=== PATIENT | female | born 1985 | race Caucasian/White ===

== ENCOUNTER 2021-09-23 19:29 | Inpatient (IN) | payer MEDICARE, MEDICAID, SELFPAY ==
--- NOTE | 2021-09-23 19:45 | ED.PSYCH ---
HPI - Psych General Chief Complaint: Psychiatric Symptoms Stated Complaint: Psych eval Time Seen by Provider: 09/23/21 19:42 Source: patient and family Mode of arrival: ambulatory Limitations: no limitations History of Present Illness HPI Narrative: S12 inpatient bed search from community MD complaint: other (not taking her medications, auditory hallucinations, refusing care) Onset (ago): unknown Duration: constant History of same: Yes Relieving factors: none Exacerbating factors: other (she is not taking her medications per mom) Context: not taking psychiatric medications Associated psychiatric symptoms: auditory hallucinations Associated symptoms: denies other symptoms Treatments prior to arrival: placed on mental health hold Related Data Allergies Allergy/AdvReac Type Severity Reaction Status Date / Time bupropion [From WELLBUTRIN] Allergy Unknown HIVES Unverified 03/25/20 18:59 Review of Systems Review of Systems: Constitutional : No Fever, No Chills ENT/Mouth : No Ear Pain, No Nasal Congestion, No sore throat Eyes: No Eye Pain, No Swelling, No Redness Cardiovascular : No Chest Pain, No SOB Respiratory : No Cough, No Sputum, No Dyspnea Gastrointestinal : No Nausea, No Vomiting, No Diarrhea, No Hematochezia, No Melena Genitourinary : No Dysuria, No Urinary Frequency, No Hematuria Musculoskeletal : No Myalgias Skin : No Skin Lesions, No rash Neuro : No Weakness, No Numbness, No Paresthesias, No Dizziness, No Headache Psych : positive Anxiety, no Depression, no SI/HI Heme/Lymph: No Lymphadenopathy Endocrine : No Polyuria, No Polydipsia All other systems reviewed and are negative [facility] Past Medical History Source: old records reviewed Medical History Borderline personality disorder Depression Thyroid disease Social History Social History (Updated 09/23/21 @ 20:22 by Teodora Merritt DO) Patient Tobacco Use Status: Never used Tobacco Substance Use Type: Marijuana Advance Directives: No Physical Exam Vital Signs: Vital Signs: Last Vital Signs Temp 98.3 F 09/23/21 19:55 Pulse 66 09/23/21 19:55 Resp 16 09/23/21 19:55 BP 132/76 09/23/21 19:55 Pulse Ox 99 09/23/21 19:55 BMI result Body Mass Index 34.7 Appearance: Alert. Oriented X3. No acute distress. Flat affect, withdrawn Eyes: Pupils equal, round and reactive to light. ENT: Pharynx normal. Neck: Normal inspection. Neck supple. CVS: Normal heart rate and rhythm. Pulses normal. Respiratory: No respiratory distress. Breath sounds normal. Abdomen: Soft and non-tender. Skin: Skin warm and dry. Normal skin color. Normal skin turgor. Extremities: No lower extremity edema. Neuro: Oriented X 3. No motor deficit. No sensory deficit. CN2-12 intact Course Course Course Narrative: Physician observation started at 836pm. Patient placed in physician observation because the patient needed more time for placement given inpatient bed search and section 12. At the time observation was started the patient's vitals were stable, patient is alert and oriented, Neuro: nonfocal, CV RRR, Lungs clear MDM - Psych MDM Narrative Medical decision making narrative: 36 yo female with a lot of the history from section 12 here as inpatient bed search - at this time will need labs, UA, drug screen, and full medical clearance Discharge Plan Discharge Clinical Impression: Depression Qualifiers: Depression Type: unspecified Qualified Code(s): F32.A - Depression, unspecified Patient Disposition: Still a Patient
[2021-09-23 19:55] VITALS: BP 132/76; PULSE 66; RESP 16; TEMP 36.8; O2SAT 99; BMI 34.7
[2021-09-23 20:45] LABS: MANUAL DIFF FLAG NO
[2021-09-23 20:47] LABS: Basophils Percent Auto 0.5 % (0-2); Eosinophils Percent Auto 0.1 % (0-4); Imm Gran Abs Auto 0.02 X10*3/uL (0.00-0.03); Imm Gran Pct Auto 0.3 % (0.0-0.4); Lymphocytes Absolute Auto 1.3 X10*3/uL (1.2-4.9); Lymphocytes Percent Auto 16.2 % (20-40); Mean Corpuscular HGB Conc 33.3 g/dl (31.0-35.0); Mean Corpuscular Hemoglobin 30.3 pg (27.0-33.0); Mean Corpuscular Volume 90.9 fL (80.0-98.0); Mean Platelet Volume 12.7 fL (9.4-12.3); Monocytes Absolute Auto 0.5 X10*3/uL (0.1-1.2); Monocytes Percent Auto 6.8 % (2-11); Neutrophils Percent Auto 76.1 % (45-73); Platelet Count 156 X10*3/uL (160-400); Red Blood Count 4.29 X10*6/uL (4.20-5.50); Red Cell Distribution Width 13.1 % (11.0-16.0); White Blood Count 7.9 X10*3/uL (4.8-10.8)
[2021-09-23 21:02] LABS: Alanine Aminotransferase 16 U/L (0-31); Albumin Level 4.2 g/dL (3.5-5.0); Alkaline Phosphatase 59 U/L (39-117); Anion Gap 13 (12-20); Aspartate Amino Transferase 11 U/L (5-31); Bilirubin Direct 0.3 mg/dL (0.0-0.5); Bilirubin Total 0.7 mg/dL (0.0-1.0); Blood Urea Nitrogen 7 mg/dL (9-16); COVID-19 Test Negative (Negative); Calcium 9.3 mg/dL (8.4-10.2); Carbon Dioxide 19 mmol/L (22-29); Chloride 110 mmol/L (96-108); Creatinine Clr Calc Pharmacy 119.2; Estimated Glomerular Filt Rate > 60; Glucose Random 119 mg/dL (60-115); Potassium 3.5 mmol/L (3.3-5.1); Sodium 138 mmol/L (135-145); Total Protein 6.5 g/dL (6.5-8.0)
[2021-09-23 21:08] LABS: UPreg QC Valid YES; Urine Pregnancy NEGATIVE (NEGATIVE)
[2021-09-23 21:20] LABS: Amphetamine Screen Urine Not Detected (Not Detect); Barbiturates, Urine Not Detected (Not Detect); Benzodiazepines Screen Urine Not Detected (Not Detect); Cannabinoid Screen Urine POSITIVE (Not Detect); Cocaine Screen Urine Not Detected (Not Detect); Fentanyl, urine Not Detected (Not Detect); Opiate Screen Urine Not Detected (Not Detect); Phencyclidine Screen Urine Not Detected (Not Detect)
[2021-09-23 21:22] LABS: Thyroid Stimulating Hormone 0.78 uIU/mL (0.32-4.0)
--- NOTE | 2021-09-24 05:38 | PC.NURSE ---
I assumed nursing care of Florencia upon her arrival to ED via EMS for evaluation of crisis. BHN present with pt on arrival and placed a Section 12 on the pt. pt's mother also present with her on arrival. the pt is reluctant to elaborate to me why her mom has sent her to the ED. She makes little eye contact with staff and denies feeling depressed, denies SI, denies HI. She states she takes psychiatric medicines daily and has been compliant with them and taking them according to prescription. She is calm, cooperative. She has been taking PO food and fluids in the ED and remains on constant observation. The pt and mom are aware that a bed search has been initiated for the pt and they verbalize an understanding of this. We will continue to monitor Altagracia.
[2021-09-24 07:43] VITALS: BP 128/60; PULSE 95; RESP 18; O2SAT 100
--- NOTE | 2021-09-24 10:18 | PHA.MEDREC ---
Pharmacy Consult ? Medication Reconciliation Pharmacy has completed the medication reconciliation. Patient reported medication matched claim history excpet for Ativan. Patient has not filled ativan since 2019. Neeta Lewis, DexterD
[2021-09-24 16:00] VITALS: BP 111/54; PULSE 89; RESP 14; TEMP 36.7; O2SAT 97
--- NOTE | 2021-09-24 18:34 | PC.NURSE ---
Attempted EKG, pt refused 183
--- NOTE | 2021-09-24 18:54 | PC.NURSE ---
Pt refusing transfer to M3. Charge nurse aware, attempting to contact care team to facilitate transfer.
[2021-09-24 21:38] VITALS: BP 118/71; PULSE 90; RESP 18; TEMP 36.6; O2SAT 99
[2021-09-24 21:39] VITALS: BMI 32.7
--- NOTE | 2021-09-25 06:34 | PC.ADMIT ---
36 year old female admitted from [facility] ED with signed CV, arrived onto the unit via wheelchair at 8:20pm with her mother who stayed for 10 minutes until patient was settled. Diagnosis:MDD, recurrent episode with psychotic features; Borderline Personality Disorder. Medical issues: Hypothyroidoism. Substance use: daily marijauna use. Patient aarived onto the unir calm, quiet, with flat blunted affect and limited ability to participate in Admission Assessment as every question asked patient responded in flat monotonous tone I am alright right now or not right now. Per Flavia Eval; Pat was Pt has been experiencing an increase in depressive symptoms Pt has been staying in a hotel f; per crisis eval pt's mother reports that she canr after discharge.s. At the time of admission assessment pt was. . Pt contracted for unit safety and agreed to seek out staff if needed. Provider notified of admission and orders obtained. Pt placed on 15 minute safety checks. No Outpatient Psychiatric Treatment Providers. Patient signed ROIs
--- NOTE | 2021-09-25 08:00 | PC.ADMIT ---
36 year old female admitted from [facility] ED with signed CV, arrived onto the unit via wheelchair at 8:20pm with her mother who stayed briefly until patient was settled on the unit. Diagnosis:MDD, recurrent episode with psychotic features; Borderline Personality Disorder. Medical issues: Hypothyroidism. Patient endorses daily marijuana use. Per Crisis Eval; Patient was homeless; had been living in a hotel, no longer able to afford and was escorted out of hotel by police earlier in day of [facility] Crisis Eval. Crisis was called by patient's gladys's daughter d/t patient's inability to care for herself,...talking to her voices all day, refusing to see a doctor and refusing evacuate from hotel. Per Crisis Eval family has concern for patient's well being and ability to care for herself. According to report, Patient denies SI/HI; although she has a history of it in the past as well as a history of previous psych admissions. Family reports the patient constantly talking to her voices, reporting she is talking to God, the information God is giving her about the future, and her past life, speaking vividly about being reincarnated. At time of Admission Assessment, patient was calm, withdrawn, with a flat blunted affect; disheveled in hospital attire, hair matted, variable eye contact from avoidant to blank stare at this [employer]. Limited ability to participate in Admission Assessment as patient would give flat monotone repetitive responses of I am alright right now or Not right now. Patient requesting not to have contact with gladys Awan at this time. Patient signed ROIs. No Outpatient Psychiatric Treatment providers. Pt placed on 15 minute safety checks.
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
[2021-09-25] MEDS: Haloperidol Lactate 5 MG/ML VIAL IM (09:07)
[2021-09-25] MEDS: diphenhydrAMINE HCL 50 MG/ML VIAL IM (09:08)
[2021-09-25] MEDS: LORazepam 2 MG/ML VIAL IM (09:08)
[2021-09-25 09:20] VITALS: BP 142/83; PULSE 117; RESP 18; TEMP 36.6; O2SAT 98
[2021-09-25] MEDS: DULoxetine HCl 30 MG CAPSULE.DR 90 MG PO (09:26)
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
[2021-09-25 15:01] LABS: Alanine Aminotransferase 19 U/L (0-31); Albumin Level 4.5 g/dL (3.5-5.0); Alkaline Phosphatase 65 U/L (39-117); Anion Gap 15 (12-20); Aspartate Amino Transferase 16 U/L (5-31); Bilirubin Direct 0.7 mg/dL (0.0-0.5); Bilirubin Total 1.5 mg/dL (0.0-1.0); Blood Urea Nitrogen 9 mg/dL (9-16); Calcium 9.8 mg/dL (8.4-10.2); Carbon Dioxide 18 mmol/L (22-29); Chloride 112 mmol/L (96-108); Cholesterol 142 mg/dL; Creatinine Clr Calc Pharmacy 102.3; Estimated Glomerular Filt Rate > 60; Glucose Fasting 93 mg/dL (60-99); HDL Cholesterol 30 mg/dL; LDL Cholesterol Calculated 97 mg/dl; Potassium 3.5 mmol/L (3.3-5.1); Sodium 141 mmol/L (135-145); Triglycerides 78 mg/dL
[2021-09-25 18:00] VITALS: BP 130/60; PULSE 103; RESP 116; TEMP 36.3; O2SAT 97
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
[2021-09-25] MEDS: Montelukast Sodium 10 MG TABLET PO (18:53)
[2021-09-25] MEDS: Cholecalciferol (Vitamin D3) 25 MCG TABLET 50 MCG PO (18:53)
[2021-09-25] MEDS: Prazosin HCL 1 MG CAPSULE 2 MG PO (20:41)
[2021-09-25] MEDS: Sennosides 8.6 MG TABLET 17.6 MG PO (20:42)
[2021-09-25] MEDS: traZODone HCL 100 MG TABLET PO (20:42)
[2021-09-26 06:00] VITALS: BP 121/56; PULSE 83; RESP 16; TEMP 36.6; O2SAT 98
[2021-09-26] MEDS: DULoxetine HCl 30 MG CAPSULE.DR 90 MG PO (09:49)
[2021-09-26] MEDS: Levothyroxine Sodium 50 MCG TABLET PO (09:50)
--- NOTE | 2021-09-26 13:11 | HO.PSYCHPN ---
Subjective Subjective Date of Service: 09/26/21 Reason For Visit: Psych eval Interim History: pt found resting in bed late morning, amenable to come to interview room. fairly inert. states she is feeling fine. declines to take neuroleptics, citing as the reason, i don't need them. provides some education re psychotic Sx and the use of neuroleptics to treat them, but pt is not interested. she is fine to continue on the other medications in her regimen. per staff, pt arived sunday. MDD with psychotic Fx Dx, as well as BPD. has recently completed a medication wash-out with her prescriber and has started to become psychotic again. pt had an episode of severe agitation sunday morning where she was punching the wall and glass surfaces. she was briefly restrained and medicated and has been in behavioral control since. +AH, talking to god, focused on reincarnation. slept after 11 pm, med-compliant. Mental Status Exam Mental Status Exam Narrative: calm, cooperative. disheveled, with matted hair. PMR. poor eye contact. speech non-spontaneous. terse, flat, normal loudness. thoughts linear, concrete, sparse. affect blunted. mood euthymic, not consistent with context. no SI/HI/AVH expressed. Diagnostics Vital Signs (24Hr): Vital Signs - 24 hr 09/25/21 18:00 09/26/21 06:00 Temperature 97.4 F 97.8 F Pulse Rate 103 H 83 Respiratory Rate 116 H 16 Blood Pressure 130/60 121/56 L Pulse Oximetry 97 98 BMI result Body Mass Index 32.7 Labs Results: 09/23/21 20:41 09/25/21 14:34 Labs: Laboratory Results - last 48 hr 09/25/21 14:34 Sodium 141 Potassium 3.5 Chloride 112 H Carbon Dioxide 18 L Anion Gap 15 BUN 9 Creatinine 0.95 Estim Creat Clear Calc 102.3 Estimated GFR > 60 Fasting Glucose 93 Calcium 9.8 Total Bilirubin 1.5 H Direct Bilirubin 0.7 H AST 16 D ALT 19 Alkaline Phosphatase 65 Total Protein 7.0 Albumin 4.5 Triglycerides 78 Cholesterol 142 LDL Cholesterol, Calc 97 HDL Cholesterol 30 Medications Medications Current Medications Acetaminophen (Acetaminophen 325 Mg Tablet) 650 mg PO Q6H PRN PRN Reason: Headache/Pain Mild Scale (1-3) Al Hydroxide/Mg Hydroxide (Magnesium Hydrox/Alum Hydrox 30 Ml Oral.Susp) 30 ml PO Q6H PRN PRN Reason: Heartburn/Nausea Duloxetine HCl (Duloxetine Hcl 30 Mg Capsule.Dr) 90 mg PO DAILY [facility] Last Admin: 09/26/21 09:49 Dose: 90 mg Documented by: Hydroxyzine HCl (Hydroxyzine Hcl 25 Mg Tablet) 25 mg PO BEDTIME PRN PRN Reason: Anxiety Levothyroxine Sodium (Levothyroxine Sodium 50 Mcg Tablet) 50 mcg PO DAILY@0600 [facility] Last Admin: 09/26/21 09:50 Dose: 50 mcg Documented by: Magnesium Hydroxide (Milk Of Magnesia 30 Ml Oral.Susp) 30 ml PO DAILY PRN PRN Reason: Constipation Montelukast Sodium (Montelukast Sodium 10 Mg Tablet) 10 mg PO DAILY@1800 [facility] Last Admin: 09/25/21 18:53 Dose: 10 mg Documented by: Pharmacy Consult (Consult Rx Perform Med Rec) 1 each MISCELLANE ONCE PRN PRN Reason: Consult order Prazosin HCl (Prazosin Hcl 1 Mg Capsule) 2 mg PO BEDTIME [facility]; Protocol Last Admin: 09/25/21 22:05 Dose: Not Given Documented by: Senna (Sennosides 8.6 Mg Tablet) 17.6 mg PO BEDTIME [facility] Last Admin: 09/25/21 22:06 Dose: Not Given Documented by: Trazodone HCl (Trazodone Hcl 100 Mg Tablet) 100 mg PO BEDTIME [facility] Last Admin: 09/25/21 22:06 Dose: Not Given Documented by: Vitamin D (Cholecalciferol (Vitamin D3) 25 Mcg Tablet) 50 mcg PO DAILY@1800 [facility] Last Admin: 09/25/21 18:53 Dose: 50 mcg Documented by: Allergies Allergies Allergy/AdvReac Type Severity Reaction Status Date / Time bupropion [From WELLBUTRIN] Allergy Unknown HIVES Unverified 03/25/20 18:59 Assessment & Plan Assessment & Plan (1) Severe recurrent major depression w/psychotic features, mood-congruent: Status: Acute Code(s): F33.3 - Major depressive disorder, recurrent, severe with psychotic symptoms Plan Altagracia was admitted for inability to take care of herself and issues of safety. Recent medications were reviewed, verified and continued as mentioned in HPI. Admission workup to be done and current labs were reviewed. per apolinar's, pt is prescribed perphenazine 6 mg BID, will order for here. pt currently declining anti-psychotics, however. appears quite depressed/psychomotorically retarded. I spent __25____ minutes with the patient and/or on the patient floor today, greater than?50% of which was spent counseling/coordinating care. Reason for contiued inpatient stay Substantial Risk for: inability to function and rapid decompensation
--- NOTE | 2021-09-26 15:34 | MHC.CLN ---
NUTRITION DIET=REGULAR, GLUTEN-FREE. PATIENT DID NOT OFFER REASON FOR FOLLOWING GLUTEN FREE DIET. NO MEDICAL DX TO SUPPORT DIET. EXPLAINED GLUTEN-FREE OPTIONS OFFERED AT HOSPITAL. PATIENT STATED THAT ABLE TO MAKE OWN GLUTEN-FREE CHOICES.
[2021-09-26 18:00] VITALS: BP 129/60; PULSE 83; RESP 18; TEMP 36.3; O2SAT 97
[2021-09-26] MEDS: Cholecalciferol (Vitamin D3) 25 MCG TABLET 50 MCG PO (18:30)
[2021-09-26] MEDS: Montelukast Sodium 10 MG TABLET PO (18:31)
[2021-09-26] MEDS: Prazosin HCL 1 MG CAPSULE 2 MG PO (20:30)
[2021-09-26] MEDS: Sennosides 8.6 MG TABLET 17.6 MG PO (20:30)
[2021-09-26] MEDS: traZODone HCL 100 MG TABLET PO (20:30)
[2021-09-27] MEDS: Levothyroxine Sodium 50 MCG TABLET PO (08:08)
[2021-09-27] MEDS: DULoxetine HCl 30 MG CAPSULE.DR 90 MG PO (08:08)
[2021-09-27 08:12] VITALS: BP 122/59; PULSE 78; RESP 16; TEMP 36.6; O2SAT 98
--- NOTE | 2021-09-27 17:03 | HO.PSYCHPN ---
Subjective Subjective Date of Service: 09/27/21 Reason For Visit: Psych eval Interim History: states she does not need perphenazine. not sure how we can help her here. suggests if she does not wish to be here she should begin a housing search. she presents as amotivated with paucity of thought. per staff, slept 8 hours. isolative. had a few visitors. attended group. visible, eating, med-compliant aside from perphenazine. Mental Status Exam Mental Status Exam Narrative: calm, cooperative. disheveled, with matted hair. PMR, amotivated, avolitional. poor eye contact. speech non-spontaneous. terse, flat, normal loudness. thoughts linear, concrete, sparse. affect blunted. mood euthymic, not consistent with context. no SI/HI/AVH expressed. Diagnostics Vital Signs (24Hr): Vital Signs - 24 hr 09/26/21 18:00 09/27/21 08:12 Temperature 97.3 F 97.8 F Pulse Rate 83 78 Respiratory Rate 18 16 Blood Pressure 129/60 122/59 L Pulse Oximetry 97 98 BMI result Body Mass Index 32.7 Labs Results: 09/23/21 20:41 09/25/21 14:34 Medications Medications Current Medications Acetaminophen (Acetaminophen 325 Mg Tablet) 650 mg PO Q6H PRN PRN Reason: Headache/Pain Mild Scale (1-3) Al Hydroxide/Mg Hydroxide (Magnesium Hydrox/Alum Hydrox 30 Ml Oral.Susp) 30 ml PO Q6H PRN PRN Reason: Heartburn/Nausea Duloxetine HCl (Duloxetine Hcl 30 Mg Capsule.) 90 mg PO DAILY [facility] Last Admin: 09/27/21 08:08 Dose: 90 mg Documented by: Hydroxyzine HCl (Hydroxyzine Hcl 25 Mg Tablet) 25 mg PO BEDTIME PRN PRN Reason: Anxiety Levothyroxine Sodium (Levothyroxine Sodium 50 Mcg Tablet) 50 mcg PO DAILY@0600 [facility] Last Admin: 09/27/21 08:08 Dose: 50 mcg Documented by: Magnesium Hydroxide (Milk Of Magnesia 30 Ml Oral.Susp) 30 ml PO DAILY PRN PRN Reason: Constipation Montelukast Sodium (Montelukast Sodium 10 Mg Tablet) 10 mg PO DAILY@1800 [facility] Last Admin: 09/26/21 18:31 Dose: 10 mg Documented by: Perphenazine (Perphenazine 2 Mg Tablet) 6 mg PO BID [facility] Last Admin: 09/27/21 08:08 Dose: Not Given Documented by: Pharmacy Consult (Consult Rx Perform Med Rec) 1 each MISCELLANE ONCE PRN PRN Reason: Consult order Prazosin HCl (Prazosin Hcl 1 Mg Capsule) 2 mg PO BEDTIME [facility]; Protocol Last Admin: 09/26/21 20:30 Dose: 2 mg Documented by: Senna (Sennosides 8.6 Mg Tablet) 17.6 mg PO BEDTIME [facility] Last Admin: 09/26/21 20:30 Dose: 17.6 mg Documented by: Trazodone HCl (Trazodone Hcl 100 Mg Tablet) 100 mg PO BEDTIME [facility] Last Admin: 09/26/21 20:30 Dose: 100 mg Documented by: Vitamin D (Cholecalciferol (Vitamin D3) 25 Mcg Tablet) 50 mcg PO DAILY@1800 [facility] Last Admin: 09/26/21 18:30 Dose: 50 mcg Documented by: Allergies Allergies Allergy/AdvReac Type Severity Reaction Status Date / Time bupropion [From WELLBUTRIN] Allergy Unknown HIVES Unverified 03/25/20 18:59 Assessment & Plan Assessment & Plan (1) Severe recurrent major depression w/psychotic features, mood-congruent: Status: Acute Code(s): F33.3 - Major depressive disorder, recurrent, severe with psychotic symptoms Plan Altagracia was admitted for inability to take care of herself and issues of safety. Recent medications were reviewed, verified and continued as mentioned in HPI. Admission workup to be done and current labs were reviewed. per apolinar's, pt is prescribed perphenazine 6 mg BID, will order for here. decrease dose of perphenazine to 2 mg BID as of 09/27 as pt is not inclied to take the 6 mg BID. pt currently declining anti-psychotics, however. appears quite depressed/psychomotorically retarded. I spent ___25___ minutes with the patient and/or on the patient floor today, greater than?50% of which was spent counseling/coordinating care. Reason for contiued inpatient stay Substantial Risk for: harm to self, inability to function and rapid decompensation
[2021-09-27] MEDS: Cholecalciferol (Vitamin D3) 25 MCG TABLET 50 MCG PO (18:09)
[2021-09-27] MEDS: Montelukast Sodium 10 MG TABLET PO (18:09)
[2021-09-27] MEDS: Sennosides 8.6 MG TABLET 17.6 MG PO (21:18)
[2021-09-27] MEDS: traZODone HCL 100 MG TABLET PO (21:18)
[2021-09-27] MEDS: Prazosin HCL 1 MG CAPSULE 2 MG PO (21:18)
[2021-09-27 21:23] VITALS: BP 124/71; PULSE 78; TEMP 37; O2SAT 100
[2021-09-28 06:00] VITALS: BP 117/55; PULSE 80; RESP 16; TEMP 36.6; O2SAT 80
[2021-09-28] MEDS: DULoxetine HCl 30 MG CAPSULE.DR 90 MG PO (08:08)
[2021-09-28] MEDS: Levothyroxine Sodium 50 MCG TABLET PO (08:08)
--- NOTE | 2021-09-28 14:21 | P.PNPSI_ITS ---
Subjective Subjective Date of Service: 09/28/21 Reason For Visit: Psych eval Interim History: pt remains with PMR, decreased eye blink. states she called her fiancee and ike will take her back. informs her he will check in with SW on the plan. no complaints or requests, states her mood is euthymic and denies any SI/AVH. per staff, no dep/anx. slept OK. appetite good. denies SI/HI/AVH. isolative, feeling safe. guarded, paranoid. attend art group, refusing trilafon. per collateral from mother, this is far from her baseline. Mental Status Exam Mental Status Exam Narrative: calm, cooperative. disheveled, with matted hair. PMR, amotivated, avolitional. excessive eye contact, decreased eye blink. speech non-spontaneous. terse, flat, normal loudness. thoughts linear, concrete, sparse. affect blunted. mood euthymic, not consistent with context. no SI/AVH. Diagnostics Vital Signs (24Hr): Vital Signs - 24 hr 09/27/21 21:23 09/28/21 06:00 Temperature 98.6 F 97.9 F Pulse Rate 78 80 Respiratory Rate 16 Blood Pressure 124/71 117/55 L Pulse Oximetry 100 80 L BMI result Body Mass Index 32.7 Labs Results: 09/23/21 20:41 09/25/21 14:34 Medications Medications Current Medications Acetaminophen (Acetaminophen 325 Mg Tablet) 650 mg PO Q6H PRN PRN Reason: Headache/Pain Mild Scale (1-3) Al Hydroxide/Mg Hydroxide (Magnesium Hydrox/Alum Hydrox 30 Ml Oral.Susp) 30 ml PO Q6H PRN PRN Reason: Heartburn/Nausea Duloxetine HCl (Duloxetine Hcl 30 Mg Capsule.Dr) 90 mg PO DAILY [facility] Last Admin: 09/28/21 08:08 Dose: 90 mg Documented by: Hydroxyzine HCl (Hydroxyzine Hcl 25 Mg Tablet) 25 mg PO BEDTIME PRN PRN Reason: Anxiety Levothyroxine Sodium (Levothyroxine Sodium 50 Mcg Tablet) 50 mcg PO DAILY@0600 [facility] Last Admin: 09/28/21 08:08 Dose: 50 mcg Documented by: Magnesium Hydroxide (Milk Of Magnesia 30 Ml Oral.Susp) 30 ml PO DAILY PRN PRN Reason: Constipation Montelukast Sodium (Montelukast Sodium 10 Mg Tablet) 10 mg PO DAILY@1800 [facility] Last Admin: 09/27/21 18:09 Dose: 10 mg Documented by: Perphenazine (Perphenazine 2 Mg Tablet) 6 mg PO BID [facility] Last Admin: 09/28/21 08:10 Dose: Not Given Documented by: Pharmacy Consult (Consult Rx Perform Med Rec) 1 each MISCELLANE ONCE PRN PRN Reason: Consult order Prazosin HCl (Prazosin Hcl 1 Mg Capsule) 2 mg PO BEDTIME [facility]; Protocol Last Admin: 09/27/21 21:18 Dose: 2 mg Documented by: Senna (Sennosides 8.6 Mg Tablet) 17.6 mg PO BEDTIME [facility] Last Admin: 09/27/21 21:18 Dose: 17.6 mg Documented by: Trazodone HCl (Trazodone Hcl 100 Mg Tablet) 100 mg PO BEDTIME [facility] Last Admin: 09/27/21 21:18 Dose: 100 mg Documented by: Vitamin D (Cholecalciferol (Vitamin D3) 25 Mcg Tablet) 50 mcg PO DAILY@1800 [facility] Last Admin: 09/27/21 18:09 Dose: 50 mcg Documented by: Allergies Allergies Allergy/AdvReac Type Severity Reaction Status Date / Time bupropion [From WELLBUTRIN] Allergy Unknown HIVES Unverified 03/25/20 18:59 Assessment & Plan Assessment & Plan (1) Severe recurrent major depression w/psychotic features, mood-congruent: Status: Acute Code(s): F33.3 - Major depressive disorder, recurrent, severe with psychotic symptoms Plan Altagracia was admitted for inability to take care of herself and issues of safety. Recent medications were reviewed, verified and continued as mentioned in HPI. Admission workup to be done and current labs were reviewed. per apolinar's, pt is prescribed perphenazine 6 mg BID, will order for here. decrease dose of perphenazine to 2 mg BID as of 09/27 as pt is not inclied to take the 6 mg BID. pt currently declining anti-psychotics, however. appears quite depressed/psychomotorically retarded. 3-day entered 09/28. I spent ___20___ minutes with the patient and/or on the patient floor today, greater than?50% of which was spent counseling/coordinating care. Reason for contiued inpatient stay Substantial Risk for: inability to function
[2021-09-28] MEDS: Cholecalciferol (Vitamin D3) 25 MCG TABLET 50 MCG PO (18:07)
[2021-09-28] MEDS: Montelukast Sodium 10 MG TABLET PO (18:07)
[2021-09-28 20:25] VITALS: BP 132/65; PULSE 84; TEMP 36.5; O2SAT 99
[2021-09-28] MEDS: Prazosin HCL 1 MG CAPSULE 2 MG PO (20:32)
[2021-09-28] MEDS: traZODone HCL 100 MG TABLET PO (20:32)
[2021-09-28] MEDS: LORazepam 1 MG TABLET PO (21:02)
[2021-09-29] MEDS: LORazepam 1 MG TABLET PO (00:39)
[2021-09-29] MEDS: traZODone HCL 100 MG TABLET PO ×2 (00:39→20:57)
--- NOTE | 2021-09-29 02:32 | PC.NURSE ---
retracted 3 day notice. retraction came after verbalizing wanting to leave the hospital. patient was challenged by this specification writer as to where she would stay and what supports would be in place. pt was stating that no one understood her or what was happening in her life. she was also focused on diet and food identifying herself as someone who had struggles with food and that her needs were not being met, this was the same as earlier in the shift and stating that no one could help her despite telling t/w that she had had a least 2 visitors tearful, tense, wringing of her hands. ''I feel unsafe in this building'' given additional doses of trazodone 100mg and ativan 1mg at 0039 and requested to sleep in a side room.
[2021-09-29 08:00] VITALS: BP 116/60; PULSE 88; RESP 16; TEMP 36.4; O2SAT 97
[2021-09-29] MEDS: Levothyroxine Sodium 50 MCG TABLET PO (08:39)
[2021-09-29] MEDS: DULoxetine HCl 30 MG CAPSULE.DR 90 MG PO (08:39)
--- NOTE | 2021-09-29 13:55 | P.PNPSI_ITS ---
Subjective Subjective Date of Service: 09/29/21 Reason For Visit: Psych eval Interim History: pt calm and cooperative. interested in leaving tomorrow. feeling calm and relaxed. denies SI/HI/AVH. would like to discharge to the care of her fiancee tomorrow, which is apparently something her fiancee is in agreement with. review last evenings events, pt acknowledges she was feeling uncomfortable but states it had to do with her being here. she feels if she is at home with familiar surroundings she will fare better. per staff, pt submitted and then revoked her 3-day notice. she was present for groups but unable to participate appropriately refused trilafon. fady was tense and crying, asking for PRNs. got ativan and trazodone PRNs and slept from 1-6. first child in space, you don't know what happened to me here. Mental Status Exam Mental Status Exam Narrative: calm, cooperative. disheveled, with matted hair. PMR, amotivated, avolitional. nml eye contact, decreased eye blink. speech non-spontaneous. terse, flat, normal loudness. thoughts linear, concrete, sparse. affect blunted. mood calm and relaxed, no SI/HI/AVH. Diagnostics Vital Signs (24Hr): Vital Signs - 24 hr 09/28/21 20:25 09/29/21 08:00 Temperature 97.7 F 97.5 F Pulse Rate 84 88 Respiratory Rate 16 Blood Pressure 132/65 116/60 Pulse Oximetry 99 97 BMI result Body Mass Index 32.7 Labs Results: 09/23/21 20:41 09/25/21 14:34 Medications Medications Current Medications Acetaminophen (Acetaminophen 325 Mg Tablet) 650 mg PO Q6H PRN PRN Reason: Headache/Pain Mild Scale (1-3) Al Hydroxide/Mg Hydroxide (Magnesium Hydrox/Alum Hydrox 30 Ml Oral.Susp) 30 ml PO Q6H PRN PRN Reason: Heartburn/Nausea Duloxetine HCl (Duloxetine Hcl 30 Mg Capsule.) 90 mg PO DAILY [facility] Last Admin: 09/29/21 08:39 Dose: 90 mg Documented by: Hydroxyzine HCl (Hydroxyzine Hcl 25 Mg Tablet) 25 mg PO BEDTIME PRN PRN Reason: Anxiety Levothyroxine Sodium (Levothyroxine Sodium 50 Mcg Tablet) 50 mcg PO DAILY@0600 [facility] Last Admin: 09/29/21 08:39 Dose: 50 mcg Documented by: Magnesium Hydroxide (Milk Of Magnesia 30 Ml Oral.Susp) 30 ml PO DAILY PRN PRN Reason: Constipation Montelukast Sodium (Montelukast Sodium 10 Mg Tablet) 10 mg PO DAILY@1800 [facility] Last Admin: 09/28/21 18:07 Dose: 10 mg Documented by: Perphenazine (Perphenazine 2 Mg Tablet) 6 mg PO BID [facility] Last Admin: 09/29/21 10:08 Dose: Not Given Documented by: Pharmacy Consult (Consult Rx Perform Med Rec) 1 each MISCELLANE ONCE PRN PRN Reason: Consult order Prazosin HCl (Prazosin Hcl 1 Mg Capsule) 2 mg PO BEDTIME [facility]; Protocol Last Admin: 09/28/21 20:32 Dose: 2 mg Documented by: Senna (Sennosides 8.6 Mg Tablet) 17.6 mg PO BEDTIME [facility] Last Admin: 09/28/21 20:33 Dose: Not Given Documented by: Trazodone HCl (Trazodone Hcl 100 Mg Tablet) 100 mg PO BEDTIME [facility] Last Admin: 09/28/21 20:32 Dose: 100 mg Documented by: Vitamin D (Cholecalciferol (Vitamin D3) 25 Mcg Tablet) 50 mcg PO DAILY@1800 [facility] Last Admin: 09/28/21 18:07 Dose: 50 mcg Documented by: Allergies Allergies Allergy/AdvReac Type Severity Reaction Status Date / Time bupropion [From WELLBUTRIN] Allergy Unknown HIVES Unverified 03/25/20 18:59 Assessment & Plan Assessment & Plan (1) Severe recurrent major depression w/psychotic features, mood-congruent: Status: Acute Code(s): F33.3 - Major depressive disorder, recurrent, severe with psychotic symptoms Plan Altagracia was admitted for inability to take care of herself and issues of safety. Recent medications were reviewed, verified and continued as mentioned in HPI. Admission workup to be done and current labs were reviewed. per apolinar's, pt is prescribed perphenazine 6 mg BID, will order for here. decrease dose of perphenazine to 2 mg BID as of 09/27 as pt is not inclied to take the 6 mg BID. pt currently declining anti-psychotics, however. appears quite depressed/psychomotorically retarded. 3-day entered 09/28, rescinded same day. discharge 09/30 to care of ike. I spent ___25___ minutes with the patient and/or on the patient floor today, greater than?50% of which was spent counseling/coordinating care. Reason for contiued inpatient stay Substantial Risk for: inability to function and rapid decompensation
[2021-09-29 18:00] VITALS: BP 143/82; PULSE 98; RESP 16; TEMP 36.7; O2SAT 99
[2021-09-29] MEDS: Montelukast Sodium 10 MG TABLET PO (18:00)
[2021-09-29] MEDS: Cholecalciferol (Vitamin D3) 25 MCG TABLET 50 MCG PO (18:00)
[2021-09-29] MEDS: Sennosides 8.6 MG TABLET 17.6 MG PO (20:56)
[2021-09-29] MEDS: Prazosin HCL 1 MG CAPSULE 2 MG PO (20:56)
[2021-09-30] MEDS: DULoxetine HCl 30 MG CAPSULE.DR 90 MG PO (09:25)
[2021-09-30] MEDS: Levothyroxine Sodium 50 MCG TABLET PO (09:25)
[2021-09-30 09:31] VITALS: BP 120/65; PULSE 102; RESP 18; TEMP 36.3; O2SAT 99
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
--- NOTE | 2021-09-30 13:09 | PC.NURSE ---
Patient is pleasant and cooperative with discharge. Patient was in agreement with discharge and discharge instructions. Patient denied SI/HI/AH/VH. Patient denied anxiety and/or depression. Patient reported feeling safe to go home. Patient denies physical complaints at this time.
== END 2021-09-30 15:25 | disposition home or self-care (01) | DRG 885 ==
LOC: HO.ED 20:26 → HO.PADLT16 09-24 18:16
PROVIDERS: Psychiatry & Neurology Psychiatry; Admitting Provider Psychiatry & Neurology Psychiatry; Emergency Provider Emergency Medicine; PCP Family Medicine; Visit Provider Psychiatry & Neurology Psychiatry
DX: F33.3 Major depressive disorder, recurrent, severe with psychotic symptoms (principal); M79.7 Fibromyalgia; E06.3 Autoimmune thyroiditis; F60.3 Borderline personality disorder; Z20.822 Contact with and (suspected) exposure to COVID-19; Z91.14 Patient's other noncompliance with medication regimen; Z79.1 Long term (current) use of non-steroidal anti-inflammatories (NSAID); Z87.891 Personal history of nicotine dependence; Z79.890 Hormone replacement therapy; Z79.899 Other long term (current) drug therapy
CPT/HCPCS: 36415; 80048; 80053; 80061; 80076; 80307; 81025; 84443; 85025; 87635; 99285; J1200; J2060

== ENCOUNTER 2021-10-06 20:41 | Inpatient (IN) | payer MEDICARE, MEDICAID, SELFPAY ==
[2021-10-06 20:47] VITALS: BP 154/86; PULSE 110; RESP 20; TEMP 36.5; O2SAT 99; BMI 32.3
[2021-10-06 21:23] LABS: COVID-19 Test Negative (Negative)
--- NOTE | 2021-10-06 21:27 | ED_ITS ---
HPI - Psych General Chief Complaint: Psychiatric Symptoms Stated Complaint: SI with psychosis Time Seen by Provider: 10/06/21 21:26 Source: patient Mode of arrival: ambulatory Limitations: no limitations History of Present Illness HPI Narrative: This is a 36-year-old female past medical history significant for severe recurrent major depression with psychotic features presenting to the emergency department by ambulance. Patient tells me ?they had me come here ?. Patient refusing to answer any questions. When I ask her where she is coming from she says a house. And tells me she does not want talk to me. She denies visual, auditory and tactile hallucinations. She denies drugs, alcohol and tobacco. She tells me she is taking her meds appropriately. Denies SI and HI. However, nurse did speak to patient's mother who tells us that patient was recently discharged from here and she has not been taking her medications as prescribed. Mom also tells us that patient made suicidal comments at telling mom that she did want to be alive anymore. was discharged from 3 on Sunday. It appears as though patient lives at home with her mother. She appears to be manic and paranoid. Denies medical complaints at this time MD complaint: other (Acute brie, paranoia.) Onset (ago): day(s) (1) Duration: constant History of same: Yes Relieving factors: none Exacerbating factors: none Associated psychiatric symptoms: none Associated symptoms: denies other symptoms Treatments prior to arrival: none Related Data Home Medications Medication Instructions Recorded Confirmed rddqetxmzt-pwnnvghqyaayr-dziskzsu 1 - 2 tab PO Q6H PRN 09/24/21 10/06/21 50 mg-325 mg-40 mg tablet cholecalciferol (vitamin D3) 50 50 mcg PO DAILY@1800 09/24/21 10/06/21 mcg (2,000 unit) tablet duloxetine 30 mg capsule,delayed 90 mg PO DAILY 09/24/21 10/06/21 release levothyroxine 50 mcg tablet 50 mcg PO DAILY@0600 09/24/21 10/06/21 magnesium oxide 400 mg (241.3 mg 400 mg PO DAILY@1800 09/24/21 10/06/21 magnesium) tablet meloxicam 15 mg tablet 15 mg PO DAILY 09/24/21 10/06/21 montelukast 10 mg tablet 10 mg PO DAILY@1800 09/24/21 10/06/21 prazosin 2 mg capsule 2 mg PO BEDTIME 09/24/21 10/06/21 sennosides 8.6 mg tablet (senna) 17.6 mg PO BEDTIME 09/24/21 10/06/21 topiramate 100 mg tablet 100 mg PO BID 09/24/21 10/06/21 trazodone 100 mg tablet 100 mg PO BEDTIME 09/24/21 10/06/21 Previous Rx's Medication Instructions Recorded perphenazine 2 mg tablet 2 mg PO BID 30 Days #60 tab 09/30/21 Allergies Allergy/AdvReac Type Severity Reaction Status Date / Time bupropion [From WELLBUTRIN] Allergy Unknown HIVES Verified 10/06/21 22:48 pregabalin [From Lyrica] AdvReac Swelling Verified 10/06/21 22:49 Review of Systems Review of Systems: Constitutional : No Fever, No Chills ENT/Mouth : No Ear Pain, No Nasal Congestion, No sore throat Eyes: No Eye Pain, No Swelling, No Redness Cardiovascular : No Chest Pain, No SOB Respiratory : No Cough, No Sputum, No Dyspnea Gastrointestinal : No Nausea, No Vomiting, No Diarrhea, No Hematochezia, No Melena Genitourinary : No Dysuria, No Urinary Frequency, No Hematuria Musculoskeletal : No Myalgias Skin : No Skin Lesions, No rash Neuro : No Weakness, No Numbness, No Paresthesias, No Dizziness, No Headache Psych : positive Anxiety, No Depression, No SI/HI Heme/Lymph: No Lymphadenopathy Endocrine : No Polyuria, No Polydipsia All other systems reviewed and are negative Yes all other systems are reviewed and are negative [facility] Past Medical History Attestation statement: The following information was validated with the patient. Source: old records reviewed and nursing notes reviewed Medical History Borderline personality disorder Depression Thyroid disease Social History Social History (Updated 09/23/21 @ 20:22 by Teodora Merritt DO) Household Members: None Housing: Homeless Do you presently have visiting nurse or other home services: No Unable to assess alcohol history related to: Refusing to respond Patient Tobacco Use Status: Former Tobacco user Tobacco use type: Cigarette Substance Use Type: Marijuana Advance Directives: No Advance Directives Information Provided: No Patient : No service: No Sexual orientation: Did not discuss Physical Exam Vital Signs: Vital Signs: Last Vital Signs Temp 97.7 F 10/06/21 20:47 Pulse 107 H 10/06/21 22:40 Resp 18 10/06/21 22:40 BP 158/79 H 10/06/21 22:40 Pulse Ox 99 10/06/21 22:40 BMI result Body Mass Index 32.3 Vital signs stable. Appearance: Alert.? Oriented X3.? No acute distress.? Head: Normocephalic, atraumatic, no step-offs or deformities Eyes: Pupils equal, round and reactive to light.? ENT: Pharynx normal.? Neck: Normal inspection.? Neck supple.? CVS: Normal heart rate and rhythm.? Pulses normal.? Respiratory: No respiratory distress.? Breath sounds normal.? Abdomen: Soft and nontender.? Skin: Skin warm and dry.? Normal skin color.? Normal skin turgor.? Extremities: No lower extremity edema.? No calf ttp. 5/5 strength to bilateral upper and lower extremities Back: No midline tenderness, no C-spine tenderness, full range of motion, no CVA tenderness bilaterally Neuro: Oriented X 3.? No motor deficit.? No sensory deficit. CN 2-12 intact Course Reevaluation(s) Reevaluation #1: CBC within normal limits. No acute electrolyte abnormalities. UA clean no infection. negative. Drugs of abuse screening positive for marijuana. COVID negative. Patient, cooperative no acute distress. At this time will be placed in physician observation to allow more time to be evaluated by the behavioral health team. The time observation was started patient, co operative no acute distress. Will continue to monitor. Time: 00:19 MDM - Psych MDM Narrative Medical decision making narrative: 2100 36 yo f presentws w/ brie and paranoia. Not taking medications. Denies SI and HI however mother who patient lives with states that patient made suicidal comments at home. Patient was brought in by ambulance. Not cooperating with history taking. It appears as though patient was discharged on 09/30/2021 with a diagnosis of severe recurrent major depression with psychotic features, mood congruent. Patient was started on perphenazine 2 mg tablet which is well mother reports patient is not taking. Physical examination significant for tangential conversation. Plan medical clearance Medical Records Attestation: I reviewed the patient's medical records. Lab Data Attestation: I reviewed the patient's lab results. Result diagrams: 10/06/21 22:48 10/06/21 22:48 Labs: Lab Results 10/06/21 10/06/21 10/06/21 Range/Units 21:00 22:48 22:48 WBC (4.8-10.8) X10*3/uL RBC (4.20-5.50) X10*6/uL Hgb (12.0-16.0) g/dl Hct (37.0-47.0) % MCV (80.0-98.0) fL MCH (27.0-33.0) pg MCHC (31.0-35.0) g/dl RDW (11.0-16.0) % Plt Count (160-400) X10*3/uL MPV (9.4-12.3) fL Immature Gran % (Auto) (0.0-0.4) % Neut % (Auto) (45-73) % Lymph % (Auto) (20-40) % [place] % (Auto) (2-11) % Eos % (Auto) (0-4) % Baso % (Auto) (0-2) % Lymph # (Auto) (1.2-4.9) X10*3/uL [place] # (Auto) (0.1-1.2) X10*3/uL Eos # (Auto) (0.0-0.4) X10*3/uL Baso # (Auto) (0.0-0.2) X10*3/uL Abs Immat Gran (auto) (0.00-0.03) X10*3/uL Absolute Neuts (auto) (2.0-8.3) x10*3/uL Absolute Nucleated RBC (0.0-0.012) X10*3/uL Nucleated RBC % (auto) (0.0-0.2) /100WBC Sodium (135-145) mmol/L Potassium (3.3-5.1) mmol/L Chloride (96-108) mmol/L Carbon Dioxide (22-29) mmol/L Anion Gap (12-20) BUN (9-16) mg/dL Creatinine (0.5-1.4) mg/dL Estim Creat Clear Calc Estimated GFR Random Glucose (60-115) mg/dL Calcium (8.4-10.2) mg/dL Total Bilirubin (0.0-1.0) mg/dL AST (5-31) U/L ALT (0-31) U/L Alkaline Phosphatase (39-117) U/L Total Protein (6.5-8.0) g/dL Albumin (3.5-5.0) g/dL Urine Color Urine Appearance Urine pH (5.0-8.0) Ur Specific [place] (1.005-1.025) Urine Protein (NEG-TRACE) MG/DL Urine Glucose (UA) (NEG) MG/DL Urine Ketones (NEG) MG/DL Urine Blood (NEG) Urine Nitrite (NEG) Ur Leukocyte Esterase (NEG) Urine Test NEGATIVE (NEGATIVE) Urine Opiates Screen Not Detected (Not Detect) Urine Fentanyl Screen Not Detected (Not Detect) Ur Barbiturates Screen Not Detected (Not Detect) Ur Phencyclidine Scrn Not Detected (Not Detect) Ur Amphetamines Screen Not Detected (Not Detect) U Benzodiazepines Scrn Not Detected (Not Detect) Urine Cocaine Screen Not Detected (Not Detect) U Marijuana (THC) Screen POSITIVE H (Not Detect) COVID-19 ([facility]) Negative (Negative) COVID-19 Clin Com See Note 10/06/21 10/06/21 10/06/21 Range/Units 22:48 22:48 22:48 WBC 9.0 (4.8-10.8) X10*3/uL RBC 4.56 (4.20-5.50) X10*6/uL Hgb 13.8 (12.0-16.0) g/dl Hct 42.3 (37.0-47.0) % MCV 92.8 (80.0-98.0) fL MCH 30.3 (27.0-33.0) pg MCHC 32.6 (31.0-35.0) g/dl RDW 12.7 (11.0-16.0) % Plt Count 186 (160-400) X10*3/uL MPV 12.0 (9.4-12.3) fL Immature Gran % (Auto) 0.2 (0.0-0.4) % Neut % (Auto) 74.9 H (45-73) % Lymph % (Auto) 16.5 L (20-40) % [place] % (Auto) 6.8 (2-11) % Eos % (Auto) 1.0 (0-4) % Baso % (Auto) 0.6 (0-2) % Lymph # (Auto) 1.5 (1.2-4.9) X10*3/uL [place] # (Auto) 0.6 (0.1-1.2) X10*3/uL Eos # (Auto) 0.1 (0.0-0.4) X10*3/uL Baso # (Auto) 0.1 (0.0-0.2) X10*3/uL Abs Immat Gran (auto) 0.02 (0.00-0.03) X10*3/uL Absolute Neuts (auto) 6.7 (2.0-8.3) x10*3/uL Absolute Nucleated RBC 0.000 (0.0-0.012) X10*3/uL Nucleated RBC % (auto) 0.0 (0.0-0.2) /100WBC Sodium 139 (135-145) mmol/L Potassium 4.0 (3.3-5.1) mmol/L Chloride 105 (96-108) mmol/L Carbon Dioxide 27 (22-29) mmol/L Anion Gap 11 L (12-20) BUN 8 L (9-16) mg/dL Creatinine 0.81 (0.5-1.4) mg/dL Estim Creat Clear Calc 122.9 Estimated GFR > 60 Random Glucose 133 H (60-115) mg/dL Calcium 9.7 (8.4-10.2) mg/dL Total Bilirubin 0.3 (0.0-1.0) mg/dL AST 14 (5-31) U/L ALT 23 (0-31) U/L Alkaline Phosphatase 69 (39-117) U/L Total Protein 6.3 L (6.5-8.0) g/dL Albumin 4.0 (3.5-5.0) g/dL Urine Color YELLOW Urine Appearance HAZY Urine pH 6.5 (5.0-8.0) Ur Specific [place] 1.020 (1.005-1.025) Urine Protein NEG (NEG-TRACE) MG/DL Urine Glucose (UA) NEG (NEG) MG/DL Urine Ketones NEG (NEG) MG/DL Urine Blood NEG (NEG) Urine Nitrite NEG (NEG) Ur Leukocyte Esterase NEG (NEG) Urine Test (NEGATIVE) Urine Opiates Screen (Not Detect) Urine Fentanyl Screen (Not Detect) Ur Barbiturates Screen (Not Detect) Ur Phencyclidine Scrn (Not Detect) Ur Amphetamines Screen (Not Detect) U Benzodiazepines Scrn (Not Detect) Urine Cocaine Screen (Not Detect) U Marijuana (THC) Screen (Not Detect) COVID-19 ([facility]) (Negative) COVID-19 Clin Com Critical Care Time Critical Care Time Critical Care Time: No Discharge Plan Discharge Clinical Impression: Severe recurrent major depression w/psychotic features, mood-congruent, Paranoia Patient Disposition: Still a Patient Prescriptions: No Action sennosides [senna] 8.6 mg tablet 17.6 mg PO BEDTIME 0RF meloxicam 15 mg tablet 15 mg PO DAILY 0RF lpqcsvejdu-kvjgxtrunhvnh-sfoj 50-325-40 mg tablet 1 - 2 tab PO Q6H PRN (Reason: headache) 0RF magnesium oxide 400 mg (241.3 mg magnesium) tablet 400 mg PO DAILY@1800 0RF trazodone 100 mg tablet 100 mg PO BEDTIME 0RF levothyroxine 50 mcg tablet 50 mcg PO DAILY@0600 0RF montelukast 10 mg tablet 10 mg PO DAILY@1800 0RF topiramate 100 mg tablet 100 mg PO BID 0RF prazosin 2 mg capsule 2 mg PO BEDTIME 0RF duloxetine 30 mg capsule,delayed release(DR/EC) 90 mg PO DAILY 0RF cholecalciferol (vitamin D3) 50 mcg (2,000 unit) tablet 50 mcg PO DAILY@1800 0RF perphenazine 2 mg Tablet 2 mg PO BID 30 Days Qty: 60 0RF
[2021-10-06] MEDS: Prazosin HCL 1 MG CAPSULE 2 MG PO (22:21)
[2021-10-06] MEDS: LORazepam 1 MG TABLET PO (22:21)
[2021-10-06] MEDS: traZODone HCL 100 MG TABLET PO (22:21)
[2021-10-06] MEDS: Sennosides 8.6 MG TABLET 17.2 MG PO (22:21)
[2021-10-06 22:40] VITALS: BP 158/79; PULSE 107; RESP 18; O2SAT 99
[2021-10-06 22:54] LABS: MANUAL DIFF FLAG NO
[2021-10-06 22:56] LABS: Basophils Absolute Auto 0.1 X10*3/uL (0.0-0.2); Basophils Percent Auto 0.6 % (0-2); Eosinophils Absolute Auto 0.1 X10*3/uL (0.0-0.4); Hematocrit 42.3 % (37.0-47.0); Hemoglobin 13.8 g/dl (12.0-16.0); Imm Gran Abs Auto 0.02 X10*3/uL (0.00-0.03); Imm Gran Pct Auto 0.2 % (0.0-0.4); Lymphocytes Absolute Auto 1.5 X10*3/uL (1.2-4.9); Lymphocytes Percent Auto 16.5 % (20-40); Mean Corpuscular HGB Conc 32.6 g/dl (31.0-35.0); Mean Corpuscular Hemoglobin 30.3 pg (27.0-33.0); Mean Corpuscular Volume 92.8 fL (80.0-98.0); Monocytes Absolute Auto 0.6 X10*3/uL (0.1-1.2); Monocytes Percent Auto 6.8 % (2-11); Neutrophils Absolute Auto 6.7 x10*3/uL (2.0-8.3); Neutrophils Percent Auto 74.9 % (45-73); Platelet Count 186 X10*3/uL (160-400); Red Blood Count 4.56 X10*6/uL (4.20-5.50); Red Cell Distribution Width 12.7 % (11.0-16.0)
[2021-10-06 22:58] LABS: UPreg QC Valid YES; Urine Pregnancy NEGATIVE (NEGATIVE)
[2021-10-06 23:00] LABS: Appearance Urine HAZY; Color Urine YELLOW; Glucose Urine UA NEG (NEG); Leukocyte Esterase Urine NEG (NEG); Nitrite Urine NEG (NEG); PH 6.5 (5.0-8.0); Urine Blood NEG (NEG); Urine Ketones NEG (NEG); Urine Protein NEG (NEG-TRACE)
[2021-10-06 23:13] LABS: Alanine Aminotransferase 23 U/L (0-31); Alkaline Phosphatase 69 U/L (39-117); Anion Gap 11 (12-20); Aspartate Amino Transferase 14 U/L (5-31); Bilirubin Total 0.3 mg/dL (0.0-1.0); Blood Urea Nitrogen 8 mg/dL (9-16); Calcium 9.7 mg/dL (8.4-10.2); Carbon Dioxide 27 mmol/L (22-29); Chloride 105 mmol/L (96-108); Creatinine Clr Calc Pharmacy 122.9; Estimated Glomerular Filt Rate > 60; Glucose Random 133 mg/dL (60-115); Sodium 139 mmol/L (135-145); Total Protein 6.3 g/dL (6.5-8.0)
[2021-10-06 23:14] LABS: Amphetamine Screen Urine Not Detected (Not Detect); Barbiturates, Urine Not Detected (Not Detect); Benzodiazepines Screen Urine Not Detected (Not Detect); Cannabinoid Screen Urine POSITIVE (Not Detect); Cocaine Screen Urine Not Detected (Not Detect); Fentanyl, urine Not Detected (Not Detect); Opiate Screen Urine Not Detected (Not Detect); Phencyclidine Screen Urine Not Detected (Not Detect)
--- NOTE | 2021-10-07 | ECG_ITS ---
Test Reason : medical clearance Blood Pressure : / mmHG Vent. Rate : 072 BPM Atrial Rate : 072 BPM P-R Int : 166 ms QRS Dur : 072 ms QT Int : 398 ms P-R-T Axes : 040 007 027 degrees QTc Int : 435 ms Normal sinus rhythm Low voltage QRS Borderline ECG When compared with ECG of 15-JUN-2015 15:17, No significant changes seen Referred By: Jennifer St Electronically Signed By:KELLY LEONARD
--- NOTE | 2021-10-07 04:51 | PC.NURSE ---
Patient slept through the night with some struggle to fall sleep, refused HS Trilafon and Topamax but took rest of her HS medication with Ativan 1 mg PO with + effect, patient's thought content delusional paranoid, thought process tangential and incoherent, behavior non concerning, disposition per care team is section 12 inpatient bed search, will continue to monitor.
[2021-10-07] MEDS: Levothyroxine Sodium 50 MCG TABLET PO (05:39)
[2021-10-07 05:58] VITALS: BP 119/77; PULSE 86; RESP 16; TEMP 36.7; O2SAT 97
--- NOTE | 2021-10-07 07:08 | PC.NURSE ---
patient appears to remain asleep at present respirations are even and unlabored patient appears in no distress
[2021-10-07] MEDS: DULoxetine HCl 30 MG CAPSULE.DR 90 MG PO (08:40)
--- NOTE | 2021-10-07 09:05 | PC.NURSE ---
patient asked to see labs how did urine come out (t/w i dont know havent looked at them yet) i know what they tested for , asked client if she wanted me to close the door i dont touch doors around here
--- NOTE | 2021-10-07 10:29 | PC.NURSE ---
clients mother called asking for status update. mom informed she would probably be admitted to an inpatient unit today
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
[2021-10-07 14:30] VITALS: BP 131/69; PULSE 98; RESP 16; TEMP 36.4; O2SAT 99
--- NOTE | 2021-10-07 16:07 | MHC.CLN ---
NUTRITION VISITED WITH PATIENT ON UNIT. STATED THAT FOLLOWS A GLUTEN FREE DIET, NO PORK, NO BEEF. DINING SERVICES AWARE.
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
[2021-10-07] MEDS: Magnesium Oxide 400 MG TABLET PO (18:31)
[2021-10-07] MEDS: Montelukast Sodium 10 MG TABLET PO (18:31)
[2021-10-07] MEDS: Cholecalciferol (Vitamin D3) 25 MCG TABLET 50 MCG PO (18:31)
[2021-10-07 22:45] VITALS: BP 125/69; PULSE 72; RESP 16; TEMP 35.8; O2SAT 98
[2021-10-07] MEDS: Prazosin HCL 1 MG CAPSULE 2 MG PO (22:53)
[2021-10-07] MEDS: Perphenazine 2 MG TABLET 6 MG PO (22:53)
[2021-10-07] MEDS: NaPROXEN 500 MG TABLET PO (22:53)
[2021-10-07] MEDS: Sennosides 8.6 MG TABLET 17.2 MG PO (22:53)
[2021-10-07] MEDS: Topiramate 100 MG TABLET PO (22:53)
[2021-10-07] MEDS: traZODone HCL 100 MG TABLET PO (22:53)
[2021-10-08 07:53] LABS: Estimated Average Glucose 88 mg/dL; Hemoglobin A1c % 4.7 %
[2021-10-08 07:59] LABS: Cholesterol 166 mg/dL; HDL Cholesterol 35 mg/dL; LDL Cholesterol Calculated 111 mg/dl; Triglycerides 104 mg/dL
[2021-10-08 08:21] LABS: Free T4 (Free Thyroxine) 1.04 ng/dL (0.71-1.85); Thyroid Stimulating Hormone 0.89 uIU/mL (0.32-4.0)
[2021-10-08 08:22] VITALS: BP 108/54; PULSE 62; RESP 18; TEMP 36.4; O2SAT 96
[2021-10-08] MEDS: NaPROXEN 500 MG TABLET PO ×2 (08:36→21:33)
[2021-10-08] MEDS: Topiramate 100 MG TABLET PO ×2 (08:36→21:33)
[2021-10-08] MEDS: Levothyroxine Sodium 50 MCG TABLET PO (08:36)
[2021-10-08] MEDS: Perphenazine 2 MG TABLET 6 MG PO ×2 (08:37→21:33)
[2021-10-08] MEDS: Montelukast Sodium 10 MG TABLET PO (18:25)
[2021-10-08] MEDS: Magnesium Oxide 400 MG TABLET PO (18:25)
[2021-10-08] MEDS: Cholecalciferol (Vitamin D3) 25 MCG TABLET 50 MCG PO (18:25)
--- NOTE | 2021-10-08 18:27 | HO.PSYCHPN ---
Subjective Subjective Date of Service: 10/08/21 Reason For Visit: SI with psychosis Interim History: pt found resting in her bed, apparently awake. on being asked how she is feeling, she replies that she is not feeling. she has some bizarre spontaneous verbal offerings and non-sequiturs in response to questions. she indicates her plan is to sit tight, wait it out. per staff, flat affect, withdrawn. not answering staff's questions. med-compliant, including with perphenazine. Mental Status Exam Mental Status Exam Narrative: cooperative. disheveled, with matted hair. general PMR. nml eye contact but with reduced eye blink. speech spontaneous, decreased in amount. nml rate, loudness, latency. thoughts tangential, bizarre. affect blunted. no SI/HI/AVH expressed. Diagnostics Vital Signs (24Hr): Vital Signs - 24 hr 10/07/21 22:45 10/08/21 08:22 Temperature 96.4 F L 97.6 F Pulse Rate 72 62 Respiratory Rate 16 18 Blood Pressure 125/69 108/54 L Pulse Oximetry 98 96 BMI result Body Mass Index 32.3 Labs Results: 10/06/21 22:48 10/06/21 22:48 Labs: Laboratory Results - last 48 hr 10/06/21 10/06/21 10/06/21 21:00 22:48 22:48 WBC RBC Hgb Hct MCV MCH MCHC RDW Plt Count MPV Immature Gran % (Auto) Neut % (Auto) Lymph % (Auto) [place] % (Auto) Eos % (Auto) Baso % (Auto) Lymph # (Auto) [place] # (Auto) Eos # (Auto) Baso # (Auto) Abs Immat Gran (auto) Absolute Neuts (auto) Absolute Nucleated RBC Nucleated RBC % (auto) Sodium Potassium Chloride Carbon Dioxide Anion Gap BUN Creatinine Estim Creat Clear Calc Estimated GFR Random Glucose Estimat Average Glucose Hemoglobin A1c % Calcium Total Bilirubin AST ALT Alkaline Phosphatase Total Protein Albumin Triglycerides Cholesterol LDL Cholesterol, Calc HDL Cholesterol TSH Free T4 Urine Color Urine Appearance Urine pH Ur Specific [place] Urine Protein Urine Glucose (UA) Urine Ketones Urine Blood Urine Nitrite Ur Leukocyte Esterase Urine Test NEGATIVE Urine Opiates Screen Not Detected Urine Fentanyl Screen Not Detected Ur Barbiturates Screen Not Detected Ur Phencyclidine Scrn Not Detected Ur Amphetamines Screen Not Detected U Benzodiazepines Scrn Not Detected Urine Cocaine Screen Not Detected U Marijuana (THC) Screen POSITIVE H COVID-19 (LISBETH) Negative COVID-19 Clin Com See Note 10/06/21 10/06/21 10/06/21 22:48 22:48 22:48 WBC 9.0 RBC 4.56 Hgb 13.8 Hct 42.3 MCV 92.8 MCH 30.3 MCHC 32.6 RDW 12.7 Plt Count 186 MPV 12.0 Immature Gran % (Auto) 0.2 Neut % (Auto) 74.9 H Lymph % (Auto) 16.5 L [place] % (Auto) 6.8 Eos % (Auto) 1.0 Baso % (Auto) 0.6 Lymph # (Auto) 1.5 [place] # (Auto) 0.6 Eos # (Auto) 0.1 Baso # (Auto) 0.1 Abs Immat Gran (auto) 0.02 Absolute Neuts (auto) 6.7 Absolute Nucleated RBC 0.000 Nucleated RBC % (auto) 0.0 Sodium 139 Potassium 4.0 Chloride 105 Carbon Dioxide 27 Anion Gap 11 L BUN 8 L Creatinine 0.81 Estim Creat Clear Calc 122.9 Estimated GFR > 60 Random Glucose 133 H Estimat Average Glucose Hemoglobin A1c % Calcium 9.7 Total Bilirubin 0.3 AST 14 ALT 23 Alkaline Phosphatase 69 Total Protein 6.3 L Albumin 4.0 Triglycerides Cholesterol LDL Cholesterol, Calc HDL Cholesterol TSH Free T4 Urine Color YELLOW Urine Appearance HAZY Urine pH 6.5 Ur Specific [place] 1.020 Urine Protein NEG Urine Glucose (UA) NEG Urine Ketones NEG Urine Blood NEG Urine Nitrite NEG Ur Leukocyte Esterase NEG Urine Test Urine Opiates Screen Urine Fentanyl Screen Ur Barbiturates Screen Ur Phencyclidine Scrn Ur Amphetamines Screen U Benzodiazepines Scrn Urine Cocaine Screen U Marijuana (THC) Screen COVID-19 (LISBETH) COVID-19 Clin Com 10/08/21 10/08/21 07:23 07:23 WBC RBC Hgb Hct MCV MCH MCHC RDW Plt Count MPV Immature Gran % (Auto) Neut % (Auto) Lymph % (Auto) [place] % (Auto) Eos % (Auto) Baso % (Auto) Lymph # (Auto) [place] # (Auto) Eos # (Auto) Baso # (Auto) Abs Immat Gran (auto) Absolute Neuts (auto) Absolute Nucleated RBC Nucleated RBC % (auto) Sodium Potassium Chloride Carbon Dioxide Anion Gap BUN Creatinine Estim Creat Clear Calc Estimated GFR Random Glucose Estimat Average Glucose 88 Hemoglobin A1c % 4.7 Calcium Total Bilirubin AST ALT Alkaline Phosphatase Total Protein Albumin Triglycerides 104 Cholesterol 166 LDL Cholesterol, Calc 111 HDL Cholesterol 35 TSH 0.89 Free T4 1.04 Urine Color Urine Appearance Urine pH Ur Specific [place] Urine Protein Urine Glucose (UA) Urine Ketones Urine Blood Urine Nitrite Ur Leukocyte Esterase Urine Test Urine Opiates Screen Urine Fentanyl Screen Ur Barbiturates Screen Ur Phencyclidine Scrn Ur Amphetamines Screen U Benzodiazepines Scrn Urine Cocaine Screen U Marijuana (THC) Screen COVID-19 (LISBETH) COVID-19 Clin Com Medications Medications Current Medications Acetaminophen (Acetaminophen 325 Mg Tablet) 650 mg PO Q6H PRN PRN Reason: Headache/Pain Mild Scale (1-3) Al Hydroxide/Mg Hydroxide (Magnesium Hydrox/Alum Hydrox 30 Ml Oral.Susp) 30 ml PO Q6H PRN PRN Reason: Heartburn/Nausea Hydroxyzine HCl (Hydroxyzine Hcl 25 Mg Tablet) 25 mg PO BEDTIME PRN PRN Reason: Anxiety Levothyroxine Sodium (Levothyroxine Sodium 50 Mcg Tablet) 50 mcg PO DAILY@0600 [facility] Last Admin: 10/08/21 08:36 Dose: 50 mcg Documented by: Lorazepam (Lorazepam 1 Mg Tablet) 2 mg PO Q4H PRN PRN Reason: agitation. give w/perphenazine Magnesium Hydroxide (Milk Of Magnesia 30 Ml Oral.Susp) 30 ml PO DAILY PRN PRN Reason: Constipation Magnesium Oxide (Magnesium Oxide 400 Mg Tablet) 400 mg PO DAILY@1800 [facility] Last Admin: 10/08/21 18:25 Dose: 400 mg Documented by: Montelukast Sodium (Montelukast Sodium 10 Mg Tablet) 10 mg PO DAILY@1800 [facility] Last Admin: 10/08/21 18:25 Dose: 10 mg Documented by: Naproxen (Naproxen 500 Mg Tablet) 500 mg PO BID [facility] Last Admin: 10/08/21 08:36 Dose: 500 mg Documented by: Perphenazine (Perphenazine 2 Mg Tablet) 6 mg PO BID [facility] Last Admin: 10/08/21 08:37 Dose: 6 mg Documented by: Perphenazine (Perphenazine 8 Mg Tablet) 8 mg PO Q4H PRN PRN Reason: agitation. give with ativan 2 Prazosin HCl (Prazosin Hcl 1 Mg Capsule) 2 mg PO BEDTIME [facility]; Protocol Last Admin: 10/07/21 22:53 Dose: 2 mg Documented by: Senna (Sennosides 8.6 Mg Tablet) 17.2 mg PO BEDTIME [facility] Last Admin: 10/07/21 22:53 Dose: 17.2 mg Documented by: Topiramate (Topiramate 100 Mg Tablet) 100 mg PO BID [facility] Last Admin: 10/08/21 08:36 Dose: 100 mg Documented by: Trazodone HCl (Trazodone Hcl 100 Mg Tablet) 100 mg PO BEDTIME [facility] Last Admin: 10/07/21 22:53 Dose: 100 mg Documented by: Trazodone HCl (Trazodone Hcl 50 Mg Tablet) 50 mg PO BEDTIME PRN PRN Reason: Insomnia Vitamin D (Cholecalciferol (Vitamin D3) 25 Mcg Tablet) 50 mcg PO DAILY@1800 [facility] Last Admin: 10/08/21 18:25 Dose: 50 mcg Documented by: Allergies Allergies Allergy/AdvReac Type Severity Reaction Status Date / Time bupropion [From WELLBUTRIN] Allergy Unknown HIVES Verified 10/06/21 22:48 pregabalin [From Lyrica] AdvReac Swelling Verified 10/06/21 22:49 Assessment & Plan Assessment & Plan (1) Severe recurrent major depression w/psychotic features, mood-congruent: Status: Acute Code(s): F33.3 - Major depressive disorder, recurrent, severe with psychotic symptoms Plan restarted previous regimen valenzuela warning given - will likely have to go to court to address psychosis I spent __20____ minutes with the patient and/or on the patient floor today, greater than?50% of which was spent counseling/coordinating care. Reason for contiued inpatient stay Substantial Risk for: inability to function and rapid decompensation
[2021-10-08 21:29] VITALS: BP 142/99; PULSE 96; RESP 16; TEMP 36.6; O2SAT 98
[2021-10-08] MEDS: traZODone HCL 100 MG TABLET PO (21:33)
[2021-10-08] MEDS: Sennosides 8.6 MG TABLET 17.2 MG PO (21:33)
[2021-10-08] MEDS: Prazosin HCL 1 MG CAPSULE 2 MG PO (21:34)
[2021-10-09] MEDS: NaPROXEN 500 MG TABLET PO ×2 (08:04→21:12)
[2021-10-09] MEDS: Perphenazine 2 MG TABLET 6 MG PO ×2 (08:04→21:11)
[2021-10-09] MEDS: Levothyroxine Sodium 50 MCG TABLET PO (08:04)
[2021-10-09] MEDS: Topiramate 100 MG TABLET PO ×2 (08:05→21:11)
[2021-10-09 08:35] VITALS: BP 106/58; PULSE 88; RESP 18; O2SAT 98
[2021-10-09] MEDS: Acetaminophen 325 MG TABLET 650 MG PO (11:49)
--- NOTE | 2021-10-09 16:47 | P.PNPSI_ITS ---
Subjective Subjective Date of Service: 10/09/21 Reason For Visit: SI with psychosis Interim History: pt reports that NSAIDs are working well for her back/neck musculoskeletal pains. slept well, feeling rested today. denies depression. food challenging, needs gluten free diet which she reports hospital is unable to adequately provide. per staff, c/o pain, demanding medications. med-compliant, including with trilafon. slept well, isolative to room. Mental Status Exam Mental Status Exam Narrative: cooperative. disheveled, with matted hair. less PMR. nml eye contact but with reduced eye blink. speech spontaneous, nml in amount, rate, loudness, latency. thoughts tangential, less bizarre. denies depression. affect more flexible. no SI/HI/AVH expressed. Diagnostics Vital Signs (24Hr): Vital Signs - 24 hr 10/08/21 21:29 10/09/21 08:35 Temperature 97.9 F Pulse Rate 96 88 Respiratory Rate 16 18 Blood Pressure 142/99 H 106/58 L Pulse Oximetry 98 98 BMI result Body Mass Index 32.3 Labs Results: 10/06/21 22:48 10/06/21 22:48 Labs: Laboratory Results - last 48 hr 10/08/21 10/08/21 07:23 07:23 Estimat Average Glucose 88 Hemoglobin A1c % 4.7 Triglycerides 104 Cholesterol 166 LDL Cholesterol, Calc 111 HDL Cholesterol 35 TSH 0.89 Free T4 1.04 Medications Medications Current Medications Acetaminophen (Acetaminophen 325 Mg Tablet) 650 mg PO Q6H PRN PRN Reason: Headache/Pain Mild Scale (1-3) Last Admin: 10/09/21 11:49 Dose: 650 mg Documented by: Al Hydroxide/Mg Hydroxide (Magnesium Hydrox/Alum Hydrox 30 Ml Oral.Susp) 30 ml PO Q6H PRN PRN Reason: Heartburn/Nausea Hydroxyzine HCl (Hydroxyzine Hcl 25 Mg Tablet) 25 mg PO BEDTIME PRN PRN Reason: Anxiety Levothyroxine Sodium (Levothyroxine Sodium 50 Mcg Tablet) 50 mcg PO DAILY@0600 [facility] Last Admin: 10/09/21 08:04 Dose: 50 mcg Documented by: Lorazepam (Lorazepam 1 Mg Tablet) 2 mg PO Q4H PRN PRN Reason: agitation. give w/perphenazine Magnesium Hydroxide (Milk Of Magnesia 30 Ml Oral.Susp) 30 ml PO DAILY PRN PRN Reason: Constipation Magnesium Oxide (Magnesium Oxide 400 Mg Tablet) 400 mg PO DAILY@1800 [facility] Last Admin: 10/08/21 18:25 Dose: 400 mg Documented by: Montelukast Sodium (Montelukast Sodium 10 Mg Tablet) 10 mg PO DAILY@1800 [facility] Last Admin: 10/08/21 18:25 Dose: 10 mg Documented by: Naproxen (Naproxen 500 Mg Tablet) 500 mg PO BID [facility] Last Admin: 10/09/21 08:04 Dose: 500 mg Documented by: Perphenazine (Perphenazine 2 Mg Tablet) 6 mg PO BID [facility] Last Admin: 10/09/21 08:04 Dose: 6 mg Documented by: Perphenazine (Perphenazine 8 Mg Tablet) 8 mg PO Q4H PRN PRN Reason: agitation. give with ativan 2 Prazosin HCl (Prazosin Hcl 1 Mg Capsule) 2 mg PO BEDTIME [facility]; Protocol Last Admin: 10/08/21 21:34 Dose: 2 mg Documented by: Senna (Sennosides 8.6 Mg Tablet) 17.2 mg PO BEDTIME [facility] Last Admin: 10/08/21 21:33 Dose: 17.2 mg Documented by: Topiramate (Topiramate 100 Mg Tablet) 100 mg PO BID [facility] Last Admin: 10/09/21 08:05 Dose: 100 mg Documented by: Trazodone HCl (Trazodone Hcl 100 Mg Tablet) 100 mg PO BEDTIME [facility] Last Admin: 10/08/21 21:33 Dose: 100 mg Documented by: Trazodone HCl (Trazodone Hcl 50 Mg Tablet) 50 mg PO BEDTIME PRN PRN Reason: Insomnia Vitamin D (Cholecalciferol (Vitamin D3) 25 Mcg Tablet) 50 mcg PO DAILY@1800 [facility] Last Admin: 10/08/21 18:25 Dose: 50 mcg Documented by: Allergies Allergies Allergy/AdvReac Type Severity Reaction Status Date / Time bupropion [From WELLBUTRIN] Allergy Unknown HIVES Verified 10/06/21 22:48 pregabalin [From Lyrica] AdvReac Swelling Verified 10/06/21 22:49 Assessment & Plan Assessment & Plan (1) Severe recurrent major depression w/psychotic features, mood-congruent: Status: Acute Code(s): F33.3 - Major depressive disorder, recurrent, severe with psychotic symptoms Plan restarted previous regimen valenzuela warning given has been compliant with trilafon since admission and psychosis is improving I spent ____15__ minutes with the patient and/or on the patient floor today, greater than?50% of which was spent counseling/coordinating care. Reason for contiued inpatient stay Substantial Risk for: inability to function and rapid decompensation
[2021-10-09 18:00] VITALS: BP 110/62; PULSE 93; RESP 18; TEMP 36.3; O2SAT 99
[2021-10-09] MEDS: Magnesium Oxide 400 MG TABLET PO (19:14)
[2021-10-09] MEDS: Cholecalciferol (Vitamin D3) 25 MCG TABLET 50 MCG PO (19:14)
[2021-10-09] MEDS: Montelukast Sodium 10 MG TABLET PO (19:14)
[2021-10-09] MEDS: traZODone HCL 100 MG TABLET PO (21:11)
[2021-10-09] MEDS: Sennosides 8.6 MG TABLET 17.2 MG PO (21:12)
[2021-10-09] MEDS: Prazosin HCL 1 MG CAPSULE 2 MG PO (21:12)
[2021-10-10 08:00] VITALS: BP 114/56; PULSE 94; RESP 16; TEMP 36.4; O2SAT 99
[2021-10-10] MEDS: NaPROXEN 500 MG TABLET PO ×2 (08:12→21:39)
[2021-10-10] MEDS: Perphenazine 2 MG TABLET 6 MG PO ×2 (08:13→21:40)
[2021-10-10] MEDS: Levothyroxine Sodium 50 MCG TABLET PO (08:13)
[2021-10-10] MEDS: Topiramate 100 MG TABLET PO ×2 (08:14→21:39)
[2021-10-10 08:47] LABS: Folate 8.1 ng/mL (> or = 4.0); Vitamin B12 241 pg/mL (200-900)
--- NOTE | 2021-10-10 12:56 | HO.PSYCHPN ---
Subjective Subjective Date of Service: 10/10/21 Reason For Visit: SI with psychosis Interim History: pt found seated in milieu reading a book. amenable to interview. continues more interacted and socially related than at admission. states she would like to go home as soon as possible but she is willing to wait for her fiancee and mother to signal that they think she is ready. signs in voluntarily. asking for help with transportation to appointments, obtaining med refills, making calls after discharge. per staff, med-compliant. brighter affect, more conversational. needs a gluten free diet. asking for more support at discharge. reading, denying psych Sx. slept about 8 hours. Mental Status Exam Mental Status Exam Narrative: cooperative. disheveled, with matted hair. less PMR. nml eye contact but with reduced eye blink. speech spontaneous, nml in amount, rate, loudness, latency. thoughts more organized and logical, less bizarre. denies depression. affect more flexible. no SI/HI/AVH expressed. Diagnostics Vital Signs (24Hr): Vital Signs - 24 hr 10/09/21 18:00 10/10/21 08:00 Temperature 97.3 F 97.6 F Pulse Rate 93 94 Respiratory Rate 18 16 Blood Pressure 110/62 114/56 L Pulse Oximetry 99 99 BMI result Body Mass Index 32.3 Labs Results: 10/06/21 22:48 10/06/21 22:48 Labs: Laboratory Results - last 48 hr 10/08/21 07:23 Vitamin B12 241 Folate 8.1 Medications Medications Current Medications Acetaminophen (Acetaminophen 325 Mg Tablet) 650 mg PO Q6H PRN PRN Reason: Headache/Pain Mild Scale (1-3) Last Admin: 10/09/21 11:49 Dose: 650 mg Documented by: Al Hydroxide/Mg Hydroxide (Magnesium Hydrox/Alum Hydrox 30 Ml Oral.Susp) 30 ml PO Q6H PRN PRN Reason: Heartburn/Nausea Hydroxyzine HCl (Hydroxyzine Hcl 25 Mg Tablet) 25 mg PO BEDTIME PRN PRN Reason: Anxiety Levothyroxine Sodium (Levothyroxine Sodium 50 Mcg Tablet) 50 mcg PO DAILY@0600 [facility] Last Admin: 10/10/21 08:13 Dose: 50 mcg Documented by: Lorazepam (Lorazepam 1 Mg Tablet) 2 mg PO Q4H PRN PRN Reason: agitation. give w/perphenazine Magnesium Hydroxide (Milk Of Magnesia 30 Ml Oral.Susp) 30 ml PO DAILY PRN PRN Reason: Constipation Magnesium Oxide (Magnesium Oxide 400 Mg Tablet) 400 mg PO DAILY@1800 [facility] Last Admin: 10/09/21 19:14 Dose: 400 mg Documented by: Montelukast Sodium (Montelukast Sodium 10 Mg Tablet) 10 mg PO DAILY@1800 [facility] Last Admin: 10/09/21 19:14 Dose: 10 mg Documented by: Naproxen (Naproxen 500 Mg Tablet) 500 mg PO BID [facility] Last Admin: 10/10/21 08:12 Dose: 500 mg Documented by: Perphenazine (Perphenazine 2 Mg Tablet) 6 mg PO BID [facility] Last Admin: 10/10/21 08:13 Dose: 6 mg Documented by: Perphenazine (Perphenazine 8 Mg Tablet) 8 mg PO Q4H PRN PRN Reason: agitation. give with ativan 2 Prazosin HCl (Prazosin Hcl 1 Mg Capsule) 2 mg PO BEDTIME [facility]; Protocol Last Admin: 10/09/21 21:12 Dose: 2 mg Documented by: Senna (Sennosides 8.6 Mg Tablet) 17.2 mg PO BEDTIME [facility] Last Admin: 10/09/21 21:12 Dose: 17.2 mg Documented by: Topiramate (Topiramate 100 Mg Tablet) 100 mg PO BID [facility] Last Admin: 10/10/21 08:14 Dose: 100 mg Documented by: Trazodone HCl (Trazodone Hcl 100 Mg Tablet) 100 mg PO BEDTIME [facility] Last Admin: 10/09/21 21:11 Dose: 100 mg Documented by: Trazodone HCl (Trazodone Hcl 50 Mg Tablet) 50 mg PO BEDTIME PRN PRN Reason: Insomnia Vitamin D (Cholecalciferol (Vitamin D3) 25 Mcg Tablet) 50 mcg PO DAILY@1800 [facility] Last Admin: 10/09/21 19:14 Dose: 50 mcg Documented by: Allergies Allergies Allergy/AdvReac Type Severity Reaction Status Date / Time bupropion [From WELLBUTRIN] Allergy Unknown HIVES Verified 10/06/21 22:48 pregabalin [From Lyrica] AdvReac Swelling Verified 10/06/21 22:49 Assessment & Plan Assessment & Plan (1) Severe recurrent major depression w/psychotic features, mood-congruent: Status: Acute Code(s): F33.3 - Major depressive disorder, recurrent, severe with psychotic symptoms Plan restarted previous regimen valenzuela warning given has been compliant with trilafon since admission and psychosis is improving I spent ___25___ minutes with the patient and/or on the patient floor today, greater than?50% of which was spent counseling/coordinating care. Reason for contiued inpatient stay Substantial Risk for: inability to function and rapid decompensation
[2021-10-10 18:00] VITALS: BP 134/64; PULSE 90; RESP 18; TEMP 36.9; O2SAT 97
[2021-10-10] MEDS: Cholecalciferol (Vitamin D3) 25 MCG TABLET 50 MCG PO (18:22)
[2021-10-10] MEDS: Montelukast Sodium 10 MG TABLET PO (18:22)
[2021-10-10] MEDS: Magnesium Oxide 400 MG TABLET PO (18:23)
[2021-10-10] MEDS: Sennosides 8.6 MG TABLET 17.2 MG PO (21:39)
[2021-10-10] MEDS: traZODone HCL 50 MG TABLET PO (21:40)
[2021-10-10] MEDS: Prazosin HCL 1 MG CAPSULE 2 MG PO (21:40)
[2021-10-10] MEDS: traZODone HCL 100 MG TABLET PO (21:40)
[2021-10-11 06:00] VITALS: BP 116/68; PULSE 80; RESP 16; TEMP 36.7; O2SAT 98
[2021-10-11] MEDS: Levothyroxine Sodium 50 MCG TABLET PO (06:45)
[2021-10-11] MEDS: Acetaminophen 325 MG TABLET 650 MG PO ×2 (06:45→15:20)
[2021-10-11] MEDS: NaPROXEN 500 MG TABLET PO ×2 (08:37→22:12)
[2021-10-11] MEDS: Perphenazine 2 MG TABLET 6 MG PO ×2 (08:37→22:13)
[2021-10-11] MEDS: Topiramate 100 MG TABLET PO ×2 (08:38→22:14)
[2021-10-11 08:40] VITALS: BP 102/55; PULSE 88; RESP 20; TEMP 36.5; O2SAT 98
--- NOTE | 2021-10-11 12:42 | HO.PSYCHPN ---
Subjective Subjective Date of Service: 10/11/21 Reason For Visit: SI with psychosis Interim History: continues to be more spontaneous and well-related. no complaints or requests, states she is feeling well. ready to go home whenever treaters feel she is ready. MD replies that collateral from her mother and gladyse will be needed to inform that decision. per staff, brighter affect. denies dep/anx. denies SI/HI/AVH. i'm in good spirits. no peer interactions in a.m. but was playing games with peers in the evening. slept about 8 hours, attended 2 groups. Mental Status Exam Mental Status Exam Narrative: cooperative. adequately dressed and groomed. less PMR. mild generalized PMR. speech spontaneous, nml in amount, rate, loudness, latency. thoughts organized and logical. denies depression. affect more flexible. no SI/HI/AVH expressed. Diagnostics Vital Signs (24Hr): Vital Signs - 24 hr 10/10/21 18:00 10/11/21 06:00 10/11/21 08:40 Temperature 98.4 F 98.1 F 97.7 F Pulse Rate 90 80 88 Respiratory Rate 18 16 20 Blood Pressure 134/64 116/68 102/55 L Pulse Oximetry 97 98 98 BMI result Body Mass Index 32.3 Labs Results: 10/06/21 22:48 10/06/21 22:48 Labs: Laboratory Results - last 48 hr 10/08/21 07:23 Vitamin B12 241 Folate 8.1 Medications Medications Current Medications Acetaminophen (Acetaminophen 325 Mg Tablet) 650 mg PO Q6H PRN PRN Reason: Headache/Pain Mild Scale (1-3) Last Admin: 10/11/21 06:45 Dose: 650 mg Documented by: Al Hydroxide/Mg Hydroxide (Magnesium Hydrox/Alum Hydrox 30 Ml Oral.Susp) 30 ml PO Q6H PRN PRN Reason: Heartburn/Nausea Hydroxyzine HCl (Hydroxyzine Hcl 25 Mg Tablet) 25 mg PO BEDTIME PRN PRN Reason: Anxiety Levothyroxine Sodium (Levothyroxine Sodium 50 Mcg Tablet) 50 mcg PO DAILY@0600 [facility] Last Admin: 10/11/21 06:45 Dose: 50 mcg Documented by: Lorazepam (Lorazepam 1 Mg Tablet) 2 mg PO Q4H PRN PRN Reason: agitation. give w/perphenazine Magnesium Hydroxide (Milk Of Magnesia 30 Ml Oral.Susp) 30 ml PO DAILY PRN PRN Reason: Constipation Magnesium Oxide (Magnesium Oxide 400 Mg Tablet) 400 mg PO DAILY@1800 [facility] Last Admin: 10/10/21 18:23 Dose: 400 mg Documented by: Montelukast Sodium (Montelukast Sodium 10 Mg Tablet) 10 mg PO DAILY@1800 [facility] Last Admin: 10/10/21 18:22 Dose: 10 mg Documented by: Naproxen (Naproxen 500 Mg Tablet) 500 mg PO BID [facility] Last Admin: 10/11/21 08:37 Dose: 500 mg Documented by: Perphenazine (Perphenazine 2 Mg Tablet) 6 mg PO BID [facility] Last Admin: 10/11/21 08:37 Dose: 6 mg Documented by: Perphenazine (Perphenazine 8 Mg Tablet) 8 mg PO Q4H PRN PRN Reason: agitation. give with ativan 2 Prazosin HCl (Prazosin Hcl 1 Mg Capsule) 2 mg PO BEDTIME [facility]; Protocol Last Admin: 10/10/21 21:40 Dose: 2 mg Documented by: Senna (Sennosides 8.6 Mg Tablet) 17.2 mg PO BEDTIME [facility] Last Admin: 10/10/21 21:39 Dose: 17.2 mg Documented by: Topiramate (Topiramate 100 Mg Tablet) 100 mg PO BID [facility] Last Admin: 10/11/21 08:38 Dose: 100 mg Documented by: Trazodone HCl (Trazodone Hcl 100 Mg Tablet) 100 mg PO BEDTIME [facility] Last Admin: 10/10/21 21:40 Dose: 100 mg Documented by: Trazodone HCl (Trazodone Hcl 50 Mg Tablet) 50 mg PO BEDTIME PRN PRN Reason: Insomnia Last Admin: 10/10/21 21:40 Dose: 50 mg Documented by: Vitamin D (Cholecalciferol (Vitamin D3) 25 Mcg Tablet) 50 mcg PO DAILY@1800 [facility] Last Admin: 10/10/21 18:22 Dose: 50 mcg Documented by: Allergies Allergies Allergy/AdvReac Type Severity Reaction Status Date / Time bupropion [From WELLBUTRIN] Allergy Unknown HIVES Verified 10/06/21 22:48 pregabalin [From Lyrica] AdvReac Swelling Verified 10/06/21 22:49 Assessment & Plan Assessment & Plan (1) Severe recurrent major depression w/psychotic features, mood-congruent: Status: Acute Code(s): F33.3 - Major depressive disorder, recurrent, severe with psychotic symptoms Plan restarted previous regimen valenzuela warning given has been compliant with trilafon since admission and psychosis is improving I spent ___15___ minutes with the patient and/or on the patient floor today, greater than?50% of which was spent counseling/coordinating care. Reason for contiued inpatient stay Substantial Risk for: inability to function and rapid decompensation
[2021-10-11] MEDS: Magnesium Oxide 400 MG TABLET PO (18:25)
[2021-10-11] MEDS: Cholecalciferol (Vitamin D3) 25 MCG TABLET 50 MCG PO (18:25)
[2021-10-11] MEDS: Montelukast Sodium 10 MG TABLET PO (18:25)
[2021-10-11 22:03] VITALS: BP 121/73; PULSE 85; TEMP 36.9; O2SAT 96
[2021-10-11] MEDS: traZODone HCL 100 MG TABLET PO (22:13)
[2021-10-11] MEDS: Prazosin HCL 1 MG CAPSULE 2 MG PO (22:13)
[2021-10-11] MEDS: Sennosides 8.6 MG TABLET 17.2 MG PO (22:14)
[2021-10-12 06:00] VITALS: BP 109/53; PULSE 72; RESP 18; TEMP 36.4; O2SAT 99
[2021-10-12] MEDS: Levothyroxine Sodium 50 MCG TABLET PO (06:38)
[2021-10-12] MEDS: Topiramate 100 MG TABLET PO ×2 (08:16→23:14)
[2021-10-12] MEDS: NaPROXEN 500 MG TABLET PO ×2 (08:17→23:15)
[2021-10-12] MEDS: Perphenazine 2 MG TABLET 6 MG PO ×2 (11:00→23:14)
[2021-10-12] MEDS: Montelukast Sodium 10 MG TABLET PO (17:48)
[2021-10-12] MEDS: Cholecalciferol (Vitamin D3) 25 MCG TABLET 50 MCG PO (17:48)
[2021-10-12] MEDS: Magnesium Oxide 400 MG TABLET PO (17:48)
--- NOTE | 2021-10-12 18:52 | HO.PSYCHPN ---
Subjective Subjective Date of Service: 10/12/21 Reason For Visit: SI with psychosis Interim History: Patient seen and discussed with team. Patient evaluated today and upon interview she reports she is ready for discharge, has been working with staff on making referrals for OP treatment, im ready whenever anyone else is ready. Talked about referrals for VNA, OP supports. Denies having questions or concerns. Sleep is good. Mood is good. In the milieu, patient is safe and appropriate in behavior, found doing intricate coloring. Denies SI/SIB/HI upon inquiry. Denies irritability or assaultive ideation. Says she feels safe. Medication Compliance: Yes Side effects from medications: No Attending Groups: Yes Review of Systems Acute medical concerns: No Medical Review of Systems: unchanged Mental Status Exam Mental Status Exam Narrative: cooperative.? adequately dressed and groomed.? less PMR.? mild generalized PMR.? speech spontaneous, nml in amount, rate, loudness, latency.?Mood is fine. thoughts organized and logical.? denies depression.? affect more flexible.? no SI/HI/AVH expressed. Diagnostics Vital Signs (24Hr): Vital Signs - 24 hr 10/12/21 06:00 10/12/21 23:10 Temperature 97.6 F 97.8 F Pulse Rate 72 86 Respiratory Rate 18 Blood Pressure 109/53 L 126/63 Pulse Oximetry 99 99 BMI result Body Mass Index 32.3 Labs Results: 10/06/21 22:48 10/06/21 22:48 Medications Medications Current Medications Acetaminophen (Acetaminophen 325 Mg Tablet) 650 mg PO Q6H PRN PRN Reason: Headache/Pain Mild Scale (1-3) Last Admin: 10/11/21 15:20 Dose: 650 mg Documented by: Al Hydroxide/Mg Hydroxide (Magnesium Hydrox/Alum Hydrox 30 Ml Oral.Susp) 30 ml PO Q6H PRN PRN Reason: Heartburn/Nausea Hydroxyzine HCl (Hydroxyzine Hcl 25 Mg Tablet) 25 mg PO BEDTIME PRN PRN Reason: Anxiety Levothyroxine Sodium (Levothyroxine Sodium 50 Mcg Tablet) 50 mcg PO DAILY@0600 [facility] Last Admin: 10/12/21 06:38 Dose: 50 mcg Documented by: Magnesium Hydroxide (Milk Of Magnesia 30 Ml Oral.Susp) 30 ml PO DAILY PRN PRN Reason: Constipation Magnesium Oxide (Magnesium Oxide 400 Mg Tablet) 400 mg PO DAILY@1800 [facility] Last Admin: 10/12/21 17:48 Dose: 400 mg Documented by: Montelukast Sodium (Montelukast Sodium 10 Mg Tablet) 10 mg PO DAILY@1800 [facility] Last Admin: 10/12/21 17:48 Dose: 10 mg Documented by: Naproxen (Naproxen 500 Mg Tablet) 500 mg PO BID [facility] Last Admin: 10/12/21 23:15 Dose: 500 mg Documented by: Perphenazine (Perphenazine 2 Mg Tablet) 6 mg PO BID [facility] Last Admin: 10/12/21 23:14 Dose: 6 mg Documented by: Perphenazine (Perphenazine 8 Mg Tablet) 8 mg PO Q4H PRN PRN Reason: agitation. give with ativan 2 Prazosin HCl (Prazosin Hcl 1 Mg Capsule) 2 mg PO BEDTIME [facility]; Protocol Last Admin: 10/12/21 23:16 Dose: 2 mg Documented by: Senna (Sennosides 8.6 Mg Tablet) 17.2 mg PO BEDTIME [facility] Last Admin: 10/12/21 23:14 Dose: 17.2 mg Documented by: Topiramate (Topiramate 100 Mg Tablet) 100 mg PO BID [facility] Last Admin: 10/12/21 23:14 Dose: 100 mg Documented by: Trazodone HCl (Trazodone Hcl 100 Mg Tablet) 100 mg PO BEDTIME [facility] Last Admin: 10/12/21 23:16 Dose: 100 mg Documented by: Trazodone HCl (Trazodone Hcl 50 Mg Tablet) 50 mg PO BEDTIME PRN PRN Reason: Insomnia Last Admin: 10/10/21 21:40 Dose: 50 mg Documented by: Vitamin D (Cholecalciferol (Vitamin D3) 25 Mcg Tablet) 50 mcg PO DAILY@1800 [facility] Last Admin: 10/12/21 17:48 Dose: 50 mcg Documented by: Allergies Allergies Allergy/AdvReac Type Severity Reaction Status Date / Time bupropion [From WELLBUTRIN] Allergy Unknown HIVES Verified 10/06/21 22:48 pregabalin [From Lyrica] AdvReac Swelling Verified 10/06/21 22:49 Assessment & Plan Assessment & Plan (1) Severe recurrent major depression w/psychotic features, mood-congruent: Status: Acute Code(s): F33.3 - Major depressive disorder, recurrent, severe with psychotic symptoms Plan restarted previous regimen valenzuela warning given has been compliant with trilafon since admission and psychosis is improving. I spent minutes with the patient and/or on the patient floor today, greater than?50% of which was spent counseling/coordinating care. Patient educated on: therapeutic strategies Reason for contiued inpatient stay Substantial Risk for: med/psych decompensation
[2021-10-12] MEDS: LORazepam 1 MG TABLET PO (20:40)
[2021-10-12 23:10] VITALS: BP 126/63; PULSE 86; TEMP 36.6; O2SAT 99
[2021-10-12] MEDS: Sennosides 8.6 MG TABLET 17.2 MG PO (23:14)
[2021-10-12] MEDS: traZODone HCL 100 MG TABLET PO (23:16)
[2021-10-12] MEDS: Prazosin HCL 1 MG CAPSULE 2 MG PO (23:16)
[2021-10-13] MEDS: Levothyroxine Sodium 50 MCG TABLET PO (06:43)
[2021-10-13] MEDS: NaPROXEN 500 MG TABLET PO ×2 (08:37→22:35)
[2021-10-13] MEDS: Topiramate 100 MG TABLET PO ×2 (08:37→22:35)
[2021-10-13] MEDS: Perphenazine 2 MG TABLET 6 MG PO ×2 (08:38→22:34)
[2021-10-13 08:42] VITALS: BP 115/56; PULSE 92; RESP 16; TEMP 36.6; O2SAT 97
[2021-10-13 08:51] VITALS: BMI 33.5
--- NOTE | 2021-10-13 11:55 | HO.PSYCHPN ---
Subjective Subjective Date of Service: 10/13/21 Reason For Visit: SI with psychosis Subjective Notes: Conditional Voluntary Interim History: Patient seen and discussed with team. Pt reports she is feeling better than when she came in, in that she reports her sleep has significantly improved. She reports she feels calmer, less talkative. She reports she wants to go home soon. She denies any side effects with medications. She denies SI/HI. Per nursing, pt had episode of crying inconsolably last night having intrusive thoughts of 911, pt received ativan with good effect. Medication Compliance: Yes Side effects from medications: No Review of Systems Review of Systems Constitutional : No Fever, No Chills ENT/Mouth : No Ear Pain, No Nasal Congestion, No sore throat Eyes: No Eye Pain, No Swelling, No Redness Cardiovascular : No Chest Pain, No SOB Respiratory : No Cough, No Sputum, No Dyspnea Gastrointestinal : No Nausea, No Vomiting, No Diarrhea, No Hematochezia, No Melena Genitourinary : No Dysuria, No Urinary Frequency, No Hematuria Musculoskeletal : No Myalgias Skin : No Skin Lesions, No rash Neuro : No Weakness, No Numbness, No Paresthesias, No Dizziness, No Headache Psych : positive Anxiety, No Depression, No SI/HI Heme/Lymph: No Lymphadenopathy Endocrine : No Polyuria, No Polydipsia All other systems reviewed and are negative Yes all other systems are reviewed and are negative Mental Status Exam Mental Status Exam Narrative: cooperative.? adequately dressed and groomed.? less PMR.? mild generalized PMR.? speech spontaneous, nml in amount, rate, loudness, latency.?Mood is fine. thoughts organized and logical.? denies depression.? affect more flexible, non labile.? no SI/HI/AVH expressed. Diagnostics Vital Signs (24Hr): Vital Signs - 24 hr 10/12/21 23:10 10/13/21 08:42 Temperature 97.8 F 97.8 F Pulse Rate 86 92 Respiratory Rate 16 Blood Pressure 126/63 115/56 L Pulse Oximetry 99 97 BMI result Body Mass Index 33.5 Labs Results: 10/06/21 22:48 10/06/21 22:48 Medications Medications Current Medications Acetaminophen (Acetaminophen 325 Mg Tablet) 650 mg PO Q6H PRN PRN Reason: Headache/Pain Mild Scale (1-3) Last Admin: 10/11/21 15:20 Dose: 650 mg Documented by: Al Hydroxide/Mg Hydroxide (Magnesium Hydrox/Alum Hydrox 30 Ml Oral.Susp) 30 ml PO Q6H PRN PRN Reason: Heartburn/Nausea Hydroxyzine HCl (Hydroxyzine Hcl 25 Mg Tablet) 25 mg PO BEDTIME PRN PRN Reason: Anxiety Levothyroxine Sodium (Levothyroxine Sodium 50 Mcg Tablet) 50 mcg PO DAILY@0600 [facility] Last Admin: 10/13/21 06:43 Dose: 50 mcg Documented by: Lorazepam (Lorazepam 1 Mg Tablet) 1 mg PO Q4H PRN PRN Reason: anxiety/agitation Magnesium Hydroxide (Milk Of Magnesia 30 Ml Oral.Susp) 30 ml PO DAILY PRN PRN Reason: Constipation Magnesium Oxide (Magnesium Oxide 400 Mg Tablet) 400 mg PO DAILY@1800 [facility] Last Admin: 10/12/21 17:48 Dose: 400 mg Documented by: Montelukast Sodium (Montelukast Sodium 10 Mg Tablet) 10 mg PO DAILY@1800 [facility] Last Admin: 10/12/21 17:48 Dose: 10 mg Documented by: Naproxen (Naproxen 500 Mg Tablet) 500 mg PO BID [facility] Last Admin: 10/13/21 08:37 Dose: 500 mg Documented by: Perphenazine (Perphenazine 2 Mg Tablet) 6 mg PO BID [facility] Last Admin: 10/13/21 08:38 Dose: 6 mg Documented by: Perphenazine (Perphenazine 8 Mg Tablet) 8 mg PO Q4H PRN PRN Reason: agitation. give with ativan 2 Prazosin HCl (Prazosin Hcl 1 Mg Capsule) 2 mg PO BEDTIME [facility]; Protocol Last Admin: 10/12/21 23:16 Dose: 2 mg Documented by: Senna (Sennosides 8.6 Mg Tablet) 17.2 mg PO BEDTIME [facility] Last Admin: 10/12/21 23:14 Dose: 17.2 mg Documented by: Topiramate (Topiramate 100 Mg Tablet) 100 mg PO BID [facility] Last Admin: 10/13/21 08:37 Dose: 100 mg Documented by: Trazodone HCl (Trazodone Hcl 100 Mg Tablet) 100 mg PO BEDTIME [facility] Last Admin: 10/12/21 23:16 Dose: 100 mg Documented by: Trazodone HCl (Trazodone Hcl 50 Mg Tablet) 50 mg PO BEDTIME PRN PRN Reason: Insomnia Last Admin: 10/10/21 21:40 Dose: 50 mg Documented by: Vitamin D (Cholecalciferol (Vitamin D3) 25 Mcg Tablet) 50 mcg PO DAILY@1800 [facility] Last Admin: 10/12/21 17:48 Dose: 50 mcg Documented by: Allergies Allergies Allergy/AdvReac Type Severity Reaction Status Date / Time bupropion [From WELLBUTRIN] Allergy Unknown HIVES Verified 10/06/21 22:48 pregabalin [From Lyrica] AdvReac Swelling Verified 10/06/21 22:49 Assessment & Plan Assessment & Plan (1) Severe recurrent major depression w/psychotic features, mood-congruent: Status: Acute Code(s): F33.3 - Major depressive disorder, recurrent, severe with psychotic symptoms Plan restarted previous regimen valenzuela warning given has been compliant with trilafon since admission and psychosis is improving. 10/13- continue current medications, ativan prn added. I spent ___20___ minutes with the patient and/or on the patient floor today, greater than?50% of which was spent counseling/coordinating care. Reason for contiued inpatient stay Substantial Risk for: inability to function
[2021-10-13] MEDS: Montelukast Sodium 10 MG TABLET PO (18:00)
[2021-10-13] MEDS: Magnesium Oxide 400 MG TABLET PO (18:00)
[2021-10-13] MEDS: Cholecalciferol (Vitamin D3) 25 MCG TABLET 50 MCG PO (18:00)
[2021-10-13] MEDS: Milk of Magnesia 30 ML ORAL.SUSP PO (20:46)
[2021-10-13] MEDS: Magnesium Citrate 300 ML SOLUTION PO (21:55)
[2021-10-13] MEDS: Sennosides 8.6 MG TABLET 17.2 MG PO (22:34)
[2021-10-13] MEDS: Prazosin HCL 1 MG CAPSULE 2 MG PO (22:35)
[2021-10-13] MEDS: traZODone HCL 100 MG TABLET PO (22:35)
[2021-10-13 22:38] VITALS: BP 118/71; PULSE 72; RESP 17; TEMP 36.5; O2SAT 99
[2021-10-14] MEDS: Acetaminophen 325 MG TABLET 650 MG PO ×2 (04:06→13:11)
[2021-10-14] MEDS: Levothyroxine Sodium 50 MCG TABLET PO (06:44)
[2021-10-14 08:16] VITALS: BP 115/70; PULSE 80; RESP 17; TEMP 36.4; O2SAT 100
[2021-10-14] MEDS: Topiramate 100 MG TABLET PO ×2 (08:19→22:13)
[2021-10-14] MEDS: NaPROXEN 500 MG TABLET PO ×2 (08:19→22:12)
[2021-10-14] MEDS: Perphenazine 2 MG TABLET 6 MG PO ×2 (08:20→22:13)
--- NOTE | 2021-10-14 11:45 | P.PNPSI_ITS ---
Subjective Subjective Date of Service: 10/14/21 Reason For Visit: SI with psychosis Subjective Notes: Conditional Voluntary Interim History: Patient seen and discussed with team. Pt overall presents much more coherent and logical, non labile. No overt signs of psychosis nor episcopalian delusions. Pt slept through the night. Pt somewhat tearful and frustrated when informed that she will be discharged on Sunday, not today after family meeting. She denies SI/HI. She reports she feels uncomfortable here, although does report that she knows she is safe here. Medication Compliance: Yes Side effects from medications: No Review of Systems Review of Systems Constitutional : No Fever, No Chills ENT/Mouth : No Ear Pain, No Nasal Congestion, No sore throat Eyes: No Eye Pain, No Swelling, No Redness Cardiovascular : No Chest Pain, No SOB Respiratory : No Cough, No Sputum, No Dyspnea Gastrointestinal : No Nausea, No Vomiting, No Diarrhea, No Hematochezia, No Melena Genitourinary : No Dysuria, No Urinary Frequency, No Hematuria Musculoskeletal : No Myalgias Skin : No Skin Lesions, No rash Neuro : No Weakness, No Numbness, No Paresthesias, No Dizziness, No Headache Psych : positive Anxiety, No Depression, No SI/HI Heme/Lymph: No Lymphadenopathy Endocrine : No Polyuria, No Polydipsia All other systems reviewed and are negative Yes all other systems are reviewed and are negative Mental Status Exam Mental Status Exam Narrative: cooperative.? adequately dressed and groomed.? less PMR.? mild generalized PMR.? speech spontaneous, nml in amount, rate, loudness, latency.?Mood is fine. thoughts organized and logical.? denies depression.? affect more flexible, non labile.? no SI/HI/AVH expressed. Diagnostics Vital Signs (24Hr): Vital Signs - 24 hr 10/13/21 22:38 10/14/21 08:16 Temperature 97.7 F 97.6 F Pulse Rate 72 80 Respiratory Rate 17 17 Blood Pressure 118/71 115/70 Pulse Oximetry 99 100 BMI result Body Mass Index 33.5 Labs Results: 10/06/21 22:48 10/06/21 22:48 Medications Medications Current Medications Acetaminophen (Acetaminophen 325 Mg Tablet) 650 mg PO Q6H PRN PRN Reason: Headache/Pain Mild Scale (1-3) Last Admin: 10/14/21 04:06 Dose: 650 mg Documented by: Al Hydroxide/Mg Hydroxide (Magnesium Hydrox/Alum Hydrox 30 Ml Oral.Susp) 30 ml PO Q6H PRN PRN Reason: Heartburn/Nausea Hydroxyzine HCl (Hydroxyzine Hcl 25 Mg Tablet) 25 mg PO BEDTIME PRN PRN Reason: Anxiety Levothyroxine Sodium (Levothyroxine Sodium 50 Mcg Tablet) 50 mcg PO DAILY@0600 [facility] Last Admin: 10/14/21 06:44 Dose: 50 mcg Documented by: Lorazepam (Lorazepam 1 Mg Tablet) 1 mg PO Q4H PRN PRN Reason: anxiety/agitation Magnesium Hydroxide (Milk Of Magnesia 30 Ml Oral.Susp) 30 ml PO DAILY PRN PRN Reason: Constipation Last Admin: 10/13/21 20:46 Dose: 30 ml Documented by: Magnesium Oxide (Magnesium Oxide 400 Mg Tablet) 400 mg PO DAILY@1800 [facility] Last Admin: 10/13/21 18:00 Dose: 400 mg Documented by: Montelukast Sodium (Montelukast Sodium 10 Mg Tablet) 10 mg PO DAILY@1800 [facility] Last Admin: 10/13/21 18:00 Dose: 10 mg Documented by: Naproxen (Naproxen 500 Mg Tablet) 500 mg PO BID [facility] Last Admin: 10/14/21 08:19 Dose: 500 mg Documented by: Perphenazine (Perphenazine 2 Mg Tablet) 6 mg PO BID [facility] Last Admin: 10/14/21 08:20 Dose: 6 mg Documented by: Perphenazine (Perphenazine 8 Mg Tablet) 8 mg PO Q4H PRN PRN Reason: agitation. give with ativan 2 Prazosin HCl (Prazosin Hcl 1 Mg Capsule) 2 mg PO BEDTIME [facility]; Protocol Last Admin: 10/13/21 22:35 Dose: 2 mg Documented by: Senna (Sennosides 8.6 Mg Tablet) 17.2 mg PO BEDTIME [facility] Last Admin: 10/13/21 22:34 Dose: 17.2 mg Documented by: Topiramate (Topiramate 100 Mg Tablet) 100 mg PO BID [facility] Last Admin: 10/14/21 08:19 Dose: 100 mg Documented by: Trazodone HCl (Trazodone Hcl 100 Mg Tablet) 100 mg PO BEDTIME [facility] Last Admin: 10/13/21 22:35 Dose: 100 mg Documented by: Trazodone HCl (Trazodone Hcl 50 Mg Tablet) 50 mg PO BEDTIME PRN PRN Reason: Insomnia Last Admin: 10/10/21 21:40 Dose: 50 mg Documented by: Vitamin D (Cholecalciferol (Vitamin D3) 25 Mcg Tablet) 50 mcg PO DAILY@1800 [facility] Last Admin: 10/13/21 18:00 Dose: 50 mcg Documented by: Allergies Allergies Allergy/AdvReac Type Severity Reaction Status Date / Time bupropion [From WELLBUTRIN] Allergy Unknown HIVES Verified 10/06/21 22:48 pregabalin [From Lyrica] AdvReac Swelling Verified 10/06/21 22:49 Assessment & Plan Assessment & Plan (1) Severe recurrent major depression w/psychotic features, mood-congruent: Status: Acute Code(s): F33.3 - Major depressive disorder, recurrent, severe with psychotic symptoms Plan restarted previous regimen valenzuela warning given has been compliant with trilafon since admission and psychosis is improving. 10/13- continue current medications, ativan prn added. 10/14- continue current medications, planned d/c on 10/17/21, after family meeting at 11:30am. I spent minutes with the patient and/or on the patient floor today, greater than?50% of which was spent counseling/coordinating care. Reason for contiued inpatient stay Substantial Risk for: rapid decompensation
[2021-10-14] MEDS: Cholecalciferol (Vitamin D3) 25 MCG TABLET 50 MCG PO (18:09)
[2021-10-14] MEDS: Acetaminophen 325 MG TABLET 975 MG PO (18:10)
[2021-10-14] MEDS: Magnesium Oxide 400 MG TABLET PO (18:10)
[2021-10-14] MEDS: Montelukast Sodium 10 MG TABLET PO (18:11)
[2021-10-14 22:00] VITALS: BP 114/62; PULSE 77; TEMP 36.8; O2SAT 98
[2021-10-14] MEDS: Sennosides 8.6 MG TABLET 17.2 MG PO (22:13)
[2021-10-14] MEDS: traZODone HCL 100 MG TABLET PO (22:13)
[2021-10-14] MEDS: Prazosin HCL 1 MG CAPSULE 2 MG PO (22:13)
[2021-10-15] MEDS: Levothyroxine Sodium 50 MCG TABLET PO (05:06)
[2021-10-15] MEDS: LORazepam 1 MG TABLET PO ×2 (05:09→20:22)
[2021-10-15] MEDS: Acetaminophen 325 MG TABLET 975 MG PO (06:20)
[2021-10-15 09:10] VITALS: BP 116/56; PULSE 80; RESP 18; TEMP 36.4; O2SAT 98
[2021-10-15] MEDS: Topiramate 100 MG TABLET PO ×2 (09:12→22:42)
[2021-10-15] MEDS: NaPROXEN 500 MG TABLET PO ×2 (09:12→22:42)
[2021-10-15] MEDS: Perphenazine 2 MG TABLET 6 MG PO ×2 (09:12→22:43)
--- NOTE | 2021-10-15 11:58 | P.PNPSI_ITS ---
Subjective Subjective Date of Service: 10/15/21 Reason For Visit: SI with psychosis Subjective Notes: Conditional Voluntary Interim History: Patient seen and discussed with staff Pt overall presents coherent and logical. She requests to restart cymbalta as she feels it helped with chronic pain. She denies any adverse effects from it; tolerated 90 mg daily in past. No overt signs of psychosis nor hindu delusions. Pt reports she slept through the night. She denies SI/HI. Medication Compliance: Yes Side effects from medications: No Review of Systems Acute medical concerns: No Medical Review of Systems: unchanged Review of Systems Review of Systems Constitutional : No Fever, No Chills ENT/Mouth : No Ear Pain, No Nasal Congestion, No sore throat Eyes: No Eye Pain, No Swelling, No Redness Cardiovascular : No Chest Pain, No SOB Respiratory : No Cough, No Sputum, No Dyspnea Gastrointestinal : No Nausea, No Vomiting, No Diarrhea, No Hematochezia, No Melena Genitourinary : No Dysuria, No Urinary Frequency, No Hematuria Musculoskeletal : No Myalgias Skin : No Skin Lesions, No rash Neuro : No Weakness, No Numbness, No Paresthesias, No Dizziness, No Headache Psych : positive Anxiety, No Depression, No SI/HI Heme/Lymph: No Lymphadenopathy Endocrine : No Polyuria, No Polydipsia All other systems reviewed and are negative Yes all other systems are reviewed and are negative Mental Status Exam Mental Status Exam Narrative: cooperative.? adequately dressed and groomed.?Slightly irritable when asking for cymbalta to be restarted. speech spontaneous, nml in amount, rate, loudness, latency.?Mood is fine. thoughts organized and logical.? denies depression.? affect more flexible, non labile.? no SI/HI/AVH expressed. judgment and insight fair. Diagnostics Vital Signs (24Hr): Vital Signs - 24 hr 10/14/21 22:00 10/15/21 09:10 Temperature 98.3 F 97.6 F Pulse Rate 77 80 Respiratory Rate 18 Blood Pressure 114/62 116/56 L Pulse Oximetry 98 98 BMI result Body Mass Index 33.5 Labs Results: 10/06/21 22:48 10/06/21 22:48 Medications Medications Current Medications Acetaminophen (Acetaminophen 325 Mg Tablet) 975 mg PO TID PRN PRN Reason: Headache/Pain Mild Scale (1-3) Last Admin: 10/15/21 06:20 Dose: 975 mg Documented by: Al Hydroxide/Mg Hydroxide (Magnesium Hydrox/Alum Hydrox 30 Ml Oral.Susp) 30 ml PO Q6H PRN PRN Reason: Heartburn/Nausea Hydroxyzine HCl (Hydroxyzine Hcl 25 Mg Tablet) 25 mg PO BEDTIME PRN PRN Reason: Anxiety Levothyroxine Sodium (Levothyroxine Sodium 50 Mcg Tablet) 50 mcg PO DAILY@0600 [facility] Last Admin: 10/15/21 05:06 Dose: 50 mcg Documented by: Lorazepam (Lorazepam 1 Mg Tablet) 1 mg PO Q4H PRN PRN Reason: anxiety/agitation Last Admin: 10/15/21 05:09 Dose: 1 mg Documented by: Magnesium Hydroxide (Milk Of Magnesia 30 Ml Oral.Susp) 30 ml PO DAILY PRN PRN Reason: Constipation Last Admin: 10/13/21 20:46 Dose: 30 ml Documented by: Magnesium Oxide (Magnesium Oxide 400 Mg Tablet) 400 mg PO DAILY@1800 [facility] Last Admin: 10/14/21 18:10 Dose: 400 mg Documented by: Montelukast Sodium (Montelukast Sodium 10 Mg Tablet) 10 mg PO DAILY@1800 [facility] Last Admin: 10/14/21 18:11 Dose: 10 mg Documented by: Naproxen (Naproxen 500 Mg Tablet) 500 mg PO BID [facility] Last Admin: 10/15/21 09:12 Dose: 500 mg Documented by: Perphenazine (Perphenazine 2 Mg Tablet) 6 mg PO BID [facility] Last Admin: 10/15/21 09:12 Dose: 6 mg Documented by: Perphenazine (Perphenazine 8 Mg Tablet) 8 mg PO Q4H PRN PRN Reason: agitation. give with ativan 2 Prazosin HCl (Prazosin Hcl 1 Mg Capsule) 2 mg PO BEDTIME [facility]; Protocol Last Admin: 10/14/21 22:13 Dose: 2 mg Documented by: Senna (Sennosides 8.6 Mg Tablet) 17.2 mg PO BEDTIME [facility] Last Admin: 10/14/21 22:13 Dose: 17.2 mg Documented by: Topiramate (Topiramate 100 Mg Tablet) 100 mg PO BID [facility] Last Admin: 10/15/21 09:12 Dose: 100 mg Documented by: Trazodone HCl (Trazodone Hcl 100 Mg Tablet) 100 mg PO BEDTIME [facility] Last Admin: 10/14/21 22:13 Dose: 100 mg Documented by: Trazodone HCl (Trazodone Hcl 50 Mg Tablet) 50 mg PO BEDTIME PRN PRN Reason: Insomnia Last Admin: 10/10/21 21:40 Dose: 50 mg Documented by: Vitamin D (Cholecalciferol (Vitamin D3) 25 Mcg Tablet) 50 mcg PO DAILY@1800 [facility] Last Admin: 10/14/21 18:09 Dose: 50 mcg Documented by: Allergies Allergies Allergy/AdvReac Type Severity Reaction Status Date / Time bupropion [From WELLBUTRIN] Allergy Unknown HIVES Verified 10/06/21 22:48 pregabalin [From Lyrica] AdvReac Swelling Verified 10/06/21 22:49 Assessment & Plan Assessment & Plan (1) Severe recurrent major depression w/psychotic features, mood-congruent: Status: Acute Code(s): F33.3 - Major depressive disorder, recurrent, severe with psychotic symptoms Plan restarted previous regimen valenzuela warning given has been compliant with trilafon since admission and psychosis is improving. 10/13- continue current medications, ativan prn added. 10/14- continue current medications, planned d/c on 10/17/21, after family meeting at 11:30am. 10/15 restart cymblta 20 mg daily and titrate as tolerated I spent __25____ minutes with the patient and/or on the patient floor today, greater than?50% of which was spent counseling/coordinating care. Patient educated on: medication risk/benefits and therapeutic strategies Reason for contiued inpatient stay Substantial Risk for: harm to self, harm to others and rapid decompensation
[2021-10-15] MEDS: DULoxetine HCl 20 MG CAPSULE.DR PO (17:26)
[2021-10-15] MEDS: Montelukast Sodium 10 MG TABLET PO (17:26)
[2021-10-15] MEDS: Cholecalciferol (Vitamin D3) 25 MCG TABLET 50 MCG PO (17:26)
[2021-10-15] MEDS: Magnesium Oxide 400 MG TABLET PO (17:26)
[2021-10-15] MEDS: Prazosin HCL 1 MG CAPSULE 2 MG PO (22:42)
[2021-10-15] MEDS: traZODone HCL 100 MG TABLET PO (22:43)
[2021-10-15] MEDS: Sennosides 8.6 MG TABLET 17.2 MG PO (22:43)
[2021-10-15 22:46] VITALS: BP 127/65; PULSE 92; TEMP 36.2; O2SAT 96
[2021-10-16] MEDS: LORazepam 1 MG TABLET PO (04:02)
[2021-10-16 08:15] VITALS: BP 109/54; PULSE 82; RESP 18; TEMP 36.6; O2SAT 99
[2021-10-16] MEDS: Perphenazine 2 MG TABLET 6 MG PO ×2 (08:17→21:58)
[2021-10-16] MEDS: Topiramate 100 MG TABLET PO ×2 (08:17→21:58)
[2021-10-16] MEDS: NaPROXEN 500 MG TABLET PO ×2 (08:17→21:58)
[2021-10-16] MEDS: DULoxetine HCl 20 MG CAPSULE.DR PO (08:17)
[2021-10-16] MEDS: Levothyroxine Sodium 50 MCG TABLET PO (08:17)
--- NOTE | 2021-10-16 15:36 | P.PNPSI_ITS ---
Subjective Subjective Date of Service: 10/16/21 Reason For Visit: SI with psychosis Subjective Notes: Conditional Voluntary Interim History: Patient seen and discussed with staff Pt tolerating the cymbalta 20 mg with no reported side effects; she is irritated that its nt the same dose as prior to admission. explained may be able to titrate up further. overall presents coherent and logical. S No overt signs of psychosis nor scientologist delusions. Pt reports she slept through the night. She denies SI/HI. Medication Compliance: Yes Side effects from medications: No Attending Groups: Intermittent Review of Systems Acute medical concerns: No Review of Systems Review of Systems Constitutional : No Fever, No Chills ENT/Mouth : No Ear Pain, No Nasal Congestion, No sore throat Eyes: No Eye Pain, No Swelling, No Redness Cardiovascular : No Chest Pain, No SOB Respiratory : No Cough, No Sputum, No Dyspnea Gastrointestinal : No Nausea, No Vomiting, No Diarrhea, No Hematochezia, No Melena Genitourinary : No Dysuria, No Urinary Frequency, No Hematuria Musculoskeletal : No Myalgias Skin : No Skin Lesions, No rash Neuro : No Weakness, No Numbness, No Paresthesias, No Dizziness, No Headache Psych : positive Anxiety, No Depression, No SI/HI Heme/Lymph: No Lymphadenopathy Endocrine : No Polyuria, No Polydipsia All other systems reviewed and are negative Yes all other systems are reviewed and are negative Mental Status Exam Mental Status Exam Narrative: cooperative.? adequately dressed and groomed.?Slightly irritable when discussing cymbalta. speech spontaneous, nml in amount, rate, loudness, latency.?Mood is fine. thoughts organized and logical.? denies depression.? affect more flexible, non labile.? no SI/HI/AVH expressed. judgment and insight fair. Diagnostics Vital Signs (24Hr): Vital Signs - 24 hr 10/15/21 22:46 10/16/21 08:15 Temperature 97.2 F 97.9 F Pulse Rate 92 82 Respiratory Rate 18 Blood Pressure 127/65 109/54 L Pulse Oximetry 96 99 BMI result Body Mass Index 33.5 Labs Results: 10/06/21 22:48 10/06/21 22:48 Medications Medications Current Medications Acetaminophen (Acetaminophen 325 Mg Tablet) 975 mg PO TID PRN PRN Reason: Headache/Pain Mild Scale (1-3) Last Admin: 10/15/21 06:20 Dose: 975 mg Documented by: Al Hydroxide/Mg Hydroxide (Magnesium Hydrox/Alum Hydrox 30 Ml Oral.Susp) 30 ml PO Q6H PRN PRN Reason: Heartburn/Nausea Duloxetine HCl (Duloxetine Hcl 20 Mg Capsule.Dr) 20 mg PO DAILY REPLACED BY [facility] Last Admin: 10/16/21 08:17 Dose: 20 mg Documented by: Hydroxyzine HCl (Hydroxyzine Hcl 25 Mg Tablet) 25 mg PO BEDTIME PRN PRN Reason: Anxiety Levothyroxine Sodium (Levothyroxine Sodium 50 Mcg Tablet) 50 mcg PO DAILY@0600 REPLACED BY [facility] Last Admin: 10/16/21 08:17 Dose: 50 mcg Documented by: Lorazepam (Lorazepam 1 Mg Tablet) 1 mg PO Q4H PRN PRN Reason: anxiety/agitation Last Admin: 10/16/21 04:02 Dose: 1 mg Documented by: Magnesium Hydroxide (Milk Of Magnesia 30 Ml Oral.Susp) 30 ml PO DAILY PRN PRN Reason: Constipation Last Admin: 10/13/21 20:46 Dose: 30 ml Documented by: Magnesium Oxide (Magnesium Oxide 400 Mg Tablet) 400 mg PO DAILY@1800 REPLACED BY [facility] Last Admin: 10/15/21 17:26 Dose: 400 mg Documented by: Montelukast Sodium (Montelukast Sodium 10 Mg Tablet) 10 mg PO DAILY@1800 REPLACED BY [facility] Last Admin: 10/15/21 17:26 Dose: 10 mg Documented by: Naproxen (Naproxen 500 Mg Tablet) 500 mg PO BID REPLACED BY [facility] Last Admin: 10/16/21 08:17 Dose: 500 mg Documented by: Perphenazine (Perphenazine 2 Mg Tablet) 6 mg PO BID REPLACED BY [facility] Last Admin: 10/16/21 08:17 Dose: 6 mg Documented by: Perphenazine (Perphenazine 8 Mg Tablet) 8 mg PO Q4H PRN PRN Reason: agitation. give with ativan 2 Prazosin HCl (Prazosin Hcl 1 Mg Capsule) 2 mg PO BEDTIME REPLACED BY [facility]; Protocol Last Admin: 10/15/21 22:42 Dose: 2 mg Documented by: Senna (Sennosides 8.6 Mg Tablet) 17.2 mg PO BEDTIME REPLACED BY [facility] Last Admin: 10/15/21 22:43 Dose: 17.2 mg Documented by: Topiramate (Topiramate 100 Mg Tablet) 100 mg PO BID REPLACED BY [facility] Last Admin: 10/16/21 08:17 Dose: 100 mg Documented by: Trazodone HCl (Trazodone Hcl 100 Mg Tablet) 100 mg PO BEDTIME REPLACED BY [facility] Last Admin: 10/15/21 22:43 Dose: 100 mg Documented by: Trazodone HCl (Trazodone Hcl 50 Mg Tablet) 50 mg PO BEDTIME PRN PRN Reason: Insomnia Last Admin: 10/10/21 21:40 Dose: 50 mg Documented by: Vitamin D (Cholecalciferol (Vitamin D3) 25 Mcg Tablet) 50 mcg PO DAILY@1800 REPLACED BY [facility] Last Admin: 10/15/21 17:26 Dose: 50 mcg Documented by: Allergies Allergies Allergy/AdvReac Type Severity Reaction Status Date / Time bupropion [From WELLBUTRIN] Allergy Unknown HIVES Verified 10/06/21 22:48 pregabalin [From Lyrica] AdvReac Swelling Verified 10/06/21 22:49 Assessment & Plan Assessment & Plan (1) Severe recurrent major depression w/psychotic features, mood-congruent: Status: Acute Code(s): F33.3 - Major depressive disorder, recurrent, severe with psychotic symptoms Plan restarted previous regimen valenzuela warning given has been compliant with trilafon since admission and psychosis is improving. 10/13- continue current medications, ativan prn added. 10/14- continue current medications, planned d/c on 10/17/21, after family meeting at 11:30am. 10/15 restart cymblta 20 mg daily and titrate as tolerated 10/16 contnue current treatment plan I spent ___15___ minutes with the patient and/or on the patient floor today, greater than?50% of which was spent counseling/coordinating care. Patient educated on: diagnosis, medication risk/benefits and therapeutic strategies Informed Consent: further education needed Reason for contiued inpatient stay Substantial Risk for: harm to self, inability to function and rapid decompensation
[2021-10-16] MEDS: Magnesium Oxide 400 MG TABLET PO (18:00)
[2021-10-16] MEDS: Cholecalciferol (Vitamin D3) 25 MCG TABLET 50 MCG PO (18:01)
[2021-10-16] MEDS: Montelukast Sodium 10 MG TABLET PO (18:01)
[2021-10-16 21:55] VITALS: BP 102/64; PULSE 68; RESP 16; TEMP 36.3; O2SAT 100
[2021-10-16] MEDS: Sennosides 8.6 MG TABLET 17.2 MG PO (21:58)
[2021-10-16] MEDS: Prazosin HCL 1 MG CAPSULE 2 MG PO (21:58)
[2021-10-16] MEDS: traZODone HCL 100 MG TABLET PO (21:58)
[2021-10-17] MEDS: Levothyroxine Sodium 50 MCG TABLET PO (06:31)
[2021-10-17 08:00] VITALS: BP 106/64; PULSE 83; RESP 16; TEMP 36.4; O2SAT 98
[2021-10-17] MEDS: Topiramate 100 MG TABLET PO (08:02)
[2021-10-17] MEDS: NaPROXEN 500 MG TABLET PO (08:02)
[2021-10-17] MEDS: Perphenazine 2 MG TABLET 6 MG PO (08:02)
[2021-10-17] MEDS: DULoxetine HCl 20 MG CAPSULE.DR PO (08:02)
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
--- NOTE | 2021-10-17 12:30 | PC.NURSE ---
Patient is A & Ox4. Patient is pleasant and cooperative. Patient denies SI/HI/AH/VH. Patient reports feeling safe and ready to for discharge. Patient is in agreement with discharge teachings and instructions. Patient denies physical complaints.
== END 2021-10-17 12:22 | disposition home or self-care (01) | DRG 885 ==
LOC: HO.ED 10-07 00:20 → HO.PADLT16 10-07 14:12
PROVIDERS: Physician Assistant; Admitting Provider Psychiatry & Neurology Psychiatry; Emergency Provider Internal Medicine; PCP Radiology Diagnostic Radiology; Visit Provider Psychiatry & Neurology Psychiatry
DX: F33.3 Major depressive disorder, recurrent, severe with psychotic symptoms (principal); R45.851 Suicidal ideations; Z20.822 Contact with and (suspected) exposure to COVID-19; Z87.891 Personal history of nicotine dependence; Z88.8 Allergy status to other drugs, medicaments and biological substances; Z79.1 Long term (current) use of non-steroidal anti-inflammatories (NSAID); Z79.890 Hormone replacement therapy; Z79.899 Other long term (current) drug therapy
CPT/HCPCS: 36415; 80053; 80061; 80307; 81003; 81025; 82607; 82746; 83036; 84439; 84443; 85025; 87635; 93005; 99285

== ENCOUNTER 2021-11-22 09:13 | Inpatient (IN) | payer MEDICARE, MEDICAID, SELFPAY ==
--- NOTE | 2021-11-22 09:32 | ED.ABDPAIN ---
HPI - Abdominal Pain General Stated Complaint: CRISIS,SI Time Seen by Provider: 11/22/21 09:30 Related Data Home Medications Medication Instructions Recorded Confirmed xdkhaenwil-acpgmypypctzr-juwlpnuc 1 - 2 tab PO Q6H PRN 09/24/21 10/06/21 50 mg-325 mg-40 mg tablet cholecalciferol (vitamin D3) 50 50 mcg PO DAILY@1800 09/24/21 10/06/21 mcg (2,000 unit) tablet levothyroxine 50 mcg tablet 50 mcg PO DAILY@0600 09/24/21 10/06/21 magnesium oxide 400 mg (241.3 mg 400 mg PO DAILY@1800 09/24/21 10/06/21 magnesium) tablet meloxicam 15 mg tablet 15 mg PO DAILY 09/24/21 10/06/21 montelukast 10 mg tablet 10 mg PO DAILY@1800 09/24/21 10/06/21 prazosin 2 mg capsule 2 mg PO BEDTIME 09/24/21 10/06/21 sennosides 8.6 mg tablet (senna) 17.6 mg PO BEDTIME 09/24/21 10/06/21 topiramate 100 mg tablet 100 mg PO BID 09/24/21 10/06/21 trazodone 100 mg tablet 100 mg PO BEDTIME 09/24/21 10/06/21 Previous Rx's Medication Instructions Recorded duloxetine 20 mg capsule,delayed 60 mg PO DAILY 30 Days #90 cap 10/17/21 release perphenazine 2 mg tablet 6 mg PO BID 30 Days #180 tab 10/17/21 Allergies Allergy/AdvReac Type Severity Reaction Status Date / Time bupropion [From WELLBUTRIN] Allergy Unknown HIVES Verified 10/06/21 22:48 pregabalin [From Lyrica] AdvReac Swelling Verified 10/06/21 22:49 COUNTS INCLUDE 234 BEDS AT THE [facility] Past Medical History Medical History Borderline personality disorder Depression Thyroid disease Social History Social History (Updated 09/23/21 @ 20:22 by Teodora Merritt DO) Household Members: Significant Other Housing: House Do you presently have visiting nurse or other home services: No Unable to assess alcohol history related to: Refusing to respond Patient Tobacco Use Status: Former Tobacco user Tobacco use type: Cigarette Substance Use Type: Marijuana service: No Sexual orientation: Straight/Heterosexual Discharge Plan Discharge Prescriptions: No Action sennosides [senna] 8.6 mg tablet 17.6 mg PO BEDTIME 0RF meloxicam 15 mg tablet 15 mg PO DAILY 0RF gzzfxjymsg-twsznddqiwsia-zerz 50-325-40 mg tablet 1 - 2 tab PO Q6H PRN (Reason: headache) 0RF magnesium oxide 400 mg (241.3 mg magnesium) tablet 400 mg PO DAILY@1800 0RF trazodone 100 mg tablet 100 mg PO BEDTIME 0RF levothyroxine 50 mcg tablet 50 mcg PO DAILY@0600 0RF montelukast 10 mg tablet 10 mg PO DAILY@1800 0RF topiramate 100 mg tablet 100 mg PO BID 0RF prazosin 2 mg capsule 2 mg PO BEDTIME 0RF cholecalciferol (vitamin D3) 50 mcg (2,000 unit) tablet 50 mcg PO DAILY@1800 0RF perphenazine 2 mg Tablet 6 mg PO BID 30 Days Qty: 180 0RF duloxetine 20 mg Capsule,Delayed Release(Dr/Ec) 60 mg PO DAILY 30 Days Qty: 90 0RF
[2021-11-22 09:43] VITALS: BP 141/80; PULSE 106; RESP 18; TEMP 36.8; O2SAT 100; BMI 31.6
[2021-11-22 10:00] LABS: MANUAL DIFF FLAG NO
[2021-11-22 10:03] LABS: Basophils Percent Auto 0.5 % (0-2); Eosinophils Absolute Auto 0.1 X10*3/uL (0.0-0.4); Eosinophils Percent Auto 3.1 % (0-4); Hematocrit 38.6 % (37.0-47.0); Hemoglobin 12.9 g/dl (12.0-16.0); Imm Gran Abs Auto 0.01 X10*3/uL (0.00-0.03); Imm Gran Pct Auto 0.3 % (0.0-0.4); Lymphocytes Absolute Auto 1.1 X10*3/uL (1.2-4.9); Lymphocytes Percent Auto 28.5 % (20-40); Mean Corpuscular HGB Conc 33.4 g/dl (31.0-35.0); Mean Corpuscular Hemoglobin 30.8 pg (27.0-33.0); Mean Corpuscular Volume 92.1 fL (80.0-98.0); Mean Platelet Volume 12.3 fL (9.4-12.3); Monocytes Absolute Auto 0.3 X10*3/uL (0.1-1.2); Monocytes Percent Auto 6.6 % (2-11); Neutrophils Absolute Auto 2.4 x10*3/uL (2.0-8.3); Platelet Count 136 X10*3/uL (160-400); Red Blood Count 4.19 X10*6/uL (4.20-5.50); Red Cell Distribution Width 12.9 % (11.0-16.0); White Blood Count 3.9 X10*3/uL (4.8-10.8)
[2021-11-22 10:26] LABS: Alanine Aminotransferase 13 U/L (0-31); Alkaline Phosphatase 62 U/L (39-117); Anion Gap 9 (12-20); Aspartate Amino Transferase 12 U/L (5-31); Bilirubin Direct 0.4 mg/dL (0.0-0.5); Blood Urea Nitrogen 12 mg/dL (9-16); Calcium 9.1 mg/dL (8.4-10.2); Carbon Dioxide 22 mmol/L (22-29); Chloride 112 mmol/L (96-108); Creatinine Clr Calc Pharmacy 97.6; Estimated Glomerular Filt Rate > 60; Glucose Random 119 mg/dL (60-115); Potassium 3.9 mmol/L (3.3-5.1); Sodium 139 mmol/L (135-145); Total Protein 6.4 g/dL (6.5-8.0)
[2021-11-22 10:36] LABS: COVID-19 Test Negative (Negative); IDNOW Serial# 16C4AD1C
[2021-11-22 10:53] LABS: Appearance Urine CLEAR; Color Urine YELLOW; Glucose Urine UA NEG (NEG); Leukocyte Esterase Urine NEG (NEG); Nitrite Urine NEG (NEG); Specific Gravity - Urine <= 1.005 (1.005-1.025); UACC Culture Trigger NO; Urine Blood 1+ (NEG); Urine Ketones NEG (NEG); Urine Protein NEG (NEG-TRACE)
[2021-11-22 11:05] LABS: Squamous Epithelial Cell Urine TRACE /LPF
[2021-11-22 11:06] LABS: WBC Urine 0 /HPF (0-4)
[2021-11-22 11:09] LABS: Amphetamine Screen Urine Not Detected (Not Detect); Barbiturates, Urine Not Detected (Not Detect); Benzodiazepines Screen Urine Not Detected (Not Detect); Cannabinoid Screen Urine POSITIVE (Not Detect); Cocaine Screen Urine Not Detected (Not Detect); Fentanyl, urine Not Detected (Not Detect); Opiate Screen Urine Not Detected (Not Detect); Phencyclidine Screen Urine Not Detected (Not Detect)
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
--- NOTE | 2021-11-22 17:13 | PHA.MEDREC ---
MED REC COMPLETE, COMBINATION OF PHARMACY HISTORY, PATIENT INTERVIEWED BY NURSE, AND MEDICAL RECORD FROM DISCHARGE 1 MONTH PRIOR. Pharmacy Consult ? Medication Reconciliation Pharmacy has completed the medication reconciliation.
[2021-11-22] MEDS: Acetaminophen 325 MG TABLET 650 MG PO (17:16)
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
[2021-11-22 22:15] VITALS: BP 125/78; PULSE 84; RESP 14; O2SAT 97
[2021-11-22 23:10] VITALS: BP 124/81; PULSE 81; TEMP 36.8; O2SAT 98
[2021-11-22] MEDS: Topiramate 100 MG TABLET PO ×2 (23:15)
[2021-11-22] MEDS: Cholecalciferol (Vitamin D3) 25 MCG TABLET 50 MCG PO (23:16)
[2021-11-22] MEDS: Magnesium Oxide 400 MG TABLET PO ×2 (23:16)
[2021-11-22] MEDS: Sennosides 8.6 MG TABLET PO (23:17)
[2021-11-22] MEDS: LORazepam 0.5 MG TABLET PO (23:28)
[2021-11-22] MEDS: Perphenazine 4 MG TABLET PO (23:28)
[2021-11-23] MEDS: Prazosin HCL 1 MG CAPSULE 2 MG PO ×2 (00:26→21:34)
[2021-11-23] MEDS: traZODone HCL 100 MG TABLET PO ×2 (00:27→21:30)
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
[2021-11-23] MEDS: Levothyroxine Sodium 50 MCG TABLET PO (05:59)
[2021-11-23] MEDS: DULoxetine HCl 60 MG CAPSULE.DR PO (09:03)
[2021-11-23] MEDS: Topiramate 100 MG TABLET PO ×2 (09:03→17:01)
[2021-11-23] MEDS: Perphenazine 4 MG TABLET PO ×2 (09:03→17:01)
[2021-11-23 09:05] VITALS: BP 111/76; PULSE 89; RESP 20; TEMP 36.3; O2SAT 97
[2021-11-23 09:23] LABS: Estimated Average Glucose 91 mg/dL; Hemoglobin A1c % 4.8 %
[2021-11-23 09:28] LABS: Cholesterol 148 mg/dL; HDL Cholesterol 36 mg/dL; LDL Cholesterol Calculated 101 mg/dl; Magnesium 2.2 mg/dL (1.6-2.6); Triglycerides 59 mg/dL
[2021-11-23 09:48] LABS: Free T4 (Free Thyroxine) 1.23 ng/dL (0.71-1.85); Thyroid Stimulating Hormone 1.18 uIU/mL (0.32-4.0)
[2021-11-23 13:38] LABS: Folate 10.6 ng/mL (> or = 4.0); Vitamin B12 266 pg/mL (200-900)
[2021-11-23] MEDS: Acetaminophen 325 MG TABLET 650 MG PO (14:53)
[2021-11-23] MEDS: Cholecalciferol (Vitamin D3) 25 MCG TABLET 50 MCG PO (17:02)
[2021-11-23] MEDS: Magnesium Oxide 400 MG TABLET PO (17:03)
[2021-11-23 21:30] VITALS: BP 105/53; PULSE 69; TEMP 36.1
[2021-11-23] MEDS: NaPROXEN 500 MG TABLET PO (21:30)
[2021-11-23] MEDS: Sennosides 8.6 MG TABLET PO (21:30)
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
[2021-11-24 06:00] VITALS: BP 106/53; PULSE 71; RESP 14; TEMP 36.6; O2SAT 98
[2021-11-24] MEDS: Levothyroxine Sodium 50 MCG TABLET PO (06:07)
[2021-11-24 07:00] VITALS: BMI 32.9
[2021-11-24] MEDS: Topiramate 100 MG TABLET PO ×2 (08:39→16:20)
[2021-11-24] MEDS: Perphenazine 4 MG TABLET PO ×2 (08:40→16:20)
[2021-11-24] MEDS: DULoxetine HCl 60 MG CAPSULE.DR PO (08:41)
[2021-11-24] MEDS: Acetaminophen 325 MG TABLET 650 MG PO ×2 (09:44→21:04)
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
[2021-11-24] MEDS: Cholecalciferol (Vitamin D3) 25 MCG TABLET 50 MCG PO (16:19)
[2021-11-24] MEDS: Magnesium Oxide 400 MG TABLET PO (16:20)
[2021-11-24 20:16] VITALS: BP 110/64; PULSE 69; RESP 18; TEMP 35.8; O2SAT 99
[2021-11-24] MEDS: Sennosides 8.6 MG TABLET PO (21:04)
[2021-11-24] MEDS: Prazosin HCL 1 MG CAPSULE 2 MG PO (21:04)
[2021-11-24] MEDS: traZODone HCL 100 MG TABLET PO (21:04)
[2021-11-24] MEDS: LORazepam 0.5 MG TABLET PO (21:24)
[2021-11-25] MEDS: Levothyroxine Sodium 50 MCG TABLET PO (06:16)
[2021-11-25 06:30] VITALS: BP 96/54; PULSE 80; RESP 15; TEMP 36.6; O2SAT 99
[2021-11-25] MEDS: Acetaminophen 325 MG TABLET 650 MG PO (07:28)
[2021-11-25] MEDS: Topiramate 100 MG TABLET PO ×2 (08:37→17:25)
[2021-11-25] MEDS: Perphenazine 4 MG TABLET PO (08:37)
[2021-11-25] MEDS: DULoxetine HCl 60 MG CAPSULE.DR PO (08:37)
--- NOTE | 2021-11-25 16:52 | PM.EVENT ---
Event Note Date of Service: 11/25/21 Event Note: Verbal three day notice submitted today.
[2021-11-25] MEDS: Cholecalciferol (Vitamin D3) 25 MCG TABLET 50 MCG PO (17:25)
[2021-11-25] MEDS: Magnesium Oxide 400 MG TABLET PO (17:25)
[2021-11-25] MEDS: Perphenazine 2 MG TABLET 6 MG PO (17:29)
[2021-11-25 17:43] VITALS: BP 126/84; PULSE 88; RESP 18; TEMP 37.1; O2SAT 97
--- NOTE | 2021-11-25 18:31 | HO.PSYCHPN ---
Subjective Subjective Date of Service: 11/25/21 Reason For Visit: Recurrent major depression, with psychotic feature Subjective Notes: 3 Day Healthcare Proxy: No Guardianship: No Medical Problems Affecting Mental Status: No Interim History: Labile, angry, threats to harm others if demands are not met. Refusal of medications. Reports to team diagnosis of dissociative identity disorder. Refusal of room-mate with threats to team and room-mate if assigned. Three day notice needed to be verbally filed as she insisted on changing the date to 11/22 on written copy. Medication Compliance: No Side effects from medications: No Attending Groups: No Review of Systems Acute medical concerns: No Medical Review of Systems: unchanged Review of Systems Reports behavioral changes Psychiatric: Reports behavioral changes, Reports irritability and Reports mood swings Mental Status Exam Mental Status Exam Patient Appearance: Disheveled (reports several knots in her hair) Patient Orientation: Person, Place, Time and Situation Level of Consciousness: Alert Patient Behavior: Talkative, Cooperative, Restless, Belligerent, Verbal Threats, Anxious, Fearful, Resistive to Care, Distractible, Good Eye Contact, Crying and Impulsive Mood Description: Depressed, Labile and Angry Affect Description: Labile and Angry Patient Cognition Impaired: No Ability to Follow Directions: Good Speech Pattern: Spontaneous Speech Memory Description: Episodic Impaired Hallucinations: None Delusions: Not Present Perceptual Disturbances: Depersonalization and Derealization Thought Process: Goal Oriented Thought Content: positive for Goal Oriented Depressive Symptoms: Diff. Making Decisions, Increased Irritability, Loss of Int. in Activity, Feelings of Worthlessness, Hopelessness, Isolating-Friends/Family, Feelings of Guilt, Unhappiness, Increased Fatigue, Low Self Esteem, Loss of Energy and Difficulty Concentrating Abnormal Motor Activity Signs and Symptoms: Aggression, Agitation and Restlessness Judgement: Poor Diagnostics Vital Signs (24Hr): Vital Signs - 24 hr 11/24/21 20:16 11/25/21 06:30 11/25/21 17:43 Temperature 96.5 F L 98 F 98.8 F Pulse Rate 69 80 88 Respiratory Rate 18 15 18 Blood Pressure 110/64 96/54 L 126/84 Pulse Oximetry 99 99 97 BMI result Body Mass Index 32.9 Labs Results: 11/22/21 09:53 11/22/21 09:53 Medications Medications Current Medications Acetaminophen (Acetaminophen 325 Mg Tablet) 650 mg PO Q6H PRN PRN Reason: Headache/Pain Mild Scale (1-3) Last Admin: 11/25/21 07:28 Dose: 650 mg Documented by: Al Hydroxide/Mg Hydroxide (Magnesium Hydrox/Alum Hydrox 30 Ml Oral.Susp) 30 ml PO Q6H PRN PRN Reason: Heartburn/Nausea Duloxetine HCl (Duloxetine Hcl 60 Mg Capsule.Dr) 60 mg PO DAILY [facility] Last Admin: 11/25/21 08:37 Dose: 60 mg Documented by: Haloperidol (Haloperidol 5 Mg Tablet) 5 mg PO TID PRN PRN Reason: psychotic agitation Hydroxyzine HCl (Hydroxyzine Hcl 25 Mg Tablet) 25 mg PO Q6H PRN PRN Reason: Anxiety Levothyroxine Sodium (Levothyroxine Sodium 50 Mcg Tablet) 50 mcg PO DAILY@0600 [facility] Last Admin: 11/25/21 06:16 Dose: 50 mcg Documented by: Lorazepam (Lorazepam 0.5 Mg Tablet) 0.5 mg PO Q6H PRN PRN Reason: anxiety, agitation Last Admin: 11/24/21 21:24 Dose: 0.5 mg Documented by: Magnesium Hydroxide (Milk Of Magnesia 30 Ml Oral.Susp) 30 ml PO DAILY PRN PRN Reason: Constipation Magnesium Oxide (Magnesium Oxide 400 Mg Tablet) 400 mg PO DAILY@1600 [facility] Last Admin: 11/25/21 17:25 Dose: 400 mg Documented by: Naproxen (Naproxen 500 Mg Tablet) 500 mg PO Q12H PRN PRN Reason: mod-severe pain Last Admin: 11/23/21 21:30 Dose: 500 mg Documented by: Perphenazine (Perphenazine 2 Mg Tablet) 6 mg PO BID@0800,1600 [facility] Last Admin: 11/25/21 17:29 Dose: 4 mg Documented by: Prazosin HCl (Prazosin Hcl 1 Mg Capsule) 2 mg PO BEDTIME [facility]; Protocol Last Admin: 11/24/21 21:04 Dose: 2 mg Documented by: Senna (Sennosides 8.6 Mg Tablet) 8.6 mg PO BEDTIME [facility] Last Admin: 11/24/21 21:04 Dose: 8.6 mg Documented by: Topiramate (Topiramate 100 Mg Tablet) 100 mg PO BID@0800,1600 [facility] Last Admin: 11/25/21 17:25 Dose: 100 mg Documented by: Trazodone HCl (Trazodone Hcl 100 Mg Tablet) 100 mg PO BEDTIME [facility] Last Admin: 11/24/21 21:04 Dose: 100 mg Documented by: Vitamin D (Cholecalciferol (Vitamin D3) 25 Mcg Tablet) 50 mcg PO DAILY@1600 [facility] Last Admin: 11/25/21 17:25 Dose: 50 mcg Documented by: Allergies Allergies Allergy/AdvReac Type Severity Reaction Status Date / Time bupropion [From WELLBUTRIN] Allergy Unknown HIVES Verified 10/06/21 22:48 pregabalin [From Lyrica] AdvReac Swelling Verified 10/06/21 22:49 Assessment & Plan Assessment & Plan (1) Schizoaffective disorder, depressive type: Status: Acute Code(s): F25.1 - Schizoaffective disorder, depressive type (2) Borderline personality disorder: Status: Acute Code(s): F60.3 - Borderline personality disorder Plan Altagracia is a 36 y.o. female who carries a dx of BPD and schizoaffective disorder, depressive type. Pt presented to [facility] ED on 11/22/21 due to decompensation in context of psychotic depression. Pt has hx of poor self care, poor sleep, and paranoia. Denies med non-adherence. Utox positive for cannabis. Denies alcohol abuse. Plan: Pt does not want med changes. Reports she is at the hospital due to not having anywhere else to go, does not feel safe to go back to the residence she was at with her partner, as she does not feel supported. Q15 min safety checks, section 12B Monitor response to medications. Monitor for safety in the milieu. Discharge on stabilization. Patient seen. Chart reviewed. Discussed with team. Obtain collateral contact info?as needed 11/24/21: Continue Duloxetine 60 mg daily Perphenazine 4 mg bid Prazosin 2 mg HS Topiramate 100 mg bid Trazodone 100 mg HS Levothyroxine, Mg, Senokot Atarax, Lorazepam, Naproxyn prn Discharge planning/Service arrangement. 11/25/21-Increase Perphenazine to 6 mg bid-pt refused. Three day notice filed. I spent minutes with the patient and/or on the patient floor today, greater than?50% of which was spent counseling/coordinating care. Informed Consent: further education needed Reason for contiued inpatient stay Substantial Risk for: inability to function and rapid decompensation
[2021-11-25 20:58] VITALS: BP 106/7; PULSE 74
[2021-11-25] MEDS: Prazosin HCL 1 MG CAPSULE 2 MG PO (21:00)
[2021-11-25] MEDS: Sennosides 8.6 MG TABLET PO (21:00)
[2021-11-25] MEDS: traZODone HCL 100 MG TABLET PO (21:00)
[2021-11-26 06:00] VITALS: BP 111/55; PULSE 84; TEMP 36.4; O2SAT 98
[2021-11-26] MEDS: Levothyroxine Sodium 50 MCG TABLET PO (06:28)
[2021-11-26] MEDS: Acetaminophen 325 MG TABLET 650 MG PO (07:34)
[2021-11-26] MEDS: Perphenazine 2 MG TABLET 6 MG PO (09:24)
[2021-11-26] MEDS: DULoxetine HCl 60 MG CAPSULE.DR PO (09:24)
[2021-11-26] MEDS: Topiramate 100 MG TABLET PO ×2 (09:24→16:04)
[2021-11-26] MEDS: Cholecalciferol (Vitamin D3) 25 MCG TABLET 50 MCG PO (16:04)
[2021-11-26] MEDS: Magnesium Oxide 400 MG TABLET PO (16:05)
[2021-11-26] MEDS: Perphenazine 4 MG TABLET PO (16:05)
[2021-11-26 18:00] VITALS: BP 116/71; PULSE 71; RESP 18; TEMP 36.1; O2SAT 98
--- NOTE | 2021-11-26 21:50 | HO.PSYCHPN ---
Subjective Subjective Date of Service: 11/26/21 Reason For Visit: Recurrent major depression, with psychotic feature Subjective Notes: Rubalcava Warning and Section 12B Healthcare Proxy: No Guardianship: No Medical Problems Affecting Mental Status: No Interim History: Patient seen and discussed with team. Her 3 day notice is up on the , has been refusing the increase in trilafon. Patient evaluated today and upon interview she says Why did u change my perphenazine. I dont want to change my perphenazine, says it doesnt do anything. Says she did not know it was being increased, it was a sneak attack on me. Asked for 4 mg BID. Pt says in order to return home, I need to know its safe at my house, also wants a case worker, a safety plan, Domingo Tracy as my prescriber again, and if I can have an appointment with her. Pt also wants help in the home with ADLs, someone to help with food prep, as there was rotten food in the fridge. Mom is bringing her CPAP. Says I really wanna go home, as she is in a frustration spot, was also working on a painting at home, feels bored. In the milieu, patient is isolative in behavior. Denies SI/SIB/HI upon inquiry. Denies irritability or assaultive ideation. Says she feels safe. Medication Compliance: No Side effects from medications: No Attending Groups: No Review of Systems Acute medical concerns: No Medical Review of Systems: unchanged Mental Status Exam Mental Status Exam Narrative: Patient Appearance:?Disheveled (reports several knots in her hair) Patient Orientation:?Person, Place, Time and Situation Level of Consciousness:?Alert Patient Behavior:?Talkative, Cooperative, Restless, Belligerent, Verbal Threats, Anxious, Fearful, Resistive to Care, Distractible, Good Eye Contact, Crying and Impulsive Mood Description:?Depressed, Labile and Angry Affect Description:?Labile and Angry Patient Cognition Impaired:?No Ability to Follow Directions:?Good Speech Pattern:?Spontaneous Speech Memory Description:?Episodic Impaired Hallucinations:?None Delusions:?Not Present Perceptual Disturbances:?Depersonalization and Derealization Thought Process:?Goal Oriented Thought Content:?positive for Goal Oriented Depressive Symptoms:?Diff. Making Decisions, Increased Irritability, Loss of Int. in Activity, Feelings of Worthlessness, Hopelessness, Isolating-Friends/Family, Feelings of Guilt, Unhappiness, Increased Fatigue, Low Self Esteem, Loss of Energy and Difficulty Concentrating Abnormal Motor Activity Signs and Symptoms:?Aggression, Agitation and Restlessness Judgement:?Poor Diagnostics Vital Signs (24Hr): Vital Signs - 24 hr 11/26/21 06:00 11/26/21 18:00 Temperature 97.5 F 97 F Pulse Rate 84 71 Respiratory Rate 18 Blood Pressure 111/55 L 116/71 Pulse Oximetry 98 98 BMI result Body Mass Index 32.9 Labs Results: 11/22/21 09:53 11/22/21 09:53 Medications Medications Current Medications Acetaminophen (Acetaminophen 325 Mg Tablet) 650 mg PO Q6H PRN PRN Reason: Headache/Pain Mild Scale (1-3) Last Admin: 11/26/21 07:34 Dose: 650 mg Documented by: Al Hydroxide/Mg Hydroxide (Magnesium Hydrox/Alum Hydrox 30 Ml Oral.Susp) 30 ml PO Q6H PRN PRN Reason: Heartburn/Nausea Duloxetine HCl (Duloxetine Hcl 60 Mg Capsule.Dr) 60 mg PO DAILY [facility] Last Admin: 11/26/21 09:24 Dose: 60 mg Documented by: Haloperidol (Haloperidol 5 Mg Tablet) 5 mg PO TID PRN PRN Reason: psychotic agitation Hydroxyzine HCl (Hydroxyzine Hcl 25 Mg Tablet) 25 mg PO Q6H PRN PRN Reason: Anxiety Levothyroxine Sodium (Levothyroxine Sodium 50 Mcg Tablet) 50 mcg PO DAILY@0600 [facility] Last Admin: 11/26/21 06:28 Dose: 50 mcg Documented by: Lorazepam (Lorazepam 0.5 Mg Tablet) 0.5 mg PO Q6H PRN PRN Reason: anxiety, agitation Last Admin: 11/24/21 21:24 Dose: 0.5 mg Documented by: Magnesium Hydroxide (Milk Of Magnesia 30 Ml Oral.Susp) 30 ml PO DAILY PRN PRN Reason: Constipation Magnesium Oxide (Magnesium Oxide 400 Mg Tablet) 400 mg PO DAILY@1600 [facility] Last Admin: 11/26/21 16:05 Dose: 400 mg Documented by: Naproxen (Naproxen 500 Mg Tablet) 500 mg PO Q12H PRN PRN Reason: mod-severe pain Last Admin: 11/23/21 21:30 Dose: 500 mg Documented by: Perphenazine (Perphenazine 4 Mg Tablet) 4 mg PO BID@0800,1600 [facility] Last Admin: 11/26/21 16:05 Dose: 4 mg Documented by: Prazosin HCl (Prazosin Hcl 1 Mg Capsule) 2 mg PO BEDTIME [facility]; Protocol Last Admin: 11/26/21 22:01 Dose: 2 mg Documented by: Senna (Sennosides 8.6 Mg Tablet) 8.6 mg PO BEDTIME [facility] Last Admin: 11/26/21 22:01 Dose: 8.6 mg Documented by: Topiramate (Topiramate 100 Mg Tablet) 100 mg PO BID@0800,1600 [facility] Last Admin: 11/26/21 16:04 Dose: 100 mg Documented by: Trazodone HCl (Trazodone Hcl 100 Mg Tablet) 100 mg PO BEDTIME [facility] Last Admin: 11/26/21 22:01 Dose: 100 mg Documented by: Vitamin D (Cholecalciferol (Vitamin D3) 25 Mcg Tablet) 50 mcg PO DAILY@1600 [facility] Last Admin: 11/26/21 16:04 Dose: 50 mcg Documented by: Allergies Allergies Allergy/AdvReac Type Severity Reaction Status Date / Time bupropion [From WELLBUTRIN] Allergy Unknown HIVES Verified 10/06/21 22:48 pregabalin [From Lyrica] AdvReac Swelling Verified 10/06/21 22:49 Assessment & Plan Assessment & Plan (1) Borderline personality disorder: Status: Acute Code(s): F60.3 - Borderline personality disorder (2) Schizoaffective disorder, depressive type: Status: Acute Code(s): F25.1 - Schizoaffective disorder, depressive type Plan Altagracia is a 36 y.o. female who carries a dx of BPD and schizoaffective disorder, depressive type. Pt presented to [facility] ED on 11/22/21 due to decompensation in context of psychotic depression. Pt has hx of poor self care, poor sleep, and paranoia. Denies med non-adherence. Utox positive for cannabis. Denies alcohol abuse. Plan: Pt does not want med changes. Reports she is at the hospital due to not having anywhere else to go, does not feel safe to go back to the residence she was at with her partner, as she does not feel supported. 11/23: Pt declines med changes, appears paranoid and decompensated 11/26: decrease perphenazine to 4 mg BID Q15 min safety checks, section 12B Monitor response to medications. Monitor for safety in the milieu. Discharge on stabilization. Patient seen. Chart reviewed. Discussed with team. Obtain collateral contact info?as needed I spent minutes with the patient and/or on the patient floor today, greater than?50% of which was spent counseling/coordinating care. Patient educated on: medication risk/benefits Reason for contiued inpatient stay Substantial Risk for: inability to function, rapid decompensation and med/psych decompensation
[2021-11-26] MEDS: Sennosides 8.6 MG TABLET PO (22:01)
[2021-11-26] MEDS: Prazosin HCL 1 MG CAPSULE 2 MG PO (22:01)
[2021-11-26] MEDS: traZODone HCL 100 MG TABLET PO (22:01)
--- NOTE | 2021-11-27 02:01 | PC.NURSE ---
CPAP-patient had CPAP machine brought into the hospital. reports it is not working and has not used in a year. [facility] will not attempt to fix as it is not their equipment and recommends that patient reach out to provider and company that CPAP came from. patient unable to identify settings. patient was able to identify provider [facility] in [place]. CPAP was placed in storage at this time. patient is aware.
[2021-11-27] MEDS: Levothyroxine Sodium 50 MCG TABLET PO (05:59)
[2021-11-27 08:30] VITALS: BP 109/53; PULSE 74; TEMP 36.5
[2021-11-27] MEDS: DULoxetine HCl 60 MG CAPSULE.DR PO (08:59)
[2021-11-27] MEDS: Topiramate 100 MG TABLET PO ×2 (08:59→16:25)
[2021-11-27] MEDS: Perphenazine 4 MG TABLET PO ×2 (08:59→16:25)
[2021-11-27] MEDS: Magnesium Oxide 400 MG TABLET PO (16:25)
[2021-11-27] MEDS: Cholecalciferol (Vitamin D3) 25 MCG TABLET 50 MCG PO (16:25)
[2021-11-27] MEDS: Acetaminophen 325 MG TABLET 650 MG PO (17:38)
[2021-11-27 18:00] VITALS: BP 124/83; PULSE 68; RESP 18; TEMP 36.4; O2SAT 100
[2021-11-27] MEDS: traZODone HCL 100 MG TABLET PO (23:03)
[2021-11-27] MEDS: Sennosides 8.6 MG TABLET PO (23:03)
[2021-11-27] MEDS: Prazosin HCL 1 MG CAPSULE 2 MG PO (23:03)
--- NOTE | 2021-11-27 23:03 | P.PNPSI_ITS ---
Subjective Subjective Date of Service: 11/26/21 Reason For Visit: Recurrent major depression, with psychotic feature Subjective Notes: Rubalcava Warning and Section 12B Healthcare Proxy: No Guardianship: No Medical Problems Affecting Mental Status: No Interim History: Patient seen and discussed with team. Patient evaluated today and upon interview she reports im doing alright, did her paper for group, walked for exercise, feeling alright, im chill, im calm, im not anxious, im safe. Respiratory cant use outside machines, says she didnt get to sleep with her CPAP last night. Will order a hospital one. Mom worked on her unkempt knotted hair when she visited and she took a shower with the sit down chair. Says she is now accepting of being in the hospital, as her Mom laina want me to go back there [to her gf's house], she thinks maybe I need to be in the hospital for longer. ? In the milieu, patient is safe and more visible. Denies SI/SIB/HI upon inquiry. Denies irritability or assaultive ideation. Says she feels safe. Medication Compliance: Yes Side effects from medications: No Attending Groups: Yes Review of Systems Acute medical concerns: No Medical Review of Systems: unchanged Mental Status Exam Mental Status Exam Narrative: Patient Appearance:?Disheveled (reports several knots in her hair) Patient Orientation:?Person, Place, Time and Situation Level of Consciousness:?Alert Patient Behavior:?Talkative, Cooperative, Restless, Belligerent, Verbal Threats, Anxious, Fearful, Resistive to Care, Distractible, Good Eye Contact, Crying and Impulsive Mood Description:?Depressed, Labile and Angry Affect Description:?Labile and Angry Patient Cognition Impaired:?No Ability to Follow Directions:?Good Speech Pattern:?Spontaneous Speech Memory Description:?Episodic Impaired Hallucinations:?None Delusions:?Not Present Perceptual Disturbances:?Depersonalization and Derealization Thought Process:?Goal Oriented Thought Content:?positive for Goal Oriented Depressive Symptoms:?Diff. Making Decisions, Increased Irritability, Loss of Int. in Activity, Feelings of Worthlessness, Hopelessness, Isolating- Friends/Family, Feelings of Guilt, Unhappiness, Increased Fatigue, Low Self Esteem, Loss of Energy and Difficulty Concentrating Abnormal Motor Activity Signs and Symptoms:?Aggression, Agitation and Restlessness Judgement:?Poor Diagnostics Vital Signs (24Hr): Vital Signs - 24 hr 11/28/21 06:37 11/28/21 20:46 11/28/21 22:42 Temperature 96.9 F 97.0 F Pulse Rate 81 73 Respiratory Rate 18 16 Blood Pressure 123/58 L 95/52 L 97/51 L Pulse Oximetry 99 99 11/28/21 22:56 Temperature Pulse Rate Respiratory Rate 18 Blood Pressure Pulse Oximetry BMI result Body Mass Index 32.9 Labs Results: 11/22/21 09:53 11/22/21 09:53 Medications Medications Current Medications Acetaminophen (Acetaminophen 325 Mg Tablet) 650 mg PO Q6H PRN PRN Reason: Headache/Pain Mild Scale (1-3) Last Admin: 11/28/21 17:41 Dose: 650 mg Documented by: Al Hydroxide/Mg Hydroxide (Magnesium Hydrox/Alum Hydrox 30 Ml Oral.Susp) 30 ml PO Q6H PRN PRN Reason: Heartburn/Nausea Duloxetine HCl (Duloxetine Hcl 60 Mg Capsule.Dr) 60 mg PO DAILY [facility] Last Admin: 11/28/21 08:20 Dose: 60 mg Documented by: Haloperidol (Haloperidol 5 Mg Tablet) 5 mg PO TID PRN PRN Reason: psychotic agitation Hydroxyzine HCl (Hydroxyzine Hcl 25 Mg Tablet) 25 mg PO Q6H PRN PRN Reason: Anxiety Levothyroxine Sodium (Levothyroxine Sodium 50 Mcg Tablet) 50 mcg PO DAILY@0600 [facility] Last Admin: 11/28/21 06:00 Dose: 50 mcg Documented by: Magnesium Hydroxide (Milk Of Magnesia 30 Ml Oral.Susp) 30 ml PO DAILY PRN PRN Reason: Constipation Magnesium Oxide (Magnesium Oxide 400 Mg Tablet) 400 mg PO DAILY@1600 [facility] Last Admin: 11/28/21 17:41 Dose: 400 mg Documented by: Naproxen (Naproxen 500 Mg Tablet) 500 mg PO Q12H PRN PRN Reason: mod-severe pain Last Admin: 11/23/21 21:30 Dose: 500 mg Documented by: Perphenazine (Perphenazine 4 Mg Tablet) 4 mg PO BID@0800,1600 [facility] Last Admin: 11/28/21 17:41 Dose: 4 mg Documented by: Prazosin HCl (Prazosin Hcl 1 Mg Capsule) 2 mg PO BEDTIME [facility]; Protocol Last Admin: 11/28/21 22:40 Dose: 2 mg Documented by: Senna (Sennosides 8.6 Mg Tablet) 8.6 mg PO BEDTIME [facility] Last Admin: 11/28/21 22:40 Dose: 8.6 mg Documented by: Topiramate (Topiramate 100 Mg Tablet) 100 mg PO BID@0800,1600 [facility] Last Admin: 11/28/21 17:41 Dose: 100 mg Documented by: Trazodone HCl (Trazodone Hcl 100 Mg Tablet) 100 mg PO BEDTIME [facility] Last Admin: 11/28/21 22:40 Dose: 100 mg Documented by: Vitamin D (Cholecalciferol (Vitamin D3) 25 Mcg Tablet) 50 mcg PO DAILY@1600 [facility] Last Admin: 11/28/21 17:41 Dose: 50 mcg Documented by: Allergies Allergies Allergy/AdvReac Type Severity Reaction Status Date / Time bupropion [From WELLBUTRIN] Allergy Unknown HIVES Verified 10/06/21 22:48 pregabalin [From Lyrica] AdvReac Swelling Verified 10/06/21 22:49 Assessment & Plan Assessment & Plan (1) Borderline personality disorder: Status: Acute Code(s): F60.3 - Borderline personality disorder (2) Schizoaffective disorder, depressive type: Status: Acute Code(s): F25.1 - Schizoaffective disorder, depressive type Plan Altagracia is a 36 y.o. female who carries a dx of BPD and schizoaffective disorder, depressive type. Pt presented to [facility] ED on 11/22/21 due to deco mpensation in context of psychotic depression. Pt has hx of poor self care, poor sleep, and paranoia. Denies med non-adherence. Utox positive for cannabis. Denies alcohol abuse. Plan: Pt does not want med changes. Reports she is at the hospital due to not having anywhere else to go, does not feel safe to go back to the residence she was at with her partner, as she does not feel supported. 11/23: Pt declines med changes, appears paranoid and decompensated 11/26: decrease perphenazine to 4 mg BID 11/27: continue perphenazine 4 mg BID, pt is med adherent Q15 min safety checks, section 12B Monitor response to medications. Monitor for safety in the milieu. Discharge on stabilization. Patient seen. Chart reviewed. Discussed with team. Obtain collateral contact info?as needed I spent minutes with the patient and/or on the patient floor today, greater than?50% of which was spent counseling/coordinating care. Patient educated on: medication risk/benefits Reason for contiued inpatient stay Substantial Risk for: inability to function, rapid decompensation and med/psych decompensation
[2021-11-28 00:10] VITALS: PULSE 63; RESP 17; O2SAT 99
[2021-11-28] MEDS: Levothyroxine Sodium 50 MCG TABLET PO (06:00)
[2021-11-28 06:37] VITALS: BP 123/58; PULSE 81; RESP 18; TEMP 36.1; O2SAT 99
[2021-11-28] MEDS: Topiramate 100 MG TABLET PO ×2 (08:20→17:41)
[2021-11-28] MEDS: Perphenazine 4 MG TABLET PO ×2 (08:20→17:41)
[2021-11-28] MEDS: DULoxetine HCl 60 MG CAPSULE.DR PO (08:20)
--- NOTE | 2021-11-28 16:57 | HO.PSYCHPN ---
Subjective Subjective Date of Service: 11/28/21 Reason For Visit: Recurrent major depression, with psychotic feature Subjective Notes: 3 Day (retraction today) Healthcare Proxy: No Guardianship: No Medical Problems Affecting Mental Status: No Interim History: Pt expressed anger with medication changes on 11/25. Discussed rationale for increase due to threats for violence if she was given a room-mate. I will tell you what I take and that no one will fill this bed. Discussed with pt. Pt reports she is a victime of systemic failures. She describes pre-verbal traumas while living with family in housing and several family secrets which her parents are not allowed to discuss. States her health has been deteriorating since leg fracture on 04/15/20 and she asks for our assist to get back on track. She lists her needs as 1. To establish house ground rules for mutual respect at home-states she is willing to check in with police to work on a plan of what needs to happen. 2. Would like out pt medical/psych appts arranged. Willing to follow treatment recommendations, take medications. 3. Would like support in case mgt, scheduling calls, rides etc as current support is not enough. Identifes [facility] as agency of choice with Ana Herr/Xiomy Tracy/Tonya Mcnulty/[facility] as potential providers, however, believes she has been terminated from [facility]. Identifies menstrual irregularities which need follow up-has attended [facility] by history [phone] Carpenter and Dr. Jesus-appt scheduled for 12/15/21 2pm. Also has CPAP concerns with no follow up-had seen Dr. Hoffman, pulmonology in [place]- believes her CPAP machine needs to be adjusted and she requires fitting for a new mask . Pt provided a card to explain herself and her belief system. Altagracia has lived a provable life before reincarnation. Altagracia speaks a language of -committed to live. Altagracia is of three sisters kwon-ancient act of life. 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 Altagracia recognizes family and is ready to guide -link up connections. Altagracia serves God for world peace-november is come to all of us. Altagracia thanks God-Altagracia thanks God for all of us. Altagracia proves God exists-[place]. Medication Compliance: Yes Side effects from medications: No Attending Groups: No Review of Systems Acute medical concerns: No Medical Review of Systems: unchanged Review of Systems Reports behavioral changes Psychiatric: Reports anxiety, Reports behavioral changes, Reports depression, Reports mood swings, Reports homicidal ideation (denies) and Reports suicidal ideation (denies) Mental Status Exam Mental Status Exam Patient Appearance: Disheveled Patient Orientation: Person, Place, Time and Situation Level of Consciousness: Alert Patient Behavior: Talkative, Verbal Threats, Fatigued, Distractible and Good Eye Contact Mood Description: Constricted Affect Description: Constricted Patient Cognition Impaired: No Ability to Follow Directions: Good Speech Pattern: Spontaneous Speech Memory Description: Episodic Impaired Hallucinations: None (denies) Delusions: Paranoid Ideation and Grandiose Perceptual Disturbances: Depersonalization and Derealization Thought Process: Distracted Thought Content: positive for [place], positive for Circumstantial, positive for Goal Oriented, positive for Perseveration, positive for Suicidal Ideation (denies) and positive for Homicidal Ideation (denies) Abnormal Motor Activity Signs and Symptoms: Restlessness Judgement: Fair Diagnostics Vital Signs (24Hr): Vital Signs - 24 hr 11/27/21 18:00 11/28/21 00:10 11/28/21 06:37 Temperature 97.5 F 96.9 F Pulse Rate 68 81 Respiratory Rate 18 17 18 Blood Pressure 124/83 123/58 L Pulse Oximetry 100 99 BMI result Body Mass Index 32.9 Labs Results: 11/22/21 09:53 11/22/21 09:53 Medications Medications Current Medications Acetaminophen (Acetaminophen 325 Mg Tablet) 650 mg PO Q6H PRN PRN Reason: Headache/Pain Mild Scale (1-3) Last Admin: 11/27/21 17:38 Dose: 650 mg Documented by: Al Hydroxide/Mg Hydroxide (Magnesium Hydrox/Alum Hydrox 30 Ml Oral.Susp) 30 ml PO Q6H PRN PRN Reason: Heartburn/Nausea Duloxetine HCl (Duloxetine Hcl 60 Mg Capsule.Dr) 60 mg PO DAILY [facility] Last Admin: 11/28/21 08:20 Dose: 60 mg Documented by: Haloperidol (Haloperidol 5 Mg Tablet) 5 mg PO TID PRN PRN Reason: psychotic agitation Hydroxyzine HCl (Hydroxyzine Hcl 25 Mg Tablet) 25 mg PO Q6H PRN PRN Reason: Anxiety Levothyroxine Sodium (Levothyroxine Sodium 50 Mcg Tablet) 50 mcg PO DAILY@0600 [facility] Last Admin: 11/28/21 06:00 Dose: 50 mcg Documented by: Magnesium Hydroxide (Milk Of Magnesia 30 Ml Oral.Susp) 30 ml PO DAILY PRN PRN Reason: Constipation Magnesium Oxide (Magnesium Oxide 400 Mg Tablet) 400 mg PO DAILY@1600 [facility] Last Admin: 11/27/21 16:25 Dose: 400 mg Documented by: Naproxen (Naproxen 500 Mg Tablet) 500 mg PO Q12H PRN PRN Reason: mod-severe pain Last Admin: 11/23/21 21:30 Dose: 500 mg Documented by: Perphenazine (Perphenazine 4 Mg Tablet) 4 mg PO BID@0800,1600 [facility] Last Admin: 11/28/21 08:20 Dose: 4 mg Documented by: Prazosin HCl (Prazosin Hcl 1 Mg Capsule) 2 mg PO BEDTIME [facility]; Protocol Last Admin: 11/27/21 23:03 Dose: 2 mg Documented by: Senna (Sennosides 8.6 Mg Tablet) 8.6 mg PO BEDTIME [facility] Last Admin: 11/27/21 23:03 Dose: 8.6 mg Documented by: Topiramate (Topiramate 100 Mg Tablet) 100 mg PO BID@0800,1600 [facility] Last Admin: 11/28/21 08:20 Dose: 100 mg Documented by: Trazodone HCl (Trazodone Hcl 100 Mg Tablet) 100 mg PO BEDTIME [facility] Last Admin: 11/27/21 23:03 Dose: 100 mg Documented by: Vitamin D (Cholecalciferol (Vitamin D3) 25 Mcg Tablet) 50 mcg PO DAILY@1600 [facility] Last Admin: 11/27/21 16:25 Dose: 50 mcg Documented by: Allergies Allergies Allergy/AdvReac Type Severity Reaction Status Date / Time bupropion [From WELLBUTRIN] Allergy Unknown HIVES Verified 10/06/21 22:48 pregabalin [From Lyrica] AdvReac Swelling Verified 10/06/21 22:49 Assessment & Plan Assessment & Plan (1) Borderline personality disorder: Status: Acute Code(s): F60.3 - Borderline personality disorder (2) Schizoaffective disorder, depressive type: Status: Acute Code(s): F25.1 - Schizoaffective disorder, depressive type Plan Altagracia is a 36 y.o. female who carries a dx of BPD and schizoaffective disorder, depressive type. Pt presented to [facility] ED on 11/22/21 due to decompensation in context of psychotic depression. Pt has hx of poor self care, poor sleep, and paranoia. Denies med non-adherence. Utox positive for cannabis. Denies alcohol abuse. Plan: Pt does not want med changes. Reports she is at the hospital due to not having anywhere else to go, does not feel safe to go back to the residence she was at with her partner, as she does not feel supported. 11/23: Pt declines med changes, appears paranoid and decompensated Q15 min safety checks, section 12B Monitor response to medications. Monitor for safety in the milieu. Discharge on stabilization. Patient seen. Chart reviewed. Discussed with team. Obtain collateral contact info?as needed 11/28/21- Continue current regime. Team has applied for [facility] Case Mgt Family meeting TBS Care coordination and discharge planning Retracted three day notice today I spent minutes with the patient and/or on the patient floor today, greater than?50% of which was spent counseling/coordinating care. Patient educated on: medication risk/benefits and therapeutic strategies Informed Consent: understands and further education needed Reason for contiued inpatient stay Substantial Risk for: harm to self, harm to others, inability to function and rapid decompensation
[2021-11-28] MEDS: Acetaminophen 325 MG TABLET 650 MG PO (17:41)
[2021-11-28] MEDS: Magnesium Oxide 400 MG TABLET PO (17:41)
[2021-11-28] MEDS: Cholecalciferol (Vitamin D3) 25 MCG TABLET 50 MCG PO (17:41)
[2021-11-28 20:46] VITALS: BP 95/52; PULSE 73; RESP 16; TEMP 36.1; O2SAT 99
[2021-11-28] MEDS: Sennosides 8.6 MG TABLET PO (22:40)
[2021-11-28] MEDS: traZODone HCL 100 MG TABLET PO (22:40)
[2021-11-28] MEDS: Prazosin HCL 1 MG CAPSULE 2 MG PO (22:40)
[2021-11-28 22:42] VITALS: BP 97/51
--- NOTE | 2021-11-28 22:54 | PC.RT ---
Addendum entered by Cristofer Baxter 11/28/21 22:55: Placed on NOC BIPAP 1 to 1 in room Original Note: placed on NOC BIPAP
[2021-11-28 22:56] VITALS: RESP 18; O2SAT 98
[2021-11-29 06:00] VITALS: BP 111/59; PULSE 72; RESP 18; TEMP 36.5; O2SAT 99
[2021-11-29] MEDS: Levothyroxine Sodium 50 MCG TABLET PO (06:33)
[2021-11-29] MEDS: Acetaminophen 325 MG TABLET 650 MG PO ×2 (08:22→16:01)
[2021-11-29] MEDS: Perphenazine 4 MG TABLET PO ×2 (08:22→15:55)
[2021-11-29] MEDS: Topiramate 100 MG TABLET PO ×2 (08:22→15:55)
[2021-11-29] MEDS: DULoxetine HCl 60 MG CAPSULE.DR PO (08:22)
[2021-11-29] MEDS: Cholecalciferol (Vitamin D3) 25 MCG TABLET 50 MCG PO (15:55)
[2021-11-29] MEDS: Magnesium Oxide 400 MG TABLET PO (15:55)
--- NOTE | 2021-11-29 17:52 | P.PNPSI_ITS ---
Subjective Subjective Date of Service: 11/29/21 Reason For Visit: Recurrent major depression, with psychotic feature Subjective Notes: Conditional Voluntary and 3 Day (retracted 11/28/21) Healthcare Proxy: No Guardianship: No Medical Problems Affecting Mental Status: No Interim History: Pt reports she would like to have a family meeting and be considered for discharge. I feel like I have been techically here for a week because I had my period. 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 I feel safe, I will feel more comfort at home. I appreciate the help. Medication Compliance: Yes Side effects from medications: No Attending Groups: No Review of Systems Acute medical concerns: No Medical Review of Systems: unchanged Review of Systems Psychiatric: Reports anxiety, Reports mood swings, Reports homicidal ideation (denies) and Reports suicidal ideation (denies) Mental Status Exam Mental Status Exam Patient Appearance: Disheveled Patient Orientation: Person, Place, Time and Situation Level of Consciousness: Alert Patient Behavior: Talkative, Fatigued, Distractible and Good Eye Contact Mood Description: Flat Affect Description: Flat Patient Cognition Impaired: No Ability to Follow Directions: Good Speech Pattern: Spontaneous Speech Memory Description: Episodic Impaired Hallucinations: None (denies) Perceptual Disturbances: Depersonalization and Derealization Thought Process: Distracted Thought Content: positive for [place], positive for Circumstantial, positive for Goal Oriented, positive for Perseveration, positive for Suicidal Ideation (denies) and positive for Homicidal Ideation (denies) Abnormal Motor Activity Signs and Symptoms: Restlessness Judgement: Fair Diagnostics Vital Signs (24Hr): Vital Signs - 24 hr 11/28/21 20:46 11/28/21 22:42 11/28/21 22:56 Temperature 97.0 F Pulse Rate 73 Respiratory Rate 16 18 Blood Pressure 95/52 L 97/51 L Pulse Oximetry 99 11/29/21 06:00 Temperature 97.7 F Pulse Rate 72 Respiratory Rate 18 Blood Pressure 111/59 L Pulse Oximetry 99 BMI result Body Mass Index 32.9 Labs Results: 11/22/21 09:53 11/22/21 09:53 Medications Medications Current Medications Acetaminophen (Acetaminophen 325 Mg Tablet) 650 mg PO Q6H PRN PRN Reason: Headache/Pain Mild Scale (1-3) Last Admin: 11/29/21 16:01 Dose: 650 mg Documented by: Al Hydroxide/Mg Hydroxide (Magnesium Hydrox/Alum Hydrox 30 Ml Oral.Susp) 30 ml PO Q6H PRN PRN Reason: Heartburn/Nausea Duloxetine HCl (Duloxetine Hcl 60 Mg Capsule.Dr) 60 mg PO DAILY [facility] Last Admin: 11/29/21 08:22 Dose: 60 mg Documented by: Haloperidol (Haloperidol 5 Mg Tablet) 5 mg PO TID PRN PRN Reason: psychotic agitation Hydroxyzine HCl (Hydroxyzine Hcl 25 Mg Tablet) 25 mg PO Q6H PRN PRN Reason: Anxiety Levothyroxine Sodium (Levothyroxine Sodium 50 Mcg Tablet) 50 mcg PO DAILY@0600 [facility] Last Admin: 11/29/21 06:33 Dose: 50 mcg Documented by: Lorazepam (Lorazepam 1 Mg Tablet) 1 mg PO Q6H PRN PRN Reason: anxiety Magnesium Hydroxide (Milk Of Magnesia 30 Ml Oral.Susp) 30 ml PO DAILY PRN PRN Reason: Constipation Magnesium Oxide (Magnesium Oxide 400 Mg Tablet) 400 mg PO DAILY@1600 [facility] Last Admin: 11/29/21 15:55 Dose: 400 mg Documented by: Naproxen (Naproxen 500 Mg Tablet) 500 mg PO Q12H PRN PRN Reason: mod-severe pain Last Admin: 11/23/21 21:30 Dose: 500 mg Documented by: Perphenazine (Perphenazine 4 Mg Tablet) 4 mg PO BID@0800,1600 [facility] Last Admin: 11/29/21 15:55 Dose: 4 mg Documented by: Prazosin HCl (Prazosin Hcl 1 Mg Capsule) 2 mg PO BEDTIME [facility]; Protocol Last Admin: 11/28/21 22:40 Dose: 2 mg Documented by: Senna (Sennosides 8.6 Mg Tablet) 8.6 mg PO BEDTIME [facility] Last Admin: 11/28/21 22:40 Dose: 8.6 mg Documented by: Topiramate (Topiramate 100 Mg Tablet) 100 mg PO BID@0800,1600 [facility] Last Admin: 11/29/21 15:55 Dose: 100 mg Documented by: Trazodone HCl (Trazodone Hcl 100 Mg Tablet) 100 mg PO BEDTIME [facility] Last Admin: 11/28/21 22:40 Dose: 100 mg Documented by: Vitamin D (Cholecalciferol (Vitamin D3) 25 Mcg Tablet) 50 mcg PO DAILY@1600 [facility] Last Admin: 11/29/21 15:55 Dose: 50 mcg Documented by: Allergies Allergies Allergy/AdvReac Type Severity Reaction Status Date / Time bupropion [From WELLBUTRIN] Allergy Unknown HIVES Verified 10/06/21 22:48 pregabalin [From Lyrica] AdvReac Swelling Verified 10/06/21 22:49 Assessment & Plan Assessment & Plan (1) Borderline personality disorder: Status: Acute Code(s): F60.3 - Borderline personality disorder (2) Schizoaffective disorder, depressive type: Status: Acute Code(s): F25.1 - Schizoaffective disorder, depressive type Plan Altagracia is a 36 y.o. female who carries a dx of BPD and schizoaffective disorder, depressive type. Pt presented to [facility] ED on 11/22/21 due to decompensation in context of psychotic depression. Pt has hx of poor self care, poor sleep, and paranoia. Denies med non-adherence. Utox positive for cannabis. Denies alcohol abuse. Plan: Pt does not want med changes. Reports she is at the hospital due to not having anywhere else to go, does not feel safe to go back to the residence she was at with her partner, as she does not feel supported. 11/23: Pt declines med changes, appears paranoid and decompensated Q15 min safety checks, section 12B Monitor response to medications. Monitor for safety in the milieu. Discharge on stabilization. Patient seen. Chart reviewed. Discussed with team. Obtain collateral contact info?as needed 11/28/21- Continue current regime. Team has applied for [facility] Case Mgt Family meeting TBS Care coordination and discharge planning Retracted three day notice today 11/29/21- Continue current plan. I spent minutes with the patient and/or on the patient floor today, greater than?50% of which was spent counseling/coordinating care. Informed Consent: understands Reason for contiued inpatient stay Substantial Risk for: inability to function
[2021-11-29 18:00] VITALS: BP 113/52; PULSE 67; TEMP 36.5; O2SAT 99
[2021-11-29] MEDS: NaPROXEN 500 MG TABLET PO (18:39)
[2021-11-29] MEDS: traZODone HCL 100 MG TABLET PO (22:59)
[2021-11-29] MEDS: Sennosides 8.6 MG TABLET PO (22:59)
[2021-11-29] MEDS: Prazosin HCL 1 MG CAPSULE 2 MG PO (22:59)
--- NOTE | 2021-11-29 23:09 | PC.NURSE ---
Patient reported to this rfp writer that she just doesn't feel good . Patient spoke about not being on her Lupron shots and that she has been on her menses. She said she would feel better at home.
[2021-11-30] MEDS: Levothyroxine Sodium 50 MCG TABLET PO (06:43)
[2021-11-30] MEDS: DULoxetine HCl 60 MG CAPSULE.DR PO (08:48)
[2021-11-30] MEDS: Topiramate 100 MG TABLET PO ×2 (08:48→16:32)
[2021-11-30] MEDS: Perphenazine 4 MG TABLET PO ×2 (08:48→16:33)
[2021-11-30] MEDS: Cholecalciferol (Vitamin D3) 25 MCG TABLET 50 MCG PO (16:32)
[2021-11-30] MEDS: Magnesium Oxide 400 MG TABLET PO (16:32)
[2021-11-30] MEDS: Acetaminophen 325 MG TABLET 650 MG PO (16:38)
--- NOTE | 2021-11-30 16:46 | P.PNPSI_ITS ---
Subjective Subjective Date of Service: 11/30/21 Reason For Visit: Recurrent major depression, with psychotic feature Subjective Notes: Conditional Voluntary Healthcare Proxy: No Guardianship: No Medical Problems Affecting Mental Status: No Interim History: I don't need to be in the hospital. I am not unsafe or psychotic. Yes, I do have some different beliefs, that is my right and perrogative. I want my cat, my partner, my home. I refuse any medicine suggestios because I know best what I need and nothing is wrong with me. People just need to listen to me and do as I ask. Pt discussed feeling her current hospitalization is of no help-she feels she needs to be at home with her family and proceeding with her own life. She declines psychiatric intervention at this time. Partner has told team she is feeling too overwhelmed with pt's behaviors and has asked that she not be sent home. Family feels she will decline in [place] [facility] but offer no options. Pt is looking into peer respite where she has stayed before and has felt this has helped. Pt is not presenting with symptoms that would be committable at this time and is consistent with refusal of service. Medication Compliance: Yes (compliant with OP regime.) Side effects from medications: No Attending Groups: No Review of Systems Acute medical concerns: No Medical Review of Systems: unchanged Review of Systems Psychiatric: Reports irritability and Reports suicidal ideation (denies) Mental Status Exam Mental Status Exam Patient Appearance: Disheveled Patient Orientation: Person, Place, Time and Situation Level of Consciousness: Alert Patient Behavior: Talkative, Isolative and Good Eye Contact Mood Description: Withdrawn Affect Description: Withdrawn Patient Cognition Impaired: No Ability to Follow Directions: Good Speech Pattern: Spontaneous Speech Memory Description: Episodic Impaired Hallucinations: None (denies) Perceptual Disturbances: Depersonalization and Derealization Thought Process: Intact and Goal Oriented Thought Content: positive for Intact, positive for Goal Oriented and positive for Suicidal Ideation (denies) Depressive Symptoms: Increased Irritability Judgement: Fair Diagnostics Vital Signs (24Hr): Vital Signs - 24 hr 11/29/21 18:00 Temperature 97.7 F Pulse Rate 67 Blood Pressure 113/52 L Pulse Oximetry 99 BMI result Body Mass Index 32.9 Labs Results: 11/22/21 09:53 11/22/21 09:53 Medications Medications Current Medications Acetaminophen (Acetaminophen 325 Mg Tablet) 650 mg PO Q6H PRN PRN Reason: Headache/Pain Mild Scale (1-3) Last Admin: 11/29/21 16:01 Dose: 650 mg Documented by: Al Hydroxide/Mg Hydroxide (Magnesium Hydrox/Alum Hydrox 30 Ml Oral.Susp) 30 ml PO Q6H PRN PRN Reason: Heartburn/Nausea Duloxetine HCl (Duloxetine Hcl 60 Mg Capsule.Dr) 60 mg PO DAILY [facility] Last Admin: 11/30/21 08:48 Dose: 60 mg Documented by: Haloperidol (Haloperidol 5 Mg Tablet) 5 mg PO TID PRN PRN Reason: psychotic agitation Hydroxyzine HCl (Hydroxyzine Hcl 25 Mg Tablet) 25 mg PO Q6H PRN PRN Reason: Anxiety Levothyroxine Sodium (Levothyroxine Sodium 50 Mcg Tablet) 50 mcg PO DAILY@0600 [facility] Last Admin: 11/30/21 06:43 Dose: 50 mcg Documented by: Lorazepam (Lorazepam 1 Mg Tablet) 1 mg PO Q6H PRN PRN Reason: anxiety Magnesium Hydroxide (Milk Of Magnesia 30 Ml Oral.Susp) 30 ml PO DAILY PRN PRN Reason: Constipation Magnesium Oxide (Magnesium Oxide 400 Mg Tablet) 400 mg PO DAILY@1600 [facility] Last Admin: 11/30/21 16:32 Dose: 400 mg Documented by: Naproxen (Naproxen 500 Mg Tablet) 500 mg PO Q12H PRN PRN Reason: mod-severe pain Last Admin: 11/29/21 18:39 Dose: 500 mg Documented by: Perphenazine (Perphenazine 4 Mg Tablet) 4 mg PO BID@0800,1600 [facility] Last Admin: 11/30/21 16:33 Dose: 4 mg Documented by: Prazosin HCl (Prazosin Hcl 1 Mg Capsule) 2 mg PO BEDTIME [facility]; Protocol Last Admin: 11/29/21 22:59 Dose: 2 mg Documented by: Senna (Sennosides 8.6 Mg Tablet) 8.6 mg PO BEDTIME [facility] Last Admin: 11/29/21 22:59 Dose: 8.6 mg Documented by: Topiramate (Topiramate 100 Mg Tablet) 100 mg PO BID@0800,1600 [facility] Last Admin: 11/30/21 16:32 Dose: 100 mg Documented by: Trazodone HCl (Trazodone Hcl 100 Mg Tablet) 100 mg PO BEDTIME [facility] Last Admin: 11/29/21 22:59 Dose: 100 mg Documented by: Vitamin D (Cholecalciferol (Vitamin D3) 25 Mcg Tablet) 50 mcg PO DAILY@1600 [facility] Last Admin: 11/30/21 16:32 Dose: 50 mcg Documented by: Allergies Allergies Allergy/AdvReac Type Severity Reaction Status Date / Time bupropion [From WELLBUTRIN] Allergy Unknown HIVES Verified 10/06/21 22:48 pregabalin [From Lyrica] AdvReac Swelling Verified 10/06/21 22:49 Assessment & Plan Assessment & Plan (1) Borderline personality disorder: Status: Acute Code(s): F60.3 - Borderline personality disorder (2) Schizoaffective disorder, depressive type: Status: Acute Code(s): F25.1 - Schizoaffective disorder, depressive type Plan Altagracia is a 36 y.o. female who carries a dx of BPD and schizoaffective disorder, depressive type. Pt presented to [facility] ED on 11/22/21 due to decompensation in context of psychotic depression. Pt has hx of poor self care, poor sleep, and paranoia. Denies med non-adherence. Utox positive for cannabis. Denies alcohol abuse. Plan: Pt does not want med changes. Reports she is at the hospital due to not having anywhere else to go, does not feel safe to go back to the residence she was at with her partner, as she does not feel supported. 11/23: Pt declines med changes, appears paranoid and decompensated Q15 min safety checks, section 12B Monitor response to medications. Monitor for safety in the milieu. Discharge on stabilization. Patient seen. Chart reviewed. Discussed with team. Obtain collateral contact info?as needed 11/28/21- Continue current regime. Team has applied for [facility] Case Mgt Family meeting TBS Care coordination and discharge planning Retracted three day notice today 11/29/21- Continue current plan. 11/30/21- Refusal of care. Continue current plan. Pt looking at respite options for discharge. I spent minutes with the patient and/or on the patient floor today, greater than?50% of which was spent counseling/coordinating care. Patient educated on: therapeutic strategies Informed Consent: understands Reason for contiued inpatient stay Substantial Risk for: stable for discharge
[2021-11-30 18:00] VITALS: BP 127/68; PULSE 80; RESP 18; TEMP 36.6; O2SAT 99
[2021-11-30] MEDS: LORazepam 1 MG TABLET PO (18:20)
[2021-11-30] MEDS: traZODone HCL 100 MG TABLET PO (22:58)
[2021-11-30] MEDS: Sennosides 8.6 MG TABLET PO (22:59)
[2021-11-30] MEDS: Prazosin HCL 1 MG CAPSULE 2 MG PO (22:59)
[2021-12-01] MEDS: Levothyroxine Sodium 50 MCG TABLET PO (06:07)
[2021-12-01] MEDS: DULoxetine HCl 60 MG CAPSULE.DR PO (09:18)
[2021-12-01] MEDS: Perphenazine 4 MG TABLET PO ×2 (09:18→16:32)
[2021-12-01] MEDS: Topiramate 100 MG TABLET PO ×2 (09:18→16:32)
[2021-12-01 09:22] VITALS: BP 102/54; PULSE 85; RESP 16; TEMP 36.5; O2SAT 98
[2021-12-01] MEDS: Cholecalciferol (Vitamin D3) 25 MCG TABLET 50 MCG PO (16:32)
[2021-12-01] MEDS: Magnesium Oxide 400 MG TABLET PO (16:32)
[2021-12-01 17:11] VITALS: BP 99/61; PULSE 86; RESP 18; TEMP 36.8; O2SAT 98
--- NOTE | 2021-12-01 17:43 | PM.PSYDC ---
DS: Providers Provider Date of Service: 12/01/21 Date of admission: 11/22/21 21:58 Date of discharge: 12/01/21 Primary care physician: Meg Hebert MD Admitting clinician: Malgorzata Gibson Attending physician on admission: Malgorzata Gibson Attending physician on discharge: Carmen Vieira Discharging clinician: Carmen Vieira DS: Diagnosis Discharge Diagnosis (1) Schizoaffective disorder, depressive type: Status: Acute (2) Borderline personality disorder: Status: Acute DS: Medications Discharge Medications Home Medications: Home Medications Medication Instructions Recorded Confirmed bkullcpfoe-wyumsepohskxx-gpfntack 1 - 2 tab PO Q6H PRN 09/24/21 11/22/21 50 mg-325 mg-40 mg tablet cholecalciferol (vitamin D3) 50 50 mcg PO DAILY@1800 09/24/21 11/22/21 mcg (2,000 unit) tablet levothyroxine 50 mcg tablet 50 mcg PO DAILY@0600 09/24/21 11/22/21 magnesium oxide 400 mg (241.3 mg 400 mg PO DAILY@1800 09/24/21 11/22/21 magnesium) tablet meloxicam 15 mg tablet 7.5 mg PO DAILY PRN 09/24/21 11/22/21 montelukast 10 mg tablet 10 mg PO DAILY@1800 09/24/21 11/22/21 prazosin 2 mg capsule 2 mg PO BEDTIME 09/24/21 11/22/21 sennosides 8.6 mg tablet (senna) 17.6 mg PO BEDTIME 09/24/21 11/22/21 topiramate 100 mg tablet 100 mg PO BID 09/24/21 11/22/21 trazodone 100 mg tablet 100 mg PO BEDTIME 09/24/21 11/22/21 Previous Rx's Medication Instructions Recorded duloxetine 20 mg capsule,delayed 60 mg PO DAILY 30 Days #90 cap 10/17/21 release perphenazine 2 mg tablet 6 mg PO BID 30 Days #180 tab 10/17/21 lorazepam 0.5 mg tablet 0.5 mg PO BID PRN #14 tab 12/01/21 Mental Status Exam Mental Status Exam Patient Appearance: Disheveled Patient Orientation: Person, Place, Time and Situation Level of Consciousness: Alert Patient Behavior: Talkative, Isolative and Good Eye Contact Mood Description: Withdrawn Affect Description: Withdrawn Patient Cognition Impaired: No Ability to Follow Directions: Good Speech Pattern: Spontaneous Speech Memory Description: Episodic Impaired Hallucinations: None (denies) Perceptual Disturbances: Depersonalization and Derealization Thought Process: Intact and Goal Oriented Thought Content: positive for Intact, positive for Goal Oriented and positive for Suicidal Ideation (denies) Depressive Symptoms: Increased Irritability Judgement: Fair DS: Summary Hospital Course Hospital Course: Admission to adult psychiatry for exacerbation of symptoms of PTSD, Schizoaffective Disorder, Depressed type. Altagracia found that in patient level of care was not what she was looking for to work with her current symptoms of distress. She declined medication changes, however did utilize Lorazepam prn and accepted a small amount upon discharge. She chose to transfer to respite level of care for ongoing work on symptoms and current conflicts within her life. She reports finding the inpatient milieu too constrictive for her current needs and used her time on the unit to establish safety and plan for her ongoing care and treatment. Time spent discussing smoking cessation with patient: 3 to 10 minutes Status at Discharge Functional status at discharge: independent ambulation Overall status at discharge: patient is back to baseline Time Spent with Patient Time attestation: Total time spent providing and/or coordinating discharge services: 30 Time spent: Less than 30 minutes Discharge Plan Discharge Patient Disposition: Long-Term Discharge Diagnosis: PTSD Schizoaffective Disorder, Depressed Type Referrals: [facility] Referral: [place] Service Authorization [Other] - 1 Week (*Call to follow up with referral; ask for Radha ) Psych Prescriber: Domingo Tracy ([facility]) [Other] - 1 Week (Please call to follow up for psych prescriber appointment) Hermilo [Other] - 1 Week (fax- [phone]) Meg Hebert MD [Primary Care Provider] - 1 Week Milena Jesus DO [Physician] - 12/15/21 2:00 pm ([address], [place]) Discharge Medications: New lorazepam 0.5 mg tablet 0.5 mg PO BID PRN (Reason: anxiety) Qty: 14 0RF Continued sennosides [senna] 8.6 mg tablet 17.6 mg PO BEDTIME meloxicam 15 mg tablet 7.5 mg PO DAILY PRN (Reason: Breakthrough Pain, Mild) qcdlxnqsnr-wywrjfsubtsev-cdmx 50-325-40 mg tablet 1 - 2 tab PO Q6H PRN (Reason: headache) magnesium oxide 400 mg (241.3 mg magnesium) tablet 400 mg PO DAILY@1800 trazodone 100 mg tablet 100 mg PO BEDTIME levothyroxine 50 mcg tablet 50 mcg PO DAILY@0600 montelukast 10 mg tablet 10 mg PO DAILY@1800 topiramate 100 mg tablet 100 mg PO BID prazosin 2 mg capsule 2 mg PO BEDTIME cholecalciferol (vitamin D3) 50 mcg (2,000 unit) tablet 50 mcg PO DAILY@1800 perphenazine 2 mg Tablet 6 mg PO BID 30 Days Qty: 180 0RF duloxetine 20 mg Capsule,Delayed Release(Dr/Ec) 60 mg PO DAILY 30 Days Qty: 90 0RF Discharge Orders: Discharge Order (Routine); Ordered 12/01/21 Ordered By: Carmen Vieira Diet: advance to usual diet Activity on Discharge: As tolerated Stand Alone Forms: Patient Portal Discharge page, Community Support Care Plan Goals: Mood stabilization Health Concerns: PTSD Schizoaffective Disorder, Depressed Plan of Treatment: Attend follow up appointments Take medications as directed Continue to work to organize resources to meet your needs. Assessment: non-suicidal, no acute psychosis She reports not wanting to make any treatment changes at this time. Discharge Date/Time: 12/01/21 17:47
== END 2021-12-01 17:47 | disposition home or self-care (01) | DRG 885 ==
LOC: HO.ED 16:26 → HO.PM5 22:10
PROVIDERS: Physician Assistant; Registered Nurse; Admitting Provider Psychiatry & Neurology Psychiatry; Emergency Provider Emergency Medicine; PCP Family Medicine; Visit Provider Clinical Nurse Specialist Psychiatric/Mental Health, Adult
DX: F25.1 Schizoaffective disorder, depressive type (principal); R45.851 Suicidal ideations; F60.3 Borderline personality disorder; Z20.822 Contact with and (suspected) exposure to COVID-19; Z88.8 Allergy status to other drugs, medicaments and biological substances; Z79.890 Hormone replacement therapy; Z79.899 Other long term (current) drug therapy
CPT/HCPCS: 36415; 80048; 80061; 80076; 80307; 81001; 82607; 82746; 83036; 83735; 84439; 84443; 85025; 87635; 94660; 99285

== ENCOUNTER 2022-04-05 11:57 | Emergency (ER) | payer MEDICARE, MEDICAID, SELFPAY | END 2022-04-05 15:54 | disposition left against medical advice (07) | LOC: HO.ED 15:45 | PROVIDERS: Emergency Provider Emergency Medicine; PCP Family Medicine | DX: R11.10 Vomiting, unspecified (principal) ==

== ENCOUNTER 2022-04-06 15:49 | Inpatient (IN) | payer MEDICARE, MEDICAID, SELFPAY ==
--- OUTSIDE RECORDS SUMMARY | 2022-04-06 15:51 | XMS_ITS | Continuity of Care Document ---
:1985 Author Organization [facility] Address [address] [place] [address], [facility] Floor [address] [place] [address]- Care Team Providers Name Role Phone Antonietta Ku Primary Care Physician Encounter [facility] Date(s): 06/22/20 - 06/29/20 [facility] [address] [facility], 4th Floor [address] [place] [id number]- Attending Physician: Not on Staff, Attending MD Referring Physician: Lyndsay Carpenter MD Allergies, Adverse Reactions, Alerts Substance Reaction Severity Status Wellbutrin Active Immunizations Given and Recorded Vaccine Date Status Refusal Reason influenza virus vaccine, inactivated 04/22/15 Recorded influenza virus vaccine, inactivated 05/29/14 Given tetanus/diphtheria/pertussis, acel(Tdap) 05/29/14 Given Medications albuterol (OP) 0 Refills, Maintenance, 2 Start Date: 09/17/19 Status: OrderedLiletta 52 mg intrauterine device 1 each = 52 mg, Once, 0 Refills, Maintenance, 12/17/19 11:34:00 EDT Start Date: 12/17/19 Status: OrderedLupron Depot 3.75 mg intramuscular kit 3.75 mg, Intramuscular, Every 28 days, # 1 kit, 6 Refills, Maintenance, 06/15/20 19:13:00 EST, [facility], Partial fill upon patient request if the prescription is for a schedule II opioid drug., 176, cm, 06/07/20 14:55:00 EST, Height... Start Date: 06/15/20 Status: OrderedLupron Depot 3.75 mg intramuscular kit = 3.75 mg, Intramuscular, Every 28 days, Given in right buttocks. Lot # [id number] exp 01/14/2023. Nextinjection due 07/20., # 1 kit, 0 Refills, Maintenance, 06/22/20 16:05:00 EST, Partial fill upon patient request if the prescription is for a schedul... Start Date: 06/22/20 Status: OrderedMontelukast By Mouth, Daily, 0 Refills, Maintenance, 09/17/19 9:57:00 EDT Start Date: 09/17/19 Status: Orderednaproxen 500 mg oral tablet 1 tablet = 500 mg, By Mouth, 2 times a day, 0 Refills, Maintenance, 09/17/19 9:57:00 EDT Start Date: 09/17/19 Status: OrderedOrilissa 150 mg oral tablet 1 tablet = 150 mg, By Mouth, Daily, # 30 tablet, 11 Refills, Maintenance, 06/08/20 11:34:00 EST, Tablet, [id number], Partial fill upon patient request if the prescription is for a schedule II opioid drug., 176, cm, 06/07/20 14:55:00 E... Start Date: 06/08/20 Stop Date: 06/03/21 Status: Orderedperphenazine 2 mg oral tablet 1 tablet = 2 mg, By Mouth, Daily at bedtime, # 16 tablet, 0 Refills, Maintenance, 05/29/14 9:18:43, Tablet Start Date: 05/29/14 Status: Orderedperphenazine 4 mg oral tablet 4 mg, 1, tablet, By Mouth, 2 times a day, Refills 0, Maintenance, 09/17/19 9:56:00 EDT Start Date: 09/17/19 Status: Orderedprazosin 2 mg oral capsule 1 capsule = 2 mg, By Mouth, Daily at bedtime, PRN night morales, # 270 capsule, 0 Refills, Maintenance, 01/17/16 14:49:48, Capsule Start Date: 01/17/16 Stop Date: 02/16/16 Status: OrderedSynthroid 0.05 mg oral tablet 1 tablet = 50 mcg, By Mouth, Daily, # 30 tablet, 5 Refills, Maintenance, 01/25/16 13:03:33, Tablet Start Date: 01/25/16 Stop Date: 07/23/16 Status: Orderedtrazodone 100 mg oral tablet 1 tablet = 100 mg, By Mouth, Daily at bedtime, # 270 tablet, 0 Refills, Maintenance, 10/19/14 13:16:13, Tablet Start Date: 10/19/14 Status: OrderedZoloft 100 mg oral tablet 2 tablet = 200 mg, By Mouth, Daily, # 30 tablet, 0 Refills, Maintenance, 05/29/14 9:17:59, Tablet Start Date: 05/29/14 Status: Ordered Problem List Condition Effective Dates Status Health Status Informant Anxiety disorder(Confirmed) Active 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
--- OUTSIDE RECORDS SUMMARY | 2022-04-06 15:51 | XMS_ITS | Continuity of Care Document ---
:1985 Author Organization [facility] Address [address] [facility], 4th Floor [address] [place] [address]- Care Team Providers Name Role Phone Antonietta Ku Primary Care Physician Encounter [facility] Date(s): 12/07/20 - 12/14/20 [facility] [address], 4th [address] [place] [address]- Attending Physician: Not on Staff, Attending MD Referring Physician: Lyndsay Carpenter MD Allergies, Adverse Reactions, Alerts Substance Reaction Severity Status Wellbutrin Active Immunizations Given and Recorded Vaccine Date Status Refusal Reason influenza virus vaccine, inactivated 04/22/15 Recorded influenza virus vaccine, inactivated 05/29/14 Given tetanus/diphtheria/pertussis, acel(Tdap) 05/29/14 Given Medications albuterol (OP) 0 Refills, Maintenance, 2 Start Date: 09/17/19 Status: OrderedBaclofen By Mouth, 3 times a day, 0 Refills, Maintenance, 11/23/20 10:03:00 EDT, Partial fill upon patient request if the prescription is for a schedule II opioid drug. Start Date: 11/23/20 Status: OrderedCymbalta 60 mg oral enteric coated capsule 1 capsule = 60 mg, By Mouth, Daily, 0 Refills, Maintenance, 11/23/20 10:06:00 EDT, Partial fill uponpatient request if the prescription is for a schedule II opioid drug. Start Date: 11/23/20 Status: Orderedestradiol 1 mg oral tablet 1 mg, 1, tablet, By Mouth, Daily, # 30 tablet, Refills 5, Tot. Refills 5, Maintenance, 11/23/20 9:57:00 EDT, Route to Pharmacy Electronically, [facility] #[id number], Partial fill upon patient request if the prescription is for a schedule II opio... Start Date: 11/23/20 Stop Date: 05/22/21 Status: OrderedLiletta 52 mg intrauterine device 1 each = 52 mg, Once, 0 Refills, Maintenance, 12/17/19 11:34:00 EDT Start Date: 12/17/19 Status: OrderedLupron Depot 3.75 mg intramuscular kit 3.75 mg, Intramuscular, Every 28 days, # 1 kit, 6 Refills, Maintenance, 06/15/20 19:13:00 EST, [facility], Partial fill upon patient request if the prescription is for a schedule II opioid drug., 176, cm, 06/07/20 14:55:00 EST, Height... Start Date: 06/15/20 Status: OrderedLupron Depot 3.75 mg intramuscular kit = 3.75 mg, Intramuscular, Every 28 days, 10/11 injection modified.Given in right buttocks Lot # [id number] exp 04/16/2023.Severe dysmenorrhea.Pt supplied med., # 1 kit, 0 Refills, Maintenance, 10/11/20 11:31:00 EDT, Partial fill upon patient request if t... Start Date: 10/11/20 Status: OrderedLupron Depot 3.75 mg intramuscular kit = 3.75 mg, Intramuscular, Every 28 days, Administered IM in R buttocks r/t dysmenhorrhea Lot # [id number] exp 04/05/2023. Pt provided medication., # 1 kit, 3 Refills, Maintenance, 07/20/20 16:16:00 EST, Partial fill upon patient request if the prescript... Start Date: 07/20/20 Status: OrderedLupron Depot 3.75 mg intramuscular kit = 3.75 mg, Intramuscular, Every 28 days, Given in right buttocks. Lot # [id number] exp 01/14/2023. Nextinjection due 07/20., # 1 kit, 0 Refills, Maintenance, 06/22/20 16:05:00 EST, Partial fill upon patient request if the prescription is for a schedul... Start Date: 06/22/20 Status: OrderedMagnesium Citrate By Mouth, 0 Refills, Maintenance, 11/23/20 10:04:00 EDT, Partial fill upon patient request if the prescription is for a schedule II opioid drug. Start Date: 11/23/20 Status: OrderedMeloxicam Daily, 0 Refills, Maintenance, 11/23/20 10:03:00 EDT, Partial fill upon patient request if the prescription is for a schedule II opioid drug. Start Date: 11/23/20 Status: OrderedMontelukast By Mouth, Daily, 0 Refills, Maintenance, 09/17/19 9:57:00 EDT Start Date: 09/17/19 Status: OrderedOrilissa 150 mg oral tablet 1 tablet = 150 mg, By Mouth, Daily, beginning 01/04/21, # 30 tablet, 11 Refills, Maintenance, 12/07/20 17:05:00 EDT, Tablet, [facility], Partial fill upon patient request if the prescription is for a schedule II opioid drug., 176, cm,... Start Date: 12/07/20 Stop Date: 12/02/21 Status: Orderedperphenazine 2 mg oral tablet 1 [...] Start Date: 01/25/16 Stop Date: 07/23/16 Status: OrderedtiZANidine 2 mg oral capsule 2 capsule = 4 mg, By Mouth, Daily, for headaches, 0 Refills, Maintenance, 07/27/20 12:32:00 EST, Partial fill upon patient request if the prescription is for a schedule II opioid drug. Start Date: 07/27/20 Status: OrderedTopiramate By Mouth, 0 Refills, Maintenance, 11/23/20 10:02:00 EDT, Partial fill upon patient request if the prescription is for a schedule II opioid drug. Start Date: 11/23/20 Status: Orderedtrazodone 100 mg oral tablet 1 tablet = 100 mg, By Mouth, Daily at bedtime, # 270 tablet, 0 Refills, Maintenance, 10/19/14 13:16:13, Tablet Start Date: 10/19/14 Status: OrderedVitamin D3 oral tablet = 10 mcg, By Mouth, Daily, 0 Refills, Maintenance, 11/23/20 10:05:00 EDT, Partial fill upon patient request if the prescription is for a schedule II opioid drug. 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
--- OUTSIDE RECORDS SUMMARY | 2022-04-06 15:51 | XMS_ITS | Continuity of Care Document ---
:1985 Author Organization [facility] Address [address] [place] [address], [facility] Floor [address] [place] [address]- Care Team Providers Name Role Phone Antonietta Ku Primary Care Physician Encounter [facility] Date(s): 06/08/20 - 06/15/20 [facility] [address] [place] [address], 4th Floor [address] [place] [id number] Attending Physician: Lyndsay Carpenter MD Allergies, Adverse Reactions, [...] kit, 6 Refills, Maintenance, 06/15/20 19:13:00 EST, [facility], Partial fill upon patient request if the prescription is for a schedule II opioid drug., 176, cm, 06/07/20 14:55:00 EST, Height... Start Date: 06/15/20 Status: OrderedMontelukast By Mouth, Daily, 0 Refills, [...] 11 Refills, Maintenance, 06/08/20 11:34:00 EST, Tablet, [facility] #[id number], Partial fill upon patient request if the [...] consider F/U CT in 1 year (06/2015) Procedures Procedure Date Related Diagnosis Body Site Status Diagnostic laparoscopy of female pelvis 12/23/19 Completed Vital Signs Most recent to oldest [Reference Range]: 1 Height 176 cm (06/07/20 2:55 PM) Social History Social History Type Response Smoking Status Former smoker, quit more lindsay n 30 days ago; Other: Quit Smoking on 11/14/19; entered on: 12/17/19 Sex
--- OUTSIDE RECORDS SUMMARY | 2022-04-06 15:51 | XMS_ITS | Continuity of Care Document ---
:1985 Author Organization [facility] Address Unavailable , Care Team Providers Name Role Phone Antonietta Ku Primary Care Physician Encounter [facility] Date(s): 01/19/22 - 01/26/22 [facility] Attending Physician: Not on Staff, Attending MD Referring Physician: Lyndsay Carpenter MD Allergies, Adverse Reactions, Alerts Substance Reaction Severity Status Wellbutrin Active Lyrica Active Immunizations Given and Recorded Vaccine Date Status Refusal Reason influenza virus vaccine, inactivated 04/22/15 Recorded influenza virus vaccine, inactivated 05/29/14 Given tetanus/diphtheria/pertussis, acel(Tdap) 05/29/14 Given Medications Cymbalta 60 mg oral enteric coated capsule 1 capsule = 60 mg, By Mouth, Daily, 0 Refills, Maintenance, 11/23/20 10:06:00 EDT, Partial fill uponpatient request if the prescription is for a schedule II opioid drug. Start Date: 11/23/20 Status: Orderedestradiol 1 mg oral tablet 1 mg, 1, tablet, By Mouth, Daily, # 30 tablet, Refills 5, Tot. Refills 5, Maintenance, 12/15/21 14:41:00 EDT, Route to Pharmacy Electronically, [facility], Partial fill upon patient request if the prescription is for a schedule II opi... Start Date: 12/15/21 Stop Date: 06/13/22 Status: OrderedLiletta 52 mg intrauterine device 1 each = 52 mg, Once, 0 Refills, Maintenance, 12/17/19 11:34:00 EDT Start Date: 12/17/19 Status: OrderedLupron Depot 3.75 mg intramuscular kit = 3.75 mg, Intramuscular, Every 28 days, administer day 21 of cycle and then ever 28 days, # 1 each,6 Refills, Maintenance, 12/15/21 14:37:00 EDT, [facility], Partial fill upon patient request if the prescription is for a schedule II... Start Date: 12/15/21 Stop Date: 06/29/22 Status: OrderedMagnesium Citrate = 400 mg, By Mouth, Daily, 0 Refills, Maintenance, 11/23/20 10:04:00 EDT, Partial fill upon patient request if the prescription is for a schedule II opioid drug. Start Date: 11/23/20 Status: Orderedperphenazine 4 mg oral tablet 4 [...] Start Date: 01/25/16 Stop Date: 07/23/16 Status: OrderedTopiramate = 100 mg, By Mouth, 2 times a day, 0 Refills, Maintenance, 11/23/20 10:02:00 EDT, Partial fill upon patient request if the prescription is for a schedule II opioid drug. Start Date: 11/23/20 Status: Orderedtrazodone 100 mg oral tablet 1 tablet = 100 mg, By Mouth, Daily at bedtime, # 270 tablet, 0 Refills, Maintenance, 10/19/14 13:16:13, Tablet Start Date: 10/19/14 Status: OrderedVitamin D3 oral tablet = 50 mcg, By Mouth, Daily, 0 Refills, Maintenance, 11/23/20 10:05:00 EDT, Partial fill upon patient request if the prescription is for a schedule II opioid drug. 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
--- OUTSIDE RECORDS SUMMARY | 2022-04-06 15:51 | XMS_ITS | Continuity of Care Document ---
:1985 Author Organization [facility] Address [address] [facility], 4th [place] [address] [place] [address]- Care Team Providers Name Role Phone Antonietta Ku Primary Care Physician Encounter [facility] Date(s): 08/16/20 - 08/23/20 [facility] [address] [facility], 4th [address] [place] [address]- Attending Physician: Not on Staff, Attending MD [...] kit, 6 Refills, Maintenance, 06/15/20 19:13:00 EST, [facility], Partial fill upon patient request if the prescription is for a schedule II opioid drug., 176, cm, 06/07/20 14:55:00 EST, Height... Start Date: 06/15/20 Status: OrderedLupron Depot 3.75 mg intramuscular kit = 3.75 mg, Intramuscular, Every 28 days, Lot # [id number] exp 10/28/2022. Next injection due 03/08., # 1 kit, 3 Refills, Maintenance, 07/20/20 16:16:00 EST, Partial fill upon patient request if the prescription is for a schedule II opioid drug. Start Date: 07/20/20 Status: OrderedLupron Depot 3.75 mg intramuscular kit = 3.75 mg, Intramuscular, Every 28 days, Given in right buttocks. Lot # [id number] exp 01/14/2023. Nextinjection due 07/20., # 1 kit, 0 Refills, Maintenance, 06/22/20 16:05:00 EST, Partial fill upon patient request if the prescription is for a schedul... Start Date: 06/22/20 Status: OrderedMontelukast By Mouth, Daily, 0 Refills, Maintenance, 09/17/19 9:57:00 EDT Start Date: 09/17/19 Status: Orderedperphenazine 2 mg oral tablet 1 [...] II opioid drug. Start Date: 07/27/20 Status: Orderedtrazodone 100 mg oral tablet 1 [...]
--- OUTSIDE RECORDS SUMMARY | 2022-04-06 15:51 | XMS_ITS | Continuity of Care Document ---
:1985 Author Organization [facility] Address [address] [place] [address]- Care Team Providers Name Role Phone Antonietta Ku Primary Care Physician Encounter [facility] [place] Date(s): 12/23/19 - 12/23/[address] [address] Discharge Disposition: A-D/C Home Attending Physician: Lyndsay Carpenter MD Admitting Physician: Lyndsay Carpenter MD Referring Physician: Lyndsay Carpenter MD Allergies, [...] 12/17/19 11:34:00 EDT Start Date: 12/17/19 Status: OrderedMontelukast By Mouth, Daily, 0 Refills, Maintenance, 09/17/19 9:57:00 EDT Start Date: 09/17/19 Status: Orderednaproxen 500 mg oral tablet 1 tablet = 500 mg, By Mouth, 2 times a day, 0 Refills, Maintenance, 09/17/19 9:57:00 EDT Start Date: 09/17/19 Status: Orderednaproxen 500 mg oral tablet 1 tablet = 500 mg, By Mouth, 2 times a day, PRN for pain, for 14 days, # 28 tablet, 1 Refills, Acute07/08/20 11:25:00 EDT, 12/17/19 11:25:00 EDT, Tablet, [facility] #[id number], 177.8, cm, 12/17/19 11:20:00 EDT, Height, 117.9, kg, 08/09/19 18:14... Start Date: 12/17/19 Stop Date: 01/14/20 Status: Orderednorethindrone 5 mg oral tablet 5 mg, 1, tablet, By Mouth, Daily, Start 1/2 tab x 2 weeks then increase to 1 tab daily, # 84 tablet,Refills 3, Tot. Refills 3, Maintenance, 09/17/19 10:54:00 EDT, Route to Pharmacy Electronically, [facility] #[id number], 177.8, cm, 09/17/19 9:53... Start Date: 09/17/19 Stop Date: 08/18/20 Status: OrderedoxyCODONE 5 mg oral tablet 5 mg, 1, tablet, By Mouth, Every 6 hours, PRN, for 7 days, # 12 tablet, Refills 0, Tot. Refills 0, Acute 12/24/19 11:26:00 EDT, as needed for pain, 12/17/19 11:26:00 EDT, Route to Pharmacy Electronically, [facility] #[id number], Partial fill upon... Start Date: 12/17/19 Stop Date: 12/24/19 Status: Orderedperphenazine 2 mg oral tablet 1 [...] consider F/U CT in 1 year (06/2015) Vital Signs Most recent to oldest 1 2 3 [Reference Range]: Height 176 cm (12/23/19 12:33 PM) Weight 124.1 kg (12/23/19 12:33 PM) Oxygen Saturation [94-100 %] 97 % 100 % 100 % (12/23/19 3:45 PM) (12/23/19 3:30 PM) (12/23/19 3:1 5 PM) Pulse Rate [55-90 bpm] 82 bpm (12/23/19 12:33 PM) Body Mass Index [18.5-24.99] 40.06 *>HHI* (12/23/19 12:33 PM) Blood Pressure [90-138/55-84 124/80 mm Hg 126/72 mm Hg 131 /68 mm Hg mm Hg] (12/23/19 3:45 PM) (12/23/19 3:30 PM) (12/23/19 3:1 5 PM) Respiratory Rate [16-30 18 br/min 15 br/min 18 br/mi n br/min] (12/23/19 3:46 PM) *L* (12/23/19 12:33 PM) (12/23/19 3:30 PM) Temperature [96.8-100.4 97.6 DegF 97.6 DegF 98.0 Deg F DegF] (12/23/19 3:45 PM) (12/23/19 3:15 PM) (12/23/19 12: 33 PM) Liters per Minute 5 L/min 8 L/min (12/23/19 3:15 PM) (12/23/19 2:45 PM) Mode of Delivery (Oxygen) Room air Shovel mask Shovel mask (12/23/19 3:30 PM) (12/23/19 3:15 PM) (12/23/19 2:4 5 PM) Temperature Route Temporal Temporal (12/23/19 3:15 PM) (12/23/19 12:33 PM) Social History Social History Type Response Smoking Status Former smoker, quit more lindsay n 30 days ago; Other: Quit Smoking on 11/14/19; entered on: 12/17/19 Sex
--- OUTSIDE RECORDS SUMMARY | 2022-04-06 15:51 | XMS_ITS | Continuity of Care Document ---
:1985 Author Organization [facility] Address [address] [facility], 3rd Floor, [address] [place] [address]- Care Team Providers Name Role Phone Not on Staff, PCP Primary Care Physician Unavailable Encounter [facility] [place] Date(s): 02/22/22 - 03/24/22 [facility] [address], [address]rd [address], [address] [place] [address]- Allergies, Adverse Reactions, Alerts Substance Reaction Severity [...] 12/15/21 14:41:00 EDT, Route to Pharmacy Electronically, [facility], Partial fill upon patient [...] 1 each,6 Refills, Maintenance, 12/15/21 14:37:00 EDT, [facility], Partial fill upon patient [...] left-2mm on CT of Active the chest (11/14/14)(Confirmed)2 Obese class II(Confirmed) Active PTSD (post-traumatic stress [...] x 10 years; entered on: 12/15/21 Sex Care Team PersonnelName: Not on Staff, PCP
--- OUTSIDE RECORDS SUMMARY | 2022-04-06 15:51 | XMS_ITS | Continuity of Care Document ---
:1985 Author Organization [facility] Address Unavailable , Care Team Providers Name Role Phone Antonietta Ku Primary Care Physician Encounter [facility] [place] Date(s): 04/29/21 - 05/29/21 [facility] Allergies, Adverse Reactions, Alerts Substance Reaction Severity [...] 11/23/20 9:57:00 EDT, [facility], [id number], Partial fill upon patient request if the prescription is for a schedule II opio... Start Date: 11/23/20 Stop Date: 05/22/21 Status: OrderedLiletta 52 mg intrauterine device 1 each = 52 mg, Once, 0 Refills, Maintenance, 12/17/19 11:34:00 EDT Start Date: 12/17/19 Status: OrderedMagnesium Citrate By Mouth, 0 Refills, [...] mg, By Mouth, Daily, # 30 tablet, 3 Refills, Maintenance, 05/03/21 13:14:00 EDT, Tablet, [facility], Partial fill upon patient request if the prescription is for a schedule II opioid drug., 176, cm, 01/24/21 13:44:00 ED... Start Date: 05/03/21 Stop Date: 08/31/21 Status: Orderedperphenazine 2 mg oral tablet 1 [...]
--- OUTSIDE RECORDS SUMMARY | 2022-04-06 15:51 | XMS_ITS | Continuity of Care Document ---
:1985 Author Organization [facility] Address Unavailable , Care Team Providers Name Role Phone Not on Staff, PCP Primary Care Physician Unavailable Encounter [facility] [place] Date(s): 02/16/22 - 02/23/22 [facility] Attending Physician: Not on Staff, [...] 12/15/21 14:41:00 EDT, Route to Pharmacy Electronically, [facility], Partial fill upon patient [...] 1 each,6 Refills, Maintenance, 12/15/21 14:37:00 EDT, [facility], Partial fill upon patient [...]
--- OUTSIDE RECORDS SUMMARY | 2022-04-06 15:51 | XMS_ITS | Continuity of Care Document ---
:1985 Author Organization [facility] Address Unavailable , Care Team Providers Name Role Phone Antonietta Ku Primary Care Physician Encounter [facility] [place] Date(s): 03/17/21 - 04/16/21 [facility] Allergies, Adverse Reactions, Alerts [...] 11/23/20 9:57:00 EDT, Route to Pharmacy Electronically, [facility] #[id number], Partial fill upon patient request if the [...] injection modified.Given in right buttocks Lot # [id number] exp 04/16/2023.Severe dysmenorrhea.Pt supplied med., # 1 kit, 0 Refills, Maintenance, 10/11/20 11:31:00 EDT, Partial fill upon patient request if t... Start Date: 10/11/20 Status: OrderedLupron Depot 3.75 mg intramuscular kit = 3.75 mg, Intramuscular, Every 28 days, Administered IM in R buttocks r/t dysmenhorrhea Lot # [id number] exp 04/05/2023. Pt provided medication., # 1 kit, 3 Refills, Maintenance, 07/20/20 16:16:00 EST, Partial fill upon patient request if the prescript... Start Date: 07/20/20 Status: OrderedLupron Depot 3.75 mg intramuscular kit = 3.75 mg, Intramuscular, Every 28 days, Given in right buttocks. Lot # [id number] exp 01/14/2023. Nextinjection due 07/20., # 1 [...] 9:57:00 EDT Start Date: 09/17/19 Status: OrderedOrilissa 200 mg oral tablet 1 tablet = 200 mg, By Mouth, 2 times a day, # 60 tablet, 5 Refills, Maintenance, 01/26/21 12:30:00 EDT, Tablet, [facility], Partial fill upon patient request if the prescription is fora schedule II opioid drug., 176, cm, 01/24/21 13:... Start Date: 01/26/21 Stop Date: 07/25/21 Status: Orderedperphenazine 2 mg oral tablet 1 [...]
--- OUTSIDE RECORDS SUMMARY | 2022-04-06 15:51 | XMS_ITS | Continuity of Care Document ---
:1985 Author Organization [facility] Address [address] [facility], 4th Floor [address] [place] [address]- Care Team Providers Name Role Phone Antonietta Ku Primary Care Physician [place] [facility] [place] 09/13/20 - 09/20/20 [facility] [address] [facility], 4th Floor [address] [place] [address]- Attending Physician: Not on Staff, Attending MD [...] kit, 6 Refills, Maintenance, 06/15/20 19:13:00 EST, [facility], Partial fill upon patient request if the prescription is for a schedule II opioid drug., 176, cm, 06/07/20 14:55:00 EST, Height... Start Date: 06/15/20 Status: OrderedLupron Depot 3.75 mg intramuscular kit = 3.75 mg, Intramuscular, Every 28 days, Lot # [id number] exp 04/15/2023. Next injection due 10/11/20. Administered IM in L buttocks, # 1 kit, 3 Refills, Maintenance, 07/20/20 16:16:00 EST, Partial fill upon patient request if the prescription is for a s... Start Date: 07/20/20 Status: OrderedLupron Depot 3.75 mg intramuscular kit = 3.75 mg, Intramuscular, Every 28 days, Given in right buttocks. Lot # [id number] exp 01/14/2023. Nextinjection due 07/20., # 1 [...]
--- OUTSIDE RECORDS SUMMARY | 2022-04-06 15:51 | XMS_ITS | Continuity of Care Document ---
:1985 Author Organization [facility] Address [address] [facility], 4th Floor [address] [place] [address]- Care Team Providers Name Role Phone Antonietta Ku Primary Care Physician En[place] [facility] [place] Date(s): 09/17/19 - 09/27/19 [facility] [address] [facility], 4th Floor [address] [place] [address]- [facility] Attending Physician: Anthony Fajarod Admitting Physician: Anthony Fajardo Referring Physician: AdmtrAnthony Allergies, Adverse Reactions, Alerts Substance Reaction Severity Status Wellbutrin Active Immunizations Given and Recorded Vaccine Date Status Refusal Reason influenza virus vaccine, inactivated 04/22/15 Recorded influenza virus vaccine, inactivated 05/29/14 Given tetanus/diphtheria/pertussis, acel(Tdap) 05/29/14 Given Medications albuterol (OP) 0 Refills, Maintenance, 2 Start Date: 09/17/19 Status: OrderedMontelukast By Mouth, Daily, 0 Refills, Maintenance, 09/17/19 9:57:00 EDT Start Date: 09/17/19 Status: Orderednaproxen 500 mg oral tablet 1 tablet = 500 mg, By Mouth, 2 times a day, 0 Refills, Maintenance, 09/17/19 9:57:00 EDT Start Date: 09/17/19 Status: Orderednorethindrone 5 mg oral tablet 5 mg, 1, tablet, By Mouth, Daily, Start 1/2 tab x 2 weeks then increase to 1 tab daily, # 84 tablet,Refills 3, Tot. Refills 3, Maintenance, 09/17/19 10:54:00 EDT, Route to Pharmacy Electronically, [facility] #[id number], 192.8, cm, 09/17/19 9:53... Start Date: 09/17/19 Stop Date: 08/18/20 Status: Orderedperphenazine 2 mg oral tablet 1 [...] History Social History Type Response Smoking Status 10 or more cigarettes (1/2 p ack or more)/day in last 30 days entered on: 08/09/19 Sex
--- OUTSIDE RECORDS SUMMARY | 2022-04-06 15:51 | XMS_ITS | Continuity of Care Document ---
:1985 Author Organization [facility] Address [address] [place] [id number]- Care Team Providers Name Role Phone Not on Staff, PCP Primary Care Physician Unavailable Encounter [facility] [place] Date(s): 03/07/22 - 03/08/[address] [address]- Encounter Diagnosis Viral syndrome (Final) - 03/08/22 Discharge Disposition: A-D/C Home Attending Physician: Jannette Crockett MD Admitting Physician: Jannette Crockett MD Referring Physician: Not on Staff, Referring MD Allergies, Adverse Reactions, Alerts Substance Reaction [...] 12/15/21 14:41:00 EDT, Route to Pharmacy Electronically, [facility], Partial fill upon patient [...] 1 each,6 Refills, Maintenance, 12/15/21 14:37:00 EDT, [facility], Partial fill upon patient [...] consider F/U CT in 1 year (06/2015) Results Radiology Reports Exam Date Time Procedure Performing Provider Status 03/07/22 11:21 PM Chest 2 Views Frontal and Grisel Smallwood; iJm (Verified) Lat Notes:(Chest 2 Views Frontal and Lat) Reason For Exam: Chest Pain;Other:RESULT: Chest 2 Views Frontal and Lat Chest 2 Views Frontal and Lat INDICATION: reports being sick since last Sunday. Febrile today with asthma. Pt reports her O2 saturation being checked at home and being low (95%, 99.2). went to urgent care (covid negative, flu negative); Reason: Chest Pain COMPARISON: 11/13/2019 and 07/31/2013. FINDINGS: LINES AND TUBES: None. LUNGS AND PLEURA: Clear lungs. Normal pulmonary vascularity. No pleural effusion. No pneumothorax. HEART, MEDIASTINUM AND STALIN: Heart is normal in size. Normal upper mediastinal and hilar contour. BONES AND SOFT TISSUES: No acute abnormality. Density projecting over the right neck soft tissues, likely hair artifact. IMPRESSION: No acute abnormality. No evidence of pneumonia. I have personally reviewed the images and I agree with this report. WSN: [id number] Ordering Physician: Troy Minaya Dictated By: Kajal Brunner DO Dictated Date/Time: 03/07/22 11:34 p Reviewed By: Rod Cleaning MD Signed By: Rod Cleaning MD Signed Date/Time: 03/07/22 11:39 pm Transcribed By: ELLIOTT Transcribed Date/Time: 03/07/22 11:30 pm Vital Signs Most recent to oldest 1 2 3 [Reference Range]: Oxygen Saturation [94-100 %] 99 % 97 % 98 % (03/08/22 11:26 AM) (03/08/22 8:29 AM) (03/08/22 6: 34 AM) Pulse Rate [55-90 bpm] 68 bpm 90 bpm 78 bpm (03/08/22 11:26 AM) (03/08/22 8:29 AM) (03/08/22 6: 34 AM) Blood Pressure [90-138/55-84 128/72 mm Hg 134/73 mm Hg 118 /55 mm Hg mm Hg] (03/08/22 11:26 AM) (03/08/22 8:29 AM) (03/08/22 6: 34 AM) Respiratory Rate [16-30 20 br/min 20 br/min 18 br/mi n br/min] (03/08/22 11:26 AM) (03/08/22 8:29 AM) (03/07/22 9: 24 PM) Temperature [96.8-100.4 DegF] 97.7 DegF 98.6 DegF 98 .3 DegF (03/08/22 8:29 AM) (03/08/22 6:34 AM) (03/08/22 4:3 3 AM) Mode of Delivery (Oxygen) Room air Room air Room a ir (03/08/22 11:26 AM) (03/08/22 8:29 AM) (03/08/22 6: 34 AM) Blood pressure sites Arm, left Arm, left Arm, left (03/08/22 11:26 AM) (03/08/22 8:29 AM) (03/08/22 6: 34 AM) Temperature Route Oral Oral Oral (03/08/22 8:29 AM) (03/08/22 6:34 AM) (03/08/22 4:3 3 AM) Social History Social History Type Response Smoking Status Former smoker, quit more lindsay n 30 days ago; Other: quit 2 years ago, smoked 1PPD x 10 years; entered on: 12/15/21 Sex Note [facility]SP[facility]ers[facility] , CIS S: TRANSCRIBE Rod Cleaning MD: VERIFY Kajal Brunner DO P: SIGN Event Display: Result: Authored Date: [id number] Chest 2 Views Frontal and Lat INDICATION: reports being sick since last Sunday. Febrile today with asthma. Pt reports her O2 saturation being checked at home and being low (95%, 99.2). went to urgent care (covid negative, flu negative); Reason: Chest Pain COMPARISON: 11/13/2019 and 07/31/2013. FINDINGS: LINES AND TUBES: None. LUNGS AND PLEURA: Clear lungs. Normal pulmonary vascularity. No pleural effusion. No pneumothorax. HEART, MEDIASTINUM AND STALIN: Heart is normal in size. Normal upper mediastinal and hilar contour. BONES AND SOFT TISSUES: No acute abnormality. Density projecting over the right neck soft tissues, likely hair artifact. IMPRESSION: No acute abnormality. No evidence of pneumonia. I have personally reviewed the images and I agree with this report. WSN: [id number] Ordering Physician: Troy Minaya Dictated By: Kajal Brunner DO Dictated Date/Time: 03/07/22 11:34 p Reviewed By: Rod Cleaning MD Signed By: Rod Cleaning MD Signed Date/Time: 03/07/22 11:39 pm Transcribed By: ELLIOTT Transcribed Date/Time: 03/07/22 11:30 pm Care Team PersonnelName: Not on Staff, PCP
--- OUTSIDE RECORDS SUMMARY | 2022-04-06 15:51 | XMS_ITS | Continuity of Care Document ---
:1985 Author Organization [facility] Address Unavailable , Care Team Providers Name Role Phone Antonietta Ku Primary Care Physician Encounter [facility] Date(s): 12/22/21 - 12/29/21 [facility] Attending Physician: Not on [...] 12/15/21 14:41:00 EDT, Route to Pharmacy Electronically, [facility], Partial fill upon patient [...] 1 each,6 Refills, Maintenance, 12/15/21 14:37:00 EDT, [facility], Partial fill upon patient request if the prescription is for a schedule II... Start Date: 12/15/21 Stop Date: 06/29/22 Status: OrderedMagnesium Citrate = 400 mg, By Mouth, Daily, 0 Refills, Maintenance, 11/23/20 10:04:00 EDT, Partial fill upon patient request if the prescription is for a schedule II opioid drug. Start Date: 11/23/20 Status: Orderednaproxen 500 mg oral tablet 1 tablet = 500 mg, By Mouth, 2 times a day, PRN for pain, for 14 days, with food, # 28 tablet, 1 Refills, Acute 01/12/22 14:59:00 EDT, 12/15/21 14:59:00 EDT, Tablet, [facility] #[id number], Partial fill upon patient request if the prescription is... Start Date: 12/15/21 Stop Date: 01/12/22 Status: Orderedperphenazine 4 mg oral tablet 4 [...]
--- OUTSIDE RECORDS SUMMARY | 2022-04-06 15:51 | XMS_ITS | Continuity of Care Document ---
:1985 Author Organization [facility] Address [address] [facility], 4th Floor [address] [place] [address]- Care Team Providers Name Role Phone Antonietta Ku Primary Care Physician Encounter [facility] Date(s): 01/12/20 - 02/11/20 [facility] [address] [facility], 4th Floor [address] [place] [address]- [facility] Allergies, Adverse Reactions, Alerts Substance Reaction Severity [...] 09/17/19 Status: Orderednorethindrone 5 mg oral tablet 10 mg, 2, tablet, By Mouth, Daily, # 168 tablet, Refills 1, Tot. Refills 1, Maintenance, 01/13/20 7:47:00 EDT, Route to Pharmacy Electronically, [facility] #[id number], 176, cm, 06/30/20 10:12:00 EDT, Height, 117.9, kg, 08/09/19 18:14:00 EST, Dry... Start Date: 01/13/20 Stop Date: 06/29/20 Status: Orderedperphenazine 2 mg oral tablet 1 [...]
--- OUTSIDE RECORDS SUMMARY | 2022-04-06 15:51 | XMS_ITS | Continuity of Care Document ---
:1985 Author Organization [facility] Address [address] [facility], 4th Floor [address] [place] [address]- Care Team Providers Name Role Phone Antonietta Ku Primary Care Physician En[place] [facility] [place] Date(s): 11/26/20 - 12/26/20 [facility] [address], 4th [address] [place] [address]- Allergies, Adverse Reactions, Alerts Substance Reaction Severity [...] 11/23/20 9:57:00 EDT, Route to Pharmacy Electronically, [facility] #[id number], Partial fill upon patient request if the prescription is for a schedule II opio... Start Date: 11/23/20 Stop Date: 05/22/21 Status: OrderedLiletta 52 mg intrauterine device 1 each = 52 mg, Once, 0 Refills, Maintenance, 12/17/19 11:34:00 EDT Start Date: 12/17/19 Status: OrderedLupron Depot 3.75 mg intramuscular kit 3.75 mg, Intramuscular, Every 28 days, # 1 kit, 6 Refills, Maintenance, 06/15/20 19:13:00 EST, [facility], Partial fill upon patient request if the prescription is for a schedule II opioid drug., 176, cm, 06/07/20 14:55:00 EST, Height... Start Date: 06/15/20 Status: OrderedLupron Depot 3.75 mg intramuscular kit = 3.75 mg, Intramuscular, Every 28 days, 10/11 injection modified.Given in right buttocks Lot # [id number] exp 04/16/2023.Severe dysmenorrhea.Pt supplied med., # 1 kit, 0 Refills, Maintenance, 10/11/20 11:31:00 EDT, Partial fill upon patient request if t... Start Date: 10/11/20 Status: OrderedLupron Depot 3.75 mg intramuscular kit = 3.75 mg, Intramuscular, Every 28 days, Administered IM in R buttocks r/t dysmenhorrhea Lot # [id number] exp 04/05/2023. Pt provided medication., # 1 kit, 3 Refills, Maintenance, 07/20/20 16:16:00 EST, Partial fill upon patient request if the prescript... Start Date: 07/20/20 Status: OrderedLupron Depot 3.75 mg intramuscular kit = 3.75 mg, Intramuscular, Every 28 days, Given in right buttocks. Lot # [id number] exp 01/14/2023. Nextinjection due 07/20., # 1 [...] 11 Refills, Maintenance, 12/07/20 17:05:00 EDT, Tablet, [facility], Partial fill upon patient [...]
--- OUTSIDE RECORDS SUMMARY | 2022-04-06 15:51 | XMS_ITS | Continuity of Care Document ---
:1985 Author Organization [facility] Address [address] [place] [address]- Care Team Providers Name Role Phone Antonietta Ku Primary Care Physician Encounter [facility] Date(s): 07/11/19 - 07/21/19 [facility] [address] [place] [id number]- [facility] Attending Physician: Anthony Fajardo Admitting Physician: Admtr, Anthony Referring Physician: Admtr, Ar8 Allergies, Adverse Reactions, Alerts Substance Reaction Severity Status Wellbutrin Active Immunizations Given and Recorded Vaccine Date Status Refusal Reason influenza virus vaccine, inactivated 04/22/15 Recorded influenza virus vaccine, inactivated 05/29/14 Given tetanus/diphtheria/pertussis, acel(Tdap) 05/29/14 Given Medications ibuprofen 600 mg oral tablet 1 tablet = 600 mg, By Mouth, 3 times a day, # 15 tablet, 0 Refills, Maintenance Start Date: 05/24/13 Stop Date: 05/29/13 Status: OrderedNaprosyn 375 mg oral tablet 375 mg, 1, tablet, By Mouth, 3 times a day, # 20 tablet, Refills 0, Tot. Refills 0, Maintenance, 10/02/17 20:55:47 EDT, Print Requisition Start Date: 10/02/17 Status: OrderedNuLYTELY with Flavor Packs oral powder for reconstitution See Instructions, 240 mL By Mouth Every 15 minutes, # 4,000 mL, 0 Refills, Maintenance, 07/14/19 14:39:00 EST, [facility] #[id number], 240 mL By Mouth Every 15 minutes, 178, cm, 07/11/19 15:36:00 EST, Height, 109.5, kg, 03/27/18 21:27:00 EDT, Dry... Start Date: 07/14/19 Status: Orderedperphenazine 2 mg oral tablet 1 tablet = 2 mg, By Mouth, Daily at bedtime, # 16 tablet, 0 Refills, Maintenance, 05/29/14 9:18:43, Tablet Start Date: 05/29/14 Status: Orderedperphenazine 8 mg oral tablet 1 tablet = 8 mg, By Mouth, Daily in AM, # 16 tablet, 0 Refills, Maintenance, 05/29/14 9:18:37, Tablet Start Date: 05/29/14 Status: Orderedperphenazine 8 mg oral tablet 1 tablet = 8 mg, By Mouth, Daily at bedtime, # 16 tablet, 0 Refills, Maintenance, 05/29/14 9:18:51, Tablet Start Date: 05/29/14 Status: OrderedPhysical Therapy evaluate and treat Physical Therapy evaluate and treat, See Instructions, # 12 each, Refills 0, Tot. Refills 0, Maintenance, Neck pain eval and Rx, 12/31/14 14:08:34, Compound Start Date: 12/31/14 Status: Orderedprazosin 2 mg oral capsule 1 [...] Social History Type Response Smoking Status Former smoker; Type: Cigaret jigar; Other: Quit in December 2013.; Tobacco use times per day: 1-05/10 PPD; Number of years: 5; Total pack years: 7.5; entered on: 01/17/16 Sex
--- OUTSIDE RECORDS SUMMARY | 2022-04-06 15:51 | XMS_ITS | Continuity of Care Document ---
:1985 Author Organization [facility] Address [address] [facility], 4th Floor [address] [place] [address]- Care Team Providers Name Role Phone Antonietta Ku Primary Care Physician [place] [facility] [place]20 [place] 11[place]30/20 [facility] [address], 4th [address] [place] [address]- Attending Physician: Lyndsay Carpenter MD Allergies, Adverse [...] 11/23/20 9:57:00 EDT, Route to Pharmacy Electronically, [facility] #[id number], Partial fill upon patient request if the prescription is for a schedule II opio... Start Date: 11/23/20 Stop Date: 05/22/21 Status: OrderedLiletta 52 mg intrauterine device 1 each = 52 mg, Once, 0 Refills, Maintenance, 12/17/19 11:34:00 EDT Start Date: 12/17/19 Status: OrderedLupron Depot 3.75 mg intramuscular kit 3.75 mg, Intramuscular, Every 28 days, # 1 kit, 6 Refills, Maintenance, 06/15/20 19:13:00 EST, [facility], Partial fill upon patient request if the prescription is for a schedule II opioid drug., 176, cm, 06/07/20 14:55:00 EST, Height... Start Date: 06/15/20 Status: OrderedLupron Depot 3.75 mg intramuscular kit = 3.75 mg, Intramuscular, Every 28 days, 10/11 injection modified.Given in right buttocks Lot # [id number] exp 04/16/2023.Severe dysmenorrhea.Pt supplied med., # 1 kit, 0 Refills, Maintenance, 10/11/20 11:31:00 EDT, Partial fill upon patient request if t... Start Date: 10/11/20 Status: OrderedLupron Depot 3.75 mg intramuscular kit = 3.75 mg, Intramuscular, Every 28 days, Administered IM in R buttocks r/t dysmenhorrhea Lot # [id number] exp 04/05/2023. Pt provided medication., # 1 kit, 3 Refills, Maintenance, 07/20/20 16:16:00 EST, Partial fill upon patient request if the prescript... Start Date: 07/20/20 Status: OrderedLupron Depot 3.75 mg intramuscular kit = 3.75 mg, Intramuscular, Every 28 days, Given in right buttocks. Lot # [id number] exp 01/14/2023. Nextinjection due 07/20., # 1 [...] (06/2015) Vital Signs Most recent to oldest [Reference Range]: 1 Height 176 cm (11/22/20 3:35 PM) Social History Social History Type Response Smoking Status Former smoker, quit more lindsay n 30 days ago; Other: Quit Smoking on 11/14/19; entered on: 12/17/19 Sex
--- OUTSIDE RECORDS SUMMARY | 2022-04-06 15:51 | XMS_ITS | Continuity of Care Document ---
:1985 Author Organization [facility] Address Unavailable , Care Team Providers Name Role Phone Antonietta Ku Primary Care Physician En[place] [facility] [place] Date(s): 12/15/21 - 12/22/21 [facility] Attending Physician: Lyndsay Carpenter MD Allergies, Adverse [...] 12/15/21 14:41:00 EDT, Route to Pharmacy Electronically, [facility], Partial fill upon patient [...] 1 each,6 Refills, Maintenance, 12/15/21 14:37:00 EDT, [facility], Partial fill upon patient [...] 01/12/22 14:59:00 EDT, 12/15/21 14:59:00 EDT, Tablet, [facility] #[id number], Partial fill upon patient request if the [...] oldest [Reference Range]: 1 Height 176 cm (12/15/21 2:20 PM) Weight 108.7 kg (12/15/21 2:20 PM) Pulse Rate [55-90 bpm] 91 bpm *H* (12/15/21 2:20 PM) Body Mass Index [18.5-24.99] 35.09 *>HHI* (12/15/21 2:20 PM) Blood Pressure [90-138/55-84 mm Hg] 106/50 mm Hg (12/15/21 2:20 PM) Blood pressure sites Arm, right (12/15/21 2:20 PM) Weight Obtained Via Standing scale (12/15/21 2:20 PM) Social History Social History Type Response Smoking Status Former smoker, quit more lindsay n 30 days ago; Other: quit 2 years ago, smoked 1PPD x 10 years; entered on: 12/15/21 Sex
--- OUTSIDE RECORDS SUMMARY | 2022-04-06 15:52 | XMS_ITS | Continuity of Care Document ---
:1985 Author Organization [facility] Address [address] [facility], 4th Floor [address] [place] [address]- Care Team Providers Name Role Phone Antonietta Ku Primary Care Physician Encounter [facility] [place] Date(s): 07/20/20 - 07/27/20 [facility] [address] [facility] [address] [facility], 4th [address] [place] [address]- Attending Physician: Not on Staff, Attending MD [...] kit, 6 Refills, Maintenance, 06/15/20 19:13:00 EST, [facility], Partial fill upon patient request if the prescription is for a schedule II opioid drug., 176, cm, 06/07/20 14:55:00 EST, Height... Start Date: 06/15/20 Status: OrderedLupron Depot 3.75 mg intramuscular kit = 3.75 mg, Intramuscular, Every 28 days, Lot # [id number] exp 01/14/2023. Next injection due 08/16., # 1 kit, 3 Refills, Maintenance, 07/20/20 16:16:00 EST, Partial fill upon patient request if the prescription is for a schedule II opioid drug. Start Date: 07/20/20 Status: OrderedLupron Depot 3.75 mg intramuscular kit = 3.75 mg, Intramuscular, Every 28 days, Given in right buttocks. Lot # [id number] exp 01/14/2023. Nextinjection due 07/20., # 1 [...]
--- OUTSIDE RECORDS SUMMARY | 2022-04-06 15:52 | XMS_ITS | Continuity of Care Document ---
:1985 Author Organization [facility] Address [address] [facility], 4th Floor [address] [place] [address]- Care Team Providers Name Role Phone Antonietta Ku Primary Care Physician Encounter [facility] [place] Date(s): 11/08/20 - 11/15/20 [facility] [address] [facility], 4th Floor [address] [place] [id number] Attending Physician: Not on Staff, Attending MD [...] kit, 6 Refills, Maintenance, 06/15/20 19:13:00 EST, [facility], Partial fill upon patient request if the prescription is for a schedule II opioid drug., 176, cm, 06/07/20 14:55:00 EST, Height... Start Date: 06/15/20 Status: OrderedLupron Depot 3.75 mg intramuscular kit = 3.75 mg, Intramuscular, Every 28 days, 10/11 injection modified.Given in right buttocks Lot # [id number] exp 04/16/2023.Severe dysmenorrhea.Pt supplied med., # 1 kit, 0 Refills, Maintenance, 10/11/20 11:31:00 EDT, Partial fill upon patient request if t... Start Date: 10/11/20 Status: OrderedLupron Depot 3.75 mg intramuscular kit = 3.75 mg, Intramuscular, Every 28 days, Administered IM in R buttocks r/t dysmenhorrhea Lot # [id number] exp 04/05/2023. Pt provided medication., # 1 kit, 3 Refills, Maintenance, 07/20/20 16:16:00 EST, Partial fill upon patient request if the prescript... Start Date: 07/20/20 Status: OrderedLupron Depot 3.75 mg intramuscular kit = 3.75 mg, Intramuscular, Every 28 days, Given in right buttocks. Lot # [id number] exp 01/14/2023. Nextinjection due 07/20., # 1 [...]
--- OUTSIDE RECORDS SUMMARY | 2022-04-06 15:52 | XMS_ITS | Continuity of Care Document ---
:1985 Author Organization [facility] Address [address] [place] [address], [facility] [address] [place] [address]- Care Team Providers Name Role Phone Antonietta Ku Primary Care Physician Encounter [facility] Date(s): 05/19/20 - 06/18/20 [facility] [address] [facility], 4th Floor [address] [place] [id number] Allergies, Adverse Reactions, Alerts Substance Reaction Severity [...] kit, 6 Refills, Maintenance, 06/15/20 19:13:00 EST, [facility], Partial fill upon patient [...] 11 Refills, Maintenance, 06/08/20 11:34:00 EST, Tablet, [facility] #[id number], Partial fill upon patient request if the [...]
--- OUTSIDE RECORDS SUMMARY | 2022-04-06 15:52 | XMS_ITS | Continuity of Care Document ---
:1985 Author Organization [facility] Address [address] [facility], 4th Floor [address] [place] [address]- Care Team Providers Name Role Phone Antonietta Ku Primary Care Physician Encounter [facility] Date(s): 06/21/20 - 07/21/20 [facility] [address] [facility], 4th [address] [place] [address]- Allergies, Adverse Reactions, Alerts Substance Reaction Severity Status Wellbutrin Active Immunizations Given and Recorded Vaccine Date Status Refusal Reason influenza virus vaccine, inactivated 04/22/15 Recorded influenza virus vaccine, inactivated 05/29/14 Given tetanus/diphtheria/pertussis, acel(Tdap) 05/29/14 Given Medications albuterol (OP) 0 Refills, Maintenance, 2 Start Date: 09/17/19 Status: OrderedAygestin 5 mg oral tablet 0.5 tablet = 2.5 mg, By Mouth, Daily, # 15 tablet, 4 Refills, Maintenance, 07/14/20 12:38:00 EST, [facility] #[id number], Partial fill upon patient request if the prescription is for a schedule IIopioid drug., 176, cm, 06/07/20 14:55:00 EST, Hei... Start Date: 07/14/20 Status: OrderedLiletta 52 mg intrauterine device 1 each = 52 mg, Once, 0 Refills, Maintenance, 12/17/19 11:34:00 EDT Start Date: 12/17/19 Status: OrderedLupron Depot 3.75 mg intramuscular kit 3.75 mg, Intramuscular, Every 28 days, # 1 kit, 6 Refills, Maintenance, 06/15/20 19:13:00 EST, [facility], Partial fill upon patient request if the prescription is for a schedule II opioid drug., 176, cm, 06/07/20 14:55:00 EST, Height... Start Date: 06/15/20 Status: OrderedLupron Depot 3.75 mg intramuscular kit = 3.75 mg, Intramuscular, Every 28 days, Lot # [id number] exp 01/14/2023. Next injection due 08/16., # 1 kit, 3 Refills, Maintenance, 07/20/20 16:16:00 EST, Partial fill upon patient request if the prescription is for a schedule II opioid drug. Start Date: 07/20/20 Status: OrderedLupron Depot 3.75 mg intramuscular kit = 3.75 mg, Intramuscular, Every 28 days, Given in right buttocks. Lot # [id number] exp 01/14/2023. Nextinjection due 07/20., # 1 [...] 11 Refills, Maintenance, 06/08/20 11:34:00 EST, Tablet, [facility] #[id number], Partial fill upon patient request if the [...]
--- OUTSIDE RECORDS SUMMARY | 2022-04-06 15:52 | XMS_ITS | Continuity of Care Document ---
:1985 Author Organization [facility] Address [address] [facility], 4th Floor [address] [place] [address]- Care Team Providers Name Role Phone Antonietta Ku Primary Care Physician [place] [facility] [place] 01/26/21 - 02/02/21 [facility] [address] [facility], 4th Floor [address] [place] [address] Attending Physician: Lyndsay Carpenter MD Allergies, Adverse [...] 11/23/20 9:57:00 EDT, Route to Pharmacy Electronically, [facility] #[id number], Partial fill upon patient request if the [...] 6 Refills, Maintenance, 06/15/20 19:13:00 EST, [facility], Partial fill upon patient request if the prescription is for a schedule II opioid drug., 176, cm, 06/07/20 14:55:00 EST, Height... Start Date: 06/15/20 Status: OrderedLupron Depot 3.75 mg intramuscular kit = 3.75 mg, Intramuscular, Every 28 days, 10/11 injection modified.Given in right buttocks Lot # [id number] exp 04/16/2023.Severe dysmenorrhea.Pt supplied med., # 1 kit, 0 Refills, Maintenance, 10/11/20 11:31:00 EDT, Partial fill upon patient request if t... Start Date: 10/11/20 Status: OrderedLupron Depot 3.75 mg intramuscular kit = 3.75 mg, Intramuscular, Every 28 days, Administered IM in R buttocks r/t dysmenhorrhea Lot # [id number] exp 04/05/2023. Pt provided medication., # 1 kit, 3 Refills, Maintenance, 07/20/20 16:16:00 EST, Partial fill upon patient request if the prescript... Start Date: 07/20/20 Status: OrderedLupron Depot 3.75 mg intramuscular kit = 3.75 mg, Intramuscular, Every 28 days, Given in right buttocks. Lot # [id number] exp 01/14/2023. Nextinjection due 07/20., # 1 [...] 5 Refills, Maintenance, 01/26/21 12:30:00 EDT, Tablet, [facility], Partial fill upon [...] oldest [Reference Range]: 1 Height 176 cm (01/24/21 1:44 PM) Social History Social History Type Response Smoking Status Former smoker, quit more lindsay n 30 days ago; Other: Quit Smoking on 11/14/19; entered on: 12/17/19 Sex
--- OUTSIDE RECORDS SUMMARY | 2022-04-06 15:52 | XMS_ITS | Continuity of Care Document ---
:1985 Author Organization [facility] Address [address] [facility], 4th Floor [address] [place] [address]- Care Team Providers Name Role Phone Antonietta Ku Primary Care Physician [place] [facility] [place](s): 01/06/20 - 01/13/20 [facility] [address] [facility], 4th Floor [address] [place] [address] [facility] Attending Physician: Lyndsay Carpenter MD Referring Physician: Antonietta Ku Allergies, Adverse Reactions, Alerts Substance Reaction Severity [...] 14 days, # 28 tablet, 1 Refills, Acute01/14/20 11:25:00 EDT, 12/17/19 11:25:00 EDT, Tablet, [facility] #[id number], 177.8, cm, 12/17/19 11:20:00 EDT, Height, 117.9, kg, 08/09/19 18:14... Start Date: 12/17/19 Stop Date: 01/14/20 Status: Orderednorethindrone 5 mg oral tablet 10 mg, 2, tablet, By Mouth, Daily, # 168 tablet, Refills 1, Tot. Refills 1, Maintenance, 01/13/20 7:47:00 EDT, Route to Pharmacy Electronically, [facility] #[id number], 176, cm, 01/06/20 10:12:00 EDT, Height, 117.9, kg, 08/09/19 18:14:00 [...] By Mouth, Daily at bedtime, PRN night carmen, # 270 capsule, 0 Refills, Maintenance, 01/17/16 [...] oldest [Reference Range]: 1 Height 176 cm (01/06/20 10:12 AM) Weight 128.3 kg (01/06/20 10:12 AM) Pulse Rate [55-90 bpm] 78 bpm (01/06/20 10:12 AM) Body Mass Index [18.5-24.99] 41.42 *>HHI* (01/06/20 10:12 AM) Blood Pressure [90-138/55-84 mm Hg] 122/64 mm Hg (01/06/20 10:12 AM) Blood pressure sites Arm, right (01/06/20 10:12 AM) Social History Social History Type Response Smoking Status Former smoker, quit more lindsay n 30 days ago; Other: Quit Smoking on 11/14/19; entered on: 12/17/19 Sex
--- OUTSIDE RECORDS SUMMARY | 2022-04-06 15:52 | XMS_ITS | Continuity of Care Document ---
:1985 Author Organization [facility] Address [address] [facility], 4th Floor [address] [place] [address]- Care Team Providers Name Role Phone Antonietta Ku Primary Care Physician En[place] [facility] [place] Date(s): 12/17/19 - 12/24/19 [facility] [address], 4th [address] [place] [address]- [facility] Attending Physician: Lyndsay Carpenter MD Referring Physician: Anotnietta Ku Allergies, Adverse Reactions, Alerts Substance Reaction [...] Acute07/08/20 11:25:00 EDT, 12/17/19 11:25:00 EDT, Tablet, [facility] #[id number], 177.8, cm, 12/17/19 11:20:00 EDT, Height, 117.9, kg, 08/09/19 18:14... Start Date: 12/17/19 Stop Date: 01/14/20 Status: Orderednorethindrone 5 mg oral tablet 5 mg, 1, tablet, By Mouth, Daily, Start 1/2 tab x 2 weeks then increase to 1 tab daily, # 84 tablet,Refills 3, Tot. Refills 3, Maintenance, 09/17/19 10:54:00 EDT, Route to Pharmacy Electronically, [facility] #[id number], 177.8, cm, 09/17/19 9:53... Start Date: 09/17/19 [...] recent to oldest [Reference Range]: 1 Height 177.8 cm (12/17/19 11:20 AM) Weight 126.3 kg (12/17/19 11:20 AM) Pulse Rate [55-90 bpm] 87 bpm (12/17/19 11:20 AM) Body Mass Index [18.5-24.99] 39.95 *>HHI* (12/17/19 11:20 AM) Blood Pressure [90-138/55-84 mm Hg] 141/73 mm Hg *H* (12/17/19 11:20 AM) Blood pressure sites Arm, left (12/17/19 11:20 AM) Social History Social History Type Response Smoking Status Former smoker, quit more lindsay n 30 days ago; Other: Quit Smoking on 11/14/19; entered on: 12/17/19 Sex
--- OUTSIDE RECORDS SUMMARY | 2022-04-06 15:52 | XMS_ITS | Continuity of Care Document ---
:1985 Author Organization [facility] Address Unavailable , Care Team Providers Name Role Phone Antonietta Ku Primary Care Physician En[place] [facility] [place] Date(s): 01/26/21 - 02/25/21 [facility] Attending Physician: Anthony Fajardo Admitting Physician: Anthony Fajardo Referring Physician: AdmtrAnthony [...] 11/23/20 9:57:00 EDT, Route to Pharmacy Electronically, [facility] #[id number], Partial fill upon patient request if the prescription is for a schedule II opio... Start Date: 11/23/20 Stop Date: 05/22/21 Status: OrderedLiletta 52 mg intrauterine device 1 each = 52 mg, Once, 0 Refills, Maintenance, 12/17/19 11:34:00 EDT Start Date: 12/17/19 Status: OrderedLupron Depot 3.75 mg intramuscular kit 3.75 mg, Intramuscular, Every 28 days, # 1 kit, 6 Refills, Maintenance, 06/15/20 19:13:00 EST, [facility], Partial fill upon patient request if the prescription is for a schedule II opioid drug., 176, cm, 06/07/20 14:55:00 EST, Height... Start Date: 06/15/20 Status: OrderedLupron Depot 3.75 mg intramuscular kit = 3.75 mg, Intramuscular, Every 28 days, 10/11 injection modified.Given in right buttocks Lot # [id number] exp 04/16/2023.Severe dysmenorrhea.Pt supplied med., # 1 kit, 0 Refills, Maintenance, 10/11/20 11:31:00 EDT, Partial fill upon patient request if t... Start Date: 10/11/20 Status: OrderedLupron Depot 3.75 mg intramuscular kit = 3.75 mg, Intramuscular, Every 28 days, Administered IM in R buttocks r/t dysmenhorrhea Lot # [id number] exp 04/05/2023. Pt provided medication., # 1 kit, 3 Refills, Maintenance, 07/20/20 16:16:00 EST, Partial fill upon patient request if the prescript... Start Date: 07/20/20 Status: OrderedLupron Depot 3.75 mg intramuscular kit = 3.75 mg, Intramuscular, Every 28 days, Given in right buttocks. Lot # [id number] exp 01/14/2023. Nextinjection due 07/20., # 1 [...] 5 Refills, Maintenance, 01/26/21 12:30:00 EDT, Tablet, [facility], Partial fill upon patient [...]
--- OUTSIDE RECORDS SUMMARY | 2022-04-06 15:52 | XMS_ITS | Continuity of Care Document ---
:1985 Author Organization [facility] Address [address] [place] [address]- Care Team Providers Name Role Phone Antonietta Ku Primary Care Physician [place] [facility] [place] 08[place] 08/13/[address] [address] [facility] Discharge Disposition: A-D/C Home Attending Physician: Reshma Moe MD Admitting Physician: Reshma Moe MD Referring Physician: Reshma Moe MD Allergies, Adverse Reactions, Alerts Substance Reaction Severity Status Wellbutrin Active Immunizations Given and Recorded Vaccine Date Status Refusal Reason influenza virus vaccine, inactivated 04/22/15 Recorded influenza virus vaccine, inactivated 05/29/14 Given tetanus/diphtheria/pertussis, acel(Tdap) 05/29/14 Given Medications diclofenac potassium 50 mg oral tablet 1 tablet = 50 mg, By Mouth, 3 times a day, PRN Pain , Moderate, for 5 days, # 15 tablet, 0 Refills, Acute 08/14/19 18:02:00 EST, 08/09/19 18:02:00 EST, Tablet, [facility] #[id number], 178, cm, 08/09/19 17:21:00 EST, Height, 117.9, kg, 08/09/19 15... Start Date: 08/09/19 Stop Date: 08/14/19 Status: Orderedibuprofen 600 mg oral tablet 1 tablet = [...] mL, 0 Refills, Maintenance, 07/14/19 14:39:00 EST, [facility] #[id number], 240 mL By Mouth Every 15 minutes, 178, cm, 07/11/19 15:36:00 EST, Height, 109.5, kg, 10/02/17 21:27:00 EDT, Dry... Start Date: 07/14/19 Status: [...] Start Date: 01/25/16 Stop Date: 07/23/16 Status: OrderedtraMADol 50 mg oral tablet 2 tablet = 100 mg, By Mouth, Every 6 hours, PRN for pain, # 16 tablet, 0 Refills, Maintenance, 08/09/19 18:02:00 EST, Tablet, [facility] #[id number], 178, cm, 08/09/19 17:21:00 EST, Height, 117.9,kg, 08/09/19 15:12:00 EST, Dry Weight Start Date: 08/09/19 Stop Date: 08/11/19 Status: Orderedtrazodone 100 mg oral tablet 1 [...] Procedure Date Related Diagnosis Body Site Status Colonoscopy 08/13/19 Completed Vital Signs Most recent to oldest [Reference 1 2 3 Range]: Height 177.8 cm (08/13/19 3:28 PM) Weight 117.9 kg (08/13/19 3:28 PM) Oxygen Saturation [94-100 %] 97 % 95 % 98 % (08/13/19 4:57 PM) (08/13/19 4:47 PM) (08/13/19 3:28 P M) Pulse Rate [55-90 bpm] 82 bpm (08/13/19 3:28 PM) Body Mass Index [18.5-24.99] 37.29 *>HHI* (08/13/19 3:28 PM) Blood Pressure [90-138/55-84 mm 121/70 mm Hg 117/70 mm Hg 134/61 mm Hg Hg] (08/13/19 4:57 PM) (08/13/19 4:47 PM) (08/13/19 3:28 P M) Respiratory Rate [16-30 br/min] 18 br/min 18 br/min 18 br/min (08/13/19 4:57 PM) (08/13/19 4:47 PM) (08/13/19 3:28 P M) Temperature [96.8-100.4 DegF] 97.5 DegF (08/13/19 3:28 PM) Mode of Delivery (Oxygen) Room air Room air Room a ir (08/13/19 4:57 PM) (08/13/19 4:47 PM) (08/13/19 3:28 P M) Blood pressure sites Arm, left (08/13/19 3:28 PM) Temperature Route Temporal (08/13/19 3:28 PM) Social History Social History Type Response Smoking Status 10 or more cigarettes (1/2 p ack or more)/day in last 30 days entered on: 08/09/19 Sex
--- OUTSIDE RECORDS SUMMARY | 2022-04-06 15:52 | XMS_ITS | Continuity of Care Document ---
:1985 Author Organization [facility] Address [address] [place] [address], 4th Floor [address] [place] [address]- Care Team Providers Name Role Phone Antonietta Ku Primary Care Physician Encounter [facility] Date(s): 06/10/20 - 07/10/20 [facility] [address] [facility], 4th Floor [address] [place] [address]- Allergies, Adverse Reactions, Alerts Substance Reaction Severity [...] kit, 6 Refills, Maintenance, 06/15/20 19:13:00 EST, [facility], Partial fill upon patient request if the prescription is for a schedule II opioid drug., 176, cm, 06/07/20 14:55:00 EST, Height... Start Date: 06/15/20 Status: OrderedLupron Depot 3.75 mg intramuscular kit = 3.75 mg, Intramuscular, Every 28 days, Given in right buttocks. Lot # [id number] exp 01/14/2023. Nextinjection due 07/20., # 1 [...] 11 Refills, Maintenance, 06/08/20 11:34:00 EST, Tablet, [facility] #[id number], Partial fill upon patient request if the [...] mg, By Mouth, Daily at bedtime, PRN nahid morales, # 270 capsule, 0 Refills, Maintenance, [...]
--- OUTSIDE RECORDS SUMMARY | 2022-04-06 15:52 | XMS_ITS | Continuity of Care Document ---
:1985 Author Organization [facility] Address [address] [place] [address]- Care Team Providers Name Role Phone Antonietta Ku Primary Care Physician [place] [facility] [place] 07/21/[address] [address]- [facility] Attending Physician: Dwayne Simons MD Allergies, Adverse Reactions, Alerts Substance Reaction [...] mL, 0 Refills, Maintenance, 07/14/19 14:39:00 EST, [facility] #[id number], 240 mL By Mouth Every 15 minutes, [...] F/U CT in 1 year (06/2015) Results Orders for Microbiology Reports Name Date Stool Culture 07/14/19 Microbiology Reports TEST:Stool Culture STATUS:Auth (Verified) BODY SITE: SOURCE:STOOL COLLECTED DATE/TIME:07/14/19 12:00 PMStool Culture SPECIMEN DESCRIPTION : STOOL SPECIAL REQUESTS : NONE CULTURE : NO SALMONELLA, SHIGELLA, CAMPYLOBACTER, AEROMONAS OR E.COLI O157:H7 ISOLATED. SHIGA TOXIN 1 AND 2 NOT DETECTED REPORT STATUS : FINAL 07/17/2019 Social History Social History Type Response Smoking Status Former smoker; Type: Cigaret jigar; Other: Quit in December 2013.; Tobacco use times per day: 1-05/10 PPD; Number of years: 5; Total pack years: 7.5; entered on: 01/17/16 Sex
--- OUTSIDE RECORDS SUMMARY | 2022-04-06 15:52 | XMS_ITS | Continuity of Care Document ---
:1985 Author Organization [facility] Address [address] [facility], 4th Floor [address] [place] [id number]- Care Team Providers Name Role Phone Not on Staff, PCP Primary Care Physician Unavailable Encounter [facility] Date(s): 03/16/22 - 03/23/22 [facility] [address] [facility], [facility] Floor [address] [place] [id number] Attending Physician: Not on Staff, Attending MD [...] 12/15/21 14:41:00 EDT, Route to Pharmacy Electronically, [facility], Partial fill upon patient [...] 1 each,6 Refills, Maintenance, 12/15/21 14:37:00 EDT, [facility], Partial fill upon patient [...]
--- OUTSIDE RECORDS SUMMARY | 2022-04-06 15:52 | XMS_ITS | Continuity of Care Document ---
:1985 Author Organization [facility] Address [address] [facility], 4th Floor [address] [place] [id number]- Care Team Providers Name Role Phone Antonietta Ku Primary Care Physician [place] [facility] [place]20 [place] 08/03/20 [facility] [address] [facility], 4th Floor [address] [place] [id number]- Attending Physician: Lyndsay Carpenter MD Referring Physician: [...] kit, 6 Refills, Maintenance, 06/15/20 19:13:00 EST, [facility], Partial fill upon patient request if the prescription is for a schedule II opioid drug., 176, cm, 06/07/20 14:55:00 EST, Height... Start Date: 06/15/20 Status: OrderedLupron Depot 3.75 mg intramuscular kit = 3.75 mg, Intramuscular, Every 28 days, Lot # [id number] exp 01/14/2023. Next injection due 08/16., # 1 kit, 3 Refills, Maintenance, 07/20/20 16:16:00 EST, Partial fill upon patient request if the prescription is for a schedule II opioid drug. Start Date: 07/20/20 Status: OrderedLupron Depot 3.75 mg intramuscular kit = 3.75 mg, Intramuscular, Every 28 days, Given in right buttocks. Lot # [id number] exp 01/14/2023. Nextinjection due 07/20., # 1 [...] oldest [Reference Range]: 1 Height 176 cm (07/27/20 11:30 AM) Social History Social History Type Response Smoking Status Former smoker, quit more lindsay n 30 days ago; Other: Quit Smoking on 11/14/19; entered on: 12/17/19 Sex
--- OUTSIDE RECORDS SUMMARY | 2022-04-06 15:52 | XMS_ITS | Continuity of Care Document ---
:1985 Author Organization [facility] Address [address] [facility], 4th [address] [place] [address]- Care Team Providers Name Role Phone Antonietta Ku Primary Care Physician Encounter [place] Date(s): 10/11/20 - 10/18/20 [facility] [address] [facility], 4th [address] [place] [address]- Attending Physician: Not on Staff, Attending MD [...] kit, 6 Refills, Maintenance, 06/15/20 19:13:00 EST, [facility], Partial fill upon patient request if the prescription is for a schedule II opioid drug., 176, cm, 06/07/20 14:55:00 EST, Height... Start Date: 06/15/20 Status: OrderedLupron Depot 3.75 mg intramuscular kit = 3.75 mg, Intramuscular, Every 28 days, Given in right buttocks Lot # [id number] exp 04/16/2023., # 1 kit, 0 Refills, Maintenance, 10/11/20 11:31:00 EDT, Partial fill upon patient request if the prescription is for a schedule II opioid drug. Start Date: 10/11/20 Status: OrderedLupron Depot 3.75 mg intramuscular kit = 3.75 mg, Intramuscular, Every 28 days, Lot # [id number] exp 04/15/2023. Next injection due 10/11/20. Administered IM in L buttocks, # 1 kit, 3 Refills, Maintenance, 07/20/20 16:16:00 EST, Partial fill upon patient request if the prescription is for a s... Start Date: 07/20/20 Status: OrderedLupron Depot 3.75 mg intramuscular kit = 3.75 mg, Intramuscular, Every 28 days, Given in right buttocks. Lot # [id number] exp 01/14/2023. Nextinjection due 07/20., # 1 [...]
[2022-04-06 16:00] VITALS: BP 134/71; PULSE 79; RESP 16; TEMP 36.1; O2SAT 98
[2022-04-06] MEDS: LORazepam 1 MG TABLET 2 MG PO ×2 (16:43→19:18)
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
[2022-04-06 20:19] VITALS: BP 117/57; PULSE 89; RESP 18; TEMP 36.7; O2SAT 94
[2022-04-06 21:05] VITALS: BP 116/72; PULSE 79; RESP 18; TEMP 36.7; O2SAT 99
[2022-04-06] MEDS: Prazosin HCL 1 MG CAPSULE 2 MG PO (21:14)
[2022-04-06] MEDS: Montelukast Sodium 10 MG TABLET PO (21:14)
[2022-04-06] MEDS: Sennosides 8.6 MG TABLET 17.2 MG PO (21:14)
[2022-04-06] MEDS: traZODone HCL 25 MG HALFTAB 125 MG PO (21:15)
[2022-04-06] MEDS: Butalb/Acetamin/Caff 50/325/40 TABLET 1 TAB PO (21:15)
[2022-04-06] MEDS: Perphenazine 4 MG TABLET PO (21:15)
[2022-04-07 06:00] VITALS: BP 116/58; PULSE 55; RESP 18; TEMP 36.6; O2SAT 98
[2022-04-07] MEDS: Levothyroxine Sodium 50 MCG TABLET PO (06:44)
[2022-04-07] MEDS: LORazepam 1 MG TABLET 2 MG PO ×3 (06:44→21:34)
[2022-04-07] MEDS: Perphenazine 4 MG TABLET PO ×2 (08:53→21:36)
[2022-04-07] MEDS: estradioL 0.5 MG TABLET 1 MG PO (08:53)
[2022-04-07] MEDS: Butalb/Acetamin/Caff 50/325/40 TABLET 1 TAB PO (09:03)
[2022-04-07 09:46] LABS: Estimated Average Glucose 88 mg/dL; Hemoglobin A1c % 4.7 %
[2022-04-07 09:55] LABS: Alanine Aminotransferase 30 U/L (0-31); Albumin Level 4.5 g/dL (3.5-5.0); Alkaline Phosphatase 66 U/L (39-117); Anion Gap 15 (12-20); Aspartate Amino Transferase 21 U/L (5-31); Bilirubin Direct 0.7 mg/dL (0.0-0.5); Bilirubin Total 1.3 mg/dL (0.0-1.0); Blood Urea Nitrogen 14 mg/dL (9-16); Calcium 9.4 mg/dL (8.4-10.2); Carbon Dioxide 25 mmol/L (22-29); Chloride 105 mmol/L (96-108); Cholesterol 191 mg/dL; Estimated Glomerular Filt Rate > 60; Glucose Fasting 92 mg/dL (60-99); HDL Cholesterol 43 mg/dL; LDL Cholesterol Calculated 134 mg/dl; Potassium 3.8 mmol/L (3.3-5.1); Sodium 141 mmol/L (135-145); Total Protein 7.1 g/dL (6.5-8.0); Triglycerides 74 mg/dL
[2022-04-07 10:19] LABS: Free T4 (Free Thyroxine) 1.46 ng/dL (0.71-1.85)
[2022-04-07 10:34] LABS: Folate 9.3 ng/mL (> or = 4.0); Vitamin B12 304 pg/mL (200-900)
--- NOTE | 2022-04-07 11:52 | P.CONHOSP_ITS ---
History of Present Illness Data of Consult Service Date: 04/07/22 Requesting physician: Manuel Sheets Primary Care Provider: Unknown Physician HPI Reason for consult: medical history and physical this is a 36-year-old female patient admitted to adult psych unit due to psychosis, patient is resting in bed complaining of generalized pain starting from head down to her spine and to entire antibody, claiming that nobody is giving her medications, no food was given to her at her home, unable to inform home she was living with and her home situation, complaining of above symptoms since April 2020 when she broke her right leg it was in the cast, she also complained of persistent nausea, vomiting, claiming there are not enough gluten free diet choices, she does not eat beef, no pork, denies fever chills, denies chest pain, no palpitations, denies shortness of breath no cough, no urinary symptoms. Review of Systems Review of Systems: [employer] headache localized to os a bed with radiation to spine, no weakness no numbness CVS no chest pain, no palpitation musculoskeletal generalized pain Skin no rash Yes all other systems are reviewed and are negative [facility] Medical History Borderline personality disorder Depression Depression Severe recurrent major depression w/psychotic features, mood-congruent Thyroid disease Pertinent family history: not aware of family history Social History Household Members: Unknown / Unable to assess Household Members Other:: patient does not feel safe where she was living Housing: Unknown / Unable to assess Do you presently have visiting nurse or other home services: No Unable to assess alcohol history related to: Unknown Patient Tobacco Use Status: Tobacco use Unknown Tobacco use type: Cigarette Second Hand Smoke Exposure: Yes Use of substances other than those prescribed or required for medical reasons: Yes Substance Use Type: Marijuana Substance Use Frequency: Chronic Longstanding Currently Displaying Signs/Symptoms of Drug Intoxication Withdrawal: No Advance Directives: No (Unknown) Patient : No : No service: No Sexual orientation: Lesbian/Wing/Homosexual Meds Allergies Allergy/AdvReac Type Severity Reaction Status Date / Time bupropion [From WELLBUTRIN] Allergy Unknown HIVES Verified 10/06/21 22:48 pregabalin [From Lyrica] AdvReac Swelling Verified 10/06/21 22:49 Active Medications: Current Medications Acetaminophen (Acetaminophen 325 Mg Tablet) 650 mg PO Q6H PRN PRN Reason: Headache/Pain Mild Scale (1-3) Acetaminophen/Butalbital/Caffeine (Butalb/Acetamin/Caff 50/325/40 Tablet) 1 tab PO BID PRN PRN Reason: Headache Last Admin: 04/07/22 09:03 Dose: 1 tab Al Hydroxide/Mg Hydroxide (Magnesium Hydrox/Alum Hydrox 30 Ml Oral.Susp) 30 ml PO Q6H PRN PRN Reason: Heartburn/Nausea Estradiol (Estradiol 0.5 Mg Tablet) 1 mg PO DAILY [facility] Last Admin: 04/07/22 08:53 Dose: 1 mg Hydroxyzine HCl (Hydroxyzine Hcl 25 Mg Tablet) 25 mg PO Q6H PRN PRN Reason: Anxiety Levothyroxine Sodium (Levothyroxine Sodium 50 Mcg Tablet) 50 mcg PO DAILY@0600 [facility] Last Admin: 04/07/22 06:44 Dose: 50 mcg Lorazepam (Lorazepam 1 Mg Tablet) 2 mg PO Q4H PRN PRN Reason: agitation Last Admin: 04/07/22 06:44 Dose: 2 mg Lorazepam (Lorazepam 0.5 Mg Tablet) 0.5 mg PO Q8H PRN PRN Reason: agitation, anxiety Magnesium Hydroxide (Milk Of Magnesia 30 Ml Oral.Susp) 30 ml PO DAILY PRN PRN Reason: Constipation Montelukast Sodium (Montelukast Sodium 10 Mg Tablet) 10 mg PO BEDTIME [facility] Last Admin: 04/06/22 21:14 Dose: 10 mg Olanzapine (Olanzapine Odt 10 Mg Tab.Rapdis) 10 mg TRANSLINGU Q6H PRN PRN Reason: severe agitation Ondansetron HCl (Ondansetron Odt 4 Mg Tab.Rapdis) 4 mg TRANSLINGU Q8H PRN PRN Reason: nausea Perphenazine (Perphenazine 4 Mg Tablet) 4 mg PO BID [facility] Last Admin: 04/07/22 08:53 Dose: 4 mg Prazosin HCl (Prazosin Hcl 1 Mg Capsule) 2 mg PO BEDTIME [facility]; Protocol Last Admin: 04/06/22 21:14 Dose: 2 mg Senna (Sennosides 8.6 Mg Tablet) 17.2 mg PO BEDTIME [facility] Last Admin: 04/06/22 21:14 Dose: 17.2 mg Trazodone HCl (Trazodone Hcl 25 Mg Halftab) 125 mg PO BEDTIME [facility] Last Admin: 04/06/22 21:15 Dose: 125 mg Home Medications Medication Instructions Recorded Confirmed Last Taken Type ysmefuiegi-qbmsnmtpacifj-myxcbojr 1 - 2 tab PO Q6H PRN headache 09/24/21 11/22/21 Unknown History 50 mg-325 mg-40 mg tablet cholecalciferol (vitamin D3) 50 50 mcg PO DAILY@1800 09/24/21 11/22/21 11/21/21 18:00 History mcg (2,000 unit) tablet levothyroxine 50 mcg tablet 50 mcg PO DAILY@0600 09/24/21 11/22/21 11/22/21 06:00 History magnesium oxide 400 mg (241.3 mg 400 mg PO DAILY@1800 09/24/21 11/22/21 11/21/21 18:00 History magnesium) tablet meloxicam 15 mg tablet 7.5 mg PO DAILY PRN Breakthrough 09/24/21 11/22/21 Unknown History Pain, Mild montelukast 10 mg tablet 10 mg PO DAILY@1800 09/24/21 11/22/21 Unknown History prazosin 2 mg capsule 2 mg PO BEDTIME 09/24/21 11/22/21 11/21/21 20:00 History sennosides 8.6 mg tablet (senna) 17.6 mg PO BEDTIME 09/24/21 11/22/21 11/21/21 20:00 History topiramate 100 mg tablet 100 mg PO BID 09/24/21 11/22/21 11/22/21 08:00 History trazodone 100 mg tablet 100 mg PO BEDTIME 09/24/21 11/22/21 11/21/21 20:00 History Physical Exam Vital Signs and Narrative: Vital Signs: Last Vital Signs Temp 97.9 F 04/07/22 06:00 Pulse 55 04/07/22 06:00 Resp 18 04/07/22 06:00 BP 116/58 L 04/07/22 06:00 Pulse Ox 98 04/07/22 06:00 O2 Del Method 04/07/22 06:00 Const: Other: General awake alert, in no acute distress. Neck supple, no lymphadenopathy CVS regular rate rhythm, Respiratory lungs clear to auscultation, no respiratory distress, no wheeze, no rhonchi. Gastrointestinal abdomen soft, nontender, bowel sounds audible Extremities no edema, no deformity. back normal spine examination Neuro nonfocal ,patient moving all 4 extremity speech clear. Skin no rash Results Labs CBC and Chem 7: 04/07/22 09:07 Labs: Laboratory Results - last 24 hr 04/07/22 04/07/22 04/07/22 09:07 09:07 09:07 Anion Gap 15 Estim Creat Clear Calc TNP Estimated GFR > 60 Fasting Glucose 92 Estimat Average Glucose 88 Hemoglobin A1c % 4.7 Calcium 9.4 Total Bilirubin 1.3 H Direct Bilirubin 0.7 H AST 21 D ALT 30 Alkaline Phosphatase 66 Total Protein 7.1 Albumin 4.5 Triglycerides 74 Cholesterol 191 D LDL Cholesterol, Calc 134 HDL Cholesterol 43 Vitamin B12 304 Folate 9.3 TSH 1.30 Free T4 1.46 Assessment and Plan (1) Borderline personality disorder: Status: Acute (2) Schizoaffective disorder, depressive type: Status: Acute Plan 36-year-old female patient with past medical history of major depression with psychotic features admitted to adult psych unit hypothyroidism, recent TSH at [facility] is 2.16 continue current dose of Synthroid generalize body aches/headache, patient appears disheveled, with unkempt hair it seems that patient thoughts are bizarre ,tangential , her physical examination is benign, neck is supple ,spine examination is normal likely all her symptoms are related to underlying psychiatric disorder recom mend to use Tylenol/ Advil, as needed thank you for allowing us to participate in the care of this patient will sign of call is with any questions.
--- NOTE | 2022-04-07 11:55 | MHC.CLN ---
NUTRITION CONSULT FOR PATIENT REQUESTING MODIFIED DIET. PATIENT DIET PREFERENCES KNOWN FROM PRIOR ADMISSION 10/10/21. VISITED WITH PATIENT IN HER ROOM. REQUESTING GLUTEN FREE, NO BEEF, NO PORK. WILL EAT ZAVALETA. [facility] [employer] AWARE OF NEW DIET ORDER: GLUTEN FREE AND NOTED NO BEEF, NO PORK, BUT ZAVALETA OK IF REQUESTED.
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
[2022-04-07] MEDS: Ondansetron ODT 4 MG TAB.RAPDIS TRANSLINGU (16:34)
[2022-04-07 21:25] VITALS: BP 103/52; PULSE 71; RESP 16; TEMP 36.7; O2SAT 96
[2022-04-07] MEDS: Prazosin HCL 1 MG CAPSULE 2 MG PO (21:35)
[2022-04-07] MEDS: OLANZapine ODT 10 MG TAB.RAPDIS TRANSLINGU (21:35)
[2022-04-07] MEDS: hydrOXYzine HCL 25 MG TABLET PO (21:35)
[2022-04-07] MEDS: Sennosides 8.6 MG TABLET 17.2 MG PO (21:35)
[2022-04-07] MEDS: Montelukast Sodium 10 MG TABLET PO (21:35)
[2022-04-07] MEDS: traZODone HCL 25 MG HALFTAB 125 MG PO (21:39)
[2022-04-08] MEDS: Butalb/Acetamin/Caff 50/325/40 TABLET 1 TAB PO ×2 (05:08→14:35)
[2022-04-08] MEDS: Levothyroxine Sodium 50 MCG TABLET PO (05:08)
[2022-04-08] MEDS: LORazepam 0.5 MG TABLET PO (05:08)
[2022-04-08 09:52] VITALS: BP 123/63; PULSE 86; RESP 16; TEMP 36.4; O2SAT 97
[2022-04-08] MEDS: Perphenazine 4 MG TABLET PO ×2 (09:54→19:59)
[2022-04-08] MEDS: estradioL 0.5 MG TABLET 1 MG PO (09:54)
--- NOTE | 2022-04-08 11:20 | HO.PSYCHPN ---
Subjective Subjective Date of Service: 04/08/22 Reason For Visit: psychosis Subjective Notes: Conditional Voluntary Interim History: The nursing staff reported the patient has been on her bed all day long, she was been isolative and slept until 05:00 o'clock in the morning. She complained of headache and to fear is it with no improvement. On interview the patient stated that she had been on pain and nothing has worked she was negative and refused to engage in the conversation. She denied current auditory hallucinations. Mental Status Exam Mental Status Exam Patient Appearance: Appropriate Patient Orientation: Person and Situation Level of Consciousness: Awake Patient Behavior: Guarded Mood Description: Withdrawn Affect Description: Labile Patient Cognition Impaired: No Ability to Follow Directions: Fair Speech Pattern: Clear Hallucinations: None Delusions: Paranoid Ideation Thought Process: Distracted Thought Content: positive for [place] and positive for Circumstantial Judgement: Poor Diagnostics Vital Signs (24Hr): Vital Signs - 24 hr 04/07/22 21:25 04/08/22 09:52 Temperature 98.0 F 97.6 F Pulse Rate 71 86 Respiratory Rate 16 16 Blood Pressure 103/52 L 123/63 Pulse Oximetry 96 97 Oxygen Delivery Method Room Air Room Air Labs Results: 04/07/22 09:07 Labs: Laboratory Results - last 48 hr 04/07/22 04/07/22 04/07/22 09:07 09:07 09:07 Sodium 141 Potassium 3.8 Chloride 105 Carbon Dioxide 25 Anion Gap 15 BUN 14 Creatinine 0.95 Estim Creat Clear Calc TNP Estimated GFR > 60 Fasting Glucose 92 Estimat Average Glucose 88 Hemoglobin A1c % 4.7 Calcium 9.4 Total Bilirubin 1.3 H Direct Bilirubin 0.7 H AST 21 D ALT 30 Alkaline Phosphatase 66 Total Protein 7.1 Albumin 4.5 Triglycerides 74 Cholesterol 191 D LDL Cholesterol, Calc 134 HDL Cholesterol 43 Vitamin B12 304 Folate 9.3 TSH 1.30 Free T4 1.46 Medications Medications Current Medications Acetaminophen (Acetaminophen 325 Mg Tablet) 650 mg PO Q6H PRN PRN Reason: Headache/Pain Mild Scale (1-3) Acetaminophen/Butalbital/Caffeine (Butalb/Acetamin/Caff 50/325/40 Tablet) 1 tab PO BID PRN PRN Reason: Headache Last Admin: 04/08/22 05:08 Dose: 1 tab Al Hydroxide/Mg Hydroxide (Magnesium Hydrox/Alum Hydrox 30 Ml Oral.Susp) 30 ml PO Q6H PRN PRN Reason: Heartburn/Nausea Estradiol (Estradiol 0.5 Mg Tablet) 1 mg PO DAILY [facility] Last Admin: 04/08/22 09:54 Dose: 1 mg Hydroxyzine HCl (Hydroxyzine Hcl 25 Mg Tablet) 25 mg PO Q6H PRN PRN Reason: Anxiety Last Admin: 04/07/22 21:35 Dose: 25 mg Levothyroxine Sodium (Levothyroxine Sodium 50 Mcg Tablet) 50 mcg PO DAILY@0600 [facility] Last Admin: 04/08/22 05:08 Dose: 50 mcg Lorazepam (Lorazepam 1 Mg Tablet) 2 mg PO Q4H PRN PRN Reason: agitation Last Admin: 04/07/22 21:34 Dose: 2 mg Lorazepam (Lorazepam 0.5 Mg Tablet) 0.5 mg PO Q8H PRN PRN Reason: agitation, anxiety Last Admin: 04/08/22 05:08 Dose: 0.5 mg Magnesium Hydroxide (Milk Of Magnesia 30 Ml Oral.Susp) 30 ml PO DAILY PRN PRN Reason: Constipation Montelukast Sodium (Montelukast Sodium 10 Mg Tablet) 10 mg PO BEDTIME [facility] Last Admin: 04/07/22 21:35 Dose: 10 mg Olanzapine (Olanzapine Odt 10 Mg Tab.Rapdis) 10 mg TRANSLINGU Q6H PRN PRN Reason: severe agitation Last Admin: 04/07/22 21:35 Dose: 10 mg Ondansetron HCl (Ondansetron Odt 4 Mg Tab.Rapdis) 4 mg TRANSLINGU Q8H PRN PRN Reason: nausea Last Admin: 04/07/22 16:34 Dose: 4 mg Perphenazine (Perphenazine 4 Mg Tablet) 4 mg PO BID [facility] Last Admin: 04/08/22 09:54 Dose: 4 mg Prazosin HCl (Prazosin Hcl 1 Mg Capsule) 2 mg PO BEDTIME [facility]; Protocol Last Admin: 04/07/22 21:35 Dose: 2 mg Senna (Sennosides 8.6 Mg Tablet) 17.2 mg PO BEDTIME [facility] Last Admin: 04/07/22 21:35 Dose: 17.2 mg Trazodone HCl (Trazodone Hcl 25 Mg Halftab) 125 mg PO BEDTIME [facility] Last Admin: 04/07/22 21:39 Dose: 125 mg Allergies Allergies Allergy/AdvReac Type Severity Reaction Status Date / Time bupropion [From WELLBUTRIN] Allergy Unknown HIVES Verified 10/06/21 22:48 pregabalin [From Lyrica] AdvReac Swelling Verified 10/06/21 22:49 Assessment & Plan Assessment & Plan (1) Borderline personality disorder: Status: Acute Code(s): F60.3 - Borderline personality disorder (2) Schizoaffective disorder, depressive type: Status: Acute Code(s): F25.1 - Schizoaffective disorder, depressive type Plan Altagracia is a 36 y.o. female who carries a dx of BPD and schizoaffective disorder, depressive type. [place] [facility] [place]22 after being seen by Ilya bryant at home due to difficulty with ADLs and IADLs i.e. not paying bills, allowing her license to lapse, not eating x 3 days, has not left the home in 4 months. Also reported paranoid ideations that others plan to harm her. Has been med non-adherent. [place] [facility] [place]. Plan: Pt is willing to re-start her medications that she was stabilized on during her last admission, including perphenazine 4 mg BID, prazosin 2 mg HS, trazodone (requests dose increase to 125 mg), and PRN ativan 0.5 mg Q8Hr. She does not want to re-start duloxetine, says she felt worse on it. Was also given meloxicam in the community for chronic fatigue but denies benefit, will not re-start. Has depo shot due on 04/15/22. Q15 min safety checks, section 12B Monitor response to medications. Monitor for safety in the milieu. Discharge on stabilization. Patient seen. Chart reviewed. Discussed with team. Obtain collateral contact info?as needed I spent __20____ minutes with the patient and/or on the patient floor today, greater than?50% of which was spent counseling/coordinating care. Reason for contiued inpatient stay Substantial Risk for: inability to function, rapid decompensation and med/psych decompensation
[2022-04-08] MEDS: Ondansetron ODT 4 MG TAB.RAPDIS TRANSLINGU ×2 (17:40→19:52)
[2022-04-08 18:00] VITALS: BP 131/65; PULSE 88; RESP 18; TEMP 36.6; O2SAT 95
[2022-04-08] MEDS: Prazosin HCL 1 MG CAPSULE 2 MG PO (19:51)
[2022-04-08] MEDS: traZODone HCL 25 MG HALFTAB 125 MG PO (19:59)
[2022-04-08] MEDS: Sennosides 8.6 MG TABLET 17.2 MG PO (19:59)
[2022-04-08] MEDS: LORazepam 1 MG TABLET 2 MG PO (19:59)
[2022-04-08] MEDS: Montelukast Sodium 10 MG TABLET PO (19:59)
[2022-04-09] MEDS: Levothyroxine Sodium 50 MCG TABLET PO (06:49)
[2022-04-09 08:31] VITALS: BP 113/57; PULSE 80; RESP 18; TEMP 36.4; O2SAT 97
[2022-04-09] MEDS: estradioL 0.5 MG TABLET 1 MG PO (08:47)
[2022-04-09] MEDS: Perphenazine 4 MG TABLET PO ×2 (08:47→22:57)
[2022-04-09] MEDS: Butalb/Acetamin/Caff 50/325/40 TABLET 1 TAB PO ×2 (08:50→19:21)
--- NOTE | 2022-04-09 12:28 | P.PNPSI_ITS ---
Subjective Subjective Date of Service: 04/09/22 Reason For Visit: psychosis Subjective Notes: Conditional Voluntary Interim History: The nursing staff reported that yesterday it was very lab violent sad, hyperventilating and outcome coming out. Later on she went out for dinner he, she played cards and socialize. Today in the morning she was looking much better and she stated that she does not feel supported at home. On interview the patient denies new symptoms she reports mild nausea that response to soft from. No active suicidal ideation at this moment Mental Status Exam Mental Status Exam Patient Appearance: Well Grooomed Patient Orientation: Person, Place, Time and Situation Level of Consciousness: Awake Patient Behavior: Cooperative Mood Description: Calm Affect Description: Labile Patient Cognition Impaired: No Ability to Follow Directions: Good Speech Pattern: Appropriate Hallucinations: None Delusions: Not Present Thought Process: Linear Thought Content: positive for [place] and positive for Circumstantial Judgement: Poor Diagnostics Vital Signs (24Hr): Vital Signs - 24 hr 04/08/22 18:00 04/09/22 08:31 Temperature 97.9 F 97.6 F Pulse Rate 88 80 Respiratory Rate 18 18 Blood Pressure 131/65 113/57 L Pulse Oximetry 95 97 Oxygen Delivery Method Room Air Room Air Labs Results: 04/07/22 09:07 Medications Medications Current Medications Acetaminophen (Acetaminophen 325 Mg Tablet) 650 mg PO Q6H PRN PRN Reason: Headache/Pain Mild Scale (1-3) Acetaminophen/Butalbital/Caffeine (Butalb/Acetamin/Caff 50/325/40 Tablet) 1 tab PO BID PRN PRN Reason: Headache Last Admin: 04/09/22 08:50 Dose: 1 tab Al Hydroxide/Mg Hydroxide (Magnesium Hydrox/Alum Hydrox 30 Ml Oral.Susp) 30 ml PO Q6H PRN PRN Reason: Heartburn/Nausea Estradiol (Estradiol 0.5 Mg Tablet) 1 mg PO DAILY [facility] Last Admin: 04/09/22 08:47 Dose: 1 mg Hydroxyzine HCl (Hydroxyzine Hcl 25 Mg Tablet) 25 mg PO Q6H PRN PRN Reason: Anxiety Last Admin: 04/07/22 21:35 Dose: 25 mg Levothyroxine Sodium (Levothyroxine Sodium 50 Mcg Tablet) 50 mcg PO DAILY@0600 [facility] Last Admin: 04/09/22 06:49 Dose: 50 mcg Lorazepam (Lorazepam 1 Mg Tablet) 2 mg PO Q4H PRN PRN Reason: agitation Last Admin: 04/08/22 19:59 Dose: 2 mg Lorazepam (Lorazepam 0.5 Mg Tablet) 0.5 mg PO Q8H PRN PRN Reason: agitation, anxiety Last Admin: 04/08/22 05:08 Dose: 0.5 mg Magnesium Hydroxide (Milk Of Magnesia 30 Ml Oral.Susp) 30 ml PO DAILY PRN PRN Reason: Constipation Montelukast Sodium (Montelukast Sodium 10 Mg Tablet) 10 mg PO BEDTIME [facility] Last Admin: 04/08/22 19:59 Dose: 10 mg Olanzapine (Olanzapine Odt 10 Mg Tab.Rapdis) 10 mg TRANSLINGU Q6H PRN PRN Reason: severe agitation Last Admin: 04/07/22 21:35 Dose: 10 mg Ondansetron HCl (Ondansetron Odt 4 Mg Tab.Rapdis) 4 mg TRANSLINGU Q8H PRN PRN Reason: nausea Last Admin: 04/08/22 19:52 Dose: 4 mg Perphenazine (Perphenazine 4 Mg Tablet) 4 mg PO BID [facility] Last Admin: 04/09/22 08:47 Dose: 4 mg Prazosin HCl (Prazosin Hcl 1 Mg Capsule) 2 mg PO BEDTIME [facility]; Protocol Last Admin: 04/08/22 19:51 Dose: 2 mg Senna (Sennosides 8.6 Mg Tablet) 17.2 mg PO BEDTIME [facility] Last Admin: 04/08/22 19:59 Dose: 17.2 mg Trazodone HCl (Trazodone Hcl 25 Mg Halftab) 125 mg PO BEDTIME [facility] Last Admin: 04/08/22 19:59 Dose: 125 mg Allergies Allergies Allergy/AdvReac Type Severity Reaction Status Date / Time bupropion [From WELLBUTRIN] Allergy Unknown HIVES Verified 10/06/21 22:48 pregabalin [From Lyrica] AdvReac Swelling Verified 10/06/21 22:49 Assessment & Plan Assessment & Plan (1) Borderline personality disorder: Status: Acute Code(s): F60.3 - Borderline personality disorder (2) Schizoaffective disorder, depressive type: Status: Acute Code(s): F25.1 - Schizoaffective disorder, depressive type Plan Altagracia is a 36 y.o. female who carries a dx of BPD and schizoaffective disorder, depressive type. Pt presented to [facility] on 04/06/2022 after being seen by [facility] crisis at home due to difficulty with ADLs and IADLs i.e. not paying bills, allowing her license to lapse, not eating x 3 days, has not left the home in 4 months. Also reported paranoid ideations that others plan to harm her. Has been med non-adherent. Last admission to [facility] was 11/2021. Plan: Pt is willing to re-start her medications that she was stabilized on dur ing her last admission, including perphenazine 4 mg BID, prazosin 2 mg HS, trazodone (requests dose increase to 125 mg), and PRN ativan 0.5 mg Q8Hr. She does not want to re-start duloxetine, says she felt worse on it. Was also given meloxicam in the community for chronic fatigue but denies benefit, will not re- start. Has depo shot due on 04/15/22. Q15 min safety checks, section 12B Monitor response to medications. Monitor for safety in the milieu. Discharge on stabilization. Patient seen. Chart reviewed. Discussed with team. Obtain collateral contact info?as needed I spent __20____ minutes with the patient and/or on the patient floor today, greater than?50% of which was spent counseling/coordinating care. Reason for contiued inpatient stay Substantial Risk for: inability to function, rapid decompensation and med/psych decompensation
[2022-04-09] MEDS: Ondansetron ODT 4 MG TAB.RAPDIS TRANSLINGU (12:49)
[2022-04-09] MEDS: Prazosin HCL 1 MG CAPSULE 2 MG PO (22:57)
[2022-04-09] MEDS: traZODone HCL 25 MG HALFTAB 125 MG PO (22:57)
[2022-04-09] MEDS: Sennosides 8.6 MG TABLET 17.2 MG PO (22:57)
[2022-04-09] MEDS: Montelukast Sodium 10 MG TABLET PO (22:57)
[2022-04-09 23:00] VITALS: BP 142/64; PULSE 89; RESP 18; TEMP 36.2; O2SAT 97
[2022-04-10] MEDS: LORazepam 1 MG TABLET 2 MG PO ×3 (03:06→20:45)
[2022-04-10 08:23] VITALS: BP 116/57; PULSE 97; RESP 18; TEMP 36.4; O2SAT 96
[2022-04-10] MEDS: Levothyroxine Sodium 50 MCG TABLET PO (08:24)
[2022-04-10] MEDS: estradioL 0.5 MG TABLET 1 MG PO (08:24)
[2022-04-10] MEDS: Perphenazine 4 MG TABLET PO (08:24)
[2022-04-10] MEDS: LORazepam 0.5 MG TABLET PO (08:27)
[2022-04-10] MEDS: Ondansetron ODT 4 MG TAB.RAPDIS TRANSLINGU (08:27)
--- NOTE | 2022-04-10 14:41 | PC.NURSE ---
Patient offered flu vaccine, patient declined.
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
[2022-04-10 19:35] VITALS: BP 102/51; PULSE 83; RESP 16; TEMP 36.6; O2SAT 97
[2022-04-10] MEDS: traZODone HCL 25 MG HALFTAB 125 MG PO (20:44)
[2022-04-10] MEDS: Perphenazine 2 MG TABLET 6 MG PO (20:44)
[2022-04-10] MEDS: Prazosin HCL 1 MG CAPSULE 2 MG PO (20:45)
[2022-04-10] MEDS: Montelukast Sodium 10 MG TABLET PO (20:45)
[2022-04-10] MEDS: Sennosides 8.6 MG TABLET 17.2 MG PO (20:45)
[2022-04-10] MEDS: Butalb/Acetamin/Caff 50/325/40 TABLET 1 TAB PO (20:45)
[2022-04-11] MEDS: Levothyroxine Sodium 50 MCG TABLET PO (06:51)
[2022-04-11] MEDS: LORazepam 1 MG TABLET 2 MG PO (06:54)
--- NOTE | 2022-04-11 08:22 | PC.NURSE ---
Pt asked to use her cell phone to obtain numbers, she then proceeded to use [facility] to try to call 911. Pt required firm limit setting and redirection.
[2022-04-11] MEDS: Perphenazine 2 MG TABLET 6 MG PO ×2 (08:40→22:59)
[2022-04-11] MEDS: estradioL 0.5 MG TABLET 1 MG PO (08:41)
[2022-04-11] MEDS: Butalb/Acetamin/Caff 50/325/40 TABLET 1 TAB PO ×2 (08:41→17:20)
--- NOTE | 2022-04-11 15:20 | HO.PSYCHPN ---
Subjective Subjective Date of Service: 04/11/22 Reason For Visit: psychosis Interim History: pt seen several times throughout the morning. informed of filing for commitment. pt asking for discharge, upset. she states it is traumatic for her to be here and she just wants to go home. she states at the same time that she needs more in-home supports and that what she has there is inadequate. she states she needs help with cooking, bathing; she also asks for more [employer] help and help doing the things i need to do. seen with SW to review her agreement to sign CRISELDA for her mother, her fiancee, and her home healthcare providers emilio and phu at [facility]. per staff, slept OK last night. sad her roommate was discharged. isolative. Mental Status Exam Mental Status Exam Narrative: cooperative. disheveled, with matted hair. no PMA/PMR. nml eye contact but with reduced eye blink. speech spontaneous, rapid, nml in amount. variable loudness and latency. thoughts tangential, bizarre, paranoid, delusional. affect blunted. no SI/HI/AVH expressed. Diagnostics Vital Signs (24Hr): Vital Signs - 24 hr 04/10/22 19:35 Temperature 98 F Pulse Rate 83 Respiratory Rate 16 Blood Pressure 102/51 L Pulse Oximetry 97 Oxygen Delivery Method Room Air Labs Results: 04/07/22 09:07 Medications Medications Current Medications Acetaminophen (Acetaminophen 325 Mg Tablet) 650 mg PO Q6H PRN PRN Reason: Headache/Pain Mild Scale (1-3) Acetaminophen/Butalbital/Caffeine (Butalb/Acetamin/Caff 50/325/40 Tablet) 1 tab PO BID PRN PRN Reason: Headache Last Admin: 04/11/22 08:41 Dose: 1 tab Al Hydroxide/Mg Hydroxide (Magnesium Hydrox/Alum Hydrox 30 Ml Oral.Susp) 30 ml PO Q6H PRN PRN Reason: Heartburn/Nausea Estradiol (Estradiol 0.5 Mg Tablet) 1 mg PO DAILY TREVIN Last Admin: 04/11/22 08:41 Dose: 1 mg Hydroxyzine HCl (Hydroxyzine Hcl 25 Mg Tablet) 25 mg PO Q6H PRN PRN Reason: Anxiety Last Admin: 04/07/22 21:35 Dose: 25 mg Levothyroxine Sodium (Levothyroxine Sodium 50 Mcg Tablet) 50 mcg PO DAILY@0600 [facility] Last Admin: 04/11/22 06:51 Dose: 50 mcg Lorazepam (Lorazepam 1 Mg Tablet) 2 mg PO Q4H PRN PRN Reason: agitation Last Admin: 04/11/22 06:54 Dose: 2 mg Magnesium Hydroxide (Milk Of Magnesia 30 Ml Oral.Susp) 30 ml PO DAILY PRN PRN Reason: Constipation Montelukast Sodium (Montelukast Sodium 10 Mg Tablet) 10 mg PO BEDTIME TREVIN Last Admin: 04/10/22 20:45 Dose: 10 mg Olanzapine (Olanzapine Odt 10 Mg Tab.Rapdis) 10 mg TRANSLINGU Q6H PRN PRN Reason: severe agitation Last Admin: 04/07/22 21:35 Dose: 10 mg Ondansetron HCl (Ondansetron Odt 4 Mg Tab.Rapdis) 4 mg TRANSLINGU Q8H PRN PRN Reason: nausea Last Admin: 04/10/22 08:27 Dose: 4 mg Perphenazine (Perphenazine 2 Mg Tablet) 6 mg PO BID [facility] Last Admin: 04/11/22 08:40 Dose: 6 mg Prazosin HCl (Prazosin Hcl 1 Mg Capsule) 2 mg PO BEDTIME TREVIN; Protocol Last Admin: 04/10/22 20:45 Dose: 2 mg Senna (Sennosides 8.6 Mg Tablet) 17.2 mg PO BEDTIME TREVIN Last Admin: 04/10/22 20:45 Dose: 17.2 mg Trazodone HCl (Trazodone Hcl 25 Mg Halftab) 125 mg PO BEDTIME TREVIN Last Admin: 04/10/22 20:44 Dose: 125 mg Allergies Allergies Allergy/AdvReac Type Severity Reaction Status Date / Time bupropion [From WELLBUTRIN] Allergy Unknown HIVES Verified 10/06/21 22:48 pregabalin [From Lyrica] AdvReac Swelling Verified 10/06/21 22:49 Assessment & Plan Assessment & Plan (1) Borderline personality disorder: Status: Acute Code(s): F60.3 - Borderline personality disorder (2) Schizoaffective disorder, depressive type: Status: Acute Code(s): F25.1 - Schizoaffective disorder, depressive type Plan Altagracia is a 36 y.o. female who carries a dx of BPD and schizoaffective disorder, depressive type. Pt presented to [facility] ED on 04/06/2022 after being seen by MARVEL bryant at home due to difficulty with ADLs and IADLs i.e. not paying bills, allowing her license to lapse, not eating x 3 days, has not left the home in 4 months. Also reported paranoid ideations that others plan to harm her. Has been med non-adherent. Last admission to [facility] was 11/2021. Plan: Pt is willing to re-start her medications that she was stabilized on during her last admission, including perphenazine 4 mg BID, prazosin 2 mg HS, trazodone (requests dose increase to 125 mg), and PRN ativan 0.5 mg Q8Hr. She does not want to re-start duloxetine, says she felt worse on it. Was also given meloxicam in the community for chronic fatigue but denies benefit, will not re-start. Has depo shot due on 04/15/22. 04/10: pt was discharged her previous two admissions here on perphenazine 6 mg BID, so her dosing is being increased to 6 BID as of now. remains labile with paranoid delusions currently. 04/11: taking increased perphenazine dose of 6 BID. appears less psychotic today. labile, depressed affect. asking for sheeter helper. feels it is more traumatic here than at home. asking for supports in home, acknowledging she cannot get by on her own there. recently expressed safety concerns for herself there, paranoia about her fiancee and mother yesterday. now less paranoid, willing to sign CRISELDA for fiancee and mother. signed 3-day notice on pt's behalf, submitted paperwork for commitment. I spent ___35___ minutes with the patient and/or on the patient floor today, greater than?50% of which was spent counseling/coordinating care. Reason for contiued inpatient stay Substantial Risk for: inability to function and rapid decompensation
[2022-04-11 21:00] VITALS: BP 127/62; PULSE 75; RESP 16; TEMP 36.3; O2SAT 97
[2022-04-11] MEDS: traZODone HCL 25 MG HALFTAB 125 MG PO (23:01)
[2022-04-11] MEDS: Sennosides 8.6 MG TABLET 17.2 MG PO (23:01)
[2022-04-11] MEDS: Prazosin HCL 1 MG CAPSULE 2 MG PO (23:02)
[2022-04-11] MEDS: Montelukast Sodium 10 MG TABLET PO (23:02)
[2022-04-12] MEDS: Levothyroxine Sodium 50 MCG TABLET PO (06:47)
[2022-04-12 08:22] VITALS: BP 110/59; PULSE 75; RESP 16; TEMP 36.3; O2SAT 96
[2022-04-12] MEDS: estradioL 0.5 MG TABLET 1 MG PO (08:41)
[2022-04-12] MEDS: Perphenazine 2 MG TABLET 6 MG PO (08:42)
[2022-04-12] MEDS: Butalb/Acetamin/Caff 50/325/40 TABLET 1 TAB PO ×2 (09:18→20:29)
[2022-04-12] MEDS: LORazepam 0.5 MG TABLET PO ×2 (11:22→20:50)
--- NOTE | 2022-04-12 13:46 | P.PNPSI_ITS ---
Subjective Subjective Date of Service: 04/12/22 Reason For Visit: psychosis Interim History: calm and cooperative. seen with CLEO massey. discuss dispo options - currently none, which pt appears to have a hard time grasping. poor insight into the degree of her inability to get by in a less structured setting. pt amenable to increase perphenazine to 8 mg BID. also c/o not having access to CPAP for an adequate amount of time, CPAP ordered to be available to pt from [id number]. c/o pain from lumbar area to occipital area, chronic, for two years, has seen neuro for it. MD deferred any investigations into this condition to outpatient setting due to stability and chronicity. per staff, refused 1:1 mtg yesterday. tearful on the phone with her mother. eating. irritable. poor sleep 2/2 CPAP's being uncomfortable. attending groups. visible on unit. safe. attempted to use rajani to call 911 yesterday. Mental Status Exam Mental Status Exam Narrative: cooperative. disheveled, with matted hair. no PMA/PMR. nml eye contact but with reduced eye blink. speech spontaneous, rapid, nml in amount. variable loudness and latency. thoughts more organized and linear yet still paranoid and delusional. affect variable - constricted to labile/hyper-intense/irritable. no SI/HI/AVH expressed. Diagnostics Vital Signs (24Hr): Vital Signs - 24 hr 04/11/22 21:00 04/12/22 08:22 Temperature 97.4 F 97.3 F Pulse Rate 75 75 Respiratory Rate 16 16 Blood Pressure 127/62 110/59 L Pulse Oximetry 97 96 Oxygen Delivery Method Room Air Room Air Labs Results: 04/07/22 09:07 Medications Medications Current Medications Acetaminophen (Acetaminophen 325 Mg Tablet) 650 mg PO Q6H PRN PRN Reason: Headache/Pain Mild Scale (1-3) Acetaminophen/Butalbital/Caffeine (Butalb/Acetamin/Caff 50/325/40 Tablet) 1 tab PO BID PRN PRN Reason: Headache Last Admin: 04/12/22 09:18 Dose: 1 tab Al Hydroxide/Mg Hydroxide (Magnesium Hydrox/Alum Hydrox 30 Ml Oral.Susp) 30 ml PO Q6H PRN PRN Reason: Heartburn/Nausea Estradiol (Estradiol 0.5 Mg Tablet) 1 mg PO DAILY TREVIN Last Admin: 04/12/22 08:41 Dose: 1 mg Hydroxyzine HCl (Hydroxyzine Hcl 25 Mg Tablet) 25 mg PO Q6H PRN PRN Reason: Anxiety Last Admin: 04/07/22 21:35 Dose: 25 mg Levothyroxine Sodium (Levothyroxine Sodium 50 Mcg Tablet) 50 mcg PO DAILY@0600 [facility] Last Admin: 04/12/22 06:47 Dose: 50 mcg Lorazepam (Lorazepam 0.5 Mg Tablet) 0.5 mg PO Q4H PRN PRN Reason: moderate anxiety Last Admin: 04/12/22 11:22 Dose: 0.5 mg Magnesium Hydroxide (Milk Of Magnesia 30 Ml Oral.Susp) 30 ml PO DAILY PRN PRN Reason: Constipation Montelukast Sodium (Montelukast Sodium 10 Mg Tablet) 10 mg PO BEDTIME [facility] Last Admin: 04/11/22 23:02 Dose: 10 mg Olanzapine (Olanzapine Odt 10 Mg Tab.Rapdis) 10 mg TRANSLINGU Q6H PRN PRN Reason: severe agitation Last Admin: 04/07/22 21:35 Dose: 10 mg Ondansetron HCl (Ondansetron Odt 4 Mg Tab.Rapdis) 4 mg TRANSLINGU Q8H PRN PRN Reason: nausea Last Admin: 04/10/22 08:27 Dose: 4 mg Perphenazine (Perphenazine 8 Mg Tablet) 8 mg PO BID [facility] Prazosin HCl (Prazosin Hcl 1 Mg Capsule) 2 mg PO BEDTIME [facility]; Protocol Last Admin: 04/11/22 23:02 Dose: 2 mg Senna (Sennosides 8.6 Mg Tablet) 17.2 mg PO BEDTIME [facility] Last Admin: 04/11/22 23:01 Dose: 17.2 mg Trazodone HCl (Trazodone Hcl 25 Mg Halftab) 125 mg PO BEDTIME TREVIN Last Admin: 04/11/22 23:01 Dose: 125 mg Allergies Allergies Allergy/AdvReac Type Severity Reaction Status Date / Time bupropion [From WELLBUTRIN] Allergy Unknown HIVES Verified 10/06/21 22:48 pregabalin [From Lyrica] AdvReac Swelling Verified 10/06/21 22:49 Assessment & Plan Assessment & Plan (1) Borderline personality disorder: Status: Acute Code(s): F60.3 - Borderline personality disorder (2) Schizoaffective disorder, depressive type: Status: Acute Code(s): F25.1 - Schizoaffective disorder, depressive type Plan Altagracia is a 36 y.o. female who carries a dx of BPD and schizoaffective disorder, depressive type. Pt presented to [facility] on 04/06/2022 after being seen by N crisis at home due to difficulty with ADLs and IADLs i.e. not paying bills, allowing her license to lapse, not eating x 3 days, has not left the home in 4 months. Also reported paranoid ideations that others plan to harm her. Has been med non-adherent. Last admission to [facility] was 11/2021. Plan: Pt is willing to re-start her medications that she was stabilized on during her last admission, including perphenazine 4 mg BID, prazosin 2 mg HS, trazodone (requests dose increase to 125 mg), and PRN ativan 0.5 mg Q8Hr. She does not want to re-start duloxetine, says she felt worse on it. Was also given meloxicam in the community for chronic fatigue but denies benefit, will not re- start. Has depo shot due on 04/15/22. 04/10: pt was discharged her previous two admissions here on perphenazine 6 mg BID, so her dosing is being increased to 6 BID as of now. remains labile with paranoid delusions currently. 04/11: taking increased perphenazine dose of 6 BID. appears less psychotic today. labile, depressed affect. asking for medical psychotherapist. feels it is more traumatic here than at home. asking for supports in home, acknowledging she cannot get by on her own there. recently expressed safety concerns for herself there, paranoia about her fiancee and mother yesterday. now less paranoid, willing to sign RCISELDA for fiancee and mother. signed 3-day notice on pt's behalf, submitted paperwork for commitment. 04/12: more organized, slightly less labile, but still very psychotic. amenable to increase in perphenazine to 8 BID. poor insight into her ability to get by outside structured setting, inability to appreciate she has no stable place to stay were she to discharge from the hospital. I spent ___25___ minutes with the patient and/or on the patient floor today, g reater than?50% of which was spent counseling/coordinating care. Reason for contiued inpatient stay Substantial Risk for: inability to function and rapid decompensation
[2022-04-12 22:53] VITALS: BP 112/60; PULSE 74; O2SAT 96
[2022-04-12] MEDS: Montelukast Sodium 10 MG TABLET PO (22:54)
[2022-04-12] MEDS: traZODone HCL 25 MG HALFTAB 125 MG PO (22:55)
[2022-04-12] MEDS: Sennosides 8.6 MG TABLET 17.2 MG PO (22:55)
[2022-04-12] MEDS: Prazosin HCL 1 MG CAPSULE 2 MG PO (22:55)
[2022-04-12] MEDS: Perphenazine 8 MG TABLET PO (22:55)
[2022-04-13] MEDS: Levothyroxine Sodium 50 MCG TABLET PO (06:55)
[2022-04-13 09:00] VITALS: BP 130/77; PULSE 88; RESP 20; TEMP 36.6; O2SAT 98
[2022-04-13] MEDS: estradioL 0.5 MG TABLET 1 MG PO (09:27)
[2022-04-13] MEDS: Perphenazine 8 MG TABLET PO ×2 (09:27→21:28)
[2022-04-13] MEDS: Butalb/Acetamin/Caff 50/325/40 TABLET 1 TAB PO ×2 (09:30→21:30)
--- NOTE | 2022-04-13 16:24 | HO.PSYCHPN ---
Subjective Subjective Date of Service: 04/13/22 Reason For Visit: psychosis Interim History: pt presents clear and cogent this morning, discussion her discharge options, the utility of perphenazine, the reality of her mental illness; all without the lability or paranoid delusions she had been demonstrating up until today. informs her of the emergency hearing scheduled at 2 pm today and states he would be willing to discharge her tomorrow if she would care to agree to that. 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 concerned about getting leupron shot today, MD inquires with pharmacy which states it never received the delivery from [facility]. per staff, anxious. feels it is not therapeutic for her to be in the hospital. denies psych Sx. restless, variably appears depressed and appears to be smiling and socially interacting with peers. Mental Status Exam Mental Status Exam Narrative: cooperative.? adequately dressed and groomed. speech spontaneous, nml in amount, rate, loudness, latency.?thoughts organized and logical.? affect more flexible, non labile.? no SI/HI/AVH expressed. judgment and insight fair. Diagnostics Vital Signs (24Hr): Vital Signs - 24 hr 04/12/22 22:53 04/13/22 09:00 Temperature 97.9 F Pulse Rate 74 88 Respiratory Rate 20 Blood Pressure 112/60 130/77 Pulse Oximetry 96 98 Oxygen Delivery Method Room Air Room Air Labs Results: 04/07/22 09:07 Medications Medications Current Medications Acetaminophen (Acetaminophen 325 Mg Tablet) 650 mg PO Q6H PRN PRN Reason: Headache/Pain Mild Scale (1-3) Acetaminophen/Butalbital/Caffeine (Butalb/Acetamin/Caff 50/325/40 Tablet) 1 tab PO BID PRN PRN Reason: Headache Last Admin: 04/13/22 09:30 Dose: 1 tab Al Hydroxide/Mg Hydroxide (Magnesium Hydrox/Alum Hydrox 30 Ml Oral.Susp) 30 ml PO Q6H PRN PRN Reason: Heartburn/Nausea Estradiol (Estradiol 0.5 Mg Tablet) 1 mg PO DAILY TREVIN Last Admin: 04/13/22 09:27 Dose: 1 mg Hydroxyzine HCl (Hydroxyzine Hcl 25 Mg Tablet) 25 mg PO Q6H PRN PRN Reason: Anxiety Last Admin: 04/07/22 21:35 Dose: 25 mg Levothyroxine Sodium (Levothyroxine Sodium 50 Mcg Tablet) 50 mcg PO DAILY@0600 [facility] Last Admin: 04/13/22 06:55 Dose: 50 mcg Lorazepam (Lorazepam 0.5 Mg Tablet) 0.5 mg PO Q4H PRN PRN Reason: moderate anxiety Last Admin: 04/12/22 20:50 Dose: 0.5 mg Magnesium Hydroxide (Milk Of Magnesia 30 Ml Oral.Susp) 30 ml PO DAILY PRN PRN Reason: Constipation Montelukast Sodium (Montelukast Sodium 10 Mg Tablet) 10 mg PO BEDTIME TREVIN Last Admin: 04/12/22 22:54 Dose: 10 mg Olanzapine (Olanzapine Odt 10 Mg Tab.Rapdis) 10 mg TRANSLINGU Q6H PRN PRN Reason: severe agitation Last Admin: 04/07/22 21:35 Dose: 10 mg Ondansetron HCl (Ondansetron Odt 4 Mg Tab.Rapdis) 4 mg TRANSLINGU Q8H PRN PRN Reason: nausea Last Admin: 04/10/22 08:27 Dose: 4 mg Perphenazine (Perphenazine 8 Mg Tablet) 8 mg PO BID [facility] Last Admin: 04/13/22 09:27 Dose: 8 mg Prazosin HCl (Prazosin Hcl 1 Mg Capsule) 2 mg PO BEDTIME TREVIN; Protocol Last Admin: 04/12/22 22:55 Dose: 2 mg Senna (Sennosides 8.6 Mg Tablet) 17.2 mg PO BEDTIME TREVIN Last Admin: 04/12/22 22:55 Dose: 17.2 mg Trazodone HCl (Trazodone Hcl 25 Mg Halftab) 125 mg PO BEDTIME TREVIN Last Admin: 04/12/22 22:55 Dose: 125 mg Allergies Allergies Allergy/AdvReac Type Severity Reaction Status Date / Time bupropion [From WELLBUTRIN] Allergy Unknown HIVES Verified 10/06/21 22:48 pregabalin [From Lyrica] AdvReac Swelling Verified 10/06/21 22:49 Assessment & Plan Assessment & Plan (1) Borderline personality disorder: Status: Inactive Code(s): F60.3 - Borderline personality disorder (2) Schizoaffective disorder, depressive type: Status: Acute Code(s): F25.1 - Schizoaffective disorder, depressive type Plan Altagracia is a 36 y.o. female who carries a dx of BPD and schizoaffective disorder, depressive type. Pt presented to [facility] ED on 04/06/2022 after being seen by MARVEL bryant at home due to difficulty with ADLs and IADLs i.e. not paying bills, allowing her license to lapse, not eating x 3 days, has not left the home in 4 months. Also reported paranoid ideations that others plan to harm her. Has been med non-adherent. Last admission to [facility] was 11/2021. Plan: Pt is willing to re-start her medications that she was stabilized on during her last admission, including perphenazine 4 mg BID, prazosin 2 mg HS, trazodone (requests dose increase to 125 mg), and PRN ativan 0.5 mg Q8Hr. She does not want to re-start duloxetine, says she felt worse on it. Was also given meloxicam in the community for chronic fatigue but denies benefit, will not re-start. Has depo shot due on 04/15/22. 04/10: pt was discharged her previous two admissions here on perphenazine 6 mg BID, so her dosing is being increased to 6 BID as of now. remains labile with paranoid delusions currently. 04/11: taking increased perphenazine dose of 6 BID. appears less psychotic today. labile, depressed affect. asking for supervisor extruding department. feels it is more traumatic here than at home. asking for supports in home, acknowledging she cannot get by on her own there. recently expressed safety concerns for herself there, paranoia about her fiancee and mother yesterday. now less paranoid, willing to sign CRISELDA for fiancee and mother. signed 3-day notice on pt's behalf, submitted paperwork for commitment. 04/12: more organized, slightly less labile, but still very psychotic. amenable to increase in perphenazine to 8 BID. poor insight into her ability to get by outside structured setting, inability to appreciate she has no stable place to stay were she to discharge from the hospital. 04/13: appearing quite well today, essentially normal MSE. linear, logical, cogent, no overt paranoia or delusions. emergency hearing was scheduled for today but pt agrees to discharge tomorrow, obviating need for hearing. I spent __35____ minutes with the patient and/or on the patient floor today, greater than?50% of which was spent counseling/coordinating care. Reason for contiued inpatient stay Substantial Risk for: inability to function and med/psych decompensation
[2022-04-13] MEDS: Montelukast Sodium 10 MG TABLET PO (21:28)
[2022-04-13] MEDS: Sennosides 8.6 MG TABLET 17.2 MG PO (21:28)
[2022-04-13] MEDS: Prazosin HCL 1 MG CAPSULE 2 MG PO (21:28)
[2022-04-13 21:30] VITALS: BP 132/62; PULSE 76; RESP 16; TEMP 36.6; O2SAT 98
[2022-04-13] MEDS: traZODone HCL 25 MG HALFTAB 125 MG PO (23:23)
[2022-04-13] MEDS: LORazepam 0.5 MG TABLET PO (23:23)
[2022-04-14] MEDS: Levothyroxine Sodium 50 MCG TABLET PO (07:21)
[2022-04-14 08:00] VITALS: BP 119/58; PULSE 81; RESP 14; TEMP 36.4; O2SAT 98
[2022-04-14] MEDS: estradioL 0.5 MG TABLET 1 MG PO (09:04)
[2022-04-14] MEDS: Perphenazine 8 MG TABLET PO (09:04)
[2022-04-14] MEDS: Butalb/Acetamin/Caff 50/325/40 TABLET 1 TAB PO (09:07)
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
--- NOTE | 2022-04-14 11:38 | PC.NURSE ---
Altagracia is discharged in care of Emperatriz, her partner. Today she has not verbalized paranoid or delusional thought content to this nurse. She denies ideation, plan or intent to harm self or others. She denies physical complaint at present. She verbalized understanding of all medications and how to obtain follow up appointments
== END 2022-04-14 11:25 | disposition home or self-care (01) | DRG 885 ==
PROVIDERS: Admitting Provider Psychiatry & Neurology Psychiatry; Visit Provider Psychiatry & Neurology Psychiatry
DX: F25.1 Schizoaffective disorder, depressive type (principal); E03.9 Hypothyroidism, unspecified; F60.3 Borderline personality disorder; Z88.8 Allergy status to other drugs, medicaments and biological substances; Z79.890 Hormone replacement therapy; Z79.899 Other long term (current) drug therapy
CPT/HCPCS: 36415; 80053; 80061; 80076; 82607; 82746; 83036; 84439; 84443; 90792

== ENCOUNTER 2022-05-27 13:51 | Emergency (ER) | payer MEDICARE, MEDICAID, SELFPAY ==
[2022-05-27 14:08] VITALS: BP 129/70; PULSE 93; RESP 18; TEMP 36.5; O2SAT 99; BMI 33.0
--- NOTE | 2022-05-27 14:15 | ED.HA ---
HPI - Headache General Chief Complaint: Headache Stated Complaint: headache out of meds Time Seen by Provider: 05/27/22 15:49 Source: patient and family History of Present Illness HPI Narrative: 37-year-old female with a past medical history of borderline personality disorder, depression, thyroid disease, chronic migraines followed by Neurology, presenting to the ED complaining of acute on chronic migraine headache x years, however ran out of Fioricet 3 days ago. Admits headache is typical of prior without change. Not maximal in onset. States is currently changing neurologist, PCP prescribed Fioricet at the moment. Admits to associated nausea. Denies fever, vision change/loss, numbness, tingling, weakness MD elicited complaint: headache and migraine Onset (ago): year(s) Related Data Previous Rx's Medication Instructions Recorded btlhqlhuhu-maotqzjmffgdb-nvomemxm 1 - 2 tab PO Q6H PRN headache 30 04/14/22 50 mg-325 mg-40 mg tablet days #30 tabs cholecalciferol (vitamin D3) 50 50 mcg PO DAILY@1800 30 days #30 04/14/22 mcg (2,000 unit) tablet tabs estradiol 0.5 mg tablet 1 mg PO DAILY #0 tabs 04/14/22 levothyroxine 50 mcg tablet 50 mcg PO DAILY@0600 30 days #30 04/14/22 tabs lorazepam 0.5 mg tablet 0.5 mg PO BID PRN anxiety 30 days 04/14/22 #60 tabs magnesium oxide 400 mg (241.3 mg 400 mg PO DAILY@1800 30 days #30 04/14/22 magnesium) tablet tabs meloxicam 15 mg tablet 7.5 mg PO DAILY PRN Breakthrough 04/14/22 Pain, Mild 30 days #15 tabs montelukast 10 mg tablet 10 mg PO DAILY@1800 30 days #30 04/14/22 tabs perphenazine 8 mg tablet 8 mg PO BID 30 days #60 tabs 04/14/22 prazosin 2 mg capsule 2 mg PO BEDTIME 30 days #30 caps 04/14/22 sennosides 8.6 mg tablet (senna) 17.6 mg PO BEDTIME 30 days #62 tabs 04/14/22 trazodone 50 mg tablet 125 mg PO BEDTIME 30 days #75 tabs 04/14/22 sagdoopqeo-tbwyupbgtjaip-mohgmqpu 1 cap PO BID PRN pain #6 caps 05/27/22 50 mg-300 mg-40 mg capsule (Fioricet) Allergies Allergy/AdvReac Type Severity Reaction Status Date / Time bupropion [From WELLBUTRIN] Allergy Unknown HIVES Verified 10/06/21 22:48 pregabalin [From Lyrica] AdvReac Swelling Verified 10/06/21 22:49 Review of Systems Review of Systems: Constitutional: No Fever, No Chills, No Night Sweats, No Fatigue, No Malaise ENT/Mouth: No Hearing loss, No Ear Pain, No Nasal Congestion, No sore throat, No Rhinorrhea, No Swallowing Difficulty Eyes: No Eye Pain, No Swelling, No Redness, No Discharge, No Vision Changes Cardiovascular: No Chest Pain, No SOB, No Dyspnea on Exertion, No Orthopnea, No Edema, No Palpitations Respiratory: No Cough, No Sputum, No Dyspnea Gastrointestinal: + Nausea, No Vomiting, No Diarrhea, No Constipation, No Abdominal pain Genitourinary: No Dysuria, No Urinary Frequency, No Hematuria, No Flank Pain, No Urinary Flow Changes Musculoskeletal: No joint pain, No Myalgias, No Joint Swelling Skin: No Skin Lesions, No rash Neuro: No Weakness, No Numbness, No Paresthesias, No Loss of Consciousness, No Dizziness, + Headache Yes all other systems are reviewed and are negative Constitutional: Constitutional: Reports as per HPI Neurologic: Denies Abnormal speech present [facility] Past Medical History Attestation statement: The following information was validated with the patient. Medical History Borderline personality disorder Borderline personality disorder Depression Depression Severe recurrent major depression w/psychotic features, mood-congruent Thyroid disease Social History Social History Household Members: Unknown / Unable to assess Household Members Other:: patient does not feel safe where she was living Housing: Unknown / Unable to assess Do you presently have visiting nurse or other home services: No Unable to assess alcohol history related to: Unknown Alcohol intake: unknown Patient Tobacco Use Status: Tobacco use Unknown Tobacco use type: Cigarette Smoked in Last 30 Days: No Second Hand Smoke Exposure: Yes Use of substances other than those prescribed or required for medical reasons: Yes Substance Use Type: Marijuana Advance Directives: No Advance Directives Information Provided: Yes service: No Sexual orientation: Lesbian/Wing/Homosexual Physical Exam Vital Signs: Vital Signs: Last Vital Signs Temp 97.8 F 05/27/22 15:58 Pulse 79 05/27/22 15:58 Resp 16 05/27/22 15:58 BP 130/51 L 05/27/22 15:58 Pulse Ox 95 05/27/22 15:58 O2 Del Method 05/27/22 15:58 BMI result Body Mass Index 33.0 Const: General: cooperative, healthy appearing and no acute distress Orientation/consciousness: patient oriented x3 Limitations: no limitations HEENT: Head: Yes normal to inspection and Yes atraumatic Ears: hearing grossly normal bilaterally General nose exam: Normal external nose present Face and sinus: Yes normal facial exam Throat: Yes posterior oropharynx normal, Yes uvula midline, No peritonsillar mass and No uvula laterally displaced Eyes: General: appearance normal, both eyes and all related structures Pupils: Equal, round and reactive pupils present EOM: EOMs intact bilaterally Neck: Neck: Yes normal visual inspection and Yes no meningeal signs Resp: Effort & Inspection: normal respiratory effort and no respiratory distress Auscultation: clear to auscultation bilaterally Cardio: Rate: regular rate Heart sounds: S1 normal heart sound present and S2 normal heart sound present GI: Inspection: Yes normal to inspection Palpation (GI): Soft to palpation, nontender, no guarding and not rigid : General: Yes no CVA tenderness Back/Spine/Pelvis: Back: no CVA tenderness Skin: Rashes: no rashes Wounds: no wounds Neuro: General: patient oriented x3, gait normal, tone normal, moves all extremities, no meningeal signs, no focal motor deficits and CN's II-XI intact bilaterally Cranial nerves: Yes CN's II-XII intact bilaterally and Yes Equal, round and reactive pupils present Cognition (Neuro): normal cognition Speech: No Abnormal speech present Gait exam (Neuro): Normal gait present Motor exam (neuro): 5/5 motor strength present throughout, Pronator motor function not present and no tremor noted Coordination: yqxoxo-dt-occg test normal Romberg Test: Negative Extrem: General: Yes normal to inspection Course Course Course Narrative: RME--37yo F with a past medical history of chronic migraines followed by Neurology presenting to the ED complaining of chronic migraine times years, takes Fioricet daily with some relief, however ran out of prescription. Patient tearful, anxious, and upset during triage Labs, IVF, Toradol, Reglan, Benadryl, p.o. Fioricet ordered in triage -1600--labs unremarkable -1705--on re-evaluation patient is sleeping comfortably, reports symptomatic improvement. Feels safe for discharge home at this time. Will send patient with a few pills of Fioricet to hold her over until she can see her primary care doctor. Results discussed with patient including worrisome signs and symptoms and strict return precautions, and when to return to the emergency department. They verbalized understanding and feel safe for discharge at this time. Medications Administered Discontinued Medications Generic Name Dose Route Start Last Admin Trade Name Freq PRN Reason Stop Dose Admin Acetaminophen/Butalbital/Caffeine 1 tab 05/27/22 14:14 05/27/22 16:00 Butalb/Acetamin/Caff 50/325/40 Tablet PO 05/27/22 14:15 1 tab ONCE ONE Administration Diphenhydramine HCl 12.5 mg 05/27/22 14:14 05/27/22 16:00 Diphenhydramine Hcl 50 Mg/Ml Vial IVPUSH 05/27/22 14:15 12.5 mg ONCE ONE Administration Sodium Chloride 1,000 mls @ 999 mls/hr 05/27/22 16:00 05/27/22 16:09 Ns IV 05/27/22 17:00 999 mls/hr .Q1H1M TREVIN Administration Ketorolac Tromethamine 15 mg 05/27/22 14:14 05/27/22 16:00 Ketorolac Tromethamine 15 Mg/Ml Vial IVPUSH 05/27/22 14:15 15 mg ONCE ONE Administration Metoclopramide HCl 10 mg 05/27/22 14:14 05/27/22 16:00 Metoclopramide Hcl 10 Mg/2 Ml Vial IVPUSH 05/27/22 14:15 10 mg ONCE ONE Administration MDM - Headache MDM Narrative Medical decision making narrative: 37-year-old female with a past medical history of borderline personality disorder, depression, thyroid disease, chronic migraines followed by Neurology, presenting to the ED complaining of acute on chronic migraine headache x years, however ran out of Fioricet 3 days ago. On exam vital signs stable, NAD, nontoxic appearing, no focal neuro deficits. Concern for acute on chronic migraine headache. Low suspicion for ICH, DVT, SAH, meningitis or encephalitis Plan: Labs, IVF, Toradol, Benadryl, Reglan, p.o. Fioricet, re-evaluate Differential Diagnosis Differential diagnosis: Likely migraine, tension headache and headache Medical Records Attestation: I reviewed the patient's medical records. Lab Data Attestation: I reviewed the patient's lab results. Result diagrams: 05/27/22 15:09 05/27/22 15:09 Labs: Lab Results 05/27/22 05/27/22 Range/Units 15: 15:09 WBC 6.4 (4.8-10.8) X10*3/uL RBC 4.63 (4.20-5.50) X10*6/uL Hgb 14.3 (12.0-16.0) g/dl Hct 42.3 (37.0-47.0) % MCV 91.4 (80.0-98.0) fL MCH 30.9 (27.0-33.0) pg MCHC 33.8 (31.0-35.0) g/dl RDW 12.0 (11.0-16.0) % Plt Count 177 D (160-400) X10*3/uL MPV 11.1 (9.4-12.3) fL Immature Gran % (Auto) 0.3 (0.0-0.4) % Neut % (Auto) 66.2 (45-73) % Lymph % (Auto) 23.6 (20-40) % [place] % (Auto) 7.2 (2-11) % Eos % (Auto) 1.9 (0-4) % Baso % (Auto) 0.8 (0-2) % Lymph # (Auto) 1.5 (1.2-4.9) X10*3/uL [place] # (Auto) 0.5 (0.1-1.2) X10*3/uL Eos # (Auto) 0.1 (0.0-0.4) X10*3/uL Baso # (Auto) 0.1 (0.0-0.2) X10*3/uL Abs Immat Gran (auto) 0.02 (0.00-0.03) X10*3/uL Absolute Neuts (auto) 4.2 (2.0-8.3) x10*3/uL Absolute Nucleated RBC 0.000 (0.0-0.012) X10*3/uL Nucleated RBC % (auto) 0.0 (0.0-0.2) /100WBC Sodium 140 (135-145) mmol/L Potassium 4.1 (3.3-5.1) mmol/L Chloride 108 (96-108) mmol/L Carbon Dioxide 24 (22-29) mmol/L Anion Gap 12 (12-20) BUN 12 (9-16) mg/dL Creatinine 0.85 (0.5-1.4) mg/dL Estim Creat Clear Calc 117.3 Estimated GFR > 60 Random Glucose 102 (60-115) mg/dL Calcium 9.1 (8.4-10.2) mg/dL Discharge Plan Discharge Clinical Impression: Migraine Patient Disposition: Home, Self-Care Instructions: Migraine Headache (ED) Additional Instructions: Your blood work was reassuring. Continue taking home prescribed medications. Take Fioricet as needed. If symptoms persist or worsen, headache becomes unbearable, persistent nausea/vomiting, weakness, vision changes return to the ED Please follow-up with her doctor, call on Sunday to make an appointment Prescriptions: New jocmovgdex-dvpihecdkxowi-tbri [Fioricet] 50-300-40 mg capsule 1 cap PO BID PRN (Reason: pain) Qty: 6 0RF No Action perphenazine 8 mg Tablet 8 mg PO BID 30 Days Qty: 60 0RF trazodone 50 mg tablet 125 mg PO BEDTIME 30 Days Qty: 75 0RF meloxicam 15 mg tablet 7.5 mg PO DAILY PRN (Reason: Breakthrough Pain, Mild) 30 Days Qty: 15 0RF hnkwxnxhuk-csthoeysgzmjk-lvqv 50-325-40 mg tablet 1 - 2 tab PO Q6H PRN (Reason: headache) 30 Days Qty: 30 0RF lorazepam 0.5 mg tablet 0.5 mg PO BID PRN (Reason: anxiety) 30 Days Qty: 60 0RF prazosin 2 mg capsule 2 mg PO BEDTIME 30 Days Qty: 30 0RF estradiol 0.5 mg Tablet 1 mg PO DAILY Qty: 0 0RF sennosides [senna] 8.6 mg tablet 17.6 mg PO BEDTIME 30 Days Qty: 62 0RF magnesium oxide 400 mg (241.3 mg magnesium) tablet 400 mg PO DAILY@1800 30 Days Qty: 30 0RF levothyroxine 50 mcg tablet 50 mcg PO DAILY@0600 30 Days Qty: 30 0RF montelukast 10 mg tablet 10 mg PO DAILY@1800 30 Days Qty: 30 0RF cholecalciferol (vitamin D3) 50 mcg (2,000 unit) tablet 50 mcg PO DAILY@1800 30 Days Qty: 30 0RF Referrals: Physician,Unknown J [Primary Care Provider] -
[2022-05-27 15:20] LABS: MANUAL DIFF FLAG NO
[2022-05-27 15:21] LABS: Basophils Absolute Auto 0.1 X10*3/uL (0.0-0.2); Basophils Percent Auto 0.8 % (0-2); Eosinophils Absolute Auto 0.1 X10*3/uL (0.0-0.4); Eosinophils Percent Auto 1.9 % (0-4); Hematocrit 42.3 % (37.0-47.0); Hemoglobin 14.3 g/dl (12.0-16.0); Imm Gran Abs Auto 0.02 X10*3/uL (0.00-0.03); Imm Gran Pct Auto 0.3 % (0.0-0.4); Lymphocytes Absolute Auto 1.5 X10*3/uL (1.2-4.9); Lymphocytes Percent Auto 23.6 % (20-40); Mean Corpuscular HGB Conc 33.8 g/dl (31.0-35.0); Mean Corpuscular Hemoglobin 30.9 pg (27.0-33.0); Mean Corpuscular Volume 91.4 fL (80.0-98.0); Mean Platelet Volume 11.1 fL (9.4-12.3); Monocytes Absolute Auto 0.5 X10*3/uL (0.1-1.2); Monocytes Percent Auto 7.2 % (2-11); Neutrophils Absolute Auto 4.2 x10*3/uL (2.0-8.3); Neutrophils Percent Auto 66.2 % (45-73); Platelet Count 177 X10*3/uL (160-400); Red Blood Count 4.63 X10*6/uL (4.20-5.50); White Blood Count 6.4 X10*3/uL (4.8-10.8)
[2022-05-27 15:50] LABS: Anion Gap 12 (12-20); Blood Urea Nitrogen 12 mg/dL (9-16); Calcium 9.1 mg/dL (8.4-10.2); Carbon Dioxide 24 mmol/L (22-29); Chloride 108 mmol/L (96-108); Creatinine Clr Calc Pharmacy 117.3; Estimated Glomerular Filt Rate > 60; Glucose Random 102 mg/dL (60-115); Potassium 4.1 mmol/L (3.3-5.1); Sodium 140 mmol/L (135-145)
[2022-05-27 15:58] VITALS: BP 130/51; PULSE 79; RESP 16; TEMP 36.6; O2SAT 95
[2022-05-27] MEDS: Butalb/Acetamin/Caff 50/325/40 TABLET 1 TAB PO (16:00)
[2022-05-27] MEDS: Metoclopramide HCl 10 MG/2 ML VIAL IVPUSH (16:00)
[2022-05-27] MEDS: Ketorolac Tromethamine 15 MG/ML VIAL IVPUSH (16:00)
[2022-05-27] MEDS: diphenhydrAMINE HCL 50 MG/ML VIAL 12.5 MG IVPUSH (16:00)
[2022-05-27] MEDS: 0.9 % Sodium Chloride 1,000 ML 999 ML IV (16:09)
[2022-05-27 17:32] VITALS: BP 118/69; PULSE 76; RESP 12; TEMP 36.5; O2SAT 98
== END 2022-05-27 17:42 | disposition home or self-care (01) ==
PROVIDERS: Physician Assistant; Emergency Provider Emergency Medicine Emergency Medical Services
DX: G43.909 Migraine, unspecified, not intractable, without status migrainosus (principal); F25.0 Schizoaffective disorder, bipolar type; Z79.899 Other long term (current) drug therapy
CPT/HCPCS: 36415; 80048; 85025; 96374; 96375; 99284; J1200; J1885; J2765

== ENCOUNTER 2022-05-30 09:47 | Emergency (ER) | payer MEDICARE, MEDICAID, SELFPAY ==
--- NOTE | ~2022-05-30 | CT_ITS ---
CT HEAD WITHOUT CONTRAST CLINICAL INFORMATION: Intractable migraine. COMPARISON: None available. TECHNIQUE: Contiguous axial imaging was performed from the skull base to vertex without intravenous administration of contrast. This CT examination was performed using dose optimization techniques as appropriate, variously including the following: *Automated exposure control *Adjustment of mA and/or kV according to patient size (this includes techniques or standardized protocols for targeted exams where dose is matched to indication/reason for exam; i.e. extremities or head) *Use of iterative reconstruction technique FINDINGS: There is no intracranial hemorrhage, hydrocephalus, extra-axial surface collection, midline shift, or other herniation pattern. Mane to white matter differentiation is diffusely maintained without evidence of an evolved acute territorial infarct. The basilar cisterns are preserved. Asymmetric smooth enlargement of foramen ovale on the left side of uncertain clinical significance. This could reflect an anatomic variant however if there are clinical symptoms referred to the V3 segment of the left trigeminal nerve, a trigeminal protocol MRI would be helpful in excluding any underlying pathology to explain this finding. CT/CT head/brain wo IV con IMPRESSION: Asymmetric smooth enlargement of foramen ovale on the left side of uncertain clinical significance. This could reflect an anatomic variant however if there are clinical symptoms referred to the V3 segment of the left trigeminal nerve, a trigeminal protocol MRI would be helpful in excluding any underlying pathology to explain this finding such as a trigeminal schwannoma.
[2022-05-30 09:50] VITALS: BP 133/63; PULSE 84; RESP 18; TEMP 36.6; O2SAT 99; BMI 33.0
[2022-05-30 10:29] LABS: MANUAL DIFF FLAG NO
[2022-05-30 10:31] VITALS: BP 109/61; PULSE 69; RESP 12; TEMP 36.8; O2SAT 96
[2022-05-30 10:32] LABS: Basophils Absolute Auto 0.1 X10*3/uL (0.0-0.2); Basophils Percent Auto 1.1 % (0-2); Eosinophils Absolute Auto 0.2 X10*3/uL (0.0-0.4); Eosinophils Percent Auto 4.1 % (0-4); Hematocrit 41.1 % (37.0-47.0); Imm Gran Abs Auto 0.01 X10*3/uL (0.00-0.03); Imm Gran Pct Auto 0.2 % (0.0-0.4); Lymphocytes Absolute Auto 1.7 X10*3/uL (1.2-4.9); Lymphocytes Percent Auto 37.4 % (20-40); Mean Corpuscular HGB Conc 34.1 g/dl (31.0-35.0); Mean Corpuscular Hemoglobin 31.1 pg (27.0-33.0); Mean Corpuscular Volume 91.3 fL (80.0-98.0); Mean Platelet Volume 11.2 fL (9.4-12.3); Monocytes Absolute Auto 0.4 X10*3/uL (0.1-1.2); Monocytes Percent Auto 8.6 % (2-11); Neutrophils Absolute Auto 2.2 x10*3/uL (2.0-8.3); Neutrophils Percent Auto 48.6 % (45-73); Platelet Count 161 X10*3/uL (160-400); White Blood Count 4.4 X10*3/uL (4.8-10.8)
[2022-05-30] MEDS: Butalb/Acetamin/Caff 50/325/40 TABLET 1 TAB PO (10:52)
[2022-05-30] MEDS: 0.9 % Sodium Chloride 1,000 ML 999 ML IV (10:52)
[2022-05-30] MEDS: Metoclopramide HCl 10 MG/2 ML VIAL IVPUSH (10:53)
[2022-05-30] MEDS: diphenhydrAMINE HCL 50 MG/ML VIAL 25 MG IVPUSH (10:53)
--- NOTE | 2022-05-30 10:53 | ED_ITS ---
HPI - General Adult General Chief complaint: General Medical Stated complaint: Lower back pain Time Seen by Provider: 05/30/22 09:56 Source: patient Mode of arrival: ambulatory Limitations: no limitations History of Present Illness HPI narrative: patient is a 37-year-old female who presents to the emergency department today for evaluation of acute on chronic migraine headache. She states that she has been experiencing a constant headache for the past 2-3 years. She reports she was previously followed by a neurologist in [place], [place], however she has not seen them in approximately 1 year. She recently moved to this area and has not obtained a neurologist locally. Currently she states she is prescribed Fioricet and meloxicam to use as needed for headaches. She has trialed injectable sumatriptan in the past, an additional injectable medication she does not recall the name of, and Topamax none of which helped her symptoms. She states she was seen in the emergency department a couple of days ago, to be evaluated for headache as she ran out of her Fioricet 3 days prior. She was treated in the ED with IV medications and Fioricet and given a new prescription. She states that the time that she left the ED her headache had not completely resolved but had significantly improved. She states that since leaving the emergency department once her pain intensity increased again it has been much more severe than it was previously. Reports an occipital headache that is consistent with her prior mi graines. Does not new and any way except that it is of worsening intensity. She does have associated nausea, generalized body aches, and diffuse back pain associated with this headache which is also typical for her. She denies any fevers, dizziness, vision changes, neck pain, neck stiffness, numbness or tingling, generalized weakness, presyncope /syncopal episodes. Related Data Previous Rx's Medication Instructions Recorded akomwmwcdf-jqcfskpmjshce-wncqczsi 1 - 2 tab PO Q6H PRN headache 30 04/14/22 50 mg-325 mg-40 mg tablet days #30 tabs cholecalciferol (vitamin D3) 50 50 mcg PO DAILY@1800 30 days #30 04/14/22 mcg (2,000 unit) tablet tabs estradiol 0.5 mg tablet 1 mg PO DAILY #0 tabs 04/14/22 levothyroxine 50 mcg tablet 50 mcg PO DAILY@0600 30 days #30 04/14/22 tabs lorazepam 0.5 mg tablet 0.5 mg PO BID PRN anxiety 30 days 04/14/22 #60 tabs magnesium oxide 400 mg (241.3 mg 400 mg PO DAILY@1800 30 days #30 04/14/22 magnesium) tablet tabs meloxicam 15 mg tablet 7.5 mg PO DAILY PRN Breakthrough 04/14/22 Pain, Mild 30 days #15 tabs montelukast 10 mg tablet 10 mg PO DAILY@1800 30 days #30 04/14/22 tabs perphenazine 8 mg tablet 8 mg PO BID 30 days #60 tabs 04/14/22 prazosin 2 mg capsule 2 mg PO BEDTIME 30 days #30 caps 04/14/22 sennosides 8.6 mg tablet (senna) 17.6 mg PO BEDTIME 30 days #62 tabs 04/14/22 trazodone 50 mg tablet 125 mg PO BEDTIME 30 days #75 tabs 04/14/22 ylrodldgyu-qbliiomzfzauw-xzuugywo 1 cap PO BID PRN pain #6 caps 05/27/22 50 mg-300 mg-40 mg capsule (Fioricet) myigvcvube-pybkwgexgmhht-oduxocyn 1 cap PO Q8H PRN pain #10 caps 05/30/22 50 mg-300 mg-40 mg capsule (Fioricet) Allergies Allergy/AdvReac Type Severity Reaction Status Date / Time bupropion [From WELLBUTRIN] Allergy Unknown HIVES Verified 10/06/21 22:48 pregabalin [From Lyrica] AdvReac Swelling Verified 10/06/21 22:49 Review of Systems Review of Systems: Constitutional : No Fever, No Chills, No Fatigue ENT/Mouth : No sore throat, No Rhinorrhea Eyes: No Eye Pain, No Swelling, No Redness Cardiovascular : No Chest Pain, No SOB, No Dyspnea on Exertion Respiratory : No Cough, No Sputum Gastrointestinal : Positive Nausea, No Vomiting, No Diarrhea, No abdominal Pain Genitourinary : No Dysuria, No Urinary Frequency, No Hematuria, Musculoskeletal : No joint pain, No Myalgias, No Joint Swelling Skin : No Skin Lesions, No rash Neuro : No Weakness, No Numbness, No Dizziness, positive Headache Psych : No Anxiety/Panic, No Depression Heme/Lymph: No Bruising, No Bleeding, No Lymphadenopathy Endocrine : No Polyuria, No Polydipsia Yes all other systems are reviewed and are negative [facility] Past Medical History Attestation statement: The following information was validated with the patient. Source: old records reviewed Medical History Borderline personality disorder Borderline personality disorder Depression Depression Severe recurrent major depression w/psychotic features, mood-congruent Thyroid disease Social History Social History Household Members: Unknown / Unable to assess Household Members Other:: patient does not feel safe where she was living Housing: Unknown / Unable to assess Do you presently have visiting nurse or other home services: No Unable to assess alcohol history related to: Unknown Alcohol intake: unknown Patient Tobacco Use Status: Tobacco use Unknown Tobacco use type: Cigarette Second Hand Smoke Exposure: Yes Substance Use Type: Marijuana Advance Directives: No Advance Directives Information Provided: Yes service: No Sexual orientation: Lesbian/Wing/Homosexual Physical Exam ED Vital Signs: Vital Signs - 24 hr 05/30/22 09:50 05/30/22 10:31 05/30/22 11:53 Temperature 97.8 F 98.2 F 98.0 F Pulse Rate 84 69 62 Respiratory Rate 18 12 16 Blood Pressure 133/63 109/61 110/63 Pulse Oximetry 99 96 97 Oxygen Delivery Method Room Air Room Air Room Air 05/30/22 13:37 Temperature Pulse Rate 62 Respiratory Rate 16 Blood Pressure 103/59 L Pulse Oximetry 96 Oxygen Delivery Method Room Air BMI result Body Mass Index 33.0 Appearance: Alert.?Oriented to person, place and time. No acute distress.?Normal affect. Eyes: Pupils equal, round and reactive to light.? EOMI. No nystagmus. ENT: Pharynx normal.?? TM normal bilaterally. Neck: Normal inspection.? Neck supple.? No midline cervical spine tenderness, step-offs, deformities.? CVS: Heart sounds normal. Normal heart rate and rhythm.? Pulses normal.?? Respiratory: No respiratory distress.? Lung sounds clear to auscultation bilaterally?? Abdomen: Soft and non-tender. Normoactive bowel sounds. ? Skin: Skin warm and dry.? Normal skin color.? Extremities: No lower extremity edema.? Neuro: Moves all extremities spontaneously. Sensation intact bilaterally. CN II- XII intact. Cvdihv-us-blhl test normal. Romberg negative. No focal neuro deficits. Ambulates with normal steady gait. Course Course Course Narrative: Patient is a 37-year-old female with a past medical history of chronic migraines. Reviewed the managed by a neurologist for which she has not seen in the past year, trying to arrange care with a new neurologist. She was seen recently in the ED, 04/26/2022; at that time was given IV fluid, IV ketorolac, IV Reglan, IV Benadryl, and oral Fioricet with significant improvement in sym ptoms though not complete resolution. upon return today pain is significantly worsened. Still remains typical with her migraine headaches. However given intractability, will repeat basic labs, obtain head CT to exclude intracranial pathology such as ICH, SAH. Has no meningismus upon examination, low suspicion for meningitis or encephalitis at this time. A time examination she is very tearful, however vital signs are stable, no apparent distress, afebrile without tachycardia, tachypnea, or hypoxia. No focal neurological deficits. Patient to receive IV fluid, ketorolac, Reglan, Benadryl, and Fioricet. Disposition pending results. Reevaluation(s) Reevaluation #1: CT of the head without evidence of intracranial hemorrhage, with asymmetric enlargement of Forearm ovale of the left side which may reflect anatomical variant however recommends trigeminal protocol MRI if symptoms are referred to V3 segment of left trigeminal nerve. Patient is without any symptoms that would be consistent with trigeminal neuralgia, suspect this to be an incidental finding at this time, No indication for emergent MRI, patient made aware of these findings, advised she will need to follow up with Neurology for further evaluation. CBC and CMP are overall unremarkable. Headache has improved with IV regimen. Pain is currently 4/10, compared to 10/10 upon her arrival. She is tolerating oral intake. Discussed plan of care for discharge home, provided contact information for neurology office to schedule the follow-up with. Reviewed worrisome signs and symptoms to return back to the emergency department for. All questions answered. Discharged in stable condition, ambulatory with steady gait. Time: 13:19 Medications Administered Discontinued Medications Generic Name Dose Route Start Last Admin Trade Name Freq PRN Reason Stop Dose Admin Acetaminophen/Butalbital/Caffeine 1 tab 05/30/22 10:31 05/30/22 10:52 Butalb/Acetamin/Caff 50/325/40 Tablet PO 05/30/22 10:32 1 tab ONCE ONE Administration Diphenhydramine HCl 25 mg 05/30/22 10:31 05/30/22 10:53 Diphenhydramine Hcl 50 Mg/Ml Vial IVPUSH 05/30/22 10:32 25 mg ONCE ONE Administration Sodium Chloride 1,000 mls @ 999 mls/hr 05/30/22 10:45 05/30/22 12:12 Ns IV 05/30/22 11:45 Infused .Q1H1M TREVIN Infusion Ketorolac Tromethamine 15 mg 05/30/22 10:31 05/30/22 10:55 Ketorolac Tromethamine 15 Mg/Ml Vial IVPUSH 05/30/22 10:32 15 mg ONCE ONE Administration Metoclopramide HCl 10 mg 05/30/22 10:31 05/30/22 10:53 Metoclopramide Hcl 10 Mg/2 Ml Vial IVPUSH 05/30/22 10:32 10 mg ONCE ONE Administration Medical Decision Making Medical Records Medical records reviewed: Yes I reviewed the patient's medical records. Lab Data Lab results reviewed: Yes I reviewed the patient's lab results. Result diagrams: 05/30/22 10:24 05/30/22 11:06 Labs: Lab Results 05/30/22 05/30/22 05/30/22 Range/Units 10:24 11:01 11:01 WBC 4.4 L (4.8-10.8) X10*3/uL RBC 4.50 (4.20-5.50) X10*6/uL Hgb 14.0 (12.0-16.0) g/dl Hct 41.1 (37.0-47.0) % MCV 91.3 (80.0-98.0) fL MCH 31.1 (27.0-33.0) pg MCHC 34.1 (31.0-35.0) g/dl RDW 12.0 (11.0-16.0) % Plt Count 161 (160-400) X10*3/uL MPV 11.2 (9.4-12.3) fL Immature Gran % (Auto) 0.2 (0.0-0.4) % Neut % (Auto) 48.6 (45-73) % Lymph % (Auto) 37.4 (20-40) % Floyd % (Auto) 8.6 (2-11) % Eos % (Auto) 4.1 H (0-4) % Baso % (Auto) 1.1 (0-2) % Lymph # (Auto) 1.7 (1.2-4.9) X10*3/uL Floyd # (Auto) 0.4 (0.1-1.2) X10*3/uL Eos # (Auto) 0.2 (0.0-0.4) X10*3/uL Baso # (Auto) 0.1 (0.0-0.2) X10*3/uL Abs Immat Gran (auto) 0.01 (0.00-0.03) X10*3/uL Absolute Neuts (auto) 2.2 (2.0-8.3) x10*3/uL Absolute Nucleated RBC 0.000 (0.0-0.012) X10*3/uL Nucleated RBC % (auto) 0.0 (0.0-0.2) /100WBC Sodium (135-145) mmol/L Potassium (3.3-5.1) mmol/L Chloride (96-108) mmol/L Carbon Dioxide (22-29) mmol/L Anion Gap (12-20) BUN (9-16) mg/dL Creatinine (0.5-1.4) mg/dL Estim Creat Clear Calc Estimated GFR Random Glucose (60-115) mg/dL Calcium (8.4-10.2) mg/dL Total Bilirubin (0.0-1.0) mg/dL AST (5-31) U/L ALT (0-31) U/L Alkaline Phosphatase (39-117) U/L Total Protein (6.5-8.0) g/dL Albumin (3.5-5.0) g/dL Urine Color Urine Appearance Urine pH (5.0-9.0) Ur Specific [place] (1.005-1.025) Urine Protein (Neg-Trace) mg/dL Urine Glucose (UA) (Negative) mg/dL Urine Ketones (Negative) mg/dL Urine Blood (Negative) Urine Nitrite (Negative) Ur Leukocyte Esterase (Negative) Urine Test (NEGATIVE) COVID-19 ([facility]) Negative (Negative) COVID-19 Clin Com See Note Influenza Type A ([facility]) Negative (Negative) Influenza Type B ([facility]) Negative (Negative) Influenza A & B Note See Note 05/30/22 05/30/22 05/30/22 Range/Units 11:06 12:44 12:44 WBC (4.8-10.8) X10*3/uL RBC (4.20-5.50) X10*6/uL Hgb (12.0-16.0) g/dl Hct (37.0-47.0) % MCV (80.0-98.0) fL MCH (27.0-33.0) pg MCHC (31.0-35.0) g/dl RDW (11.0-16.0) % Plt Count (160-400) X10*3/uL MPV (9.4-12.3) fL Immature Gran % (Auto) (0.0-0.4) % Neut % (Auto) (45-73) % Lymph % (Auto) (20-40) % Floyd % (Auto) (2-11) % Eos % (Auto) (0-4) % Baso % (Auto) (0-2) % Lymph # (Auto) (1.2-4.9) X10*3/uL Floyd # (Auto) (0.1-1.2) X10*3/uL Eos # (Auto) (0.0-0.4) X10*3/uL Baso # (Auto) (0.0-0.2) X10*3/uL Abs Immat Gran (auto) (0.00-0.03) X10*3/uL Absolute Neuts (auto) (2.0-8.3) x10*3/uL Absolute Nucleated RBC (0.0-0.012) X10*3/uL Nucleated RBC % (auto) (0.0-0.2) /100WBC Sodium 141 (135-145) mmol/L Potassium 4.2 (3.3-5.1) mmol/L Chloride 107 (96-108) mmol/L Carbon Dioxide 28 (22-29) mmol/L Anion Gap 10 L (12-20) BUN 12 (9-16) mg/dL Creatinine 0.90 (0.5-1.4) mg/dL Estim Creat Clear Calc 110.8 Estimated GFR > 60 Random Glucose 83 (60-115) mg/dL Calcium 8.9 (8.4-10.2) mg/dL Total Bilirubin 0.5 (0.0-1.0) mg/dL AST 12 D (5-31) U/L ALT 18 (0-31) U/L Alkaline Phosphatase 71 (39-117) U/L Total Protein 6.3 L (6.5-8.0) g/dL Albumin 3.9 (3.5-5.0) g/dL Urine Color Yellow Urine Appearance Clear Urine pH 7.5 (5.0-9.0) Ur Specific [place] <= 1.005 (1.005-1.025) Urine Protein Negative (Neg-Trace) mg/dL Urine Glucose (UA) Negative (Negative) mg/dL Urine Ketones Negative (Negative) mg/dL Urine Blood Negative (Negative) Urine Nitrite Negative (Negative) Ur Leukocyte Esterase Negative (Negative) Urine Test NEGATIVE (NEGATIVE) COVID-19 ([facility]) (Negative) COVID-19 Clin Com Influenza Type A ([facility]) (Negative) Influenza Type B ([facility]) (Negative) Influenza A & B Note Imaging Data CT scan - head: Radiologist's impression: CT/CT head/brain wo IV con IMPRESSION: Asymmetric smooth enlargement of foramen ovale on the left side of uncertain clinical significance. This could reflect an anatomic variant however if there are clinical symptoms referred to the V3 segment of the left trigeminal nerve, a trigeminal protocol MRI would be helpful in excluding any underlying pathology to explain this finding such as a trigeminal schwannoma. Discharge Plan Discharge Clinical Impression: Headache, migraine, Abnormal CT of the head Patient Disposition: Home, Self-Care Instructions: Migraine Headache (ED) Additional Instructions: As we discussed, it is important to contact a new neurologist so that you can have appropriate follow-up. You may given contact information for the neurology office associated with this hospital. There was an abnormal finding on her head CT, this may be a normal variant, it is possible that this has been noted in the past, however we do not have records of your prior head CTs. as we discussed, I do not believe this to be the cause for your worsening chronic migraine. Concerning symptoms that would warrant re- evaluation are severe shooting, stabbing pain or feelings like electroshock to the lower part to the face. Severe heat or cold intolerance when eating or drinking, pain with chewing, or while brushing teeth. You may return to emergency department any new or worsening symptoms or concerns. A new prescription for Fioricet was sent to your pharmacy. Prescriptions: New wxdwicfuoz-bjkbbynbpzpvo-blns [Fioricet] 50-300-40 mg capsule 1 cap PO Q8H PRN (Reason: pain) Qty: 10 0RF No Action jmyzludhhk-ntbfzghnqnfex-ueji [Fioricet] 50-300-40 mg capsule 1 cap PO BID PRN (Reason: pain) Qty: 6 0RF perphenazine 8 mg Tablet 8 mg PO BID 30 Days Qty: 60 0RF trazodone 50 mg tablet 125 mg PO BEDTIME 30 Days Qty: 75 0RF meloxicam 15 mg tablet 7.5 mg PO DAILY PRN (Reason: Breakthrough Pain, Mild) 30 Days Qty: 15 0RF fqutbbwqkm-lazrmspfhvjvd-qqkk 50-325-40 mg tablet 1 - 2 tab PO Q6H PRN (Reason: headache) 30 Days Qty: 30 0RF lorazepam 0.5 mg tablet 0.5 mg PO BID PRN (Reason: anxiety) 30 Days Qty: 60 0RF prazosin 2 mg capsule 2 mg PO BEDTIME 30 Days Qty: 30 0RF estradiol 0.5 mg Tablet 1 mg PO DAILY Qty: 0 0RF sennosides [senna] 8.6 mg tablet 17.6 mg PO BEDTIME 30 Days Qty: 62 0RF magnesium oxide 400 mg (241.3 mg magnesium) tablet 400 mg PO DAILY@1800 30 Days Qty: 30 0RF levothyroxine 50 mcg tablet 50 mcg PO DAILY@0600 30 Days Qty: 30 0RF montelukast 10 mg tablet 10 mg PO DAILY@1800 30 Days Qty: 30 0RF cholecalciferol (vitamin D3) 50 mcg (2,000 unit) tablet 50 mcg PO DAILY@1800 30 Days Qty: 30 0RF Referrals: Radha Contreras MD [Physician] - Interventions: ED Discharge Assessment Last Done: 05/30/22 14:42 Discharge Date/Time: 05/30/22 14:43
[2022-05-30] MEDS: Ketorolac Tromethamine 15 MG/ML VIAL IVPUSH (10:55)
[2022-05-30 11:30] LABS: COVID-19 Test Negative (Negative); IDNOW Serial# 16C4AD1C; IDNOW Serial# 9DB6401D; Influenza A Negative (Negative); Influenza B2 Negative (Negative)
[2022-05-30 11:34] LABS: Alanine Aminotransferase 18 U/L (0-31); Albumin Level 3.9 g/dL (3.5-5.0); Alkaline Phosphatase 71 U/L (39-117); Anion Gap 10 (12-20); Aspartate Amino Transferase 12 U/L (5-31); Bilirubin Total 0.5 mg/dL (0.0-1.0); Blood Urea Nitrogen 12 mg/dL (9-16); Calcium 8.9 mg/dL (8.4-10.2); Carbon Dioxide 28 mmol/L (22-29); Chloride 107 mmol/L (96-108); Creatinine Clr Calc Pharmacy 110.8; Estimated Glomerular Filt Rate > 60; Glucose Random 83 mg/dL (60-115); Potassium 4.2 mmol/L (3.3-5.1); Sodium 141 mmol/L (135-145); Total Protein 6.3 g/dL (6.5-8.0)
[2022-05-30 11:53] VITALS: BP 110/63; PULSE 62; RESP 16; TEMP 36.7; O2SAT 97
[2022-05-30 12:56] LABS: Appearance Urine Clear; Color Urine Yellow; Glucose Urine UA Negative (Negative); Leukocyte Esterase Urine Negative (Negative); Nitrite Urine Negative (Negative); PH 7.5 (5.0-9.0); Specific Gravity - Urine <= 1.005 (1.005-1.025); UPreg QC Valid YES; Urine Blood Negative (Negative); Urine Ketones Negative (Negative); Urine Pregnancy NEGATIVE (NEGATIVE); Urine Protein Negative (Neg-Trace)
[2022-05-30 13:37] VITALS: BP 103/59; PULSE 62; RESP 16; O2SAT 96
== END 2022-05-30 14:43 | disposition home or self-care (01) ==
PROVIDERS: Nurse Practitioner Family; Emergency Provider Emergency Medicine; PCP Radiology Diagnostic Radiology
DX: G43.909 Migraine, unspecified, not intractable, without status migrainosus (principal); M54.50 Low back pain, unspecified; R93.0 Abnormal findings on diagnostic imaging of skull and head, not elsewhere classified; Z20.822 Contact with and (suspected) exposure to COVID-19; Z79.899 Other long term (current) drug therapy
CPT/HCPCS: 36415; 70450; 80053; 81003; 81025; 85025; 87502; 87635; 96361; 96374; 96375; 99284; J1200; J1885; J2765

== ENCOUNTER 2022-06-03 17:25 | Inpatient (IN) | payer MEDICARE, MEDICAID, SELFPAY ==
[2022-06-03 17:50] VITALS: BP 142/86; PULSE 92; O2SAT 96
[2022-06-03 17:54] VITALS: BP 125/71; PULSE 83; RESP 17; TEMP 36.2; O2SAT 99; BMI 35.9
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
[2022-06-03 18:26] VITALS: BP 126/71; PULSE 81; RESP 16; TEMP 36.3; O2SAT 98
--- NOTE | 2022-06-03 18:26 | PC.NURSE ---
pt was change into [facility] attire by this pct ,pt belongings are locked in the pod .
--- NOTE | 2022-06-03 18:42 | PC.NURSE ---
Addendum entered by Chloe Rivera 06/03/22 18:42: Pharmacy contacted for sumtriptan. Med will be delivered to pod. Original Note: Pt moved to pod from room 17 to 5. Comfort object added to pt belongings in locker 5 until safety risk can be setablished.
[2022-06-03] MEDS: SUMAtriptan succinate 50 MG TABLET PO (18:51)
[2022-06-03 19:01] LABS: MANUAL DIFF FLAG NO
[2022-06-03 19:06] LABS: Basophils Percent Auto 0.6 % (0-2); Eosinophils Absolute Auto 0.2 X10*3/uL (0.0-0.4); Eosinophils Percent Auto 2.7 % (0-4); Hematocrit 40.9 % (37.0-47.0); Hemoglobin 13.8 g/dl (12.0-16.0); Imm Gran Abs Auto 0.01 X10*3/uL (0.00-0.03); Imm Gran Pct Auto 0.1 % (0.0-0.4); Lymphocytes Absolute Auto 1.7 X10*3/uL (1.2-4.9); Mean Corpuscular HGB Conc 33.7 g/dl (31.0-35.0); Mean Corpuscular Volume 91.9 fL (80.0-98.0); Mean Platelet Volume 11.4 fL (9.4-12.3); Monocytes Absolute Auto 0.6 X10*3/uL (0.1-1.2); Monocytes Percent Auto 8.2 % (2-11); Neutrophils Absolute Auto 4.6 x10*3/uL (2.0-8.3); Neutrophils Percent Auto 64.4 % (45-73); Platelet Count 162 X10*3/uL (160-400); Red Blood Count 4.45 X10*6/uL (4.20-5.50); Red Cell Distribution Width 12.1 % (11.0-16.0); White Blood Count 7.1 X10*3/uL (4.8-10.8)
[2022-06-03 19:07] LABS: Appearance Urine Cloudy; Color Urine Yellow; Glucose Urine UA Negative (Negative); Leukocyte Esterase Urine Negative (Negative); Nitrite Urine Negative (Negative); PH >= 9.0 (5.0-9.0); Urine Blood Negative (Negative); Urine Ketones Negative (Negative); Urine Protein Negative (Neg-Trace)
[2022-06-03 19:08] LABS: UPreg QC Valid YES; Urine Pregnancy NEGATIVE (NEGATIVE)
[2022-06-03 19:16] LABS: Amphetamine Screen Urine Not Detected (Not Detect); Barbiturates, Urine POSITIVE (Not Detect); Benzodiazepines Screen Urine Not Detected (Not Detect); COVID-19 Test Negative (Negative); Cannabinoid Screen Urine POSITIVE (Not Detect); Cocaine Screen Urine Not Detected (Not Detect); Fentanyl, urine Not Detected (Not Detect); IDNOW Serial# 9DB6401D; Opiate Screen Urine Not Detected (Not Detect); Phencyclidine Screen Urine Not Detected (Not Detect)
[2022-06-03 19:18] LABS: Alanine Aminotransferase 24 U/L (0-31); Albumin Level 3.9 g/dL (3.5-5.0); Alkaline Phosphatase 108 U/L (39-117); Anion Gap 14 (12-20); Aspartate Amino Transferase 20 U/L (5-31); Bilirubin Total 0.3 mg/dL (0.0-1.0); Blood Urea Nitrogen 9 mg/dL (9-16); Carbon Dioxide 25 mmol/L (22-29); Chloride 107 mmol/L (96-108); Creatinine Clr Calc Pharmacy 128.5; Estimated Glomerular Filt Rate > 60; Ethanol < 10 mg/dL; Glucose Random 103 mg/dL (60-115); Potassium 3.6 mmol/L (3.3-5.1); Sodium 142 mmol/L (135-145); Total Protein 6.5 g/dL (6.5-8.0)
[2022-06-03] MEDS: traZODone HCL 25 MG HALFTAB 125 MG PO (23:04)
[2022-06-03] MEDS: Sennosides 8.6 MG TABLET 17.2 MG PO (23:04)
[2022-06-03] MEDS: LORazepam 1 MG TABLET PO (23:04)
[2022-06-03] MEDS: Perphenazine 8 MG TABLET PO (23:04)
[2022-06-03] MEDS: Prazosin HCL 1 MG CAPSULE 2 MG PO (23:05)
[2022-06-03 23:06] VITALS: BP 127/72; PULSE 74; RESP 16; O2SAT 97
--- NOTE | 2022-06-04 06:30 | PC.NURSE ---
Patient slept through the night without CPAP, no distress observed/reported, behavior non concerning at this time but may escalate, med rec completed, medication compliant, patient engaged well with [facility], disposition is section 12 inpatient bed search, VSS, will continue to monitor.
[2022-06-04] MEDS: Levothyroxine Sodium 50 MCG TABLET PO (06:37)
[2022-06-04] MEDS: Sertraline HCL 50 MG TABLET PO (08:26)
[2022-06-04] MEDS: Butalb/Acetamin/Caff 50/325/40 TABLET 1 TAB PO ×2 (08:26→16:20)
[2022-06-04] MEDS: Montelukast Sodium 10 MG TABLET PO (08:26)
[2022-06-04] MEDS: Magnesium Oxide 400 MG TABLET PO (08:26)
[2022-06-04] MEDS: Cholecalciferol (Vitamin D3) 25 MCG TABLET 50 MCG PO (08:26)
[2022-06-04] MEDS: Perphenazine 8 MG TABLET PO ×2 (08:28→23:24)
--- NOTE | 2022-06-04 08:30 | PC.NURSE ---
Pharmacy contacted for naproxen.
[2022-06-04 08:47] VITALS: BP 117/71; PULSE 73; RESP 16; TEMP 36.5; O2SAT 97
[2022-06-04] MEDS: NaPROXEN 250 MG TABLET PO ×2 (09:28→19:39)
--- NOTE | 2022-06-04 10:27 | ECG_ITS ---
Test Reason : med clearance Blood Pressure : / mmHG Vent. Rate : 068 BPM Atrial Rate : 068 BPM P-R Int : 174 ms QRS Dur : 074 ms QT Int : 410 ms P-R-T Axes : 029 004 044 degrees QTc Int : 435 ms Normal sinus rhythm Normal ECG When compared with ECG of 07-OCT-2021 11:01, No significant change was found Referred By: Sawyer Walters Electronically Signed By:GOMEZ EID MD
[2022-06-04] MEDS: LORazepam 1 MG TABLET PO ×2 (11:34→23:33)
[2022-06-04 13:10] VITALS: BP 127/86; PULSE 82; RESP 16; TEMP 36.9; O2SAT 95
[2022-06-04] MEDS: hydrOXYzine HCL 50 MG TABLET PO (15:18)
[2022-06-04] MEDS: traZODone HCL 25 MG HALFTAB 125 MG PO (23:25)
[2022-06-04] MEDS: Sennosides 8.6 MG TABLET 17.2 MG PO (23:27)
[2022-06-04 23:30] VITALS: BP 142/65; PULSE 78; RESP 18; TEMP 36.3; O2SAT 98
[2022-06-04] MEDS: Prazosin HCL 1 MG CAPSULE 2 MG PO (23:35)
[2022-06-05] MEDS: Levothyroxine Sodium 50 MCG TABLET PO (06:09)
[2022-06-05] MEDS: NaPROXEN 250 MG TABLET PO ×2 (08:52→22:39)
[2022-06-05] MEDS: Sertraline HCL 50 MG TABLET PO (08:53)
[2022-06-05] MEDS: Perphenazine 8 MG TABLET PO ×2 (08:53→22:40)
[2022-06-05] MEDS: Montelukast Sodium 10 MG TABLET PO (08:53)
[2022-06-05] MEDS: Cholecalciferol (Vitamin D3) 25 MCG TABLET 50 MCG PO (08:53)
[2022-06-05] MEDS: Magnesium Oxide 400 MG TABLET PO (08:53)
[2022-06-05] MEDS: LORazepam 1 MG TABLET PO (08:58)
[2022-06-05 09:48] VITALS: BP 135/85; PULSE 86; RESP 16; TEMP 36.7; O2SAT 98
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
[2022-06-05] MEDS: hydrOXYzine HCL 50 MG TABLET PO (10:56)
[2022-06-05] MEDS: Butalb/Acetamin/Caff 50/325/40 TABLET 1 TAB PO (10:56)
[2022-06-05] MEDS: Sertraline HCL 25 MG TABLET PO (13:56)
[2022-06-05] MEDS: estradioL 0.5 MG TABLET 1 MG PO (17:28)
[2022-06-05] MEDS: Acetaminophen 325 MG TABLET 650 MG PO (17:29)
[2022-06-05 22:35] VITALS: BP 124/68; PULSE 78; TEMP 35.6
[2022-06-05] MEDS: traZODone HCL 25 MG HALFTAB 125 MG PO (22:38)
[2022-06-05] MEDS: Prazosin HCL 1 MG CAPSULE 2 MG PO (22:39)
[2022-06-05] MEDS: Sennosides 8.6 MG TABLET 17.2 MG PO (22:40)
[2022-06-06] MEDS: Levothyroxine Sodium 50 MCG TABLET PO (05:56)
[2022-06-06] MEDS: Butalb/Acetamin/Caff 50/325/40 TABLET 1 TAB PO (06:15)
[2022-06-06] MEDS: Magnesium Oxide 400 MG TABLET PO (08:06)
[2022-06-06] MEDS: Acetaminophen 325 MG TABLET 650 MG PO (08:06)
[2022-06-06] MEDS: estradioL 0.5 MG TABLET 1 MG PO (08:06)
[2022-06-06] MEDS: Montelukast Sodium 10 MG TABLET PO (08:06)
[2022-06-06] MEDS: Sertraline HCL 25 MG TABLET 75 MG PO (08:07)
[2022-06-06] MEDS: LORazepam 1 MG TABLET PO (08:07)
[2022-06-06] MEDS: Cholecalciferol (Vitamin D3) 25 MCG TABLET 50 MCG PO (08:07)
[2022-06-06] MEDS: NaPROXEN 250 MG TABLET PO (08:08)
[2022-06-06] MEDS: Perphenazine 8 MG TABLET PO (08:08)
[2022-06-06 08:30] VITALS: BP 120/79; PULSE 92; RESP 18; TEMP 36.3; O2SAT 98
--- NOTE | 2022-06-06 10:55 | P.DS_ITS ---
DS: Providers Provider Date of Service: 06/06/22 Date of admission: 06/04/22 11:28 Date of discharge: 06/06/22 Primary care physician: Unknown Physician Attending physician on admission: Shiva Hutson Attending physician on discharge: Shiva Hutson DS: Medications Discharge Medications Home Medications: Home Medications Medication Instructions Recorded Confirmed cholecalciferol (vitamin D3) 50 1 tab PO DAILY 06/03/22 06/03/22 mcg (2,000 unit) tablet (Vitamin D3) leuprolide 3.75 mg intramuscular See Rx Instructions .Route .COMPLEX 06/03/22 06/03/22 syringe kit (Lupron Depot) levothyroxine 50 mcg tablet 1 tab PO QAM 06/03/22 06/03/22 magnesium oxide 400 mg (241.3 mg 1 tab PO DAILY 06/03/22 06/03/22 magnesium) tablet meloxicam 7.5 mg tablet 1 tab PO DAILY 06/03/22 06/03/22 montelukast 10 mg tablet 1 tab PO DAILY 06/03/22 06/03/22 perphenazine 8 mg tablet 1 tab PO BID 06/03/22 06/03/22 prazosin 2 mg capsule 1 cap PO BEDTIME 06/03/22 06/03/22 sennosides 8.6 mg tablet (senna) 2 tab PO BEDTIME 06/03/22 06/03/22 trazodone 50 mg tablet 2.5 tab PO BEDTIME 06/03/22 06/03/22 Previous Rx's Medication Instructions Recorded mwtpsbnwxn-ekbsxwjnziliw-pbguzvqd 1 cap PO Q8H PRN Migraine Headache 06/06/22 50 mg-300 mg-40 mg capsule 14 days #14 caps estradiol 0.5 mg tablet 1 mg PO DAILY #0 tabs 06/06/22 lorazepam 1 mg tablet 1 mg PO BID PRN Anxiety 15 days 06/06/22 #30 tabs sertraline 100 mg tablet 100 mg PO DAILY 30 days #30 tabs 06/06/22 Data Data Completed and Pending Completed studies during hospitalization [Text1]: 06/03/22 06/03/22 06/03/22 18:55 18:55 18:55 WBC RBC Hgb Hct MCV MCH MCHC RDW Plt Count MPV Immature Gran % (Auto) Neut % (Auto) Lymph % (Auto) [place] % (Auto) Eos % (Auto) Baso % (Auto) Lymph # (Auto) [place] # (Auto) Eos # (Auto) Baso # (Auto) Abs Immat Gran (auto) Absolute Neuts (auto) Absolute Nucleated RBC Nucleated RBC % (auto) Sodium Potassium Chloride Carbon Dioxide Anion Gap BUN Creatinine Estim Creat Clear Calc Estimated GFR Random Glucose Calcium Total Bilirubin AST ALT Alkaline Phosphatase Total Protein Albumin Urine Color Yellow Urine Appearance Cloudy Urine pH >= 9.0 Ur Specific [place] 1.020 Urine Protein Negative Urine Glucose (UA) Negative Urine Ketones Negative Urine Blood Negative Urine Nitrite Negative Ur Leukocyte Esterase Negative Urine Test NEGATIVE Urine Opiates Screen Urine Fentanyl Screen Ur Barbiturates Screen Ur Phencyclidine Scrn Ur Amphetamines Screen U Benzodiazepines Scrn Urine Cocaine Screen U Marijuana (THC) Screen Ethyl Alcohol COVID-19 ([facility]) Negative COVID-19 Clin Com See Note 06/03/22 06/03/22 06/03/22 18:55 18:56 18:56 WBC 7.1 RBC 4.45 Hgb 13.8 Hct 40.9 MCV 91.9 MCH 31.0 MCHC 33.7 RDW 12.1 Plt Count 162 MPV 11.4 Immature Gran % (Auto) 0.1 Neut % (Auto) 64.4 Lymph % (Auto) 24.0 [place] % (Auto) 8.2 Eos % (Auto) 2.7 Baso % (Auto) 0.6 Lymph # (Auto) 1.7 [place] # (Auto) 0.6 Eos # (Auto) 0.2 Baso # (Auto) 0.0 Abs Immat Gran (auto) 0.01 Absolute Neuts (auto) 4.6 Absolute Nucleated RBC 0.000 Nucleated RBC % (auto) 0.0 Sodium 142 Potassium 3.6 Chloride 107 Carbon Dioxide 25 Anion Gap 14 BUN 9 Creatinine 0.81 Estim Creat Clear Calc 128.5 Estimated GFR > 60 Random Glucose 103 Calcium 9.0 Total Bilirubin 0.3 AST 20 ALT 24 Alkaline Phosphatase 108 Total Protein 6.5 Albumin 3.9 Urine Color Urine Appearance Urine pH Ur Specific [place] Urine Protein Urine Glucose (UA) Urine Ketones Urine Blood Urine Nitrite Ur Leukocyte Esterase Urine Test Urine Opiates Screen Not Detected Urine Fentanyl Screen Not Detected Ur Barbiturates Screen POSITIVE H Ur Phencyclidine Scrn Not Detected Ur Amphetamines Screen Not Detected U Benzodiazepines Scrn Not Detected Urine Cocaine Screen Not Detected U Marijuana (THC) Screen POSITIVE H Ethyl Alcohol < 10 COVID-19 ([facility]) COVID-19 Clin Com DS: Summary Hospital Course Hospital Course: HPI/hospital course: Patient is a 37-year-old female with history of schizoaffective disorder Chronic migraine with recent Head CT concerning for left sided tumor tumor, who presents to ED for headache during which time she made a comment about suicidality.? Patient reports That this has been a challenging month for her specifically due to relationship struggles with her partner.? Patient has chronic headache which has worsened over the past 2 months as well.? Despite these struggles patient reports she has remained stable, takes her medications daily without fail and denies any SI at all.? Due to increased head pain, patient came to the ED 05/30 which resulted in a head CT concerning for possible mass and medications for pain; patient went to her outpatient doctor the next day who was trying to secure neurology appointment for her.? Patient returned to the ED the following day, feeling the pain unbearable; she felt that in the ED, people were minimizing her pain and she reports she made off and common about being suicidal.? Patient explains to this automotive service writer that she is not in any way suicidal and in no way meant to communicate this or has any thoughts about self harm; patient said this was an emotionally triggered comment made amidst overwhelming anxiety from the pain, the alarming an inconclusive head CT and not being able to confirm a neurology appointment until next month.? Patient reiterates that she does not want to kill herself at all and has had no SI or self-harm for about 8 years.? Patient denies any drug or alcohol abuse.? She does have auditory hallucinations which she reports have been there her whole life.? She says mostly they are encouraging or at least not bothersome and she has learned to cope with them.? She expressed some mild chronic paranoid delusions about the government watching people but says this also has been a thought of hers for a long time it is nothing she thinks about daily.? Patient does not think she needs inpatient admission; rather she thinks that all she needs is help getting her outpatient appointments set up so that she can deal with this imaging result and get treatment for her pain.? Her Zoloft is being restarted after a failed trial of Cymbalta and she asks if it can be further titrated which it was. She reports that suicidal comment was only made out of emotion, in the height of anxiety due to recent concerning head CT and pain and that she did not mean it.? She denies any SI, current or recent, not for nearly a decade.? Patient is future oriented and very much wants to get treatment her head pain and a conclusive diagnosis regarding CT.? Patient does have some relational strife with her partner and is not sure she will return to the apartment however she feels safe and able to continue treatment in the community and is asking for discharge.?Patient has outpt services well established; she is future oriented and back on helpful medications.Patient was not in imminent risk of harm to self or others and request for discharge honored. Time spent discussing smoking cessation with patient: 3 to 10 minutes Status at Discharge Functional status at discharge: independent ambulation Overall status at discharge: patient is back to baseline Time Spent with Patient Time attestation: Total time spent providing and/or coordinating discharge services: Time spent: Less than 30 minutes Discharge Plan Discharge Anticipated Discharge Date/Time: 06/06/22 13:00 Patient Disposition: Home, Self-Care Discharge Diagnosis: Schizoaffective disorder, depressed type Referrals: Psychiatry Appointment (Dr. Ross) [Other] - 06/16/22 9:00 am (TELEHEALTH APPOINTMENT on June 16 at 9 am via ZO[facility], 06/16/22) Step Down Placement ([facility]) [Other] - 06/06/22 11:00 am ([facility] is ready for arrival between 11am-6pm) Neurology Follow-up (Dr. Broussard) [Other] - 06/19/22 2:00 pm ( In Person appointment with Dr. Brousasrd on June 19 at 2pm, 06/19/22) Primary Care Physician Follow-up (Dr. Menard) [Other] - 06/19/22 12:00 pm ( In Person appointment on June 19 at 12pm, 06/19/22) Discharge Medications: New sertraline 100 mg tablet 100 mg PO DAILY 30 Days Qty: 30 0RF estradiol 0.5 mg Tablet 1 mg PO DAILY Qty: 0 0RF Continued sennosides [senna] 8.6 mg tablet 2 tab PO BEDTIME Lupron Depot 3.75 mg syringe kit See Rx Instructions .ROUTE .COMPLEX Rx Instructions: 1 mg intramuscularly trazodone 50 mg tablet 2.5 tab PO BEDTIME meloxicam 7.5 mg tablet 1 tab PO DAILY magnesium oxide 400 mg (241.3 mg magnesium) tablet 1 tab PO DAILY levothyroxine 50 mcg tablet 1 tab PO QAM montelukast 10 mg tablet 1 tab PO DAILY perphenazine 8 mg tablet 1 tab PO BID cholecalciferol (vitamin D3) [Vitamin D3] 50 mcg (2,000 unit) tablet 1 tab PO DAILY prazosin 2 mg capsule 1 cap PO BEDTIME mkvqvvcpcq-qmjctqmasyoda-vfae 50-300-40 mg capsule 1 cap PO Q8H PRN (Reason: Migraine Headache) 14 Days Qty: 14 0RF Changed lorazepam 1 mg tablet 1 mg PO BID PRN (Reason: Anxiety) 15 Days Qty: 30 0RF Discontinued sertraline 50 mg tablet 1 tab PO QAM Discharge Orders: Discharge Order (Routine); Ordered 06/06/22 Ordered By: Shiva Hutson Diet: Regular diet Activity on Discharge: As tolerated Stand Alone Forms: Patient Portal Discharge page, Community Support Care Plan Goals: Maintain mood and safe behaviors Take medications as prescribed Practice coping skills Continue with outpatient providers and reach out to them as needed Health Concerns: Mood stability and behaviors Chronic Migraine Head CT concern for possible mass Plan of Treatment: Follow up with your PCP, Neurologist and Psychiatric provider and other outpatient providers regarding above concerns Take medications as prescribed Assessment: Risk assessment at time of discharge:? Patient was interviewed prior to discharge and found to be fully oriented and without any SI or HI. Patient has insight and demonstrates good judgment in terms of wanting to pursue treatment. Patient is not in imminent risk of harm to self or others and has a safety plan that includes presenting to the closest ER or calling 911 if feeling unsafe.? Patient has been observed closely by nursing and unit staff throughout admission; patient has not engaged in any behaviors that suggest dangerousness to self or others and has demonstrated appropriate behaviors and impulse control Discharge Date/Time: 06/06/22 13:32
== END 2022-06-06 13:32 | disposition home or self-care (01) | DRG 885 ==
LOC: HO.ED 06-04 10:28 → HO.PM5 06-04 11:36
PROVIDERS: Admitting Provider Psychiatry & Neurology Psychiatry; Emergency Provider Emergency Medicine; Visit Provider Psychiatry & Neurology Psychiatry
DX: F25.1 Schizoaffective disorder, depressive type (principal); R45.851 Suicidal ideations; G43.909 Migraine, unspecified, not intractable, without status migrainosus; D49.6 Neoplasm of unspecified behavior of brain; Z20.822 Contact with and (suspected) exposure to COVID-19; Z88.8 Allergy status to other drugs, medicaments and biological substances; Z79.3 Long term (current) use of hormonal contraceptives; Z79.890 Hormone replacement therapy; Z79.899 Other long term (current) drug therapy
CPT/HCPCS: 80053; 80307; 81003; 81025; 82077; 85025; 87635; 93005; 99285

== ENCOUNTER 2024-02-03 15:04 | Emergency (ER) | payer MEDICARE, MEDICAID, SELFPAY ==
--- NOTE | ~2024-02-03 | XR_ITS ---
Examination: Bilateral foot, right shoulder and right knee CLINICAL INDICATION: Fall. Pain TECHNIQUE: 3 views each foot. 3 views right shoulder and 4 views right knee. FINDINGS: Right foot: There is no visible acute fracture, dislocation or subluxation. The ankle mortise and subtalar joints are normal. There is a small calcaneal heel enthesophyte. Left foot: There is no visible acute fracture, dislocation or subluxation seen. The soft tissues are normal. There is moderate size calcaneal heel spur. The ankle mortise and subtalar joints are normal. Right shoulder: The glenohumeral joint space is maintained normal. There is no visible acute fracture or dislocation seen. The soft tissues are normal. Right knee: The tricompartment joint space is preserved. No joint effusion, loose bodies, acute fracture or dislocation seen. XR/XR knee RT 4V IMPRESSION: 1. Unremarkable bilateral foot exam. Bilateral calcaneal heel spur is slightly larger on the left side.. 2. Unremarkable right shoulder exam. 3. Unremarkable right knee exam.
--- NOTE | ~2024-02-03 | XR_ITS ---
Examination: Bilateral foot, right shoulder and right knee CLINICAL INDICATION: Fall. Pain TECHNIQUE: 3 views each foot. 3 views right shoulder and 4 views right knee. FINDINGS: Right foot: There is no visible acute fracture, dislocation or subluxation. The ankle mortise and subtalar joints are normal. There is a small calcaneal heel enthesophyte. Left foot: There is no visible acute fracture, dislocation or subluxation seen. The soft tissues are normal. There is moderate size calcaneal heel spur. The ankle mortise and subtalar joints are normal. Right shoulder: The glenohumeral joint space is maintained normal. There is no visible acute fracture or dislocation seen. The soft tissues are normal. Right knee: The tricompartment joint space is preserved. No joint effusion, loose bodies, acute fracture or dislocation seen. XR/XR foot RT 2V IMPRESSION: 1. Unremarkable bilateral foot exam. Bilateral calcaneal heel spur is slightly larger on the left side.. 2. Unremarkable right shoulder exam. 3. Unremarkable right knee exam.
--- NOTE | ~2024-02-03 | XR_ITS ---
Examination: Bilateral foot, right shoulder and right knee CLINICAL INDICATION: Fall. Pain TECHNIQUE: 3 views each foot. 3 views right shoulder and 4 views right knee. FINDINGS: Right foot: There is no visible acute fracture, dislocation or subluxation. The ankle mortise and subtalar joints are normal. There is a small calcaneal heel enthesophyte. Left foot: There is no visible acute fracture, dislocation or subluxation seen. The soft tissues are normal. There is moderate size calcaneal heel spur. The ankle mortise and subtalar joints are normal. Right shoulder: The glenohumeral joint space is maintained normal. There is no visible acute fracture or dislocation seen. The soft tissues are normal. Right knee: The tricompartment joint space is preserved. No joint effusion, loose bodies, acute fracture or dislocation seen. XR/XR foot LT min 3V IMPRESSION: 1. Unremarkable bilateral foot exam. Bilateral calcaneal heel spur is slightly larger on the left side.. 2. Unremarkable right shoulder exam. 3. Unremarkable right knee exam.
--- NOTE | ~2024-02-03 | XR_ITS ---
Examination: Bilateral foot, right shoulder and right knee CLINICAL INDICATION: Fall. Pain TECHNIQUE: 3 views each foot. 3 views right shoulder and 4 views right knee. FINDINGS: Right foot: There is no visible acute fracture, dislocation or subluxation. The ankle mortise and subtalar joints are normal. There is a small calcaneal heel enthesophyte. Left foot: There is no visible acute fracture, dislocation or subluxation seen. The soft tissues are normal. There is moderate size calcaneal heel spur. The ankle mortise and subtalar joints are normal. Right shoulder: The glenohumeral joint space is maintained normal. There is no visible acute fracture or dislocation seen. The soft tissues are normal. Right knee: The tricompartment joint space is preserved. No joint effusion, loose bodies, acute fracture or dislocation seen. XR/XR shoulder RT min 2V IMPRESSION: 1. Unremarkable bilateral foot exam. Bilateral calcaneal heel spur is slightly larger on the left side.. 2. Unremarkable right shoulder exam. 3. Unremarkable right knee exam.
[2024-02-03 15:22] VITALS: BP 115/57; PULSE 80; RESP 20; TEMP 37.2; O2SAT 96; BMI 34.2
--- NOTE | 2024-02-03 15:50 | ED_ITS ---
HPI - Fall General Chief Complaint: Fall Stated Complaint: Rt knee/Lt foot inj s/p fall - today @ 1400 @ home Time Seen by Provider: 02/03/24 15:38 Source: patient and family Mode of arrival: wheelchair Limitations: no limitations History of Present Illness ED Provider: Vernell head APRN HPI Narrative: 38 yo female with history of asthma, depression, hypothyroidism presents the ER after a trip and fall down 2 stairs causing her to land on her right knee and twist her left and right foot. There was no head strike or loss of consciousness. Reports abrasion to the right knee and left 5th toe. Tetanus status is unknown. No neck pain, back pain, chest pain, abdominal pain, headache, vision changes, vomiting. No associated numbness, tingling, weakness of the extremities Related Data Home Medications ?Medication ?Instructions ?Recorded ?Confirmed cholecalciferol (vitamin D3) 50 1 tab PO DAILY 06/03/22 06/03/22 mcg (2,000 unit) tablet (Vitamin D3) leuprolide 3.75 mg intramuscular See Rx Instructions .Route .COMPLEX 06/03/22 06/03/22 syringe kit (Lupron Depot) levothyroxine 50 mcg tablet 1 tab PO QAM 06/03/22 06/03/22 magnesium oxide 400 mg (241.3 mg 1 tab PO DAILY 06/03/22 06/03/22 magnesium) tablet meloxicam 7.5 mg tablet 1 tab PO DAILY 06/03/22 06/03/22 montelukast 10 mg tablet 1 tab PO DAILY 06/03/22 06/03/22 perphenazine 8 mg tablet 1 tab PO BID 06/03/22 06/03/22 prazosin 2 mg capsule 1 cap PO BEDTIME 06/03/22 06/03/22 sennosides 8.6 mg tablet (senna) 2 tab PO BEDTIME 06/03/22 06/03/22 trazodone 50 mg tablet 2.5 tab PO BEDTIME 06/03/22 06/03/22 Previous Rx's ?Medication ?Instructions ?Recorded wahazegpor-kzrqfmvtybwzj-mwdnikzn 1 cap PO Q8H PRN Migraine Headache 06/06/22 50 mg-300 mg-40 mg capsule 14 days #14 caps estradiol 0.5 mg tablet 1 mg (2 x 0.5 mg) PO DAILY #0 tabs 06/06/22 lorazepam 1 mg tablet 1 mg PO BID PRN Anxiety 15 days 06/06/22 #30 tabs sertraline 100 mg tablet 100 mg PO DAILY 30 days #30 tabs 06/06/22 Allergies Allergy/AdvReac Type Severity Reaction Status Date / Time bupropion [From WELLBUTRIN] Allergy Unknown HIVES Verified 02/03/24 15:25 gluten Allergy Nausea Verified 02/03/24 15:25 winston Allergy Swelling Verified 02/03/24 15:25 pregabalin [From Lyrica] AdvReac Swelling Verified 02/03/24 15:25 Review of Systems Review of Systems: Yes all other systems are reviewed and are negative Constitutional: Constitutional: Reports no additional constitutional complaints, Denies body ache(s), Denies chills, Denies fever(s), Denies headache(s) and Denies weakness Eyes: Eyes: Reports no additional eye complaints and Denies change in vision ENT: Reports system reviewed and no additional complaints, except as documented, Denies dizziness, Denies headache(s), Denies nasal congestion, Denies nasal discharge and Denies neck pain Cardiovascular: Cardiovascular: Reports no additional cardiovascular complaints, Denies chest pain, Denies leg edema and Denies dyspnea Respiratory: Respiratory: Reports no additional respiratory complaints, Denies cough and Denies dyspnea Gastrointestinal: Gastrointestinal: Reports no additional gastrointestinal complaints, Denies abdominal pain, Denies diarrhea, Denies nausea and Denies vomiting Genitourinary: Genitourinary: Reports no additional female genitourinary complaints and Denies urinary incontinence Musculoskeletal: Musculoskeletal: Reports no additional musculoskeletal complaints, Denies back pain, Reports arthralgias, Denies joint swelling, Denies neck pain, Denies numbness and Denies tingling Integumentary/Breasts: Skin/Breast: Reports system reviewed and no additional complaints, except as docu, Denies rash and Reports wounds Neurologic: Reports system reviewed and no additional complaints, except as documented, Denies Abnormal speech present, Denies dizziness, Denies headache(s), Denies numbness, Denies tingling and Denies weakness PMFSH Past Medical History Attestation statement: The following information was validated with the patient. Source: old records reviewed and nursing notes reviewed Medical History Borderline personality disorder Severe recurrent major depression w/psychotic features, mood-congruent Depression Thyroid disease Borderline personality disorder Depression Social History Social History Household Members: Significant Other Household Members Other:: patient does not feel safe where she was living Housing: House Do you presently have visiting nurse or other home services: No Unable to assess alcohol history related to: Unknown Alcohol intake: unknown Patient Tobacco Use Status: Never used Tobacco Tobacco use type: Cigarette e-Cigarette/Vaping Use: Never Used Second Hand Smoke Exposure: Yes Substance Use Type: Marijuana Advance Directives: No Advance Directives Information Provided: No Do you have a plan to hurt others: No Plan service: No Sexual orientation: Lesbian/Wing/Homosexual Physical Exam Vital Signs: Vital Signs: Last Vital Signs Temp 98.9 F 02/03/24 15:22 Pulse 80 02/03/24 15:22 Resp 20 02/03/24 15:22 BP 115/57 L 02/03/24 15:22 Pulse Ox 96 02/03/24 15:22 O2 Del Method Room Air 02/03/24 15:22 BMI result Body Mass Index 34.2 Const: General: cooperative, healthy appearing, comfortable and no acute distress Orientation/consciousness: patient oriented x3 Limitations: no limitations HEENT: Other: No hemotympanum Head: Yes normal to inspection, No Soares's sign and No raccoon eyes Ears: hearing grossly normal bilaterally General nose exam: Normal external nose present Face and sinus: Yes normal facial exam Mouth: Normal oral and palatal mucosa present Throat: Yes posterior oropharynx normal Eyes: General: appearance normal, both eyes and all related structures Pupils: Equal, round and reactive pupils present Neck: Other: No cervical midline tenderness, step-offs or deformities Neck: Yes normal visual inspection and Yes full ROM Chest: Chest palpation & inspection: normal inspection of the chest Resp: Effort & Inspection: normal respiratory effort Auscultation: clear to auscultation bilaterally Cardio: Rate: regular rate Rhythm: regular rhythm Peripheral pulses: Peripheral pulses 2+ throughout GI: Inspection: Yes normal to inspection Palpation (GI): Soft to palpation and nontender Auscultation: normal bowel sounds Back/Spine/Pelvis: Thoracic/Lumbar Spine: thoracic and lumbar spine normal to inspection Skin: General skin exam: no rashes or lesions noted Neuro: General: patient oriented x3, moves all extremities, no focal motor deficits and normal sensation to monofilament Cranial nerves: Yes Equal, round and reactive pupils present and Yes Midline tongue present Cognition (N euro): normal cognition Speech: No Abnormal speech present Gait exam (Neuro): Normal gait present Motor exam (neuro): 5/5 motor strength present throughout Extrem: Other: Abrasion to the right knee. Mild tenderness anterior. Full active and passive range of motion. CMS intact distally Tenderness to the right great toe with no obvious swelling or ecchymosis with full active and passive range of motion Tenderness to the left great toe with no obvious swelling or ecchymosis with full active and passive range of motion Tenderness the left 5th toe with mild swelling and ecchymosis noted. Over the volar aspect there is a 1 cm laceration bleeding is controlled General: Yes normal to inspection Course Course Course Narrative: X-ray show no acute finding. Patient will be placed in a postoperative shoe for the left foot, crutches for ambulation. Reviewed rice. Reviewed worrisome signs and symptoms of when to return to the emergency room. Comfortable plan for discharge home. Medications Administered Discontinued Medications Generic Name Dose Route Start Last Admin Trade Name Freq PRN Reason Stop Dose Admin Bacitracin 1 appl 02/03/24 16:01 02/03/24 16:26 Bacitracin Oint 0.9 Gm Packet TOPICAL 02/03/24 16:02 1 appl ONCE ONE Administration Protocol Diphtheria/Tetanus/Acell Pertussis 0.5 ml 02/03/24 16:01 02/03/24 16:26 Diphth,Pertus(Acell),Tet Adult 0.5 Ml Syringe IM 02/03/24 16:02 0.5 ml .ONCE ONE Administration Procedures Orthopedic Splinting/Casting Injury #1: Side: left Lower Extremity Injury Location: foot Lower Extremity Immobilizer: post-op shoe Other Orthopedic Equipment: crutches Medical Decision Making Medical Decision Making MDM Narrative: 38 yo female with history of asthma, depression, hypothyroidism presents the ER after a trip and fall down 2 stairs causing her to land on her right knee and twist her left and right foot. There was no head strike or loss of consciousness. Reports abrasion to the right knee and left 5th toe. Tetanus status is unknown. No neck pain, back pain, chest pain, abdominal pain, headache, vision changes, vomiting. No associated numbness, tingling, weakness of the extremities abrasion to the right knee. Mild tenderness anterior. Full active and passive range of motion. CMS intact distally Tenderness to the right great toe with no obvious swelling or ecchymosis with full active and passive range of motion Tenderness to the left great toe with no obvious swelling or ecchymosis with full active and passive range of motion Tenderness the left 5th toe with mild swelling and ecchymosis noted. Over the volar aspect there is a 1 cm laceration bleeding is controlled Will need x-rays, tetanus updated, the laceration will need to be cleansed with a dressing applied Differential Diagnosis Differential Diagnoses: The differential diagnosis associated with the presentation includes Contusion, abrasion, laceration, sprain, strain Low suspicion for complex fracture, dislocation, vascular injury Admission/Observation Consideration of admission/observation: Escalation of care including admission/observation considered Low suspicion for complex fracture, dislocation, vascular injury requiring advanced imaging Independent Interpretation I performed an independent interpretation of an: Plain X-Ray Interpretation: I independently reviewed the x-ray and agree with the radiology report Radiology Impression Discussion of test interpretation with radiology: I have reviewed the radiologist's reading. Radiologist Impression: [place] [id number] XRay Report Signed Patient: Altagracia Wright MR#: [id number] : 1985 Acct:[id number] Age/Sex: 38 / F ADM Date: 02/03/24 Loc: .ED Attending Dr: Ordering Physician: Vernell Lacey NP Date of Service: 02/03/24 Procedure(s): XR foot RT 2V Accession Number(s): [id number] cc: Eleanor Toledo CNP; Vernell Lacey NP~ Examination: Bilateral foot, right shoulder and right knee CLINICAL INDICATION: Fall. Pain TECHNIQUE: 3 views each foot. 3 views right shoulder and 4 views right knee. FINDINGS: Right foot: There is no visible acute fracture, dislocation or subluxation. The ankle mortise and subtalar joints are normal. There is a small calcaneal heel enthesophyte. Left foot: There is no visible acute fracture, dislocation or subluxation seen. The soft tissues are normal. There is moderate size calcaneal heel spur. The ankle mortise and subtalar joints are normal. Right shoulder: The glenohumeral joint space is maintained normal. There is no visible acute fracture or dislocation seen. The soft tissues are normal. Right knee: The tricompartment joint space is preserved. No joint effusion, loose bodies, acute fracture or dislocation seen. XR/XR foot RT 2V IMPRESSION: 1. Unremarkable bilateral foot exam. Bilateral calcaneal heel spur is slightly larger on the left side.. 2. Unremarkable right shoulder exam. 3. Unremarkable right knee exam. Independent Historian Clinical information obtained from an independent historian. History obtained from or confirmed by: Parent Prescription Management I considered prescription management with: Pain Medication Discharge Plan Discharge Clinical Impression: Abrasion of knee, right, Contusion of foot, left, Contusion of foot, right, Laceration of foot, left, Shoulder sprain Patient Disposition: Home, Self-Care Instructions: Laceration (ED), Foot Contusion (ED), Shoulder Sprain (ED) Additional Instructions: Motrin or Tylenol for pain Ice to the affected areas You may use the shoe and crutches for the next 2 days until the wound on your foot is healed. Keep the wound clean, covered and dry with a topical antibiotic ointment. Prescriptions: No Action sennosides [senna] 8.6 mg tablet 2 tab PO BEDTIME Lupron Depot 3.75 mg syringe kit See Rx Instructions .ROUTE .COMPLEX Rx Instructions: 1 mg intramuscularly trazodone 50 mg tablet 2.5 tab PO BEDTIME meloxicam 7.5 mg tablet 1 tab PO DAILY magnesium oxide 400 mg (241.3 mg magnesium) tablet 1 tab PO DAILY levothyroxine 50 mcg tablet 1 tab PO QAM montelukast 10 mg tablet 1 tab PO DAILY perphenazine 8 mg tablet 1 tab PO BID cholecalciferol (vitamin D3) [Vitamin D3] 50 mcg (2,000 unit) tablet 1 tab PO DAILY prazosin 2 mg capsule 1 cap PO BEDTIME sertraline 100 mg tablet 100 mg PO DAILY 30 Days Qty: 30 0RF estradiol 0.5 mg Tablet 1 mg PO DAILY Qty: 0 0RF lorazepam 1 mg tablet 1 mg PO BID PRN (Reason: Anxiety) 15 Days Qty: 30 0RF jsrpxkobzg-oltkhfevecqzh-shxc 50-300-40 mg capsule 1 cap PO Q8H PRN (Reason: Migraine Headache) 14 Days Qty: 14 0RF Referrals: Eleanor Toledo CNP [Primary Care Provider] - 1 week (as needed) Print Language: Wallisian
[2024-02-03] MEDS: Diphth,Pertus(ACell),Tet Adult 0.5 ML SYRINGE IM (16:26)
[2024-02-03] MEDS: Bacitracin Oint 0.9 GM PACKET 1 APPL TOPICAL (16:26)
[2024-02-03 17:05] VITALS: BP 115/57; PULSE 80; RESP 20; TEMP 37.2; O2SAT 96
== END 2024-02-03 17:06 | disposition home or self-care (01) ==
PROVIDERS: Emergency Provider Emergency Medicine; PCP Nurse Practitioner Family
DX: S90.32XA Contusion of left foot, initial encounter (principal); S91.312A Laceration without foreign body, left foot, initial encounter; S80.211A Abrasion, right knee, initial encounter; S90.415A Abrasion, left lesser toe(s), initial encounter; S43.402A Unspecified sprain of left shoulder joint, initial encounter; X50.1XXA Overexertion from prolonged static or awkward postures, initial encounter; Y93.01 Activity, walking, marching and hiking; Y92.89 Other specified places as the place of occurrence of the external cause; Y99.8 Other external cause status; Z23 Encounter for immunization; Z79.899 Other long term (current) drug therapy
CPT/HCPCS: 29515; 73030; 73564; 73620; 73630; 90471; 90715; 99283; 99284

== ENCOUNTER 2024-04-23 19:39 | Emergency (ER) | payer MEDICARE, MEDICAID, SELFPAY ==
[2024-04-23 19:56] VITALS: BP 139/72; PULSE 88; RESP 18; TEMP 36.2; O2SAT 98; BMI 18.2
--- NOTE | 2024-04-23 19:56 | ED_ITS ---
HPI - Headache General Chief Complaint: Headache Stated Complaint: migraine Time Seen by Provider: 04/24/24 01:14 History of Present Illness ED Provider: Leeann MILIAN Narrative: The patient is a 38-year-old female who says she has a long history of migraines. She says that she has a neurologist through [facility] and receives Botox injections for her migraines. She says that typically she considers the Botox injections the most efficacious treatment for her migraines. Her last Botox injection was in September. She apparently has missed 2 Botox injections since then. Most recently she missed an appointment because the office canceled on her. The patient is currently on a medical leave because of her chronic migraines. She says her pain was a lot worse tonight and came to the emergency room to see if there was anything we could do to help. No fever sweats or chills Related Data Home Medications ?Medication ?Instructions ?Recorded ?Confirmed cholecalciferol (vitamin D3) 50 1 tab PO DAILY 06/03/22 06/03/22 mcg (2,000 unit) tablet (Vitamin D3) leuprolide 3.75 mg intramuscular See Rx Instructions .Route .COMPLEX 06/03/22 06/03/22 syringe kit (Lupron Depot) levothyroxine 50 mcg tablet 1 tab PO QAM 06/03/22 06/03/22 magnesium oxide 400 mg (241.3 mg 1 tab PO DAILY 06/03/22 06/03/22 magnesium) tablet meloxicam 7.5 mg tablet 1 tab PO DAILY 06/03/22 06/03/22 montelukast 10 mg tablet 1 tab PO DAILY 06/03/22 06/03/22 perphenazine 8 mg tablet 1 tab PO BID 06/03/22 06/03/22 prazosin 2 mg capsule 1 cap PO BEDTIME 06/03/22 06/03/22 sennosides 8.6 mg tablet (senna) 2 tab PO BEDTIME 06/03/22 06/03/22 trazodone 50 mg tablet 2.5 tab PO BEDTIME 06/03/22 06/03/22 Previous Rx's ?Medication ?Instructions ?Recorded riswwukkhd-rklvmbgacinsk-yhctagkp 1 cap PO Q8H PRN Migraine Headache 06/06/22 50 mg-300 mg-40 mg capsule 14 days #14 caps estradiol 0.5 mg tablet 1 mg (2 x 0.5 mg) PO DAILY #0 tabs 06/06/22 lorazepam 1 mg tablet 1 mg PO BID PRN Anxiety 15 days 06/06/22 #30 tabs sertraline 100 mg tablet 100 mg PO DAILY 30 days #30 tabs 06/06/22 Allergies Allergy/AdvReac Type Severity Reaction Status Date / Time bupropion [From WELLBUTRIN] Allergy Unknown HIVES Verified 04/23/24 19:59 gluten Allergy Nausea Verified 04/23/24 19:59 winston Allergy Swelling Verified 04/23/24 19:59 pregabalin [From Lyrica] AdvReac Swelling Verified 04/23/24 19:59 Review of Systems 2 Review of Systems: Yes all other systems are reviewed and are negative PMFSH Past Medical History Medical History Borderline personality disorder Severe recurrent major depression w/psychotic features, mood-congruent Depression Thyroid disease Borderline personality disorder Depression Social History Social History Household Members: Significant Other Household Members Other:: patient does not feel safe where she was living Housing: House Do you presently have visiting nurse or other home services: No Unable to assess alcohol history related to: Unknown Alcohol intake: unknown Patient Tobacco Use Status: Never used Tobacco Tobacco use type: Cigarette e-Cigarette/Vaping Use: Never Used Second Hand Smoke Exposure: Yes Substance Use Type: Marijuana Advance Directives: No Advance Directives Information Provided: No Do you have a plan to hurt others: No Plan service: No Sexual orientation: Lesbian/Wing/Homosexual Physical Exam 2 Vital Signs: Vital Signs: Last Vital Signs Temp 98.5 F 04/24/24 03:10 Pulse 61 04/24/24 03:10 Resp 16 04/24/24 03:10 BP 119/73 04/24/24 03:10 Pulse Ox 97 04/24/24 03:10 O2 Del Method Room Air 04/24/24 03:10 BMI result Body Mass Index 18.2 Const: Other: The patient is awake and alert with normal mental status. She does not appear in overt distress. She does not seem toxic. HEENT: Other: Face is symmetrical. Mucous membranes moist. Of the Eyes: Other: pupils are round equal, conjunctivae clear, extraocular movements intact. Neck: Neck: Yes supple Resp: Effort & Inspection: normal respiratory effort Auscultation: clear to auscultation bilaterally Cardio: Rate: regular rate Rhythm: regular rhythm Heart sounds: S1 normal heart sound present and S2 normal heart sound present Skin: General skin exam: no rashes or lesions noted Neuro: Other: The patient was awake and alert with normal mental status. Cranial nerves are grossly intact. She moves her extremities normally and appropriately. She seems grossly neurologically intact. Extrem: General: Yes no pedal edema Course Course Course Narrative: This is a Rapid Medical Examination (RME) performed by Sherrell George PA-C in triage. Full HPI, ROS, assessment and treatment plan per primary provider in the Main ED. 38 yo female hx of migraine headaches, hypothyroidism, asthma, depression here for eval of constant migraine x4 years, worse x4 days. trialing all usual migraine meds without relief - Emgality, Nurtec, ibuprofen, Tylenol, ketorolac, Fioricet. follows w/ [facility] for botox which typically helps her get to her baseline. last botox was 10/2023. next apointment on 06/13/24 as her recent appointment was pushed back. no head injury/ trauma. + exam nonfocal. perrla. noted photophobia. Plan: basic labs, +/- imaging per primary provider Medications Administered Discontinued Medications Generic Name Dose Route Start Last Admin Trade Name Kingq PRN Reason Stop Dose Admin Dexamethasone Sodium Phosphate 4 mg 04/24/24 01:22 04/24/24 01:36 Dexamethasone Sod Phosphate 4 Mg/Ml Vial IVPUSH 04/24/24 01:23 4 mg ONCE ONE Administration Diphenhydramine HCl 50 mg 04/24/24 01:22 04/24/24 01:36 Diphenhydramine Hcl 50 Mg/Ml Vial IVPUSH 04/24/24 01:23 50 mg ONCE ONE Administration Ketorolac Tromethamine 15 mg 04/24/24 01:22 04/24/24 01:36 Ketorolac Tromethamine 15 Mg/Ml Vial IVPUSH 04/24/24 01:23 15 mg ONCE ONE Administration Metoclopramide HCl 10 mg 04/24/24 01:22 04/24/24 01:36 Metoclopramide Hcl 10 Mg/2 Ml Vial IVPUSH 04/24/24 01:23 10 mg ONCE ONE Administration Medical Decision Making Medical Decision Making [facility] Narrative: The patient is a 38-year-old woman with a long history of migraine headaches who presents with a prolonged headache similar to her migraines. She has missed some appointments for Botox injections which have been helpful in managing her chronic migraines. Tonight she was given IV ketorolac, metoclopramide, and diphenhydramine. She felt considerably better and was discharged. Lab Data 04/23/24 20:05 04/23/24 20:05 Labs: Lab Results 04/23/24 Range/Units 20:05 WBC 6.7 (4.8-10.8) X10*3/uL RBC 4.39 (4.20-5.50) X10*6/uL Hgb 14.0 (12.0-16.0) g/dl Hct 40.3 (37.0-47.0) % MCV 91.8 (80.0-98.0) fL MCH 31.9 (27.0-33.0) pg MCHC 34.7 (31.0-35.0) g/dl RDW 12.4 (11.0-16.0) % Plt Count 178 (160-400) X10*3/uL MPV 11.8 (9.4-12.3) fL Immature Gran % (Auto) 0.1 (0.0-0.4) % Neut % (Auto) 57.0 (45-73) % Lymph % (Auto) 32.7 (20-40) % Whiteside % (Auto) 7.0 (2-11) % Eos % (Auto) 2.5 (0-4) % Baso % (Auto) 0.7 (0-2) % Lymph # (Auto) 2.2 (1.2-4.9) X10*3/uL Whiteside # (Auto) 0.5 (0.1-1.2) X10*3/uL Eos # (Auto) 0.2 (0.0-0.4) X10*3/uL Baso # (Auto) 0.1 (0.0-0.2) X10*3/uL Abs Immat Gran (auto) 0.01 (0.00-0.03) X10*3/uL Absolute Neuts (auto) 3.8 (2.0-8.3) x10*3/uL Absolute Nucleated RBC 0.000 (0.0-0.012) X10*3/uL Nucleated RBC % (auto) 0.0 (0.0-0.2) /100WBC Sodium 143 (135-145) mmol/L Potassium 4.0 (3.3-5.1) mmol/L Chloride 110 H (96-108) mmol/L Carbon Dioxide 24 (22-29) mmol/L Anion Gap 13 (12-20) BUN 11 (9-16) mg/dL Creatinine 0.93 (0.5-1.4) mg/dL Estim Creat Clear Calc 71.6 Estimated GFR > 60 Random Glucose 121 H (60-115) mg/dL Calcium 9.6 D (8.4-10.2) mg/dL Magnesium 2.1 (1.6-2.6) mg/dL Total Bilirubin 0.3 (0.0-1.0) mg/dL AST 12 (5-31) U/L ALT 21 (0-31) U/L Alkaline Phosphatase 76 (39-117) U/L Total Protein 6.9 (6.5-8.0) g/dL Albumin 4.2 (3.5-5.0) g/dL Beta HCG, Quant < 2 mIU/mL Discharge Plan Discharge Clinical Impression: Migraine headache Patient Disposition: Home, Self-Care Additional Instructions: Please rest and take it easy tonight. I hope will you received gives you at least a brief respite from your migraines. Please follow up with your regular doctor on your regular neurology office. Return to the emergency room if worse. Prescriptions: No Action sennosides [senna] 8.6 mg tablet 2 tab PO BEDTIME Lupron Depot 3.75 mg syringe kit See Rx Instructions .ROUTE .COMPLEX Rx Instructions: 1 mg intramuscularly trazodone 50 mg tablet 2.5 tab PO BEDTIME meloxicam 7.5 mg tablet 1 tab PO DAILY magnesium oxide 400 mg (241.3 mg magnesium) tablet 1 tab PO DAILY levothyroxine 50 mcg tablet 1 tab PO QAM montelukast 10 mg tablet 1 tab PO DAILY perphenazine 8 mg tablet 1 tab PO BID cholecalciferol (vitamin D3) [Vitamin D3] 50 mcg (2,000 unit) tablet 1 tab PO DAILY prazosin 2 mg capsule 1 cap PO BEDTIME sertraline 100 mg tablet 100 mg PO DAILY 30 Days Qty: 30 0RF estradiol 0.5 mg Tablet 1 mg PO DAILY Qty: 0 0RF lorazepam 1 mg tablet 1 mg PO BID PRN (Reason: Anxiety) 15 Days Qty: 30 0RF oywqgjrdbt-eevbofvuigxfw-vpoj 50-300-40 mg capsule 1 cap PO Q8H PRN (Reason: Migraine Headache) 14 Days Qty: 14 0RF Referrals: Eleanor Toledo, QUALITY CONTROL MICROBIOLOGIST [Nurse Practitioner] - (Migraine) Interventions: ED Discharge Assessment Last Done: 04/24/24 03:10 Discharge Date/Time: 04/24/24 03:10 Print Language: Salvadorean
[2024-04-23 20:09] LABS: MANUAL DIFF FLAG NO
[2024-04-23 20:14] LABS: Basophils Absolute Auto 0.1 X10*3/uL (0.0-0.2); Basophils Percent Auto 0.7 % (0-2); Eosinophils Absolute Auto 0.2 X10*3/uL (0.0-0.4); Eosinophils Percent Auto 2.5 % (0-4); Hematocrit 40.3 % (37.0-47.0); Imm Gran Abs Auto 0.01 X10*3/uL (0.00-0.03); Imm Gran Pct Auto 0.1 % (0.0-0.4); Lymphocytes Absolute Auto 2.2 X10*3/uL (1.2-4.9); Lymphocytes Percent Auto 32.7 % (20-40); Mean Corpuscular HGB Conc 34.7 g/dl (31.0-35.0); Mean Corpuscular Hemoglobin 31.9 pg (27.0-33.0); Mean Corpuscular Volume 91.8 fL (80.0-98.0); Mean Platelet Volume 11.8 fL (9.4-12.3); Monocytes Absolute Auto 0.5 X10*3/uL (0.1-1.2); Neutrophils Absolute Auto 3.8 x10*3/uL (2.0-8.3); Platelet Count 178 X10*3/uL (160-400); Red Blood Count 4.39 X10*6/uL (4.20-5.50); Red Cell Distribution Width 12.4 % (11.0-16.0); White Blood Count 6.7 X10*3/uL (4.8-10.8)
[2024-04-23 20:53] LABS: Alanine Aminotransferase 21 U/L (0-31); Albumin Level 4.2 g/dL (3.5-5.0); Alkaline Phosphatase 76 U/L (39-117); Anion Gap 13 (12-20); Aspartate Amino Transferase 12 U/L (5-31); Bilirubin Total 0.3 mg/dL (0.0-1.0); Blood Urea Nitrogen 11 mg/dL (9-16); Calcium 9.6 mg/dL (8.4-10.2); Carbon Dioxide 24 mmol/L (22-29); Chloride 110 mmol/L (96-108); Creatinine Clr Calc Pharmacy 71.6; Estimated Glomerular Filt Rate > 60; Glucose Random 121 mg/dL (60-115); Magnesium 2.1 mg/dL (1.6-2.6); Sodium 143 mmol/L (135-145); Total Protein 6.9 g/dL (6.5-8.0)
[2024-04-23 20:55] LABS: HCG Quantitative < 2 mIU/mL
[2024-04-23 21:20] VITALS: BP 120/67; PULSE 69; RESP 18; TEMP 36.7; O2SAT 97
[2024-04-24 00:04] VITALS: BP 118/78; PULSE 61; RESP 18; O2SAT 97
[2024-04-24] MEDS: Ketorolac Tromethamine 15 MG/ML VIAL IVPUSH (01:36)
[2024-04-24] MEDS: diphenhydrAMINE HCL 50 MG/ML VIAL IVPUSH (01:36)
[2024-04-24] MEDS: dexAMETHasone sod phosphate 4 MG/ML VIAL IVPUSH (01:36)
[2024-04-24] MEDS: Metoclopramide HCl 10 MG/2 ML VIAL IVPUSH (01:36)
[2024-04-24 02:29] VITALS: BP 119/73; PULSE 61; RESP 16; TEMP 36.9; O2SAT 97
[2024-04-24 03:10] VITALS: BP 119/73; PULSE 61; RESP 16; TEMP 36.9; O2SAT 97
== END 2024-04-24 03:10 | disposition home or self-care (01) ==
PROVIDERS: Physician Assistant Medical; Emergency Provider Emergency Medicine
DX: G43.909 Migraine, unspecified, not intractable, without status migrainosus (principal); J45.909 Unspecified asthma, uncomplicated; E03.9 Hypothyroidism, unspecified; Z79.899 Other long term (current) drug therapy
CPT/HCPCS: 36415; 80053; 83735; 84702; 85025; 99283; J1100; J1200; J1885; J2765

== ENCOUNTER 2025-06-24 08:46 | Outpatient (AMB) | payer MEDICARE, MEDICAID, SELFPAY ==
--- OUTSIDE RECORDS SUMMARY | 2025-06-24 09:19 | XMS_ITS | Clinical Summary ---
Author Organization [address] [facility] Address [address] [place] [address] Phone Care Team Providers Care Real Estate Sales Supervisor Name Role Phone Eleanor Toledo STUDENT MINISTRIES DIRECTOR Primary Care Provider Allergies Active Allergy Reactions Criticality Noted Date Comments Gabapentin 03/18/2025 Pregabalin 03/18/2025 Bupropion Hcl 03/18/2025 Medications ammonium lactate (AmLactin) 12 % lotion Apply topically if needed for dry skin. 400 g 2 5 03/18/20 26 Active silver sulfADIAZINE (SSD) 1 % cream Apply topically 1 (one) time each day. 50 g 5 04/01/20 26 Active Encounters Date Type Department Care Team Description 04/01/2025 10:00 AM EDT Procedure visit Orthopedic Surgery - [place] [address] [facility] [address] [place] [id number] Israel Garibay DPM Cellulitis of right foot (Primary Dx); Ingrown right big toenail from Last 3 Months Social History Tobacco Use Types Packs/Day Years Used Date Smoking Tobacco: Never Assessed Comments Unknown Sex and Gender Information Value Date Recorded Sex Assigned at Not on file Legal Sex Female 2:49 AM EST Gender Identity Not on file Sexual Orientation Not on file Last Filed Vital Signs Vital Sign Reading Time Taken Comments Blood Pressure - - Pulse - - Temperature - - Respiratory Rate - - Oxygen Saturation - - Inhaled Oxygen Concentration - - Weight 125 kg (275 lb) 03/18/2025 9:38 AM EDT Height 175.3 cm (5' 9 ) 03/18/2025 9:38 AM EDT Body Mass Index 40.61 03/18/2025 9:38 AM EDT Plan of Treatment Health Maintenance Due Date Last Done Comments Breast Cancer Screening 1984 Hepatitis A Vaccines (1 of 2 - Risk 2-dose series) 2003 Hepatitis B Vaccines (1 of 3 - 19+ 3-dose series) 2003 Cervical Cancer Screening: P ap Smear 2005 HPV Vaccines (1 - 3-dose SCD M series) 2011 Pneumococcal Vaccine: Pediatrics (0 to 5 Years) and At-Risk Patients (6 to 49 Years) (2 of 2 - PCV) 10/17/2019 10/16/2018 Depression Screening 07/09/2024 Hepatitis C Screening 01/02/2025 Medicare Annual Wellness Visit 01/02/2025 Social Influencers of Health Screening 01/02/2025 COVID-19 Vaccine (3 - 2024-2 6 season) 2025 09/17/2020, 08/20/2020 Influenza Vaccine (#1) 2025 , 06/26/2017, 04/08/2016 Cholesterol Screening (Lipid Panel) 05/28/2025 05/28/2020, 08/14/2018, 08/14/2018 DTaP,Tdap,and Td Vaccines (3 - Td or Tdap) 10/16/2028 10/16/2018, 08/04/2004 RSV Immunization Adult Patients (1 - 1-dose 75+ series) 2059 HIV Screening Completed 08/14/2018 HIB Vaccines Aged Out No longer eligi ble based on patient's age to complete this topic IPV Vaccines Aged Out No longer eligi ble based on patient's age to complete this topic MMR Vaccines Aged Out No longer eligi ble based on patient's age to complete this topic Meningococcal ACWY Vaccine Aged Out N o longer eligible based on patient's age to complete this topic Meningococcal B Vaccine Aged Out No l onger eligible based on patient's age to complete this topic RSV Immunization Patients Under 20 months Aged Out No longer eligible b ased on patient's age to complete this topic Varicella Vaccines Aged Out No longer eligible based on patient's age to complete this topic [place] [address] [address] MEDICAID - [place] MEDICARE Care Teams Real Estate Sales Supervisor Relationship Specialty Start Date End Date Eleanor Toledo NP [address] [place] [id number] PCP - General Family Medicine 01/02/25
--- NOTE | 2025-06-24 10:50 | MHC.OFFVISWM ---
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 Allergies bupropion (From WELLBUTRIN) Allergy (Unknown, Verified 06/24/25 10:53) HIVES gluten Allergy (Verified 06/24/25 10:53) Nausea winston Allergy (Verified 06/24/25 10:53) Swelling pregabalin (From Lyrica) Adverse Reaction (Verified 06/24/25 10:53) Swelling Medication List - Last Reconciled 06/24/25 by Lui Donahue MD albuterol sulfate 90 mcg/actuation (Ventolin HFA) 2 puffs inhalation Q6H PRN qhtyfsefcd-whelhnemxyngj-hsnl 50-300-40 mg 1 cap PO Q8H PRN 14 days [calcium PO] cholecalciferol (vitamin D3) (Vitamin D3) 1 tab PO DAILY galcanezumab-gnlm (Emgality Pen) 120 mg subcut QMONTH levothyroxine 1 tab PO QAM lorazepam 1 mg PO BID PRN 15 days magnesium oxide 1 tab PO DAILY montelukast 1 tab PO DAILY perphenazine 1 tab PO BID sertraline 200 mg PO DAILY trazodone 2.5 tabs PO BEDTIME HPI 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: Details: Start time: 10.43am, End time: 11.28am ?I spent 40 minutes speaking with the patient on the phone plus an additional 5 minutes reviewing and updating records for a total of 45 minutes HPI Comments Details: Previous weight loss efforts: self diets and exercise Wakes up: 9am, Sleeps: 11pm Breakfast: 10am (bagel, cereal or oatmeal) Lunch: 12-1pm (chicken salad, nachos) Dinner: 6.30pm (pizza) Snacks: 8pm (cookies, pudding) Exercise: none Beverages: Coffee (2 cups/d loly almond milk), Tea: occasionally, Soda: rarely, Juice: rarely, ETOH: none PFSH Medical History (Updated 06/24/25 @ 11:23 by Lui Donahue MD) Insomnia Asthma Sleep apnea not treated with continuous positive airway pressure (CPAP) Sleep apnea Hypothyroidism BMI 39.0-39.9,adult Obesity Borderline personality disorder Severe recurrent major depression w/psychotic features, mood-congruent Depression Thyroid disease Borderline personality disorder Depression Surgical History (Updated 04/28/25 @ 15:03 by Pippa Mora CMA) Hx of hysterectomy Hx of colonoscopy Hx of wisdom tooth extraction Family History (Updated 04/28/25 @ 15:05 by Pippa Mora CMA) Mother Depressed Anxiety Heart problem Endometriosis Maternal Grandfather Heart problem ALS (amyotrophic lateral sclerosis) Maternal Grandmother Lymphoma Social History Household Members: Significant Other Household Members Other:: patient does not feel safe where she was living Housing: House Do you presently have visiting nurse or other home services: No Alcohol intake: unknown Patient Tobacco Use Status: Never used Tobacco Tobacco use type: Cigarette e-Cigarette/Vaping Use: Never Used Second Hand Smoke Exposure: Yes Substance Use Type: Marijuana service: No Sexual orientation: Lesbian/Wing/Homosexual Telehealth Telehealth Telehealth Platform: Telephone Location of provider rendering services: practice address Location of patient: address on file Patient Identification confirmed using: Name, : Yes Telehealth method: voice only Patient verbally consented to treatment: Yes Patient verbally consented to billing insurance company: Yes Patient informed of any privacy concerns related to visit: Yes Minutes spent on Phone/Video with Pt.: 45 Assessment & Plan Assessment & Plan (1) Obesity: Code(s): E66.9 - Obesity, unspecified Category: Medical Qualifiers: Obesity type: due to excess calories Obesity classification: adult class 2 (BMI 35 - 39.9) Serious obesity comorbidity presence: with serious comorbidity Body mass index: BMI 39.0-39.9 Qualified Code(s): E66.812 - Obesity, class 2; Z68.39 - Body mass index [BMI] 39.0-39.9, adult Plan: ?1. As we discussed, based on your present BMI you are approximately 100lbs overweight. In my opinion, for any weight loss strategy to be successful should have a high probability to help you lose at least 90lbs out of 100lbs of the extra weight you carry. ?We discussed in detail the available therapeutic options: ?1) our lifestyle intervention program that has an average weight loss of 10% in 3 months.?Some patients continue it for longer and have lost over 50lbs but this is not common. Our lifestyle program can be provided by me. I will provide you with a link to use the heidi if you choose to do so. We use protein shakes and protein bars to replace some of the meals of the day and cover your appetite better. We will decide together the exact combination ?2) Weight loss medications: these can be used in conjunction with our lifestyle program or you may choose to use them without following a lifestyle program from my program but your own. One option is the Phentermine pill which is affordable as self pay option. It is well tolerated and most common side effects include blood pressure elevation, dry mouth, difficulty sleeping and heart palpitations. However, it can raise the blood pressure and it may not be the best option at it may interfere with some of the other medications you take. It?s a temporary solution however and most patients tend to put the weight back once the medication is stopped. 3) Medicare does not cover the new weight loss shots. [facility] covers the Phentermine first and if it does not help or causes side effects, the shots as well. We also discussed that you can self pay for the weight loss injections and the cost is $249 for the first month and $499 for any other month thereafter. These payments go to the drug company directly and not to us. As we discussed, this is not a snf solution, as most patients put all the weight back once they are off the medication. There is also an option to get generic versions from compound pharmacies at cheaper rates but their efficacy and how they are manufactured is not that clear. ?4) We also discussed about the lap sleeve gastrectomy. 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 This will address the reflux as well as the frequent runs to the bathrooom you experience. ??I emphasized the importance of close follow-up, adherence to instructions and good communication. The surgery does not replace the need to change your lifestlyle which is the cause of the obesity problem. The surgery provides the motivation to try again to change your lifestyle, it reduces the appetite and make the transition to a better lifestyle easier and doubles the amount of weight you would lose compared to doing the lifestyle change without the surgery. You will need to be on a liquid diet with protein shakes for 2 weeks before surgery to maximize weight loss and boost your nutritional status to recover better from surgery and also for the first two weeks after surgery to let the stomach heal before we introduce other foods. After the first 2 weeks we will introduce protein bars and soft foods like scrambled eggs, cottage cheese and yogurt and after the 6th week will introduce meat, fish and cooked vegetables in small amounts. Over time you should be able to eat everything in small amounts. Side effects like nausea, vomiting, heartburn or abdominal pain are not common in the practice unless you are not following in the practice. This operation requires lifetime commitment to following in our practice and communication with me. You will much less weight and experience side effects if you don?t communicate or not following in the practice. Complications are rare and in our practice is about 1/10 of the national average. 5) Very Important: We do extensive research in this practice. In very recent research we did, we found that patients who did the lifestyle program without medications followed by weight loss surgery, lost twice as much as they would lose if they used the shots for the same period of time and with the two groups being completely matched in terms of demographics and starting weights. Another research study we did found that when we compared patients who did our lifestyle program without or with the weight loss shots, they lost the same weight but they did not lose any muscle mass. The patients who used the shots lost about 3% of their muscle mass in 3 months which translates to 5-15lbs of actual muscle mass depending on each patient's initial weight. That's not good because it makes you frail and weak and reduces your metabolism. In another research study we did, we found that losing 10-20% of your initial weight before the weight loss surgery, followed by surgery at the lowest possible weight, gives you a significant boost in glass technologist weight loss 6 years or more after surgery, that makes a difference in the long-term success. Preoperative weight loss is not commonly used by many practices especially at this magnitude, but it is our philosophy and makes a huge difference. Please let me know what you decide.?
[2025-06-24 11:04] VITALS: BMI 39.8
== END 2025-06-24 11:29 | disposition home or self-care (01) ==
LOC: HO.HBS 08:46
PROVIDERS: PCP Nurse Practitioner Family; Visit Provider Surgery
DX: E66.812 Obesity, class 2 (principal); Z68.39 Body mass index [BMI] 39.0-39.9, adult
CPT/HCPCS: 99204

== ENCOUNTER 2025-07-07 08:14 | Outpatient (REF) | payer MEDICARE, MEDICAID, SELFPAY ==
--- NOTE | ~2025-07-07 | XR_ITS ---
EXAMINATION: XR CHEST 2 VIEWS HISTORY: E66.01 - Morbid (severe) obesity due to excess calories COMPARISON: Comparison is made with the prior examination dated 08/14/2018. FINDINGS: PA and lateral views of the chest are submitted. There is linear scarring in the right upper lobe. The lungs are otherwise clear. There is no pleural effusion, pneumothorax, or pulmonary vascular congestion. The heart is normal in size. The bones are intact. XR/XR chest 2V IMPRESSION: No acute cardiopulmonary abnormality. Electronically signed by: Sawyer Gloria MD 07/07/2025 09:[address] [facility]
[2025-07-07 08:39] LABS: MANUAL DIFF FLAG NO
--- NOTE | 2025-07-07 08:39 | ECG_ITS ---
Test Reason : e66.01 Blood Pressure : */* mmHG Vent. Rate : 66 BPM Atrial Rate : 66 BPM P-R Int : 168 ms QRS Dur : 68 ms QT Int : 414 ms P-R-T Axes : 18 1 32 degrees QTcB Int : 434 ms Normal sinus rhythm Low voltage QRS Borderline ECG When compared with ECG of 04-Jun-2022 10:33, No significant change was found Referred By: Lui Donahue Electronically Signed By: KELLY LEONARD
[2025-07-07 08:50] LABS: Hematocrit 41.2 % (37.0-47.0); Hemoglobin 14.2 g/dl (12.0-16.0); Imm Gran Abs Auto 0.06 X10*3/uL (0.00-0.03); Imm Gran Pct Auto 0.8 % (0.0-0.4); Lymphocytes Absolute Auto 2.4 X10*3/uL (1.2-4.9); Mean Corpuscular HGB Conc 34.5 g/dl (31.0-35.0); Mean Corpuscular Hemoglobin 30.9 pg (27.0-33.0); Mean Corpuscular Volume 89.6 fL (80.0-98.0); NRBC Abs Auto 0.000 X10*3/uL (0.0-0.012); NRBC Pct Auto 0.0 /100WBC (0.0-0.2); Platelet Count 243 X10*3/uL (160-400); Red Blood Count 4.60 X10*6/uL (4.20-5.50); White Blood Count 7.3 X10*3/uL (4.8-10.8)
--- OUTSIDE RECORDS SUMMARY | 2025-07-07 09:51 | XMS_ITS | Clinical Summary ---
Author Organization [facility] Address [address] [place] [address] Phone Care Team Providers Care Neuropsychiatric Aide Name Role Phone Eleanor Toledo PV INSTALLER TECH Primary Care Provider Allergies Active Allergy Reactions Criticality Noted Date Comments Gabapentin 03/18/2025 Pregabalin 03/18/2025 Bupropion Hcl 03/18/2025 Medications ammonium lactate (AmLactin) 12 % lotion Apply topically if needed for dry skin. 400 g 2 5 03/18/20 26 Active silver sulfADIAZINE (SSD) 1 % cream Apply topically 1 (one) time each day. 50 g 5 04/01/20 26 Active Social History Tobacco Use Types Packs/Day Years [...] to complete this topic [place] [address] [place] [address] MEDICAID - [place] MEDICARE Care Teams Neuropsychiatric Aide Relationship Specialty Start Date End Date Eleanor Toledo NP [address] [place] [id number] PCP - General Family Medicine 01/02/25
[2025-07-07 10:11] LABS: Alanine Aminotransferase 107 U/L (0-31); Albumin Level 4.4 g/dL (3.5-5.0); Alkaline Phosphatase 90 U/L (39-117); Anion Gap 13 (12-20); Aspartate Amino Transferase 49 U/L (5-31); Blood Urea Nitrogen 18 mg/dL (9-16); Calcium 9.0 mg/dL (8.4-10.2); Carbon Dioxide 23 mmol/L (22-29); Chloride 108 mmol/L (96-108); Cholesterol 190 mg/dL (<200); Estimated Glomerular Filt Rate > 60; Ferritin 167 ng/mL (10-250); HDL Cholesterol 32 mg/dL (>40); Iron 51 mcg/dL (30-160); Percent Iron Saturation 20 % (15-50); Potassium 3.7 mmol/L (3.3-5.1); Sodium 140 mmol/L (135-145); Total Iron Binding Capacity 252 mcg/dL (228-428); Total Protein 7.2 g/dL (6.5-8.0); Triglycerides 137 mg/dL (<150); Unsaturated Iron Binding 201 ug/dL
[2025-07-07 10:19] LABS: Folate 5.0 ng/mL (> or = 4.0); Vitamin B12 362 pg/mL (200-900)
== END 2025-07-07 08:15 | disposition home or self-care (01) ==
LOC: HO.LAB 08:14
PROVIDERS: PCP Nurse Practitioner Family; Visit Provider Surgery
DX: Z13.1 Encounter for screening for diabetes mellitus (principal); Z13.29 Encounter for screening for other suspected endocrine disorder; Z13.0 Encounter for screening for diseases of the blood and blood-forming organs and certain disorders involving the immune mechanism; E66.01 Morbid (severe) obesity due to excess calories
CPT/HCPCS: 36415; 71046; 80053; 80061; 82306; 82607; 82728; 82746; 83036; 83525; 83540; 84425; 84443; 84590; 84630; 85025; 86140; 93005

== ENCOUNTER → 2025-07-07 08:39 | Outpatient (BNV) | payer MEDICARE, MEDICAID, SELFPAY | PROVIDERS: PCP Nurse Practitioner Family; Visit Provider Internal Medicine | DX: E66.01 Morbid (severe) obesity due to excess calories (principal); Z68.39 Body mass index [BMI] 39.0-39.9, adult | CPT/HCPCS: 93010 ==

== ENCOUNTER → 2025-07-07 08:47 | Outpatient (BNV) | payer MEDICARE, MEDICAID, SELFPAY | PROVIDERS: PCP Nurse Practitioner Family; Visit Provider Radiology Diagnostic Radiology | DX: E66.01 Morbid (severe) obesity due to excess calories (principal) | CPT/HCPCS: 71046 ==